=== PATIENT | male | born 1960 | race American Indian/Alaskan Native ===

== ENCOUNTER 2019-12-03 01:14 | Inpatient (IN) | payer MEDICARE, MEDICAID, OTHER ==
[2019-12-03] MEDS ORDERED: Albuterol/Ipratropium 3.0-0.5 MG/3 ML Neb Soln NEB ONE (01:46)
[2019-12-03] MEDS ORDERED: methylPREDNISolone Sodium Succinate 125 MG/2 ML SDV IVPUSH ONE (01:46)
[2019-12-03] MEDS: Sodium Chloride 0.9% 10 ML Syringe FLUSH PRN ×4 (01:57→17:36)
--- NOTE | 2019-12-03 02:04 | EDM.PDOC ---
ED HPI GENERAL MEDICAL PROBLEM - General Chief Complaint: Respiratory Problem Stated Complaint: HARD TIME BREATHING Time Seen by Provider: 12/03/19 01:45 Source of Information: Reports: Patient, Family, RN, RN Notes Reviewed History Limitations: Reports: No Limitations - History of Present Illness INITIAL COMMENTS - FREE TEXT/NARRATIVE: patient to ER with complaint of cough and shortness of breath. Patient states he was recently incarcerated, released from [facility] and in a [facility] house. Patient states he was given antibiotics while in the [facility] house for pneumonia , about 3 weeks ago. Patient states he has had a productive cough since that time, with having increased shortness of breath today. Patient states cough production is thick and white. Patient denies smoking. Patient is lethargic but arousable, patient and son states he took amitriptyline for sleep. Patient denies oxygen use at home. Patient denies fever or chills, nausea, vomiting, diarrhea. Patient denies any pain. Onset: Gradual - Related Data Allergies Allergy/AdvReac Type Severity Reaction Status Date / Time erythromycin base Allergy Cannot Verified 12/03/19 01:21 Remember Past Medical History Gastrointestinal History: Reports: GERD Musculoskeletal History: Reports: Arthritis, Fibromyalgia Neurological History: Reports: Neuropathy, Peripheral Dermatologic History: Reports: Psoriasis - Past Surgical History GI Surgical History: Reports: Colonoscopy Social & Family History - Family History Family Medical History: Noncontributory - Tobacco Use Smoking Status *Q: Never Smoker Second Hand Smoke Exposure: No - Caffeine Use Caffeine Use: Reports: Coffee - Recreational Drug Use Recreational Drug Use: No ED ROS GENERAL - Review of Systems Review Of Systems: Comprehensive ROS is negative, except as noted in HPI. ED EXAM, GENERAL - Physical Exam Exam: See Below Exam Limited By: No Limitations General Appearance: Lethargic, Moderate Distress Eye Exam: Bilateral Eye: EOMI, Normal Inspection Ears: Normal External Exam, Hearing Grossly Normal Nose: Normal Inspection Throat/Mouth: Normal Inspection, Normal Voice, No Airway Compromise Head: Atraumatic, Normocephalic Neck: Normal Inspection, Supple, Non-Tender, Full Range of Motion Respiratory/Chest: Decreased Breath Sounds, Crackles (throughout) Cardiovascular: Normal Peripheral Pulses, Regular Rate, Rhythm, No Edema, No Gallop, No JVD, No Murmur, No Rub Peripheral Pulses: 2+: Radial (L), Radial (R) GI/Abdominal: Normal Bowel Sounds, Soft, Non-Tender, Distended (Male) Exam: Deferred Rectal (Males) Exam: Deferred Back Exam: Normal Inspection, Full Range of Motion, NT Extremities: Normal Inspection, Normal Range of Motion, Non-Tender, Normal Capillary Refill, No Pedal Edema Neurological: Alert, Oriented, CN II-XII Intact, Normal Cognition, Normal Gait, Normal Reflexes, No Motor/Sensory Deficits, Other (patient is very lethargic, states he took amitriptylinebefore bed for sleep) Psychiatric: Normal Affect, Normal Mood Skin Exam: Warm, Dry, Intact, Normal Color, No Rash Lymphatic: No Adenopathy Course - Vital Signs Last Recorded V/S: Last Vital Signs Temp 98.8 F 12/03/19 01:24 Pulse 106 H 12/03/19 01:24 Resp 24 H 12/03/19 01:24 BP 129/78 12/03/19 01:24 Pulse Ox 95 12/03/19 01:24 - Orders/Labs/Meds Orders: Active Orders 24 hr Category Date Time Status Admission Diagnosis [ADT] Stat ADT 12/03/19 03:42 Ordered Patient Status [ADT] Routine ADT 12/03/19 03:42 Active Peripheral IV Care [RC] . DIRECTED Care 12/03/19 01:34 Active RT Aerosol Therapy [RC] ASDIRECTED Care 12/03/19 01:48 Active Chest 1V Frontal [CR] Stat Exams 12/03/19 01:34 Taken CULTURE BLOOD [BC] Stat Lab 12/03/19 01:33 Results CULTURE BLOOD [BC] Stat Lab 12/03/19 01:37 Received CULTURE URINE [RM] Stat Lab 12/03/19 02:17 Received Sodium Chloride 0.9% [Saline Flush] Med 12/03/19 01:32 Active 10 ml FLUSH ASDIRECTED PRN Blood Culture x2 Reflex Set [OM.PC] Stat Oth 12/03/19 01:34 Ordered Peripheral IV Insertion Adult [OM.PC] Stat Oth 12/03/19 01:32 Ordered Medication Orders Sodium Chloride (Saline Flush) 10 ml FLUSH ASDIRECTED PRN PRN Reason: Keep Vein Open Last Admin: 12/03/19 01:57 Dose: 10 ml Labs: Laboratory Tests 12/03/19 12/03/19 12/03/19 Range/Units 01:37 01:37 01:37 WBC 10.0 (5.0-10.0) 10^3/uL RBC 4.76 (4.6-6.2) 10^6/uL Hgb 14.7 (14.0-18.0) g/dL Hct 42.7 (40.0-54.0) % MCV 89.7 (80-100) fL MCH 30.9 (27.0-34.0) pg MCHC 34.4 (33.0-35.0) g/dL Plt Count 233 (150-450) 10^3/uL Neut % (Auto) 68.8 (42.2-75.2) % Lymph % (Auto) 18.1 L (20.5-50.1) % Hamilton % (Auto) 9.2 H (2-8) % Eos % (Auto) 3.3 H (1.0-3.0) % Baso % (Auto) 0.6 (0.0-1.0) % ABG pH (7.35-7.45) ABG pCO2 (35-45) mmHg ABG pO2 (70-100) mmHg ABG HCO3 (22-26) mmol/L ABG O2 Saturation (95-100) % ABG Base Excess ((-2)-(+3)) mmol/L Joss Test O2 Delivery Device Oxygen Flow Rate Sodium 137 (135-145) mmol/L Potassium 3.5 L (3.6-5.0) mmol/L Chloride 102 (101-111) mmol/L Carbon Dioxide 26.0 (21.0-31.0) mmol/L Anion Gap 12.5 BUN 17 (7-18) mg/dL Creatinine 1.1 (0.6-1.3) mg/dL Est Cr Clr Drug Dosing 70.82 mL/min Estimated GFR (MDRD) > 60 BUN/Creatinine Ratio 15.45 Glucose 237 H (74-105) mg/dL Lactic Acid 2.4 H* (0.5-2.0) mmol/L Calcium 9.0 (8.4-10.2) mg/dl Total Bilirubin 0.6 (0.2-1.0) mg/dL AST 28 (10-42) IU/L ALT 28 (10-60) IU/L Alkaline Phosphatase 95 (42-121) IU/L B-Natriuretic Peptide < 5 (0-100) pg/ml Total Protein 7.1 (6.7-8.2) g/dl Albumin 3.8 (3.2-5.5) g/dl Globulin 3.3 Albumin/Globulin Ratio 1.15 Urine Color (YELLOW) Urine Appearance (CLEAR) Urine pH (5.0-9.0) Ur Specific [place] (1.005-1.030) Urine Protein (NEGATIVE) Urine Glucose (UA) (NEGATIVE) Urine Ketones (NEGATIVE) Urine Occult Blood (NEGATIVE) Urine Nitrite (NEGATIVE) Urine Bilirubin (NEGATIVE) Urine Urobilinogen (0.2-1.0) mg/dL Ur Leukocyte Esterase (NEGATIVE) Urine RBC /HPF Urine WBC (0-5/HPF) /HPF Ur Epithelial Cells (NOT SEEN) /HPF Amorphous Sediment (NOT SEEN) /HPF Urine Bacteria (0-FEW/HPF) /HPF Urine Mucus (NOT SEEN) /LPF Urine Opiates Screen (NEGATIVE) Ur Oxycodone Screen (NEGATIVE) Urine Methadone Screen (NEGATIVE) Ur Barbiturates Screen (NEGATIVE) U Tricyclic Antidepress (NEGATIVE) Ur Phencyclidine Scrn (NEGATIVE) Ur Amphetamine Screen (NEGATIVE) U Methamphetamines Scrn (NEGATIVE) Urine MDMA Screen (NEGATIVE) U Benzodiazepines Scrn (NEGATIVE) Urine Cocaine Screen (NEGATIVE) U Marijuana (THC) Screen (NEGATIVE) Ethyl Alcohol mg/dL 12/03/19 12/03/19 12/03/19 Range/Units 01:37 02:17 02:17 WBC (5.0-10.0) 10^3/uL RBC (4.6-6.2) 10^6/uL Hgb (14.0-18.0) g/dL Hct (40.0-54.0) % MCV (80-100) fL MCH (27.0-34.0) pg MCHC (33.0-35.0) g/dL Plt Count (150-450) 10^3/uL Neut % (Auto) (42.2-75.2) % Lymph % (Auto) (20.5-50.1) % Hamilton % (Auto) (2-8) % Eos % (Auto) (1.0-3.0) % Baso % (Auto) (0.0-1.0) % ABG pH (7.35-7.45) ABG pCO2 (35-45) mmHg ABG pO2 (70-100) mmHg ABG HCO3 (22-26) mmol/L ABG O2 Saturation (95-100) % ABG Base Excess ((-2)-(+3)) mmol/L Joss Test O2 Delivery Device Oxygen Flow Rate Sodium (135-145) mmol/L Potassium (3.6-5.0) mmol/L Chloride (101-111) mmol/L Carbon Dioxide (21.0-31.0) mmol/L Anion Gap BUN (7-18) mg/dL Creatinine (0.6-1.3) mg/dL Est Cr Clr Drug Dosing mL/min Estimated GFR (MDRD) BUN/Creatinine Ratio Glucose (74-105) mg/dL Lactic Acid (0.5-2.0) mmol/L Calcium (8.4-10.2) mg/dl Total Bilirubin (0.2-1.0) mg/dL AST (10-42) IU/L ALT (10-60) IU/L Alkaline Phosphatase (42-121) IU/L B-Natriuretic Peptide (0-100) pg/ml Total Protein (6.7-8.2) g/dl Albumin (3.2-5.5) g/dl Globulin Albumin/Globulin Ratio Urine Color Yellow (YELLOW) Urine Appearance Slightly cloudy (CLEAR) Urine pH 5.5 (5.0-9.0) Ur Specific [place] 1.025 (1.005-1.030) Urine Protein Trace H (NEGATIVE) Urine Glucose (UA) Negative (NEGATIVE) Urine Ketones Negative (NEGATIVE) Urine Occult Blood Negative (NEGATIVE) Urine Nitrite Negative (NEGATIVE) Urine Bilirubin Negative (NEGATIVE) Urine Urobilinogen 1.0 (0.2-1.0) mg/dL Ur Leukocyte Esterase Trace H (NEGATIVE) Urine RBC 0-5 /HPF Urine WBC 10-20 H (0-5/HPF) /HPF Ur Epithelial Cells Few (NOT SEEN) /HPF Amorphous Sediment Few (NOT SEEN) /HPF Urine Bacteria Rare (0-FEW/HPF) /HPF Urine Mucus Moderate H (NOT SEEN) /LPF Urine Opiates Screen Negative (NEGATIVE) Ur Oxycodone Screen Negative (NEGATIVE) Urine Methadone Screen Negative (NEGATIVE) Ur Barbiturates Screen Negative (NEGATIVE) U Tricyclic Antidepress Positive H (NEGATIVE) Ur Phencyclidine Scrn Negative (NEGATIVE) Ur Amphetamine Screen Negative (NEGATIVE) U Methamphetamines Scrn Negative (NEGATIVE) Urine MDMA Screen Negative (NEGATIVE) U Benzodiazepines Scrn Negative (NEGATIVE) Urine Cocaine Screen Negative (NEGATIVE) U Marijuana (THC) Screen Negative (NEGATIVE) Ethyl Alcohol < 5 mg/dL 12/03/19 Range/Units 03:30 WBC (5.0-10.0) 10^3/uL RBC (4.6-6.2) 10^6/uL Hgb (14.0-18.0) g/dL Hct (40.0-54.0) % MCV (80-100) fL MCH (27.0-34.0) pg MCHC (33.0-35.0) g/dL Plt Count (150-450) 10^3/uL Neut % (Auto) (42.2-75.2) % Lymph % (Auto) (20.5-50.1) % [place] % (Auto) (2-8) % Eos % (Auto) (1.0-3.0) % Baso % (Auto) (0.0-1.0) % ABG pH 7.34 L (7.35-7.45) ABG pCO2 50 H (35-45) mmHg ABG pO2 70 (70-100) mmHg ABG HCO3 26.2 H (22-26) mmol/L ABG O2 Saturation 89 L (95-100) % ABG Base Excess 0 ((-2)-(+3)) mmol/L Joss Test pos O2 Delivery Device Nasal cannula Oxygen Flow Rate 2 Sodium (135-145) mmol/L Potassium (3.6-5.0) mmol/L Chloride (101-111) mmol/L Carbon Dioxide (21.0-31.0) mmol/L Anion Gap BUN (7-18) mg/dL Creatinine (0.6-1.3) mg/dL Est Cr Clr Drug Dosing mL/min Estimated GFR (MDRD) BUN/Creatinine Ratio Glucose (74-105) mg/dL Lactic Acid (0.5-2.0) mmol/L Calcium (8.4-10.2) mg/dl Total Bilirubin (0.2-1.0) mg/dL AST (10-42) IU/L ALT (10-60) IU/L Alkaline Phosphatase (42-121) IU/L B-Natriuretic Peptide (0-100) pg/ml Total Protein (6.7-8.2) g/dl Albumin (3.2-5.5) g/dl Globulin Albumin/Globulin Ratio Urine Color (YELLOW) Urine Appearance (CLEAR) Urine pH (5.0-9.0) Ur Specific [place] (1.005-1.030) Urine Protein (NEGATIVE) Urine Glucose (UA) (NEGATIVE) Urine Ketones (NEGATIVE) Urine Occult Blood (NEGATIVE) Urine Nitrite (NEGATIVE) Urine Bilirubin (NEGATIVE) Urine Urobilinogen (0.2-1.0) mg/dL Ur Leukocyte Esterase (NEGATIVE) Urine RBC /HPF Urine WBC (0-5/HPF) /HPF Ur Epithelial Cells (NOT SEEN) /HPF Amorphous Sediment (NOT SEEN) /HPF Urine Bacteria (0-FEW/HPF) /HPF Urine Mucus (NOT SEEN) /LPF Urine Opiates Screen (NEGATIVE) Ur Oxycodone Screen (NEGATIVE) Urine Methadone Screen (NEGATIVE) Ur Barbiturates Screen (NEGATIVE) U Tricyclic Antidepress (NEGATIVE) Ur Phencyclidine Scrn (NEGATIVE) Ur Amphetamine Screen (NEGATIVE) U Methamphetamines Scrn (NEGATIVE) Urine MDMA Screen (NEGATIVE) U Benzodiazepines Scrn (NEGATIVE) Urine Cocaine Screen (NEGATIVE) U Marijuana (THC) Screen (NEGATIVE) Ethyl Alcohol mg/dL influenza A: Negative Influenza B: Negative Meds: Medications Generic Name Dose Route Start Last Admin Trade Name Freq PRN Reason Stop Dose Admin Sodium Chloride 10 ml 12/03/19 01:32 12/03/19 01:57 Saline Flush FLUSH 10 ml ASDIRECTED PRN Administration Keep Vein Open Discontinued Medications Generic Name Dose Route Start Last Admin Trade Name Freq PRN Reason Stop Dose Admin Albuterol/Ipratropium 3 ml 12/03/19 01:46 12/03/19 01:56 Duoneb 3.0-0.5 Mg/3 Ml NEB 12/03/19 01:47 3 ml ONETIME ONE Administration Ceftriaxone Sodium 1 gm/ 50 mls @ 50 mls/hr 12/03/19 02:34 Sodium Chloride IV 12/03/19 03:33 ONETIME ONE Methylprednisolone Sodium Succinate 125 mg 12/03/19 01:46 12/03/19 01:56 Solu-Medrol IVPUSH 02/06/20 01:47 125 mg ONETIME ONE Administration - Radiology Interpretation Free Text/Narrative:: chest x-ray: FINDINGS: Lungs: Subsegmental atelectasis in the left lung base new since the prior study. Pleural space: Unremarkable. No pleural effusion. No pneumothorax. Heart/Mediastinum: Unremarkable. No cardiomegaly. Bones/joints: Unremarkable. IMPRESSION: New area of subsegmental atelectasis in the left lung base Thank you for allowing us to participate in the care of your patient. Dictated and Authenticated by: Caop Holbrook MD 12/03/2019 2:30 AM Central Time ([place] & [place]) See radiologist's report - Re-Assessments/Exams Free Text/Narrative Re-Assessment/Exam: 12/03/19 03:47 Discussed patient case with Dr. Hamilton who agreed to accept the patient for observation. Departure - Departure Time of Disposition: 03:48 Disposition: Refer to Observation Condition: Fair Clinical Impression: Pneumonia Qualifiers: Pneumonia type: due to unspecified organism Laterality: left Lung location: lower lobe of lung Qualified Code(s): J18.9 - Pneumonia, unspecified organism - Discharge Information *PRESCRIPTION DRUG MONITORING PROGRAM REVIEWED*: No *COPY OF PRESCRIPTION DRUG MONITORING REPORT IN PATIENT JLUIS: No Forms: ED Department Discharge Sepsis Event Note - Evaluation Sepsis Screening Result: No Definite Risk - Focused Exam Vital Signs: Vital Signs Temp Pulse Resp BP Pulse Ox Pulse Ox 12/03/19 01:24 98.8 F 106 H 24 H 129/78 88 L 95 Date Exam was Performed: 12/03/19 Time Exam was Performed: 03:47 - My Orders Last 24 Hours: My Active Orders 12/03/19 01:32 Sodium Chloride 0.9% [Saline Flush] 10 ml FLUSH ASDIRECTED PRN Peripheral IV Insertion Adult [OM.PC] Stat 12/03/19 01:33 CULTURE BLOOD [BC] Stat 12/03/19 01:34 Peripheral IV Care [RC] . DIRECTED Chest 1V Frontal [CR] Stat Blood Culture x2 Reflex Set [OM.PC] Stat 12/03/19 01:37 CULTURE BLOOD [BC] Stat 12/03/19 01:48 RT Aerosol Therapy [RC] ASDIRECTED 12/03/19 02:17 CULTURE URINE [RM] Stat 12/03/19 03:42 Admission Diagnosis [ADT] Stat Patient Status [ADT] Routine - Assessment/Plan Last 24 Hours: My Active Orders 12/03/19 01:32 Sodium Chloride 0.9% [Saline Flush] 10 ml FLUSH ASDIRECTED PRN Peripheral IV Insertion Adult [OM.PC] Stat 12/03/19 01:33 CULTURE BLOOD [BC] Stat 12/03/19 01:34 Peripheral IV Care [RC] . DIRECTED Chest 1V Frontal [CR] Stat Blood Culture x2 Reflex Set [OM.PC] Stat 12/03/19 01:37 CULTURE BLOOD [BC] Stat 12/03/19 01:48 RT Aerosol Therapy [RC] ASDIRECTED 12/03/19 02:17 CULTURE URINE [RM] Stat 12/03/19 03:42 Admission Diagnosis [ADT] Stat Patient Status [ADT] Routine
[2019-12-03 02:06] LABS: ANION GAP 12.5; CHLORIDE,CL 102 mmol/L (101-111); SODIUM,NA 137 mmol/L (135-145)
[2019-12-03] MEDS ORDERED: cefTRIAXone 1 GM in Sodium Chloride 0.9% 50 ML IV ONE (02:34)
[2019-12-03 03:37] LABS: BASE EXCESS ARTERIAL 0 mmol/L ((-2)-(+3)); BICARBONATE,ARTERIAL 26.2 mmol/L (22-26); O2 DELIVERY DEVICE NASAL CANNULA; O2 SATURATION ARTERIAL 89 % (95-100); PCO2 ARTERIAL 50 mmHg (35-45); PO2 ARTERIAL 70 mmHg (70-100)
[2019-12-03 03:40] LABS: ALLEN TEST pos; O2 FLOW RATE 2
--- NOTE | 2019-12-03 04:11 | PCM.HP ---
H&P History of Present Illness - General Date of Service: 12/03/19 Admit Problem/Dx: Admission Diagnosis/Problem Admission Diagnosis/Problem Pneumonia Source of Information: Patient, Family History Limitations: Reports: No Limitations - History of Present Illness Initial Comments - Free Text/Narative: Mr. Young is a 59-year-old male with past medical history significant for remote alcohol abuse who presented to the hospital for shortness of breath. Patient was recently diagnosed with pneumonia approximately 3 weeks ago. Patient left residential recently, and is in a assisted house. He was brought to the emergency room for further care. Patient and son provided history. Apparently patient did well after the initial treatment course, and was doing developed until 2 to 3 days ago when he started feeling not well again. Patient spent all day yesterday in bed sleeping. He also reported chills and night sweats, but he said that he never takes his temperature. He was brought into the emergency room for further care. In the ED, his white count was normal. Lactate was elevated at 2.4. Chest x-ray showed possible left lower lobe infiltrate, no evidence of pleural effusion. ABG showed pH of 7.34, PCO2 50, PO2 89 on 2 L nasal cannula. He was given breathing treatments, Solu-Medrol, ceftriaxone was brought in for further care. Patient was sleepy because he took amitriptyline last night. - Related Data Allergies/Adverse Reactions: Allergies Allergy/AdvReac Type Severity Reaction Status Date / Time erythromycin base Allergy Cannot Verified 12/03/19 03:59 Remember Past Medical History Gastrointestinal History: Reports: GERD Musculoskeletal History: Reports: Arthritis, Fibromyalgia Neurological History: Reports: Neuropathy, Peripheral Dermatologic History: Reports: Psoriasis - Past Surgical History GI Surgical History: Reports: Colonoscopy Social & Family History - Family History Family Medical History: Noncontributory - Tobacco Use Smoking Status *Q: Never Smoker Second Hand Smoke Exposure: No - Caffeine Use Caffeine Use: Reports: Coffee - Recreational Drug Use Recreational Drug Use: No H&P Review of Systems - Review of Systems: Review Of Systems: See Below General: Reports: Chills, Weakness Pulmonary: Reports: Wheezing, Cough Cardiovascular: Reports: No Symptoms Gastrointestinal: Reports: No Symptoms Genitourinary: Reports: No Symptoms Musculoskeletal: Reports: No Symptoms Exam - Exam Exam: See Below - Vital Signs Vital Signs: Last Vital Signs Temp 37.1 C 12/03/19 01:24 Pulse 106 H 12/03/19 01:24 Resp 24 H 12/03/19 01:24 BP 129/78 12/03/19 01:24 Pulse Ox 95 12/03/19 01:24 Weight: 131.542 kg - Exam General: Alert, Oriented, Cooperative HEENT: Conjunctiva Clear Lungs: Decreased Breath Sounds, Wheezing Cardiovascular: Regular Rate, Regular Rhythm GI/Abdominal Exam: Normal Bowel Sounds, Soft, Non-Tender Extremities: Normal Inspection, No Pedal Edema Skin: Warm, Dry, Intact Neuro Extensive - Mental Status: Alert, Oriented x3 Psychiatric: Alert, Normal Affect, Normal Mood - Patient Data Lab Results Last 24 hrs: Laboratory Results - last 24 hr 12/03/19 12/03/19 12/03/19 Range/Units 01:37 01:37 01:37 WBC 10.0 (5.0-10.0) 10^3/uL RBC 4.76 (4.6-6.2) 10^6/uL Hgb 14.7 (14.0-18.0) g/dL Hct 42.7 (40.0-54.0) % MCV 89.7 (80-100) fL MCH 30.9 (27.0-34.0) pg MCHC 34.4 (33.0-35.0) g/dL Plt Count 233 (150-450) 10^3/uL Neut % (Auto) 68.8 (42.2-75.2) % Lymph % (Auto) 18.1 L (20.5-50.1) % [place] % (Auto) 9.2 H (2-8) % Eos % (Auto) 3.3 H (1.0-3.0) % Baso % (Auto) 0.6 (0.0-1.0) % ABG pH (7.35-7.45) ABG pCO2 (35-45) mmHg ABG pO2 (70-100) mmHg ABG HCO3 (22-26) mmol/L ABG O2 Saturation (95-100) % ABG Base Excess ((-2)-(+3)) mmol/L Joss Test O2 Delivery Device Oxygen Flow Rate Sodium 137 (135-145) mmol/L Potassium 3.5 L (3.6-5.0) mmol/L Chloride 102 (101-111) mmol/L Carbon Dioxide 26.0 (21.0-31.0) mmol/L Anion Gap 12.5 BUN 17 (7-18) mg/dL Creatinine 1.1 (0.6-1.3) mg/dL Est Cr Clr Drug Dosing 70.82 mL/min Estimated GFR (MDRD) > 60 BUN/Creatinine Ratio 15.45 Glucose 237 H (74-105) mg/dL Lactic Acid 2.4 H* (0.5-2.0) mmol/L Calcium 9.0 (8.4-10.2) mg/dl Total Bilirubin 0.6 (0.2-1.0) mg/dL AST 28 (10-42) IU/L ALT 28 (10-60) IU/L Alkaline Phosphatase 95 (42-121) IU/L B-Natriuretic Peptide < 5 (0-100) pg/ml Total Protein 7.1 (6.7-8.2) g/dl Albumin 3.8 (3.2-5.5) g/dl Globulin 3.3 Albumin/Globulin Ratio 1.15 Urine Color (YELLOW) Urine Appearance (CLEAR) Urine pH (5.0-9.0) Ur Specific [place] (1.005-1.030) Urine Protein (NEGATIVE) Urine Glucose (UA) (NEGATIVE) Urine Ketones (NEGATIVE) Urine Occult Blood (NEGATIVE) Urine Nitrite (NEGATIVE) Urine Bilirubin (NEGATIVE) Urine Urobilinogen (0.2-1.0) mg/dL Ur Leukocyte Esterase (NEGATIVE) Urine RBC /HPF Urine WBC (0-5/HPF) /HPF Ur Epithelial Cells (NOT SEEN) /HPF Amorphous Sediment (NOT SEEN) /HPF Urine Bacteria (0-FEW/HPF) /HPF Urine Mucus (NOT SEEN) /LPF Urine Opiates Screen (NEGATIVE) Ur Oxycodone Screen (NEGATIVE) Urine Methadone Screen (NEGATIVE) Ur Barbiturates Screen (NEGATIVE) U Tricyclic Antidepress (NEGATIVE) Ur Phencyclidine Scrn (NEGATIVE) Ur Amphetamine Screen (NEGATIVE) U Methamphetamines Scrn (NEGATIVE) Urine MDMA Screen (NEGATIVE) U Benzodiazepines Scrn (NEGATIVE) Urine Cocaine Screen (NEGATIVE) U Marijuana (THC) Screen (NEGATIVE) Ethyl Alcohol mg/dL 12/03/19 12/03/19 12/03/19 Range/Units 01:37 02:17 02:17 WBC (5.0-10.0) 10^3/uL RBC (4.6-6.2) 10^6/uL Hgb (14.0-18.0) g/dL Hct (40.0-54.0) % MCV (80-100) fL MCH (27.0-34.0) pg MCHC (33.0-35.0) g/dL Plt Count (150-450) 10^3/uL Neut % (Auto) (42.2-75.2) % Lymph % (Auto) (20.5-50.1) % [place] % (Auto) (2-8) % Eos % (Auto) (1.0-3.0) % Baso % (Auto) (0.0-1.0) % ABG pH (7.35-7.45) ABG pCO2 (35-45) mmHg ABG pO2 (70-100) mmHg ABG HCO3 (22-26) mmol/L ABG O2 Saturation (95-100) % ABG Base Excess ((-2)-(+3)) mmol/L Joss Test O2 Delivery Device Oxygen Flow Rate Sodium (135-145) mmol/L Potassium (3.6-5.0) mmol/L Chloride (101-111) mmol/L Carbon Dioxide (21.0-31.0) mmol/L Anion Gap BUN (7-18) mg/dL Creatinine (0.6-1.3) mg/dL Est Cr Clr Drug Dosing mL/min Estimated GFR (MDRD) BUN/Creatinine Ratio Glucose (74-105) mg/dL Lactic Acid (0.5-2.0) mmol/L Calcium (8.4-10.2) mg/dl Total Bilirubin (0.2-1.0) mg/dL AST (10-42) IU/L ALT (10-60) IU/L Alkaline Phosphatase (42-121) IU/L B-Natriuretic Peptide (0-100) pg/ml Total Protein (6.7-8.2) g/dl Albumin (3.2-5.5) g/dl Globulin Albumin/Globulin Ratio Urine Color Yellow (YELLOW) Urine Appearance Slightly cloudy (CLEAR) Urine pH 5.5 (5.0-9.0) Ur Specific [place] 1.025 (1.005-1.030) Urine Protein Trace H (NEGATIVE) Urine Glucose (UA) Negative (NEGATIVE) Urine Ketones Negative (NEGATIVE) Urine Occult Blood Negative (NEGATIVE) Urine Nitrite Negative (NEGATIVE) Urine Bilirubin Negative (NEGATIVE) Urine Urobilinogen 1.0 (0.2-1.0) mg/dL Ur Leukocyte Esterase Trace H (NEGATIVE) Urine RBC 0-5 /HPF Urine WBC 10-20 H (0-5/HPF) /HPF Ur Epithelial Cells Few (NOT SEEN) /HPF Amorphous Sediment Few (NOT SEEN) /HPF Urine Bacteria Rare (0-FEW/HPF) /HPF Urine Mucus Moderate H (NOT SEEN) /LPF Urine Opiates Screen Negative (NEGATIVE) Ur Oxycodone Screen Negative (NEGATIVE) Urine Methadone Screen Negative (NEGATIVE) Ur Barbiturates Screen Negative (NEGATIVE) U Tricyclic Antidepress Positive H (NEGATIVE) Ur Phencyclidine Scrn Negative (NEGATIVE) Ur Amphetamine Screen Negative (NEGATIVE) U Methamphetamines Scrn Negative (NEGATIVE) Urine MDMA Screen Negative (NEGATIVE) U Benzodiazepines Scrn Negative (NEGATIVE) Urine Cocaine Screen Negative (NEGATIVE) U Marijuana (THC) Screen Negative (NEGATIVE) Ethyl Alcohol < 5 mg/dL 12/03/19 Range/Units 03:30 WBC (5.0-10.0) 10^3/uL RBC (4.6-6.2) 10^6/uL Hgb (14.0-18.0) g/dL Hct (40.0-54.0) % MCV (80-100) fL MCH (27.0-34.0) pg MCHC (33.0-35.0) g/dL Plt Count (150-450) 10^3/uL Neut % (Auto) (42.2-75.2) % Lymph % (Auto) (20.5-50.1) % [place] % (Auto) (2-8) % Eos % (Auto) (1.0-3.0) % Baso % (Auto) (0.0-1.0) % ABG pH 7.34 L (7.35-7.45) ABG pCO2 50 H (35-45) mmHg ABG pO2 70 (70-100) mmHg ABG HCO3 26.2 H (22-26) mmol/L ABG O2 Saturation 89 L (95-100) % ABG Base Excess 0 ((-2)-(+3)) mmol/L Joss Test pos O2 Delivery Device Nasal cannula Oxygen Flow Rate 2 Sodium (135-145) mmol/L Potassium (3.6-5.0) mmol/L Chloride (101-111) mmol/L Carbon Dioxide (21.0-31.0) mmol/L Anion Gap BUN (7-18) mg/dL Creatinine (0.6-1.3) mg/dL Est Cr Clr Drug Dosing mL/min Estimated GFR (MDRD) BUN/Creatinine Ratio Glucose (74-105) mg/dL Lactic Acid (0.5-2.0) mmol/L Calcium (8.4-10.2) mg/dl Total Bilirubin (0.2-1.0) mg/dL AST (10-42) IU/L ALT (10-60) IU/L Alkaline Phosphatase (42-121) IU/L B-Natriuretic Peptide (0-100) pg/ml Total Protein (6.7-8.2) g/dl Albumin (3.2-5.5) g/dl Globulin Albumin/Globulin Ratio Urine Color (YELLOW) Urine Appearance (CLEAR) Urine pH (5.0-9.0) Ur Specific [place] (1.005-1.030) Urine Protein (NEGATIVE) Urine Glucose (UA) (NEGATIVE) Urine Ketones (NEGATIVE) Urine Occult Blood (NEGATIVE) Urine Nitrite (NEGATIVE) Urine Bilirubin (NEGATIVE) Urine Urobilinogen (0.2-1.0) mg/dL Ur Leukocyte Esterase (NEGATIVE) Urine RBC /HPF Urine WBC (0-5/HPF) /HPF Ur Epithelial Cells (NOT SEEN) /HPF Amorphous Sediment (NOT SEEN) /HPF Urine Bacteria (0-FEW/HPF) /HPF Urine Mucus (NOT SEEN) /LPF Urine Opiates Screen (NEGATIVE) Ur Oxycodone Screen (NEGATIVE) Urine Methadone Screen (NEGATIVE) Ur Barbiturates Screen (NEGATIVE) U Tricyclic Antidepress (NEGATIVE) Ur Phencyclidine Scrn (NEGATIVE) Ur Amphetamine Screen (NEGATIVE) U Methamphetamines Scrn (NEGATIVE) Urine MDMA Screen (NEGATIVE) U Benzodiazepines Scrn (NEGATIVE) Urine Cocaine Screen (NEGATIVE) U Marijuana (THC) Screen (NEGATIVE) Ethyl Alcohol mg/dL Result Diagrams: 12/03/19 01:37 12/03/19 01:37 [place] Results Last 24 hrs: Microbiology 12/03/19 02:35 Influenza Type A Antigen Screen - Final Nasal, Unspecified NEGATIVE INFLUENZA A VIRUS AG REFERENCE RANGE: NEGATIVE Influenza Type B Antigen Screen - Final NEGATIVE INFLUENZA B VIRUS AG REFERENCE RANGE: NEGATIVE 12/03/19 01:33 Anaerobic Blood Culture - Final Blood - Venous Problem List Initiated/Reviewed/Updated: Yes Orders Last 24hrs: Active Orders 24 hr Category Date Time Status Admission Diagnosis [ADT] Stat ADT 12/03/19 03:42 Ordered Patient Status [ADT] Routine ADT 12/03/19 03:42 Active Patient Status [ADT] Routine ADT 12/03/19 03:56 Ordered Intake and Output [RC] QSHIFT Care 12/03/19 03:57 Ordered Oxygen Therapy [RC] PRN Care 12/03/19 03:56 Ordered Oxygen Therapy [RC] PRN Care 12/03/19 03:59 Ordered Peripheral IV Care [RC] . DIRECTED Care 12/03/19 01:34 Active RT Aerosol Therapy [RC] ASDIRECTED Care 12/03/19 01:48 Active RT Aerosol Therapy [RC] ASDIRECTED Care 12/03/19 03:58 Ordered Up With Assistance [RC] ASDIRECTED Care 12/03/19 03:56 Ordered VTE/DVT Education [RC] PER UNIT ROUTINE Care 12/03/19 03:56 Ordered VTE/DVT Education [RC] PER UNIT ROUTINE Care 12/03/19 03:59 Ordered Vital Signs [RC] Q4H Care 12/03/19 03:56 Ordered Vital Signs [RC] Q4H Care 12/03/19 03:59 Ordered Consistent Carbohydrate Diet [DIET] Diet 12/03/19 Breakfast Ordered Chest 1V Frontal [CR] Stat Exams 12/03/19 01:34 Taken BASIC METABOLIC PANEL,BMP [CHEM] AM Lab 12/03/19 05:11 Ordered BASIC METABOLIC PANEL,BMP [CHEM] AM Lab 12/04/19 05:11 Ordered BASIC METABOLIC PANEL,BMP [CHEM] AM Lab 12/05/19 05:11 Ordered CBC WITH AUTO DIFF [HEME] AM Lab 12/03/19 05:11 Ordered CBC WITH AUTO DIFF [HEME] AM Lab 12/04/19 05:11 Ordered CBC WITH AUTO DIFF [HEME] AM Lab 12/05/19 05:11 Ordered CULTURE BLOOD [BC] Stat Lab 12/03/19 01:33 Results CULTURE BLOOD [BC] Stat Lab 12/03/19 01:37 Received CULTURE URINE [RM] Stat Lab 12/03/19 02:17 Received MAGNESIUM [CHEM] AM Lab 12/03/19 05:11 Ordered MAGNESIUM [CHEM] AM Lab 12/04/19 05:11 Ordered MAGNESIUM [CHEM] AM Lab 12/05/19 05:11 Ordered MRSA BY PCR [RM] Routine Lab 12/03/19 04:06 Ordered STREP PNEUMONIAE ANTIGEN [MREF] Routine Lab 12/03/19 04:05 Ordered Acetaminophen [Tylenol] Med 12/03/19 03:56 Ordered 650 mg PO Q4H PRN Albuterol/Ipratropium [DuoNeb 3.0-0.5 MG/3 ML] Med 12/03/19 04:00 Ordered 3 ml NEB Q4H Heparin Sodium Med 12/03/19 06:00 Ordered 5,000 units SUBCUT Q8HR Piperacillin/Tazobactam [Zosyn] 3.375 gm Med 12/03/19 04:00 Ordered Sodium Chloride 0.9% [Normal Saline] 100 ml IV Q6H Sodium Chloride 0.9% [Saline Flush] Med 12/03/19 01:32 Active 10 ml FLUSH ASDIRECTED PRN methylPREDNISolone Sod Succ [Solu-MEDROL] Med 12/03/19 04:15 Ordered 40 mg IVPUSH Q8H Blood Culture x2 Reflex Set [OM.PC] Stat Oth 12/03/19 01:34 Ordered Peripheral IV Insertion Adult [OM.PC] Stat Oth 12/03/19 01:32 Ordered Resuscitation Status Routine Resus Stat 12/03/19 03:56 Ordered Medication Orders Acetaminophen (Tylenol) 650 mg PO Q4H PRN PRN Reason: Pain (Mild 1-3)/fever Albuterol/Ipratropium (Duoneb 3.0-0.5 Mg/3 Ml) 3 ml NEB Q4H [place] Heparin Sodium (Porcine) (Heparin Sodium) 5,000 units SUBCUT Q8HR [place] Piperacillin Sod/Tazobactam (Sod 3.375 gm/ Sodium Chloride) 100 mls @ 200 mls/ hr IV Q6H [place] Methylprednisolone Sodium Succinate (Solu-Medrol) 40 mg IVPUSH Q8H [place] Sodium Chloride (Saline Flush) 10 ml FLUSH ASDIRECTED PRN PRN Reason: Keep Vein Open Last Admin: 12/03/19 01:57 Dose: 10 ml Assessment/Plan Comment:: Acute hypoxic respiratory failure due to community-acquired pneumonia Patient failed outpatient therapy Please call to oxygen Start patient on IV Solu-Medrol, check strep pneumo antigen, MRSA swab Start patient on Zosyn Start patient on nebulizers Elevated glucose Patient likely has undiagnosed type 2 diabetes We will check hemoglobin A1c Depression Amitriptyline DVT prophylaxis Heparin
[2019-12-03] MEDS: Albuterol/Ipratropium 3.0-0.5 MG/3 ML Neb Soln NEB SCH ×5 (04:26→19:32)
[2019-12-03] MEDS: Piperacillin/Tazobactam 3.375 GM in Sodium Chloride 0.9% 100 ML IV SCH ×3 (04:52→17:36)
[2019-12-03] MEDS: Heparin Sodium 5,000 Units/ML Vial SUBCUT SCH ×4 (06:20→21:42)
[2019-12-03 06:55] LABS: ANION GAP 14.1; CHLORIDE,CL 101 mmol/L (101-111); SODIUM,NA 137 mmol/L (135-145)
[2019-12-03] MEDS ORDERED: Magnesium Sulfate/Water 2 GM in Premix Bag 1 BAG IV ONE ×2 (10:00→12:00)
[2019-12-03] MEDS: Gabapentin 300 MG Cap PO SCH ×3 (11:41→21:39)
[2019-12-03] MEDS: Aspirin 81 MG Tab.Chew PO SCH (11:42)
[2019-12-03] MEDS: Benzonatate 100 MG Cap PO PRN ×2 (11:42→21:40)
[2019-12-03] MEDS: methylPREDNISolone Sodium Succinate 40 MG/1 ML SDV IVPUSH SCH ×2 (11:42→17:32)
[2019-12-03] MEDS: Allopurinol 100 MG Tab PO SCH ×2 (11:42→21:38)
[2019-12-03] MEDS: Insulin Lispro 100 Units/ML 3 ML Vial SUBCUT SCH ×3 (12:09→21:41)
[2019-12-03] MEDS: Acetaminophen 325 MG Tab PO PRN ×2 (17:36→21:40)
[2019-12-03] MEDS: busPIRone 5 MG Tab PO SCH (21:38)
[2019-12-03] MEDS: Amitriptyline 25 MG Tab PO SCH (21:39)
[2019-12-03] MEDS: atorvaSTATin 20 MG Tab PO SCH (21:40)
[2019-12-04] MEDS: Piperacillin/Tazobactam 3.375 GM in Sodium Chloride 0.9% 100 ML IV SCH ×4 (00:08→17:51)
[2019-12-04] MEDS: Albuterol/Ipratropium 3.0-0.5 MG/3 ML Neb Soln NEB SCH ×6 (00:09→20:46)
[2019-12-04] MEDS: methylPREDNISolone Sodium Succinate 40 MG/1 ML SDV IVPUSH SCH ×3 (03:17→17:51)
[2019-12-04] MEDS: Heparin Sodium 5,000 Units/ML Vial SUBCUT SCH ×4 (06:10→22:06)
[2019-12-04] MEDS: Omeprazole 20 MG Cap.CR PO SCH (06:10)
[2019-12-04 06:52] LABS: ANION GAP 13.3; CHLORIDE,CL 102 mmol/L (101-111); SODIUM,NA 135 mmol/L (135-145)
[2019-12-04] MEDS: Insulin Lispro 100 Units/ML 3 ML Vial SUBCUT SCH ×4 (08:49→20:43)
[2019-12-04] MEDS: Allopurinol 100 MG Tab PO SCH ×2 (08:51→20:48)
[2019-12-04] MEDS: Aspirin 81 MG Tab.Chew PO SCH (08:51)
[2019-12-04] MEDS: busPIRone 5 MG Tab PO SCH ×2 (08:51→20:47)
[2019-12-04] MEDS: Gabapentin 300 MG Cap PO SCH ×3 (08:52→20:48)
[2019-12-04] MEDS: Sodium Chloride 0.9% 10 ML Syringe FLUSH PRN ×6 (08:52→18:45)
[2019-12-04] MEDS: Carboxymethylcellulose Sodium 1% Ophth Gel 0.4 ML UD EYEBOTH PRN (13:24)
--- NOTE | 2019-12-04 15:16 | PCM.PN ---
- General Info Date of Service: 12/04/19 Admission Dx/Problem (Free Text): Admission Diagnosis/Problem Admission Diagnosis/Problem Pneumonia Subjective Update: Patient is feeling better. He continues to require supplemental oxygen. He denies any nausea, vomiting, chest pain, change in bowel habits or urinary habits. Discussed with patient the need for outpatient sleep study given reported history of apneic episodes during the night, and patient body habitus. - Review of Systems General: Reports: No Symptoms Pulmonary: Reports: No Symptoms Cardiovascular: Reports: No Symptoms Gastrointestinal: Reports: No Symptoms Genitourinary: Reports: No Symptoms Musculoskeletal: Reports: Back Pain Neurological: Reports: No Symptoms Psychiatric: Reports: No Symptoms - Patient Data Vitals - Most Recent: Last Vital Signs Temp 36.6 C 12/04/19 12:00 Pulse 84 12/04/19 12:01 Resp 20 12/04/19 12:00 BP 118/70 12/04/19 12:00 Pulse Ox 92 L 12/04/19 12:00 Weight - Most Recent: 131.542 kg I&O - Last 24 Hours: Intake & Output 12/04/19 12/04/19 12/04/19 06:59 14:59 22:59 Intake Total 790 572 Output Total 1300 Balance -510 572 Lab Results Last 24 Hours: Laboratory Results - last 24 hr 12/03/19 12/03/19 12/03/19 Range/Units 01:37 16:56 20:59 WBC (5.0-10.0) 10^3/uL RBC (4.6-6.2) 10^6/uL Hgb (14.0-18.0) g/dL Hct (40.0-54.0) % MCV (80-100) fL MCH (27.0-34.0) pg MCHC (33.0-35.0) g/dL Plt Count (150-450) 10^3/uL Neut % (Auto) (42.2-75.2) % Lymph % (Auto) (20.5-50.1) % [place] % (Auto) (2-8) % Eos % (Auto) (1.0-3.0) % Baso % (Auto) (0.0-1.0) % Sodium (135-145) mmol/L Potassium (3.6-5.0) mmol/L Chloride (101-111) mmol/L Carbon Dioxide (21.0-31.0) mmol/L Anion Gap BUN (7-18) mg/dL Creatinine (0.6-1.3) mg/dL Est Cr Clr Drug Dosing mL/min Estimated GFR (MDRD) Glucose (74-105) mg/dL POC Glucose 286 H 289 H (70-105) mg/dl Estimat Average Glucose 180 mg/dl Hemoglobin A1c 7.9 H (4.4-6.3) % Calcium (8.4-10.2) mg/dl Magnesium (1.8-2.5) mg/dL 12/04/19 12/04/19 12/04/19 Range/Units 05:55 05:55 07:06 WBC 19.1 H (5.0-10.0) 10^3/uL RBC 4.42 L (4.6-6.2) 10^6/uL Hgb 13.6 L (14.0-18.0) g/dL Hct 40.3 (40.0-54.0) % MCV 91.2 (80-100) fL MCH 30.8 (27.0-34.0) pg MCHC 33.7 (33.0-35.0) g/dL Plt Count 205 (150-450) 10^3/uL Neut % (Auto) 90.8 H (42.2-75.2) % Lymph % (Auto) 4.6 L (20.5-50.1) % [place] % (Auto) 4.1 (2-8) % Eos % (Auto) 0.2 L (1.0-3.0) % Baso % (Auto) 0.3 (0.0-1.0) % Sodium 135 (135-145) mmol/L Potassium 4.3 (3.6-5.0) mmol/L Chloride 102 (101-111) mmol/L Carbon Dioxide 24.0 (21.0-31.0) mmol/L Anion Gap 13.3 BUN 22 H (7-18) mg/dL Creatinine 1.1 (0.6-1.3) mg/dL Est Cr Clr Drug Dosing 75.58 mL/min Estimated GFR (MDRD) > 60 Glucose 286 H (74-105) mg/dL POC Glucose 248 H (70-105) mg/dl Estimat Average Glucose mg/dl Hemoglobin A1c (4.4-6.3) % Calcium 8.4 (8.4-10.2) mg/dl Magnesium 2.2 (1.8-2.5) mg/dL 12/04/19 Range/Units 12:02 WBC (5.0-10.0) 10^3/uL RBC (4.6-6.2) 10^6/uL Hgb (14.0-18.0) g/dL Hct (40.0-54.0) % MCV (80-100) fL MCH (27.0-34.0) pg MCHC (33.0-35.0) g/dL Plt Count (150-450) 10^3/uL Neut % (Auto) (42.2-75.2) % Lymph % (Auto) (20.5-50.1) % [place] % (Auto) (2-8) % Eos % (Auto) (1.0-3.0) % Baso % (Auto) (0.0-1.0) % Sodium (135-145) mmol/L Potassium (3.6-5.0) mmol/L Chloride (101-111) mmol/L Carbon Dioxide (21.0-31.0) mmol/L Anion Gap BUN (7-18) mg/dL Creatinine (0.6-1.3) mg/dL Est Cr Clr Drug Dosing mL/min Estimated GFR (MDRD) Glucose (74-105) mg/dL POC Glucose 231 H (70-105) mg/dl Estimat Average Glucose mg/dl Hemoglobin A1c (4.4-6.3) % Calcium (8.4-10.2) mg/dl Magnesium (1.8-2.5) mg/dL [place] Results Last 24 Hours: Microbiology 12/03/19 02:17 Urine Culture - Preliminary Urine, Voided 12/03/19 02:17 Streptococcus pneumoniae Antigen (M - Final Urine 12/03/19 01:33 Aerobic Blood Culture - Preliminary Blood - Venous NO GROWTH AFTER 1 DAY Anaerobic Blood Culture - Final 12/03/19 01:37 Aerobic Blood Culture - Preliminary Blood - Venous - Lab Draw NO GROWTH AFTER 1 DAY Anaerobic Blood Culture - Preliminary NO GROWTH AFTER 1 DAY Med Orders - Current: Current Medications Acetaminophen (Tylenol) 650 mg PO Q4H PRN PRN Reason: Pain (Mild 1-3)/fever Last Admin: 12/03/19 21:40 Dose: 650 mg Albuterol/Ipratropium (Duoneb 3.0-0.5 Mg/3 Ml) 3 ml NEB Q4H [facility] Last Admin: 12/04/19 12:01 Dose: 3 ml Allopurinol (Zyloprim) 100 mg PO BID [facility] Last Admin: 12/04/19 08:51 Dose: 100 mg Amitriptyline HCl (Elavil) 200 mg PO BEDTIME [facility] Last Admin: 12/03/19 21:39 Dose: 200 mg Artificial Tears (Refresh Celluvisc) 1 each EYEBOTH ASDIRECTED PRN PRN Reason: Dry Eyes Last Admin: 12/04/19 13:24 Dose: 1 each Aspirin (Aspirin) 81 mg PO DAILY [facility] Last Admin: 12/04/19 08:51 Dose: 81 mg Atorvastatin Calcium (Lipitor) 20 mg PO BEDTIME [facility] Last Admin: 12/03/19 21:40 Dose: 20 mg Benzonatate (Tessalon Perles) 100 mg PO QID PRN PRN Reason: Cough Last Admin: 12/03/19 21:40 Dose: 100 mg Buspirone HCl (Buspar) 15 mg PO BID [facility] Last Admin: 12/04/19 08:51 Dose: 15 mg Gabapentin (Neurontin) 600 mg PO TID [facility] Last Admin: 12/04/19 15:11 Dose: 600 mg Heparin Sodium (Porcine) (Heparin Sodium) 5,000 units SUBCUT Q8HR [facility] Last Admin: 12/04/19 15:12 Dose: 5,000 units Piperacillin Sod/Tazobactam (Sod 3.375 gm/ Sodium Chloride) 100 mls @ 200 mls/ hr IV Q6H [facility] Last Infusion: 12/04/19 13:18 Dose: Infused Insulin Human Lispro (Humalog) 0 unit SUBCUT WITHMEALSANDBED [facility]; Protocol Last Admin: 12/04/19 12:42 Dose: 6 units Methylprednisolone Sodium Succinate (Solu-Medrol) 40 mg IVPUSH Q8H [facility] Last Admin: 12/04/19 10:02 Dose: 40 mg Omeprazole (Omeprazole) 40 mg PO ACBRK [facility] Last Admin: 12/04/19 06:10 Dose: 40 mg Pneumococcal Polyvalent Vaccine (Pneumovax 23) 0.5 ml SUBCUT .ONCE ONE Stop: 12/05/19 21:01 Sodium Chloride (Saline Flush) 10 ml FLUSH ASDIRECTED PRN PRN Reason: Keep Vein Open Last Admin: 12/04/19 13:19 Dose: 10 ml Discontinued Medications Albuterol/Ipratropium (Duoneb 3.0-0.5 Mg/3 Ml) 3 ml NEB ONETIME ONE Stop: 12/03/19 01:47 Last Admin: 12/03/19 01:56 Dose: 3 ml Ceftriaxone Sodium 1 gm/ (Sodium Chloride) 50 mls @ 50 mls/hr IV ONETIME ONE Stop: 12/03/19 03:33 Last Admin: 12/03/19 04:28 Dose: 50 mls/hr Piperacillin Sod/Tazobactam (Sod 3.375 gm/ Sodium Chloride) 100 mls @ 200 mls/ hr IV Q6H [place] Last Admin: 12/03/19 11:02 Dose: 200 mls/hr Magnesium Sulfate 2 gm/ Premix 50 mls @ 25 mls/hr IV ONETIME ONE Stop: 12/03/19 13:59 Last Infusion: 12/03/19 16:38 Dose: Infused Methylprednisolone Sodium Succinate (Solu-Medrol) 125 mg IVPUSH ONETIME ONE Stop: 12/03/19 01:47 Last Admin: 12/03/19 01:56 Dose: 125 mg - Exam General: Alert, Oriented Lungs: Clear to Auscultation, Normal Respiratory Effort Cardiovascular: Regular Rate, Regular Rhythm GI/Abdominal Exam: Normal Bowel Sounds, Soft, Non-Tender Extremities: No Pedal Edema, Other (Venous stasis changes of bilateral lower extremity) Skin: Warm, Dry, Intact Neurological: No New Focal Deficit Psy/Mental Status: Alert, Normal Affect, Normal Mood Sepsis Event Note - Evaluation Sepsis Screening Result: Sepsis Risk - Focused Exam Vital Signs: Vital Signs Temp Pulse Resp BP BP Pulse Ox Pulse Ox 12/04/19 12:01 84 12/04/19 12:00 36.6 C 114 H 20 118/70 92 L 12/04/19 08:00 100 17 129/78 93 L 12/04/19 07:26 102 H 12/04/19 04:00 36.9 C 99 18 133/85 96 12/04/19 03:56 96 Date Exam was Performed: 12/04/19 Time Exam was Performed: 15:16 - Problem List Review Problem List Initiated/Reviewed/Updated: Yes - My Orders Last 24 Hours: My Active Orders 12/03/19 18:00 Piperacillin/Tazobactam [Zosyn] 3.375 gm Sodium Chloride 0.9% [Normal Saline] 100 ml IV Q6H 12/03/19 21:00 Amitriptyline [Elavil] 200 mg PO BEDTIME atorvaSTATin [Lipitor] 20 mg PO BEDTIME busPIRone [Buspar] 15 mg PO BID 12/04/19 06:00 Omeprazole 40 mg PO ACBRK 12/04/19 07:11 Blood Glucose Check, Bedside [RC] QIDACANDBED 12/04/19 11:08 Carboxymethylcellulose Sodium [Refresh Celluvisc] 1 each EYEBOTH ASDIRECTED PRN 12/04/19 11:11 IS (RT) [RT Incentive Spirometry] [RC] ASDIRECTED 12/05/19 05:11 BASIC METABOLIC PANEL,BMP [CHEM] AM CBC WITH AUTO DIFF [HEME] AM MAGNESIUM [CHEM] AM 12/05/19 21:00 Pneumococcal Polyvalent-23 Vac [Pneumovax 23] 0.5 ml SUBCUT .ONCE ONE - Plan Plan:: Acute hypoxic respiratory failure due to community-acquired pneumonia Patient failed outpatient therapy Please call to oxygen Continue current management Awaiting final infectious work-up Elevated glucose Patient likely has undiagnosed type 2 diabetes Hemoglobin A1c was 7.9 will start patient on oral hypoglycemics on discharge continue SSI Depression Amitriptyline DVT prophylaxis Heparin
[2019-12-04] MEDS: Amitriptyline 25 MG Tab PO SCH (20:46)
[2019-12-04] MEDS: atorvaSTATin 20 MG Tab PO SCH (20:48)
[2019-12-05] MEDS: Piperacillin/Tazobactam 3.375 GM in Sodium Chloride 0.9% 100 ML IV SCH ×3 (00:10→12:15)
[2019-12-05] MEDS: Albuterol/Ipratropium 3.0-0.5 MG/3 ML Neb Soln NEB SCH ×4 (00:11→11:34)
[2019-12-05] MEDS: methylPREDNISolone Sodium Succinate 40 MG/1 ML SDV IVPUSH SCH (02:38)
[2019-12-05] MEDS: Omeprazole 20 MG Cap.CR PO SCH (06:14)
[2019-12-05] MEDS: Heparin Sodium 5,000 Units/ML Vial SUBCUT SCH ×2 (06:15→14:35)
[2019-12-05 06:43] LABS: ANION GAP 14.3; CHLORIDE,CL 103 mmol/L (101-111); SODIUM,NA 136 mmol/L (135-145)
[2019-12-05] MEDS: Sodium Chloride 0.9% 10 ML Syringe FLUSH PRN (06:59)
[2019-12-05] MEDS: Insulin Lispro 100 Units/ML 3 ML Vial SUBCUT SCH ×2 (08:44→12:24)
[2019-12-05] MEDS: Aspirin 81 MG Tab.Chew PO SCH (08:47)
[2019-12-05] MEDS: busPIRone 5 MG Tab PO SCH (08:48)
[2019-12-05] MEDS: Gabapentin 300 MG Cap PO SCH ×2 (08:48→14:35)
[2019-12-05] MEDS: Acetaminophen 325 MG Tab PO PRN (08:49)
[2019-12-05] MEDS: Allopurinol 100 MG Tab PO SCH (08:49)
[2019-12-05] MEDS: Carboxymethylcellulose Sodium 1% Ophth Gel 0.4 ML UD EYEBOTH PRN (08:50)
--- NOTE | 2019-12-05 10:26 | PCM.DCSUM1 ---
Discharge Summary - Hospital Course Free Text/Narrative:: Mr. Young is a 59-year-old male with past medical history significant for remote alcohol abuse who presented to the hospital for shortness of breath. Patient was recently diagnosed with pneumonia approximately 3 weeks ago. Patient left residential recently, and is in a [facility]. He was brought to the emergency room for further care. CXR showed left lower lobe pneumonia. He also had acute hypoxic respiratory failure on admission that later resolved. Patient improved, and was later discharged in stable condition. Outpatient sleep study was recommended as patient has witnessed apneic episodes by son, and also has body habitus concerning for underlying sleep apnea. - Discharge Data Discharge Date: 12/05/19 Discharge Disposition: Home, Self-Care 01 Condition: Stable - Referral to Home Health Primary Care Physician: PCP None - Discharge Plan *PRESCRIPTION DRUG MONITORING PROGRAM REVIEWED*: No *COPY OF PRESCRIPTION DRUG MONITORING REPORT IN PATIENT JLUIS: No Prescriptions/Med Rec: Amoxicillin/Clavulanate K [Augmentin 875-125 MG] 1 tab PO BID #10 tablet Benzonatate [Tessalon Perle] 100 mg PO TID PRN #30 capsule PRN Reason: Cough Home Medications: Home Meds Amitriptyline HCl 200 mg PO BEDTIME 12/03/19 [History] Aspirin 81 mg PO DAILY 12/03/19 [History] Cyclobenzaprine [Flexeril] 10 mg PO TID PRN 12/03/19 [History] Gabapentin [Neurontin] 600 mg PO TID 12/03/19 [History] Omeprazole 40 mg PO DAILY 12/03/19 [History] allopurinoL [Zyloprim] 100 mg PO BID 12/03/19 [History] atorvaSTATin [Lipitor] 20 mg PO BEDTIME 12/03/19 [History] busPIRone [Buspar] 15 mg PO BID 12/03/19 [History] Amoxicillin/Clavulanate K [Augmentin 875-125 MG] 1 tab PO BID #10 tablet [Rx] Benzonatate [Tessalon Perle] 100 mg PO TID PRN #30 capsule 12/05/19 [Rx] Patient Handouts: Amoxicillin; Clavulanic Acid tablets, Community-Acquired Pneumonia, Adult, Benzonatate capsules Referrals: PCP,Unobtain [Ordering Only Provider] - - Discharge Summary/Plan Comment DC Time >30 min.: Yes - General Info Date of Service: 12/05/19 Admission Dx/Problem (Free Text: Admission Diagnosis/Problem Admission Diagnosis/Problem Pneumonia Subjective Update: Patient feels well. He denies any complaints. - Review of Systems General: Reports: No Symptoms Pulmonary: Reports: No Symptoms Cardiovascular: Reports: No Symptoms Gastrointestinal: Reports: No Symptoms Genitourinary: Reports: No Symptoms - Patient Data Vitals - Most Recent: Last Vital Signs Temp 36.4 C 12/05/19 08:31 Pulse 93 12/05/19 08:00 Resp 27 H 12/05/19 08:00 BP 144/87 H 12/05/19 08:00 Pulse Ox 94 L 12/05/19 08:00 Weight - Most Recent: 131.542 kg I&O - Last 24 hours: Intake & Output 12/04/19 12/05/19 12/05/19 22:59 06:59 14:59 Intake Total 1755 645 Output Total 750 1000 Balance 1005 -355 Lab Results - Last 24 hrs: Laboratory Results - last 24 hr 12/04/19 12/04/19 12/04/19 Range/Units 12:02 16:49 20:36 WBC (5.0-10.0) 10^3/uL RBC (4.6-6.2) 10^6/uL Hgb (14.0-18.0) g/dL Hct (40.0-54.0) % MCV (80-100) fL MCH (27.0-34.0) pg MCHC (33.0-35.0) g/dL Plt Count (150-450) 10^3/uL Neut % (Auto) (42.2-75.2) % Lymph % (Auto) (20.5-50.1) % [place] % (Auto) (2-8) % Eos % (Auto) (1.0-3.0) % Baso % (Auto) (0.0-1.0) % Add Manual Diff Neutrophils % (Manual) (42-75) % Band Neutrophils % % Lymphocytes % (Manual) (20-50) % Monocytes % (Manual) (2-8) % Sodium (135-145) mmol/L Potassium (3.6-5.0) mmol/L Chloride (101-111) mmol/L Carbon Dioxide (21.0-31.0) mmol/L Anion Gap BUN (7-18) mg/dL Creatinine (0.6-1.3) mg/dL Est Cr Clr Drug Dosing mL/min Estimated GFR (MDRD) Glucose (74-105) mg/dL POC Glucose 231 H 234 H 232 H (70-105) mg/dl Calcium (8.4-10.2) mg/dl Magnesium (1.8-2.5) mg/dL 12/05/19 12/05/19 12/05/19 Range/Units 05:25 05:25 07:39 WBC 16.8 H (5.0-10.0) 10^3/uL RBC 4.56 L (4.6-6.2) 10^6/uL Hgb 14.0 (14.0-18.0) g/dL Hct 42.0 (40.0-54.0) % MCV 92.1 (80-100) fL MCH 30.7 (27.0-34.0) pg MCHC 33.3 (33.0-35.0) g/dL Plt Count 237 (150-450) 10^3/uL Neut % (Auto) 89.6 H (42.2-75.2) % Lymph % (Auto) 5.6 L (20.5-50.1) % [place] % (Auto) 4.6 (2-8) % Eos % (Auto) 0.0 L (1.0-3.0) % Baso % (Auto) 0.2 (0.0-1.0) % Add Manual Diff Yes Neutrophils % (Manual) 89 H (42-75) % Band Neutrophils % 4 % Lymphocytes % (Manual) 4 L (20-50) % Monocytes % (Manual) 3 (2-8) % Sodium 136 (135-145) mmol/L Potassium 4.3 (3.6-5.0) mmol/L Chloride 103 (101-111) mmol/L Carbon Dioxide 23.0 (21.0-31.0) mmol/L Anion Gap 14.3 BUN 25 H (7-18) mg/dL Creatinine 1.1 (0.6-1.3) mg/dL Est Cr Clr Drug Dosing 75.58 mL/min Estimated GFR (MDRD) > 60 Glucose 282 H (74-105) mg/dL POC Glucose 233 H (70-105) mg/dl Calcium 8.4 (8.4-10.2) mg/dl Magnesium 2.2 (1.8-2.5) mg/dL AYANA Results - Last 24 hrs: Microbiology 12/03/19 02:17 Urine Culture - Final Urine, Voided Serratia Marcescens Streptococcus Agalactiae Grp B 12/03/19 01:33 Aerobic Blood Culture - Preliminary Blood - Venous NO GROWTH AFTER 2 DAYS Anaerobic Blood Culture - Final 12/03/19 01:37 Aerobic Blood Culture - Preliminary Blood - Venous - Lab Draw NO GROWTH AFTER 2 DAYS Anaerobic Blood Culture - Preliminary NO GROWTH AFTER 2 DAYS 12/03/19 02:17 Streptococcus pneumoniae Antigen (M - Final Urine Med Orders - Current: Current Medications Acetaminophen (Tylenol) 650 mg PO Q4H PRN PRN Reason: Pain (Mild 1-3)/fever Last Admin: 12/05/19 08:49 Dose: 650 mg Albuterol/Ipratropium (Duoneb 3.0-0.5 Mg/3 Ml) 3 ml NEB Q4H [facility] Last Admin: 12/05/19 07:33 Dose: 3 ml Allopurinol (Zyloprim) 100 mg PO BID [facility] Last Admin: 12/05/19 08:49 Dose: 100 mg Amitriptyline HCl (Elavil) 200 mg PO BEDTIME [facility] Last Admin: 12/04/19 20:46 Dose: 200 mg Artificial Tears (Refresh Celluvisc) 1 each EYEBOTH ASDIRECTED PRN PRN Reason: Dry Eyes Last Admin: 12/05/19 08:50 Dose: 1 each Aspirin (Aspirin) 81 mg PO DAILY [facility] Last Admin: 12/05/19 08:47 Dose: 81 mg Atorvastatin Calcium (Lipitor) 20 mg PO BEDTIME [facility] Last Admin: 12/04/19 20:48 Dose: 20 mg Benzonatate (Tessalon Perles) 100 mg PO QID PRN PRN Reason: Cough Last Admin: 12/03/19 21:40 Dose: 100 mg Buspirone HCl (Buspar) 15 mg PO BID [facility] Last Admin: 12/05/19 08:48 Dose: 15 mg Gabapentin (Neurontin) 600 mg PO TID [facility] Last Admin: 12/05/19 08:48 Dose: 600 mg Heparin Sodium (Porcine) (Heparin Sodium) 5,000 units SUBCUT Q8HR [facility] Last Admin: 12/05/19 06:15 Dose: 5,000 units Piperacillin Sod/Tazobactam (Sod 3.375 gm/ Sodium Chloride) 100 mls @ 200 mls/ hr IV Q6H [facility] Last Infusion: 12/05/19 06:58 Dose: Infused Insulin Human Lispro (Humalog) 0 unit SUBCUT WITHMEALSANDBED [facility]; Protocol Last Admin: 12/05/19 08:44 Dose: 6 units Omeprazole (Omeprazole) 40 mg PO ACBRK [facility] Last Admin: 12/05/19 06:14 Dose: 40 mg Pneumococcal Polyvalent Vaccine (Pneumovax 23) 0.5 ml SUBCUT .ONCE ONE Stop: 12/05/19 21:01 Sodium Chloride (Saline Flush) 10 ml FLUSH ASDIRECTED PRN PRN Reason: Keep Vein Open Last Admin: 12/05/19 06:59 Dose: 10 ml Discontinued Medications Albuterol/Ipratropium (Duoneb 3.0-0.5 Mg/3 Ml) 3 ml NEB ONETIME ONE Stop: 12/03/19 01:47 Last Admin: 12/03/19 01:56 Dose: 3 ml Ceftriaxone Sodium 1 gm/ (Sodium Chloride) 50 mls @ 50 mls/hr IV ONETIME ONE Stop: 12/03/19 03:33 Last Admin: 12/03/19 04:28 Dose: 50 mls/hr Piperacillin Sod/Tazobactam (Sod 3.375 gm/ Sodium Chloride) 100 mls @ 200 mls/ hr IV Q6H [facility] Last Admin: 12/03/19 11:02 Dose: 200 mls/hr Magnesium Sulfate 2 gm/ Premix 50 mls @ 25 mls/hr IV ONETIME ONE Stop: 12/03/19 13:59 Last Infusion: 12/03/19 16:38 Dose: Infused Methylprednisolone Sodium Succinate (Solu-Medrol) 125 mg IVPUSH ONETIME ONE Stop: 12/03/19 01:47 Last Admin: 12/03/19 01:56 Dose: 125 mg Methylprednisolone Sodium Succinate (Solu-Medrol) 40 mg IVPUSH Q8H [facility] Last Admin: 12/05/19 02:38 Dose: 40 mg - Exam General: Reports: Alert, Oriented Lungs: Reports: Clear to Auscultation, Normal Respiratory Effort Cardiovascular: Reports: Regular Rate, Regular Rhythm GI/Abdominal Exam: Normal Bowel Sounds, Soft, Non-Tender, No Organomegaly Skin: Reports: Warm, Dry, Intact Neurological: Reports: No New Focal Deficit Psy/Mental Status: Reports: Alert, Normal Affect, Normal Mood
[2019-12-05] MEDS ORDERED: Amoxicillin/Clavulanate K 875-125 MG Tab ONE (12:09)
[2019-12-05] MEDS ORDERED: Amoxicillin/Clavulanate K 875-125 MG Tab PO ONE (13:04)
[2019-12-05] MEDS ORDERED: Pneumococcal Polyvalent-23 Vaccine 0.5 ML SDV SUBCUT ONE (21:00)
== END 2019-12-05 13:05 | disposition home or self-care (01) | DRG 193 ==
LOC: DL.ED 01:14 → DL.MS 03:42 → OBSVTOIN 03:56
PROVIDERS: ADMIT Internal Medicine; ATTEND Internal Medicine
DX: J18.9 Pneumonia, unspecified organism (principal); J96.01 Acute respiratory failure with hypoxia; F32.9 Major depressive disorder, single episode, unspecified; G47.30 Sleep apnea, unspecified; K21.9 Gastro-esophageal reflux disease without esophagitis; M79.7 Fibromyalgia; G62.9 Polyneuropathy, unspecified; L40.9 Psoriasis, unspecified; M19.90 Unspecified osteoarthritis, unspecified site; Z79.82 Long term (current) use of aspirin; Z79.899 Other long term (current) drug therapy; Z88.1 Allergy status to other antibiotic agents
CPT/HCPCS: 36415; 36600; 71045; 80053; 80305; 81001; 82803; 83036; 83605; 83880; 85025; 87040 ×2; 87086; 87088 ×2; 87186 ×2; 87804 ×2; 87899; 94640; G0480; J2930; 80048; 82962; 83735; 96374; 96375; 99284; 99285-25; A9270-GY; J0696; J1644; J1815; J2543; J2920; J3475; J7050; J7620-GY

== ENCOUNTER 2020-01-01 15:28 | Inpatient (IN) | payer MEDICARE, MEDICAID ==
[2020-01-01] MEDS ORDERED: Sodium Chloride 0.9% 10 ML Syringe FLUSH PRN ×3 (15:43→17:48)
[2020-01-01] MEDS ORDERED: methylPREDNISolone Sodium Succinate 125 MG/2 ML SDV IVPUSH ONE (15:44)
[2020-01-01] MEDS ORDERED: Albuterol/Ipratropium 3.0-0.5 MG/3 ML Neb Soln NEB ONE (15:44)
[2020-01-01 16:28] LABS: ANION GAP 13.8; CHLORIDE,CL 101 mmol/L (101-111); SODIUM,NA 137 mmol/L (135-145)
[2020-01-01] MEDS ORDERED: Sodium Chloride 0.9% 1,000 ML IV ONE (16:29)
--- NOTE | 2020-01-01 16:41 | EDM.PDOC ---
ED HPI GENERAL MEDICAL PROBLEM - General Chief Complaint: Respiratory Problem Stated Complaint: AMBULANCE Time Seen by Provider: 01/01/20 16:00 Source of Information: Reports: Patient, Old Records, RN, RN Notes Reviewed History Limitations: Reports: No Limitations - History of Present Illness INITIAL COMMENTS - FREE TEXT/NARRATIVE: Pt sent from [facility] via [facility] by Sonia Ch NP with report that pt presented to clinic with c/o fever, chills, cough, shortness of breath, and was found to have a LLL infiltrate on chest x-ray, and WBC 24,400 with oxygen saturations in the 80s. Pt states he was never sick [facility] in [facility] the [facility] 13 years, but he got out this year and has been diagnosed with pneumonia in 2019, 2019, and today. Pt denies history of smoking, asthma, TB, CHF, or cardiac disease. Onset: Unknown/Unsure Duration: Recurring Location: Reports: Chest Severity: Moderate Improves with: Reports: None Worsens with: Reports: None Associated Symptoms: Reports: No Other Symptoms Treatments PLACEMENT COORDINATOR: Reports: Other Medication(s) - Related Data Allergies Allergy/AdvReac Type Severity Reaction Status Date / Time erythromycin base Allergy Cannot Verified 12/03/19 03:59 Remember Home Meds: Home Meds Amitriptyline HCl 200 mg PO BEDTIME 12/03/19 [History] Aspirin 81 mg PO DAILY 12/03/19 [History] Cyclobenzaprine [Flexeril] 10 mg PO TID PRN 12/03/19 [History] Gabapentin [Neurontin] 600 mg PO TID 12/03/19 [History] Omeprazole 40 mg PO DAILY 12/03/19 [History] allopurinoL [Zyloprim] 100 mg PO BID 12/03/19 [History] atorvaSTATin [Lipitor] 20 mg PO BEDTIME 12/03/19 [History] busPIRone [Buspar] 15 mg PO BID 12/03/19 [History] Amoxicillin/Clavulanate K [Augmentin 875-125 MG] 1 tab PO BID #10 tablet [Rx] Benzonatate [Tessalon Perle] 100 mg PO TID PRN #30 capsule 12/05/19 [Rx] Past Medical History Respiratory History: Reports: Pneumonia, Recurrent Gastrointestinal History: Reports: GERD Musculoskeletal History: Reports: Arthritis, Fibromyalgia Neurological History: Reports: Neuropathy, Peripheral Endocrine/Metabolic History: Reports: Diabetes, Type II (Borderline), Obesity/ BMI 30+ Dermatologic History: Reports: Psoriasis - Past Surgical History GI Surgical History: Reports: Colonoscopy Social & Family History - Family History Family Medical History: Noncontributory - Tobacco Use Smoking Status *Q: Never Smoker - Caffeine Use Caffeine Use: Reports: Coffee - Alcohol Use Alcohol Use History: No - Living Situation & Occupation Living situation: Reports: Single ED ROS GENERAL - Review of Systems Review Of Systems: Comprehensive ROS is negative, except as noted in HPI. ED EXAM, GENERAL - Physical Exam Exam: See Below Exam Limited By: No Limitations General Appearance: Alert, No Apparent Distress, Obese, Other (Appears ill but non-toxic.) Eye Exam: Bilateral Eye: Normal Inspection Nose: Normal Inspection, Normal Mucosa, No Blood Throat/Mouth: Normal Inspection, Normal Lips, Normal Oropharynx, Normal Voice, No Airway Compromise Head: Atraumatic, Normocephalic Neck: Normal Inspection, Supple, Non-Tender, Full Range of Motion Respiratory/Chest: No Respiratory Distress, No Accessory Muscle Use, Decreased Breath Sounds, Rhonchi (Left base). No: Crackles, Rales, Wheezing, Stridor Cardiovascular: Regular Rate, Rhythm, No Edema, Tachycardia GI/Abdominal: Normal Bowel Sounds, Soft, Non-Tender, No Distention. No: Guarding, Rigid, Rebound Back Exam: Normal Inspection Extremities: Normal Range of Motion, Non-Tender, No Pedal Edema, Normal Capillary Refill, Other (Chronic appearing venous statis changes to B/L lower extremities.) Neurological: Alert, Oriented, CN II-XII Intact, Normal Cognition, Normal Gait, No Motor/Sensory Deficits Psychiatric: Normal Affect, Normal Mood Skin Exam: Warm, Dry, Intact, Normal Color, No Rash Course - Vital Signs Last Recorded V/S: Last Vital Signs Temp Pulse 110 H 01/01/20 15:57 Resp BP Pulse Ox - Orders/Labs/Meds Orders: Active Orders 24 hr Category Date Time Status Peripheral IV Care [RC] . DIRECTED Care 01/01/20 15:44 Active RT Aerosol Therapy [RC] ASDIRECTED Care 01/01/20 15:44 Active CULTURE BLOOD [BC] Stat Lab 01/01/20 15:56 Received CULTURE BLOOD [BC] Stat Lab 01/01/20 15:56 Results Levofloxacin/Dextrose 5%-Water [Levaquin in D5W 750 MG/ Med 01/01/20 16:59 Active 150 ML] 750 mg Premix Bag 1 bag IV ONETIME Sodium Chloride 0.9% [Normal Saline] 1,000 ml Med 01/01/20 16:29 Active IV .BOLUS Sodium Chloride 0.9% [Saline Flush] Med 01/01/20 15:43 Active 10 ml FLUSH ASDIRECTED PRN Blood Culture x2 Reflex Set [OM.PC] Stat Oth 01/01/20 15:43 Ordered Peripheral IV Insertion Adult [OM.PC] Stat Oth 01/01/20 15:43 Ordered Medication Orders Sodium Chloride (Normal Saline) 1,000 mls @ 999 mls/hr IV .BOLUS ONE Stop: 01/01/20 17:29 Last Admin: 01/01/20 16:43 Dose: 999 mls/hr Levofloxacin/Dextrose 750 mg/ (Premix) 150 mls @ 100 mls/hr IV ONETIME ONE Stop: 01/01/20 18:28 Sodium Chloride (Saline Flush) 10 ml FLUSH ASDIRECTED PRN PRN Reason: Keep Vein Open Last Admin: 01/01/20 16:43 Dose: 10 ml Labs: Laboratory Tests 01/01/20 01/01/20 01/01/20 Range/Units 15:56 15:56 15:56 WBC 24.2 H (5.0-10.0) 10^3/uL RBC 4.71 (4.6-6.2) 10^6/uL Hgb 14.5 (14.0-18.0) g/dL Hct 42.0 (40.0-54.0) % MCV 89.2 (80-100) fL MCH 30.8 (27.0-34.0) pg MCHC 34.5 (33.0-35.0) g/dL Plt Count 282 (150-450) 10^3/uL Neut % (Auto) 89.8 H (42.2-75.2) % Lymph % (Auto) 4.7 L (20.5-50.1) % [place] % (Auto) 5.1 (2-8) % Eos % (Auto) 0.2 L (1.0-3.0) % Baso % (Auto) 0.2 (0.0-1.0) % D-Dimer, Quantitative 809 H (0-400) ng/mL Sodium 137 (135-145) mmol/L Potassium 3.8 (3.6-5.0) mmol/L Chloride 101 (101-111) mmol/L Carbon Dioxide 26.0 (21.0-31.0) mmol/L Anion Gap 13.8 BUN 20 H (7-18) mg/dL Creatinine 0.9 (0.6-1.3) mg/dL Est Cr Clr Drug Dosing TNP Estimated GFR (MDRD) > 60 BUN/Creatinine Ratio 22.22 Glucose 152 H (74-105) mg/dL Lactic Acid (0.5-2.0) mmol/L Calcium 8.8 (8.4-10.2) mg/dl Total Bilirubin 0.9 (0.2-1.0) mg/dL AST 20 (10-42) IU/L ALT 25 (10-60) IU/L Alkaline Phosphatase 64 (42-121) IU/L B-Natriuretic Peptide 10 (0-100) pg/ml Total Protein 7.7 (6.7-8.2) g/dl Albumin 3.7 (3.2-5.5) g/dl Globulin 4.0 Albumin/Globulin Ratio 0.93 Urine Color (YELLOW) Urine Appearance (CLEAR) Urine pH (5.0-9.0) Ur Specific [place] (1.005-1.030) Urine Protein (NEGATIVE) Urine Glucose (UA) (NEGATIVE) Urine Ketones (NEGATIVE) Urine Occult Blood (NEGATIVE) Urine Nitrite (NEGATIVE) Urine Bilirubin (NEGATIVE) Urine Urobilinogen (0.2-1.0) mg/dL Ur Leukocyte Esterase (NEGATIVE) Urine RBC /HPF Urine WBC (0-5/HPF) /HPF Ur Epithelial Cells (NOT SEEN) /HPF Amorphous Sediment (NOT SEEN) /HPF Urine Bacteria (0-FEW/HPF) /HPF Urine Mucus (NOT SEEN) /LPF 01/01/20 01/01/20 Range/Units 15:56 16:30 WBC (5.0-10.0) 10^3/uL RBC (4.6-6.2) 10^6/uL Hgb (14.0-18.0) g/dL Hct (40.0-54.0) % MCV (80-100) fL MCH (27.0-34.0) pg MCHC (33.0-35.0) g/dL Plt Count (150-450) 10^3/uL Neut % (Auto) (42.2-75.2) % Lymph % (Auto) (20.5-50.1) % [place] % (Auto) (2-8) % Eos % (Auto) (1.0-3.0) % Baso % (Auto) (0.0-1.0) % D-Dimer, Quantitative (0-400) ng/mL Sodium (135-145) mmol/L Potassium (3.6-5.0) mmol/L Chloride (101-111) mmol/L Carbon Dioxide (21.0-31.0) mmol/L Anion Gap BUN (7-18) mg/dL Creatinine (0.6-1.3) mg/dL Est Cr Clr Drug Dosing Estimated GFR (MDRD) BUN/Creatinine Ratio Glucose (74-105) mg/dL Lactic Acid 1.9 (0.5-2.0) mmol/L Calcium (8.4-10.2) mg/dl Total Bilirubin (0.2-1.0) mg/dL AST (10-42) IU/L ALT (10-60) IU/L Alkaline Phosphatase (42-121) IU/L B-Natriuretic Peptide (0-100) pg/ml Total Protein (6.7-8.2) g/dl Albumin (3.2-5.5) g/dl Globulin Albumin/Globulin Ratio Urine Color Dark yellow (YELLOW) Urine Appearance Slightly cloudy (CLEAR) Urine pH 7.0 (5.0-9.0) Ur Specific [place] 1.020 (1.005-1.030) Urine Protein Trace H (NEGATIVE) Urine Glucose (UA) Negative (NEGATIVE) Urine Ketones Trace H (NEGATIVE) Urine Occult Blood Negative (NEGATIVE) Urine Nitrite Negative (NEGATIVE) Urine Bilirubin Negative (NEGATIVE) Urine Urobilinogen 1.0 (0.2-1.0) mg/dL Ur Leukocyte Esterase Negative (NEGATIVE) Urine RBC 0-5 /HPF Urine WBC 0-5 (0-5/HPF) /HPF Ur Epithelial Cells Few (NOT SEEN) /HPF Amorphous Sediment Rare (NOT SEEN) /HPF Urine Bacteria Rare (0-FEW/HPF) /HPF Urine Mucus Moderate H (NOT SEEN) /LPF Influenza A/B: negative Meds: Medications Generic Name Dose Route Start Last Admin Trade Name Freq PRN Reason Stop Dose Admin Sodium Chloride 1,000 mls @ 999 mls/hr 01/01/20 16:29 01/01/20 16:43 Normal Saline IV 01/01/20 17:29 999 mls/hr .BOLUS ONE Administration Levofloxacin/Dextrose 750 mg/ 150 mls @ 100 mls/hr 01/01/20 16:59 Premix IV 01/01/20 18:28 ONETIME ONE Sodium Chloride 10 ml 01/01/20 15:43 01/01/20 16:43 Saline Flush FLUSH 10 ml ASDIRECTED PRN Administration Keep Vein Open Discontinued Medications Generic Name Dose Route Start Last Admin Trade Name Freq PRN Reason Stop Dose Admin Albuterol/Ipratropium 3 ml 01/01/20 15:44 01/01/20 15:57 Duoneb 3.0-0.5 Mg/3 Ml NEB 01/01/20 15:45 3 ml ONETIME ONE Administration Methylprednisolone Sodium Succinate 125 mg 01/01/20 15:44 01/01/20 16:43 Solu-Medrol IVPUSH 01/01/20 15:45 125 mg ONETIME ONE Administration - Radiology Interpretation Free Text/Narrative:: CT Chest: LLL infiltrate per Rad. report. Departure - Departure Time of Disposition: 17:08 (Admitted to Dr. Pate) Disposition: Admitted As Inpatient 67 Condition: Fair, Serious Clinical Impression: Pneumonia Qualifiers: Pneumonia type: due to unspecified organism Laterality: left Lung location: lower lobe of lung Qualified Code(s): J18.9 - Pneumonia, unspecified organism - Discharge Information *PRESCRIPTION DRUG MONITORING PROGRAM REVIEWED*: Not Applicable *COPY OF PRESCRIPTION DRUG MONITORING REPORT IN PATIENT JLUIS: Not Applicable Forms: ED Department Discharge Sepsis Event Note - Focused Exam Vital Signs: Vital Signs Pulse 01/01/20 15:57 110 H Date Exam was Performed: 01/01/20 Time Exam was Performed: 17:07 - My Orders Last 24 Hours: My Active Orders 01/01/20 15:43 Sodium Chloride 0.9% [Saline Flush] 10 ml FLUSH ASDIRECTED PRN Blood Culture x2 Reflex Set [OM.PC] Stat Peripheral IV Insertion Adult [OM.PC] Stat 01/01/20 15:44 Peripheral IV Care [RC] . DIRECTED RT Aerosol Therapy [RC] ASDIRECTED 01/01/20 15:56 CULTURE BLOOD [BC] Stat CULTURE BLOOD [BC] Stat 01/01/20 16:29 Sodium Chloride 0.9% [Normal Saline] 1,000 ml IV .BOLUS 01/01/20 16:59 Levofloxacin/Dextrose 5%-Water [Levaquin in D5W 750 MG/150 ML] 750 mg Premix Bag 1 bag IV ONETIME - Assessment/Plan Last 24 Hours: My Active Orders 01/01/20 15:43 Sodium Chloride 0.9% [Saline Flush] 10 ml FLUSH ASDIRECTED PRN Blood Culture x2 Reflex Set [OM.PC] Stat Peripheral IV Insertion Adult [OM.PC] Stat 01/01/20 15:44 Peripheral IV Care [RC] . DIRECTED RT Aerosol Therapy [RC] ASDIRECTED 01/01/20 15:56 CULTURE BLOOD [BC] Stat CULTURE BLOOD [BC] Stat 01/01/20 16:29 Sodium Chloride 0.9% [Normal Saline] 1,000 ml IV .BOLUS 01/01/20 16:59 Levofloxacin/Dextrose 5%-Water [Levaquin in D5W 750 MG/150 ML] 750 mg Premix Bag 1 bag IV ONETIME
[2020-01-01] MEDS ORDERED: Levofloxacin/Dextrose 5%-Water 750 MG in Premix Bag 1 BAG IV ONE (16:59)
--- NOTE | 2020-01-01 17:05 | CT ---
EXAMINATION: Chest wo Cont SEX: Male AGE: 59 years CLINICAL HISTORY: 59-year-old incarcerated male with hypoxia and fever (WBC 24,200). "Subsegmental atelectasis left lung base" reported on chest radiograph 03 December 2019. Scan technique: Volume acquisition of data semiemergent unenhanced CT scan of the chest (bony thorax, lungs and mediastinum) obtained with patient lying supine on the Siemens multislice scanner [place], [place]. All data archived in the PACS system for storage, reformatting axial/sagittal/coronal planes and study. Interpretation: Abnormal. 1. *Asymmetric dense pneumonic like consolidation (infiltrate/atelectasis) left lower lobe. Clinical aspiration? Elevation of the ipsilateral hemidiaphragm. Underlying air bronchograms and small ipsilateral lymphadenopathy suggest bacterial pneumonitis. 2. No other focal lobar consolidation. No peripheral pleural-based wedge shaped infarcts or abnormal oligemia. No effusions. 3. Normal cardiac silhouette. No pericardial effusion. Normal caliber thoracic aorta. No aneurysm or dissection (unenhanced). 4. No lung mass or significant mediastinal lymphadenopathy. 5. Multilevel disc disease and chronic hypertrophic arthritic changes of the thoracic spine. 6. Unenhanced gallbladder, liver, stomach, spleen and pancreas unremarkable. CONCLUSION: Left lower lobe (LLL) pneumonia. No sign of heart failure, lung mass or other infiltrate/atelectasis.
[2020-01-01] MEDS ORDERED: Acetaminophen 325 MG Tab PO PRN (17:48)
[2020-01-01] MEDS ORDERED: Ondansetron 4 MG/2 ML SDV IV PRN (17:48)
[2020-01-01] MEDS ORDERED: Cyclobenzaprine 10 MG Tab PO PRN (17:51)
--- NOTE | 2020-01-01 18:16 | PCM.HP ---
H&P History of Present Illness - General Date of Service: 01/01/20 Admit Problem/Dx: Admission Diagnosis/Problem Admission Diagnosis/Problem Pneumonia Source of Information: Patient History Limitations: Reports: No Limitations - History of Present Illness Initial Comments - Free Text/Narative: 59 yo M with PMH of diabetes mellitus type 2, obesity, depression, who presents with cough, nausea, vomiting, fever of one day duration. Patient is a poor historian and is unable to clearly describe his symptoms and outline the chronology of symptoms. He presents to the ER unwell with one day history of fever, chills, cough productive of yellowish sputum, nausea and vomiting and pleuritic chest pain under the ribcage. He is a non smoker Has a history of incarceration Third episode of pneumonia this year HIV test in Jun 2019 was negative according to the patient In the ED, was tachycardic. Lab work showed leucocytosis. CT chest showed left lower lobe pneumonia. Associated Symptoms: Reports: Chest Pain, Cough, cough w sputum, Malaise, Nausea /Vomiting - Related Data Allergies/Adverse Reactions: Allergies Allergy/AdvReac Type Severity Reaction Status Date / Time erythromycin base Allergy Cannot Verified 01/01/20 17:28 Remember Home Medications: Home Meds Amitriptyline HCl 200 mg PO BEDTIME 12/03/19 [History] Aspirin 81 mg PO DAILY 12/03/19 [History] Cyclobenzaprine [Flexeril] 10 mg PO TID PRN 12/03/19 [History] Gabapentin [Neurontin] 600 mg PO TID 12/03/19 [History] Omeprazole 40 mg PO DAILY 12/03/19 [History] allopurinoL [Zyloprim] 100 mg PO BID 12/03/19 [History] atorvaSTATin [Lipitor] 20 mg PO BEDTIME 12/03/19 [History] busPIRone [Buspar] 15 mg PO BID 12/03/19 [History] Amoxicillin/Clavulanate K [Augmentin 875-125 MG] 1 tab PO BID #10 tablet [Rx] Benzonatate [Tessalon Perle] 100 mg PO TID PRN #30 capsule 12/05/19 [Rx] Past Medical History Respiratory History: Reports: Pneumonia, Recurrent Gastrointestinal History: Reports: GERD Musculoskeletal History: Reports: Arthritis, Fibromyalgia, Gout Neurological History: Reports: Neuropathy, Peripheral Endocrine/Metabolic History: Reports: Diabetes, Type II, Obesity/BMI 30+ Dermatologic History: Reports: Psoriasis - Past Surgical History GI Surgical History: Reports: Colonoscopy Social & Family History - Family History Family Medical History: Noncontributory - Tobacco Use Smoking Status *Q: Never Smoker - Caffeine Use Caffeine Use: Reports: Coffee - Recreational Drug Use Recreational Drug Use: No - Living Situation & Occupation Living situation: Reports: Single H&P Review of Systems - Review of Systems: Review Of Systems: See Below General: Reports: Fever, Chills HEENT: Reports: No Symptoms Pulmonary: Reports: Shortness of Breath, Pleuritic Chest Pain, Cough Cardiovascular: Reports: No Symptoms Gastrointestinal: Reports: Constipation Genitourinary: Reports: No Symptoms Musculoskeletal: Reports: No Symptoms Skin: Reports: No Symptoms Psychiatric: Reports: No Symptoms Neurological: Reports: No Symptoms Exam - Exam Exam: See Below - Vital Signs Vital Signs: Last Vital Signs Temp 37.4 C 01/01/20 17:27 Pulse 117 H 01/01/20 17:27 Resp 16 01/01/20 17:27 BP 114/72 01/01/20 17:27 Pulse Ox 88 L 01/01/20 17:27 Weight: 126.824 kg - Exam General: Alert, Oriented HEENT: Conjunctiva Clear, EACs Clear Neck: Supple, Trachea Midline Lungs: Crackles (left lower lobe crackles) Cardiovascular: Regular Rate, Regular Rhythm GI/Abdominal Exam: Normal Bowel Sounds, Soft, Non-Tender Extremities: Non-Tender, No Pedal Edema - Patient Data Lab Results Last 24 hrs: Laboratory Results - last 24 hr 01/01/20 01/01/20 01/01/20 Range/Units 15:56 15:56 15:56 WBC 24.2 H (5.0-10.0) 10^3/uL RBC 4.71 (4.6-6.2) 10^6/uL Hgb 14.5 (14.0-18.0) g/dL Hct 42.0 (40.0-54.0) % MCV 89.2 (80-100) fL MCH 30.8 (27.0-34.0) pg MCHC 34.5 (33.0-35.0) g/dL Plt Count 282 (150-450) 10^3/uL Neut % (Auto) 89.8 H (42.2-75.2) % Lymph % (Auto) 4.7 L (20.5-50.1) % [place] % (Auto) 5.1 (2-8) % Eos % (Auto) 0.2 L (1.0-3.0) % Baso % (Auto) 0.2 (0.0-1.0) % D-Dimer, Quantitative 809 H (0-400) ng/mL Sodium 137 (135-145) mmol/L Potassium 3.8 (3.6-5.0) mmol/L Chloride 101 (101-111) mmol/L Carbon Dioxide 26.0 (21.0-31.0) mmol/L Anion Gap 13.8 BUN 20 H (7-18) mg/dL Creatinine 0.9 (0.6-1.3) mg/dL Est Cr Clr Drug Dosing TNP Estimated GFR (MDRD) > 60 BUN/Creatinine Ratio 22.22 Glucose 152 H (74-105) mg/dL Lactic Acid (0.5-2.0) mmol/L Calcium 8.8 (8.4-10.2) mg/dl Total Bilirubin 0.9 (0.2-1.0) mg/dL AST 20 (10-42) IU/L ALT 25 (10-60) IU/L Alkaline Phosphatase 64 (42-121) IU/L B-Natriuretic Peptide 10 (0-100) pg/ml Total Protein 7.7 (6.7-8.2) g/dl Albumin 3.7 (3.2-5.5) g/dl Globulin 4.0 Albumin/Globulin Ratio 0.93 Urine Color (YELLOW) Urine Appearance (CLEAR) Urine pH (5.0-9.0) Ur Specific [employer] (1.005-1.030) Urine Protein (NEGATIVE) Urine Glucose (UA) (NEGATIVE) Urine Ketones (NEGATIVE) Urine Occult Blood (NEGATIVE) Urine Nitrite (NEGATIVE) Urine Bilirubin (NEGATIVE) Urine Urobilinogen (0.2-1.0) mg/dL Ur Leukocyte Esterase (NEGATIVE) Urine RBC /HPF Urine WBC (0-5/HPF) /HPF Ur Epithelial Cells (NOT SEEN) /HPF Amorphous Sediment (NOT SEEN) /HPF Urine Bacteria (0-FEW/HPF) /HPF Urine Mucus (NOT SEEN) /LPF 01/01/20 01/01/20 Range/Units 15:56 16:30 WBC (5.0-10.0) 10^3/uL RBC (4.6-6.2) 10^6/uL Hgb (14.0-18.0) g/dL Hct (40.0-54.0) % MCV (80-100) fL MCH (27.0-34.0) pg MCHC (33.0-35.0) g/dL Plt Count (150-450) 10^3/uL Neut % (Auto) (42.2-75.2) % Lymph % (Auto) (20.5-50.1) % [place] % (Auto) (2-8) % Eos % (Auto) (1.0-3.0) % Baso % (Auto) (0.0-1.0) % D-Dimer, Quantitative (0-400) ng/mL Sodium (135-145) mmol/L Potassium (3.6-5.0) mmol/L Chloride (101-111) mmol/L Carbon Dioxide (21.0-31.0) mmol/L Anion Gap BUN (7-18) mg/dL Creatinine (0.6-1.3) mg/dL Est Cr Clr Drug Dosing Estimated GFR (MDRD) BUN/Creatinine Ratio Glucose (74-105) mg/dL Lactic Acid 1.9 (0.5-2.0) mmol/L Calcium (8.4-10.2) mg/dl Total Bilirubin (0.2-1.0) mg/dL AST (10-42) IU/L ALT (10-60) IU/L Alkaline Phosphatase (42-121) IU/L B-Natriuretic Peptide (0-100) pg/ml Total Protein (6.7-8.2) g/dl Albumin (3.2-5.5) g/dl Globulin Albumin/Globulin Ratio Urine Color Dark yellow (YELLOW) Urine Appearance Slightly cloudy (CLEAR) Urine pH 7.0 (5.0-9.0) Ur Specific [employer] 1.020 (1.005-1.030) Urine Protein Trace H (NEGATIVE) Urine Glucose (UA) Negative (NEGATIVE) Urine Ketones Trace H (NEGATIVE) Urine Occult Blood Negative (NEGATIVE) Urine Nitrite Negative (NEGATIVE) Urine Bilirubin Negative (NEGATIVE) Urine Urobilinogen 1.0 (0.2-1.0) mg/dL Ur Leukocyte Esterase Negative (NEGATIVE) Urine RBC 0-5 /HPF Urine WBC 0-5 (0-5/HPF) /HPF Ur Epithelial Cells Few (NOT SEEN) /HPF Amorphous Sediment Rare (NOT SEEN) /HPF Urine Bacteria Rare (0-FEW/HPF) /HPF Urine Mucus Moderate H (NOT SEEN) /LPF Result Diagrams: 01/01/20 15:56 01/01/20 15:56 [place] Results Last 24 hrs: Microbiology 01/01/20 16:30 Influenza Type A Antigen Screen - Final Nasal, Unspecified NEGATIVE INFLUENZA A VIRUS AG REFERENCE RANGE: NEGATIVE Influenza Type B Antigen Screen - Final NEGATIVE INFLUENZA B VIRUS AG REFERENCE RANGE: NEGATIVE 01/01/20 15:56 Anaerobic Blood Culture - Final Blood - Venous - Lab Draw Problem List Initiated/Reviewed/Updated: Yes Orders Last 24hrs: Active Orders 24 hr Category Date Time Status Admission Diagnosis [ADT] Routine ADT 01/01/20 17:12 Ordered Patient Status [ADT] Routine ADT 01/01/20 17:49 Active Ambulate [RC] ASDIRECTED Care 01/01/20 17:49 Active Height and Weight [RC] DAILY Care 01/01/20 17:49 Active Oxygen Therapy [RC] PRN Care 01/01/20 17:49 Active Peripheral IV Care [RC] . DIRECTED Care 01/01/20 15:44 Active Peripheral IV Care [RC] . DIRECTED Care 01/01/20 17:49 Active RT Aerosol Therapy [RC] ASDIRECTED Care 01/01/20 15:44 Active Up With Assistance [RC] ASDIRECTED Care 01/01/20 17:49 Active VTE/DVT Education [RC] PER UNIT ROUTINE Care 01/01/20 17:49 Active Vital Signs [RC] Q4H Care 01/01/20 17:49 Active Regular Diet [DIET] Diet 01/01/20 Dinner Active BASIC METABOLIC PANEL,BMP [CHEM] AM Lab 01/02/20 05:11 Ordered BASIC METABOLIC PANEL,BMP [CHEM] AM Lab 01/03/20 05:11 Ordered BASIC METABOLIC PANEL,BMP [CHEM] AM Lab 01/04/20 05:11 Ordered CBC W/O DIFF,HEMOGRAM [HEME] AM Lab 01/02/20 05:11 Ordered CBC W/O DIFF,HEMOGRAM [HEME] AM Lab 01/03/20 05:11 Ordered CBC W/O DIFF,HEMOGRAM [HEME] AM Lab 01/04/20 05:11 Ordered CULTURE BLOOD [BC] Stat Lab 01/01/20 15:56 Received CULTURE BLOOD [BC] Stat Lab 01/01/20 15:56 Results MAGNESIUM [CHEM] AM Lab 01/02/20 05:11 Ordered MAGNESIUM [CHEM] AM Lab 01/03/20 05:11 Ordered MAGNESIUM [CHEM] AM Lab 01/04/20 05:11 Ordered PHOSPHORUS [CHEM] AM Lab 01/02/20 05:11 Ordered PHOSPHORUS [CHEM] AM Lab 01/03/20 05:11 Ordered PHOSPHORUS [CHEM] AM Lab 01/04/20 05:11 Ordered Acetaminophen [Tylenol] Med 01/01/20 17:48 Active 650 mg PO Q4H PRN Amitriptyline HCl [Amitriptyline HCl] Med 01/01/20 21:00 Ordered 200 mg PO BEDTIME Aspirin Med 01/02/20 09:00 Ordered 81 mg PO DAILY Cyclobenzaprine [Flexeril] Med 01/01/20 17:51 Ordered 10 mg PO TID PRN Enoxaparin [Lovenox] Med 01/01/20 18:00 Ordered 40 mg SUBCUT DAILY Gabapentin Med 01/01/20 21:00 Ordered 600 mg PO TID Levofloxacin/Dextrose 5%-Water [Levaquin in D5W 750 MG/ Med 01/01/20 16:59 Active 150 ML] 750 mg Premix Bag 1 bag IV ONETIME Levofloxacin/Dextrose 5%-Water [Levaquin in D5W 750 MG/ Med 01/02/20 06:00 Ordered 150 ML] 750 mg Premix Bag 1 bag IV Q24H Omeprazole [Omeprazole] Med 01/02/20 09:00 Ordered 40 mg PO DAILY Ondansetron [Zofran] Med 01/01/20 17:48 Active 4 mg IV Q4H PRN Sodium Chloride 0.9% [Normal Saline] 1,000 ml Med 01/01/20 18:00 Active IV ASDIRECTED Sodium Chloride 0.9% [Saline Flush] Med 01/01/20 15:43 Active 10 ml FLUSH ASDIRECTED PRN Sodium Chloride 0.9% [Saline Flush] Med 01/01/20 17:48 Active 10 ml FLUSH ASDIRECTED PRN Sodium Chloride 0.9% [Saline Flush] Med 01/01/20 17:48 Active 10 ml FLUSH ASDIRECTED PRN allopurinoL [Zyloprim] Med 01/01/20 21:00 Ordered 100 mg PO BID atorvaSTATin [Lipitor] Med 01/01/20 21:00 Ordered 20 mg PO BEDTIME busPIRone [Buspar] Med 01/01/20 21:00 Ordered 15 mg PO BID Blood Culture x2 Reflex Set [OM.PC] Stat Oth 01/01/20 15:43 Ordered Peripheral IV Insertion Adult [OM.PC] Routine Oth 01/01/20 17:49 Ordered Peripheral IV Insertion Adult [OM.PC] Stat Oth 01/01/20 15:43 Ordered Saline Lock Insert [OM.PC] Routine Oth 01/01/20 17:49 Ordered Resuscitation Status Routine Resus Stat 01/01/20 17:48 Ordered Medication Orders Acetaminophen (Tylenol) 650 mg PO Q4H PRN PRN Reason: Pain/Fever Allopurinol (Zyloprim) 100 mg PO BID [facility] Aspirin (Aspirin) 81 mg PO DAILY [facility] Atorvastatin Calcium (Lipitor) 20 mg PO BEDTIME [place] Cyclobenzaprine HCl (Flexeril) 10 mg PO TID PRN PRN Reason: Pain Enoxaparin Sodium (Lovenox) 40 mg SUBCUT DAILY [facility] Levofloxacin/Dextrose 750 mg/ (Premix) 150 mls @ 100 mls/hr IV ONETIME ONE Stop: 01/01/20 18:28 Last Admin: 01/01/20 17:45 Dose: 100 mls/hr Sodium Chloride (Normal Saline) 1,000 mls @ 100 mls/hr IV ASDIRECTED [place] Levofloxacin/Dextrose 750 mg/ (Premix) 150 mls @ 100 mls/hr IV Q24H [place] Non-Formulary Medication (Amitriptyline Hcl [Amitriptyline Hcl]) 200 mg PO BEDTIME [place] Non-Formulary Medication (Buspirone [Buspar]) 15 mg PO BID [place] Non-Formulary Medication (Gabapentin) 600 mg PO TID [place] Non-Formulary Medication (Omeprazole [Omeprazole]) 40 mg PO DAILY [facility] Ondansetron HCl (Zofran) 4 mg IV Q4H PRN PRN Reason: Nausea/Vomiting Sodium Chloride (Saline Flush) 10 ml FLUSH ASDIRECTED PRN PRN Reason: Keep Vein Open Last Admin: 01/01/20 16:43 Dose: 10 ml Sodium Chloride (Saline Flush) 10 ml FLUSH ASDIRECTED PRN PRN Reason: Keep Vein Open Sodium Chloride (Saline Flush) 10 ml FLUSH ASDIRECTED PRN PRN Reason: Keep Vein Open Assessment/Plan Comment:: Sepsis: leucocytosis, tachycardia Left lower lobe pneumonia Recurrent pneumonia -CT chest showed left lower lobe pneumonia -HIV test in Jun 2019 was negative per patient -IVF hydration -IV levofloxacin -monitor vital signs -will recommend o/p follow up with ID on discharge for further work up on immunosuppression/recurrent pneumonia Type 2 DM -HbA1c during last admission was 7.9% -DM counseling -ISS, accu checks TID ac and hs -carb controlled diet -will plan to discharge on metformin Hx of depression continue home meds. DVT ppx SC lovenox Code status FC
[2020-01-01] MEDS: Sodium Chloride 0.9% 1,000 ML IV SCH (19:34)
[2020-01-01] MEDS: Enoxaparin 40 MG/0.4 ML Syringe SUBCUT SCH (20:59)
[2020-01-01] MEDS: Polyethylene Glycol 3350 Powder 17 GM Packet PO SCH (21:00)
[2020-01-01] MEDS: Amitriptyline 25 MG Tab PO SCH (21:01)
[2020-01-01] MEDS: busPIRone 5 MG Tab PO SCH (21:01)
[2020-01-01] MEDS: Gabapentin 300 MG Cap PO SCH ×2 (21:02→21:04)
[2020-01-01] MEDS: Psyllium 0.52 GM Cap PO SCH (21:02)
[2020-01-01] MEDS: Allopurinol 100 MG Tab PO SCH (21:02)
[2020-01-01] MEDS: atorvaSTATin 20 MG Tab PO SCH (21:02)
[2020-01-01] MEDS: Insulin Lispro 100 Units/ML 3 ML Vial SUBCUT SCH (21:11)
[2020-01-02] MEDS: Omeprazole 20 MG Cap.CR PO SCH (05:46)
[2020-01-02] MEDS: Sodium Chloride 0.9% 1,000 ML IV SCH ×2 (05:48→16:52)
[2020-01-02 06:53] LABS: CHLORIDE,CL 105 mmol/L (101-111); SODIUM,NA 136 mmol/L (135-145)
[2020-01-02] MEDS: Insulin Lispro 100 Units/ML 3 ML Vial SUBCUT SCH ×4 (09:13→21:00)
[2020-01-02] MEDS: Enoxaparin 40 MG/0.4 ML Syringe SUBCUT SCH (09:16)
[2020-01-02] MEDS: Gabapentin 300 MG Cap PO SCH ×3 (09:17→20:59)
[2020-01-02] MEDS: busPIRone 5 MG Tab PO SCH ×2 (09:18→21:00)
[2020-01-02] MEDS: Aspirin 81 MG Tab.Chew PO SCH (09:18)
[2020-01-02] MEDS: Polyethylene Glycol 3350 Powder 17 GM Packet PO SCH (09:19)
[2020-01-02] MEDS: Allopurinol 100 MG Tab PO SCH ×2 (09:19→21:00)
[2020-01-02] MEDS ORDERED: Pneumococcal Polyvalent-23 Vaccine 0.5 ML SDV IM ONE (10:00)
--- NOTE | 2020-01-02 10:21 | PCM.PN ---
- General Info Date of Service: 01/02/20 Admission Dx/Problem (Free Text): Admission Diagnosis/Problem Admission Diagnosis/Problem Pneumonia Subjective Update: I saw and examined the patient at the bedside. He feels better today Still coughing with phlegm production No fever, no nausea or vomiting Oxygen req are reduced, down to 1L NC - Review of Systems General: Denies: Fever HEENT: Reports: No Symptoms Pulmonary: Reports: Cough, Sputum Cardiovascular: Reports: No Symptoms Gastrointestinal: Reports: No Symptoms Genitourinary: Reports: No Symptoms Musculoskeletal: Reports: No Symptoms Skin: Reports: No Symptoms Neurological: Reports: No Symptoms - Patient Data Vitals - Most Recent: Last Vital Signs Temp 36.6 C 01/02/20 07:20 Pulse 96 01/02/20 07:20 Resp 22 H 01/02/20 07:20 BP 122/72 01/02/20 07:20 Pulse Ox 90 L 01/02/20 07:20 Weight - Most Recent: 128.276 kg I&O - Last 24 Hours: Intake & Output 01/01/20 01/02/20 01/02/20 22:59 06:59 14:59 Intake Total 2108 Balance 2108 Lab Results Last 24 Hours: Laboratory Results - last 24 hr 01/01/20 01/01/20 01/01/20 Range/Units 15:56 15:56 15:56 WBC 24.2 H (5.0-10.0) 10^3/uL RBC 4.71 (4.6-6.2) 10^6/uL Hgb 14.5 (14.0-18.0) g/dL Hct 42.0 (40.0-54.0) % MCV 89.2 (80-100) fL MCH 30.8 (27.0-34.0) pg MCHC 34.5 (33.0-35.0) g/dL Plt Count 282 (150-450) 10^3/uL Neut % (Auto) 89.8 H (42.2-75.2) % Lymph % (Auto) 4.7 L (20.5-50.1) % [place] % (Auto) 5.1 (2-8) % Eos % (Auto) 0.2 L (1.0-3.0) % Baso % (Auto) 0.2 (0.0-1.0) % D-Dimer, Quantitative 809 H (0-400) ng/mL Sodium 137 (135-145) mmol/L Potassium 3.8 (3.6-5.0) mmol/L Chloride 101 (101-111) mmol/L Carbon Dioxide 26.0 (21.0-31.0) mmol/L Anion Gap 13.8 BUN 20 H (7-18) mg/dL Creatinine 0.9 (0.6-1.3) mg/dL Est Cr Clr Drug Dosing TNP Estimated GFR (MDRD) > 60 BUN/Creatinine Ratio 22.22 Glucose 152 H (74-105) mg/dL POC Glucose (70-105) mg/dl Lactic Acid (0.5-2.0) mmol/L Calcium 8.8 (8.4-10.2) mg/dl Phosphorus (2.5-4.6) mg/dL Magnesium (1.8-2.5) mg/dL Total Bilirubin 0.9 (0.2-1.0) mg/dL AST 20 (10-42) IU/L ALT 25 (10-60) IU/L Alkaline Phosphatase 64 (42-121) IU/L B-Natriuretic Peptide 10 (0-100) pg/ml Total Protein 7.7 (6.7-8.2) g/dl Albumin 3.7 (3.2-5.5) g/dl Globulin 4.0 Albumin/Globulin Ratio 0.93 Urine Color (YELLOW) Urine Appearance (CLEAR) Urine pH (5.0-9.0) Ur Specific [place] (1.005-1.030) Urine Protein (NEGATIVE) Urine Glucose (UA) (NEGATIVE) Urine Ketones (NEGATIVE) Urine Occult Blood (NEGATIVE) Urine Nitrite (NEGATIVE) Urine Bilirubin (NEGATIVE) Urine Urobilinogen (0.2-1.0) mg/dL Ur Leukocyte Esterase (NEGATIVE) Urine RBC /HPF Urine WBC (0-5/HPF) /HPF Ur Epithelial Cells (NOT SEEN) /HPF Amorphous Sediment (NOT SEEN) /HPF Urine Bacteria (0-FEW/HPF) /HPF Urine Mucus (NOT SEEN) /LPF 01/01/20 01/01/20 01/01/20 Range/Units 15:56 16:30 21:10 WBC (5.0-10.0) 10^3/uL RBC (4.6-6.2) 10^6/uL Hgb (14.0-18.0) g/dL Hct (40.0-54.0) % MCV (80-100) fL MCH (27.0-34.0) pg MCHC (33.0-35.0) g/dL Plt Count (150-450) 10^3/uL Neut % (Auto) (42.2-75.2) % Lymph % (Auto) (20.5-50.1) % [place] % (Auto) (2-8) % Eos % (Auto) (1.0-3.0) % Baso % (Auto) (0.0-1.0) % D-Dimer, Quantitative (0-400) ng/mL Sodium (135-145) mmol/L Potassium (3.6-5.0) mmol/L Chloride (101-111) mmol/L Carbon Dioxide (21.0-31.0) mmol/L Anion Gap BUN (7-18) mg/dL Creatinine (0.6-1.3) mg/dL Est Cr Clr Drug Dosing Estimated GFR (MDRD) BUN/Creatinine Ratio Glucose (74-105) mg/dL POC Glucose 232 H (70-105) mg/dl Lactic Acid 1.9 (0.5-2.0) mmol/L Calcium (8.4-10.2) mg/dl Phosphorus (2.5-4.6) mg/dL Magnesium (1.8-2.5) mg/dL Total Bilirubin (0.2-1.0) mg/dL AST (10-42) IU/L ALT (10-60) IU/L Alkaline Phosphatase (42-121) IU/L B-Natriuretic Peptide (0-100) pg/ml Total Protein (6.7-8.2) g/dl Albumin (3.2-5.5) g/dl Globulin Albumin/Globulin Ratio Urine Color Dark yellow (YELLOW) Urine Appearance Slightly cloudy (CLEAR) Urine pH 7.0 (5.0-9.0) Ur Specific [place] 1.020 (1.005-1.030) Urine Protein Trace H (NEGATIVE) Urine Glucose (UA) Negative (NEGATIVE) Urine Ketones Trace H (NEGATIVE) Urine Occult Blood Negative (NEGATIVE) Urine Nitrite Negative (NEGATIVE) Urine Bilirubin Negative (NEGATIVE) Urine Urobilinogen 1.0 (0.2-1.0) mg/dL Ur Leukocyte Esterase Negative (NEGATIVE) Urine RBC 0-5 /HPF Urine WBC 0-5 (0-5/HPF) /HPF Ur Epithelial Cells Few (NOT SEEN) /HPF Amorphous Sediment Rare (NOT SEEN) /HPF Urine Bacteria Rare (0-FEW/HPF) /HPF Urine Mucus Moderate H (NOT SEEN) /LPF 01/02/20 01/02/20 01/02/20 Range/Units 06:00 06:00 07:51 WBC 21.9 H (5.0-10.0) 10^3/uL RBC 4.41 L (4.6-6.2) 10^6/uL Hgb 13.5 L (14.0-18.0) g/dL Hct 39.7 L (40.0-54.0) % MCV 90.0 (80-100) fL MCH 30.6 (27.0-34.0) pg MCHC 34.0 (33.0-35.0) g/dL Plt Count 269 (150-450) 10^3/uL Neut % (Auto) (42.2-75.2) % Lymph % (Auto) (20.5-50.1) % [place] % (Auto) (2-8) % Eos % (Auto) (1.0-3.0) % Baso % (Auto) (0.0-1.0) % D-Dimer, Quantitative (0-400) ng/mL Sodium 136 (135-145) mmol/L Potassium 4.0 (3.6-5.0) mmol/L Chloride 105 (101-111) mmol/L Carbon Dioxide 23.0 (21.0-31.0) mmol/L Anion Gap 12.0 BUN 19 H (7-18) mg/dL Creatinine 0.9 (0.6-1.3) mg/dL Est Cr Clr Drug Dosing 92.38 Estimated GFR (MDRD) > 60 BUN/Creatinine Ratio Glucose 234 H (74-105) mg/dL POC Glucose 194 H (70-105) mg/dl Lactic Acid (0.5-2.0) mmol/L Calcium 8.6 (8.4-10.2) mg/dl Phosphorus 1.8 L (2.5-4.6) mg/dL Magnesium 1.9 (1.8-2.5) mg/dL Total Bilirubin (0.2-1.0) mg/dL AST (10-42) IU/L ALT (10-60) IU/L Alkaline Phosphatase (42-121) IU/L B-Natriuretic Peptide (0-100) pg/ml Total Protein (6.7-8.2) g/dl Albumin (3.2-5.5) g/dl Globulin Albumin/Globulin Ratio Urine Color (YELLOW) Urine Appearance (CLEAR) Urine pH (5.0-9.0) Ur Specific [place] (1.005-1.030) Urine Protein (NEGATIVE) Urine Glucose (UA) (NEGATIVE) Urine Ketones (NEGATIVE) Urine Occult Blood (NEGATIVE) Urine Nitrite (NEGATIVE) Urine Bilirubin (NEGATIVE) Urine Urobilinogen (0.2-1.0) mg/dL Ur Leukocyte Esterase (NEGATIVE) Urine RBC /HPF Urine WBC (0-5/HPF) /HPF Ur Epithelial Cells (NOT SEEN) /HPF Amorphous Sediment (NOT SEEN) /HPF Urine Bacteria (0-FEW/HPF) /HPF Urine Mucus (NOT SEEN) /LPF [place] Results Last 24 Hours: Microbiology 01/01/20 16:30 Influenza Type A Antigen Screen - Final Nasal, Unspecified NEGATIVE INFLUENZA A VIRUS AG REFERENCE RANGE: NEGATIVE Influenza Type B Antigen Screen - Final NEGATIVE INFLUENZA B VIRUS AG REFERENCE RANGE: NEGATIVE 01/01/20 15:56 Anaerobic Blood Culture - Final Blood - Venous - Lab Draw Med Orders - Current: Current Medications Acetaminophen (Tylenol) 650 mg PO Q4H PRN PRN Reason: Pain/Fever Allopurinol (Zyloprim) 100 mg PO BID [facility] Last Admin: 01/02/20 09:19 Dose: 100 mg Amitriptyline HCl (Elavil) 200 mg PO BEDTIME [facility] Last Admin: 01/01/20 21:01 Dose: 200 mg Aspirin (Aspirin) 81 mg PO DAILY [facility] Last Admin: 01/02/20 09:18 Dose: 81 mg Atorvastatin Calcium (Lipitor) 20 mg PO BEDTIME [facility] Last Admin: 01/01/20 21:02 Dose: 20 mg Buspirone HCl (Buspar) 15 mg PO BID [facility] Last Admin: 01/02/20 09:18 Dose: 15 mg Cyclobenzaprine HCl (Flexeril) 10 mg PO TID PRN PRN Reason: Pain Enoxaparin Sodium (Lovenox) 40 mg SUBCUT DAILY [facility] Last Admin: 01/02/20 09:16 Dose: 40 mg Gabapentin (Neurontin) 600 mg PO TID [facility] Last Admin: 01/02/20 09:17 Dose: 600 mg Sodium Chloride (Normal Saline) 1,000 mls @ 100 mls/hr IV ASDIRECTED [facility] Last Admin: 01/02/20 05:48 Dose: 100 mls/hr Levofloxacin/Dextrose 750 mg/ (Premix) 150 mls @ 100 mls/hr IV Q24H [facility] Influenza Virus Vaccine (Pharmacy To Dose - Influenza Vaccine) 1 each IM ONETIME PRN PRN Reason: discharge Insulin Human Lispro (Humalog) 0 unit SUBCUT QIDACANDBED [facility]; Protocol Last Admin: 01/02/20 09:13 Dose: 2 units Omeprazole (Omeprazole) 40 mg PO ACBREAKFAST [facility] Last Admin: 01/02/20 05:46 Dose: 40 mg Ondansetron HCl (Zofran) 4 mg IV Q4H PRN PRN Reason: Nausea/Vomiting Polyethylene Glycol (Miralax) 17 gm PO DAILY [facility] Last Admin: 01/02/20 09:19 Dose: 17 gm Psyllium Hydrophilic Mucilloid (Metamucil) 1.04 gm PO BEDTIME [facility] Last Admin: 01/01/20 21:02 Dose: 1.04 gm Sodium Chloride (Saline Flush) 10 ml FLUSH ASDIRECTED PRN PRN Reason: Keep Vein Open Last Admin: 01/01/20 16:43 Dose: 10 ml Sodium Chloride (Saline Flush) 10 ml FLUSH ASDIRECTED PRN PRN Reason: Keep Vein Open Discontinued Medications Albuterol/Ipratropium (Duoneb 3.0-0.5 Mg/3 Ml) 3 ml NEB ONETIME ONE Stop: 01/01/20 15:45 Last Admin: 01/01/20 15:57 Dose: 3 ml Sodium Chloride (Normal Saline) 1,000 mls @ 999 mls/hr IV .BOLUS ONE Stop: 01/01/20 17:29 Last Admin: 01/01/20 16:43 Dose: 999 mls/hr Levofloxacin/Dextrose 750 mg/ (Premix) 150 mls @ 100 mls/hr IV ONETIME ONE Stop: 01/01/20 18:28 Last Admin: 01/01/20 17:45 Dose: 100 mls/hr Methylprednisolone Sodium Succinate (Solu-Medrol) 125 mg IVPUSH ONETIME ONE Stop: 01/01/20 15:45 Last Admin: 01/01/20 16:43 Dose: 125 mg Pneumococcal Polyvalent Vaccine (Pneumovax 23) 0.5 ml IM .ONCE ONE Stop: 01/02/20 10:01 - Exam General: Alert, Oriented HEENT: Pupils Equal, Pupils Reactive Neck: Supple Lungs: Clear to Auscultation, Normal Respiratory Effort Cardiovascular: Regular Rate, Regular Rhythm GI/Abdominal Exam: Normal Bowel Sounds, Soft, Non-Tender Extremities: No Pedal Edema Sepsis Event Note - Evaluation Sepsis Screening Result: No Definite Risk Current Stage of Sepsis: Sepsis Possible Source of Sepsis: Pulmonary - Focused Exam Sepsis Event Note Statement: Focused Sepsis Exam Completed Vital Signs: Vital Signs Temp Pulse Resp BP Pulse Ox 01/02/20 07:20 36.6 C 96 22 H 122/72 90 L 01/02/20 04:00 37.1 C 94 20 144/66 H 94 L Pulse Description: 2+ Normal Peripheral Pulse Location: Radial Date Exam was Performed: 01/02/20 Time Exam was Performed: 10:21 - Problem List Review Problem List Initiated/Reviewed/Updated: Yes - My Orders Last 24 Hours: My Active Orders 01/01/20 17:48 Acetaminophen [Tylenol] 650 mg PO Q4H PRN Ondansetron [Zofran] 4 mg IV Q4H PRN Sodium Chloride 0.9% [Saline Flush] 10 ml FLUSH ASDIRECTED PRN Resuscitation Status Routine 01/01/20 17:49 Patient Status [ADT] Routine Ambulate [RC] ASDIRECTED Height and Weight [RC] .0600 Up With Assistance [RC] ASDIRECTED VTE/DVT Education [RC] PER UNIT ROUTINE Vital Signs [RC] 04,08,12,16,20,00 Peripheral IV Insertion Adult [OM.PC] Routine Saline Lock Insert [OM.PC] Routine 01/01/20 17:51 Cyclobenzaprine [Flexeril] 10 mg PO TID PRN 01/01/20 18:00 Sodium Chloride 0.9% [Normal Saline] 1,000 ml IV ASDIRECTED 01/01/20 18:20 Accu Check [Blood Glucose Check, Bedside] [RC] QIDACANDBED 01/01/20 18:30 polyethylene glycoL 3350 [MiraLAX] 17 gm PO DAILY 01/01/20 19:00 Enoxaparin [Lovenox] 40 mg SUBCUT DAILY 01/01/20 19:44 Pharmacy to Dose - InFluenza V [Pharmacy to Dose - InFluenza Vaccine] 1 each IM ONETIME PRN 01/01/20 19:45 Influenza Vaccine Charge [RC] .DISCHARGE 01/01/20 21:00 Amitriptyline [Elavil] 200 mg PO BEDTIME Gabapentin [Neurontin] 600 mg PO TID Insulin Lispro [HumaLOG] See Protocol SUBCUT QIDACANDB Psyllium [Metamucil] 1.04 gm PO BEDTIME allopurinoL [Zyloprim] 100 mg PO BID atorvaSTATin [Lipitor] 20 mg PO BEDTIME busPIRone [Buspar] 15 mg PO BID 01/02/20 06:00 Omeprazole 40 mg PO ACBREAKFAST 01/02/20 09:00 Aspirin 81 mg PO DAILY 01/02/20 18:00 Levofloxacin/Dextrose 5%-Water [Levaquin in D5W 750 MG/150 ML] 750 mg Premix Bag 1 bag IV Q24H 01/02/20 Breakfast Consistent Carbohydrate Diet [DIET] 01/03/20 05:11 BASIC METABOLIC PANEL,BMP [CHEM] AM CBC W/O DIFF,HEMOGRAM [HEME] AM MAGNESIUM [CHEM] AM PHOSPHORUS [CHEM] AM 01/04/20 05:11 BASIC METABOLIC PANEL,BMP [CHEM] AM CBC W/O DIFF,HEMOGRAM [HEME] AM MAGNESIUM [CHEM] AM PHOSPHORUS [CHEM] AM - Plan Plan:: Sepsis: leucocytosis, tachycardia Left lower lobe pneumonia Recurrent pneumonia -CT chest showed left lower lobe pneumonia -wean off oxygen as tolerated -IVF hydration -IV levofloxacin -monitor vital signs -will recommend o/p follow up with ID on discharge for further work up on immunosuppression/recurrent pneumonia Type 2 DM -HbA1c during last admission was 7.9% -DM counseling -ISS, accu checks TID ac and hs -carb controlled diet -will plan to discharge on metformin Hx of depression continue home meds. DVT ppx SC lovenox Code status FC
[2020-01-02] MEDS: Levofloxacin/Dextrose 5%-Water 750 MG in Premix Bag 1 BAG IV SCH (17:41)
[2020-01-02] MEDS: Amitriptyline 25 MG Tab PO SCH (20:59)
[2020-01-02] MEDS: Psyllium 0.52 GM Cap PO SCH (20:59)
[2020-01-02] MEDS: atorvaSTATin 20 MG Tab PO SCH (21:00)
[2020-01-03] MEDS: Sodium Chloride 0.9% 1,000 ML IV SCH ×2 (05:28→14:52)
[2020-01-03] MEDS: Omeprazole 20 MG Cap.CR PO SCH (05:29)
[2020-01-03 06:57] LABS: ANION GAP 9.9; CHLORIDE,CL 107 mmol/L (101-111); SODIUM,NA 137 mmol/L (135-145)
[2020-01-03] MEDS: Insulin Lispro 100 Units/ML 3 ML Vial SUBCUT SCH ×4 (08:20→21:17)
[2020-01-03] MEDS: busPIRone 5 MG Tab PO SCH ×2 (09:32→21:16)
[2020-01-03] MEDS: Allopurinol 100 MG Tab PO SCH ×2 (09:32→21:18)
[2020-01-03] MEDS: Gabapentin 300 MG Cap PO SCH ×3 (09:32→21:16)
[2020-01-03] MEDS: Aspirin 81 MG Tab.Chew PO SCH (09:32)
[2020-01-03] MEDS: Polyethylene Glycol 3350 Powder 17 GM Packet PO SCH (09:33)
[2020-01-03] MEDS: Enoxaparin 40 MG/0.4 ML Syringe SUBCUT SCH (09:34)
--- NOTE | 2020-01-03 10:55 | PCM.PN ---
- General Info Date of Service: 01/03/20 Admission Dx/Problem (Free Text): Admission Diagnosis/Problem Admission Diagnosis/Problem Pneumonia Subjective Update: I saw and examined the patient at the bedside. He feels better today Cough is improved No fever, no nausea or vomiting Oxygen req are reduced, down to room air - Review of Systems General: Reports: No Symptoms HEENT: Reports: No Symptoms Pulmonary: Reports: No Symptoms Cardiovascular: Reports: No Symptoms Gastrointestinal: Reports: No Symptoms Genitourinary: Reports: No Symptoms Musculoskeletal: Reports: No Symptoms Skin: Reports: No Symptoms Neurological: Reports: No Symptoms - Patient Data Vitals - Most Recent: Last Vital Signs Temp 36.7 C 01/03/20 07:47 Pulse 90 01/03/20 07:47 Resp 20 01/03/20 07:47 BP 145/84 H 01/03/20 07:47 Pulse Ox 91 L 01/03/20 07:47 Weight - Most Recent: 128.367 kg I&O - Last 24 Hours: Intake & Output 01/02/20 01/03/20 01/03/20 21:59 06:59 14:59 Intake Total Balance Lab Results Last 24 Hours: Laboratory Results - last 24 hr 01/02/20 01/02/20 01/02/20 Range/Units 11:58 16:55 20:54 WBC (5.0-10.0) 10^3/uL RBC (4.6-6.2) 10^6/uL Hgb (14.0-18.0) g/dL Hct (40.0-54.0) % MCV (80-100) fL MCH (27.0-34.0) pg MCHC (33.0-35.0) g/dL Plt Count (150-450) 10^3/uL Sodium (135-145) mmol/L Potassium (3.6-5.0) mmol/L Chloride (101-111) mmol/L Carbon Dioxide (21.0-31.0) mmol/L Anion Gap BUN (7-18) mg/dL Creatinine (0.6-1.3) mg/dL Est Cr Clr Drug Dosing mL/min Estimated GFR (MDRD) Glucose (74-105) mg/dL POC Glucose 171 H 118 H 150 H (70-105) mg/dl Calcium (8.4-10.2) mg/dl Phosphorus (2.5-4.6) mg/dL Magnesium (1.8-2.5) mg/dL 01/03/20 01/03/20 01/03/20 Range/Units 06: 06:20 06:57 WBC 15.0 H (5.0-10.0) 10^3/uL RBC 4.02 L (4.6-6.2) 10^6/uL Hgb 12.2 L (14.0-18.0) g/dL Hct 36.9 L (40.0-54.0) % MCV 91.8 (80-100) fL MCH 30.3 (27.0-34.0) pg MCHC 33.1 (33.0-35.0) g/dL Plt Count 239 (150-450) 10^3/uL Sodium 137 (135-145) mmol/L Potassium 3.9 (3.6-5.0) mmol/L Chloride 107 (101-111) mmol/L Carbon Dioxide 24.0 (21.0-31.0) mmol/L Anion Gap 9.9 BUN 19 H (7-18) mg/dL Creatinine 1.0 (0.6-1.3) mg/dL Est Cr Clr Drug Dosing 83.14 mL/min Estimated GFR (MDRD) > 60 Glucose 157 H (74-105) mg/dL POC Glucose 142 H (70-105) mg/dl Calcium 8.0 L (8.4-10.2) mg/dl Phosphorus 2.2 L (2.5-4.6) mg/dL Magnesium 2.0 (1.8-2.5) mg/dL [place] Results Last 24 Hours: Microbiology 01/01/20 15:56 Aerobic Blood Culture - Preliminary Blood - Venous - Lab Draw NO GROWTH AFTER 1 DAY Anaerobic Blood Culture - Final 01/01/20 15:56 Aerobic Blood Culture - Preliminary Blood - Venous NO GROWTH AFTER 1 DAY Anaerobic Blood Culture - Preliminary NO GROWTH AFTER 1 DAY Med Orders - Current: Current Medications Acetaminophen (Tylenol) 650 mg PO Q4H PRN PRN Reason: Pain/Fever Last Admin: 01/02/20 20:57 Dose: 650 mg Allopurinol (Zyloprim) 100 mg PO BID [facility] Last Admin: 01/03/20 09:32 Dose: 100 mg Amitriptyline HCl (Elavil) 200 mg PO BEDTIME [facility] Last Admin: 01/02/20 20:59 Dose: 200 mg Aspirin (Aspirin) 81 mg PO DAILY [facility] Last Admin: 01/03/20 09:32 Dose: 81 mg Atorvastatin Calcium (Lipitor) 20 mg PO BEDTIME [facility] Last Admin: 01/02/20 21:00 Dose: 20 mg Buspirone HCl (Buspar) 15 mg PO BID [facility] Last Admin: 01/03/20 09:32 Dose: 15 mg Cyclobenzaprine HCl (Flexeril) 10 mg PO TID PRN PRN Reason: Pain Enoxaparin Sodium (Lovenox) 40 mg SUBCUT DAILY [facility] Last Admin: 01/03/20 09:34 Dose: 40 mg Gabapentin (Neurontin) 600 mg PO TID [facility] Last Admin: 01/03/20 09:32 Dose: 600 mg Sodium Chloride (Normal Saline) 1,000 mls @ 100 mls/hr IV ASDIRECTED [facility] Last Admin: 01/03/20 05:28 Dose: 100 mls/hr Levofloxacin/Dextrose 750 mg/ (Premix) 150 mls @ 100 mls/hr IV Q24H [facility] Last Admin: 01/02/20 17:41 Dose: 100 mls/hr Influenza Virus Vaccine (Pharmacy To Dose - Influenza Vaccine) 1 each IM ONETIME PRN PRN Reason: discharge Insulin Human Lispro (Humalog) 0 unit SUBCUT QIDACANDBED [facility]; Protocol Last Admin: 01/03/20 08:20 Dose: Not Given Omeprazole (Omeprazole) 40 mg PO ACBREAKFAST [facility] Last Admin: 01/03/20 05:29 Dose: 40 mg Ondansetron HCl (Zofran) 4 mg IV Q4H PRN PRN Reason: Nausea/Vomiting Polyethylene Glycol (Miralax) 17 gm PO DAILY [facility] Last Admin: 01/03/20 09:33 Dose: 17 gm Psyllium Hydrophilic Mucilloid (Metamucil) 1.04 gm PO BEDTIME [facility] Last Admin: 01/02/20 20:59 Dose: 1.04 gm Sodium Chloride (Saline Flush) 10 ml FLUSH ASDIRECTED PRN PRN Reason: Keep Vein Open Last Admin: 01/01/20 16:43 Dose: 10 ml Sodium Chloride (Saline Flush) 10 ml FLUSH ASDIRECTED PRN PRN Reason: Keep Vein Open Discontinued Medications Albuterol/Ipratropium (Duoneb 3.0-0.5 Mg/3 Ml) 3 ml NEB ONETIME ONE Stop: 01/01/20 15:45 Last Admin: 01/01/20 15:57 Dose: 3 ml Sodium Chloride (Normal Saline) 1,000 mls @ 999 mls/hr IV .BOLUS ONE Stop: 01/01/20 17:29 Last Admin: 01/01/20 16:43 Dose: 999 mls/hr Levofloxacin/Dextrose 750 mg/ (Premix) 150 mls @ 100 mls/hr IV ONETIME ONE Stop: 01/01/20 18:28 Last Admin: 01/01/20 17:45 Dose: 100 mls/hr Methylprednisolone Sodium Succinate (Solu-Medrol) 125 mg IVPUSH ONETIME ONE Stop: 01/01/20 15:45 Last Admin: 01/01/20 16:43 Dose: 125 mg Pneumococcal Polyvalent Vaccine (Pneumovax 23) 0.5 ml IM .ONCE ONE Stop: 01/02/20 10:01 Sepsis Event Note - Evaluation Sepsis Screening Result: No Definite Risk - Focused Exam Vital Signs: Vital Signs Temp Pulse Resp BP Pulse Ox 01/03/20 07:47 36.7 C 90 20 145/84 H 91 L 01/03/20 04:00 37.1 C 98 20 146/88 H 94 L Date Exam was Performed: 01/03/20 Time Exam was Performed: 10:54 - Problem List Review Problem List Initiated/Reviewed/Updated: Yes - My Orders Last 24 Hours: My Active Orders 01/02/20 09:00 Aspirin 81 mg PO DAILY 01/02/20 18:00 Levofloxacin/Dextrose 5%-Water [Levaquin in D5W 750 MG/150 ML] 750 mg Premix Bag 1 bag IV Q24H 01/03/20 10:29 Diabetes Education [RC] DAILY Consult to Diabetic Nurse Specialist [CONS] Routine 01/04/20 05:11 BASIC METABOLIC PANEL,BMP [CHEM] AM CBC W/O DIFF,HEMOGRAM [HEME] AM MAGNESIUM [CHEM] AM PHOSPHORUS [CHEM] AM - Plan Plan:: Sepsis: leucocytosis, tachycardia Left lower lobe pneumonia Recurrent pneumonia -CT chest showed left lower lobe pneumonia -wean off oxygen as tolerated -IVF hydration -IV levofloxacin -monitor vital signs -will recommend o/p follow up with ID on discharge for further work up on immunosuppression/recurrent pneumonia -Plan for discharge home tomorrow on oral abx Type 2 DM -HbA1c during last admission was 7.9% -DM counseling -ISS, accu checks TID ac and hs -carb controlled diet -will plan to discharge on metformin Hx of depression continue home meds. DVT ppx SC lovenox Code status FC
[2020-01-03] MEDS: Levofloxacin/Dextrose 5%-Water 750 MG in Premix Bag 1 BAG IV SCH (17:24)
[2020-01-03] MEDS: atorvaSTATin 20 MG Tab PO SCH (21:18)
[2020-01-03] MEDS: Psyllium 0.52 GM Cap PO SCH (21:18)
[2020-01-03] MEDS ORDERED: Amitriptyline 25 MG Tab ONE (21:26)
[2020-01-03] MEDS ORDERED: Amitriptyline 10 MG Tab ONE (21:26)
[2020-01-03] MEDS: Amitriptyline 25 MG Tab PO SCH (23:14)
[2020-01-04] MEDS: Sodium Chloride 0.9% 1,000 ML IV SCH (02:25)
[2020-01-04] MEDS: Omeprazole 20 MG Cap.CR PO SCH (06:13)
[2020-01-04 06:39] LABS: ANION GAP 12.9; CHLORIDE,CL 103 mmol/L (101-111); SODIUM,NA 137 mmol/L (135-145)
[2020-01-04] MEDS: Insulin Lispro 100 Units/ML 3 ML Vial SUBCUT SCH ×2 (08:18→11:00)
--- NOTE | 2020-01-04 09:21 | PCM.DCSUM1 ---
Discharge Summary - Hospital Course Free Text/Narrative:: 59 yo M with PMH of newly diagnosed diabetes mellitus type 2, obesity, depression, who presents with cough, nausea, vomiting, fever of one day duration. He presents to the ER unwell with one day history of fever, chills, cough productive of yellowish sputum, nausea and vomiting and pleuritic chest pain under the ribcage. He is a non smoker, Has a history of incarceration, Third episode of pneumonia this year, HIV test in Jun 2019 was negative according to the patient In the ED, was tachycardic. Lab work showed leucocytosis. CT chest showed left lower lobe pneumonia. He was managed for sepsis 2/2 Left lower lobe pneumonia with IV abx, IV fluids. Symptoms improved during admission. Will complete one more week of oral levofloxacin at home During his last admission, HbA1c was checked and was 7.9%. Patient is a newly diagnosed DM2 patient. We discussed extensively with the patient regarding DM2 including lifestyle measures, weight loss, diet, and compliance to meds and clinic visits to PCP, podiatry and ophth. He was discharged on metformin 500 mg bid. Follow up was scheduled with PCP for January 07 2020. Diagnosis: Stroke: No - Discharge Data Discharge Date: 01/04/20 Discharge Disposition: Home, Self-Care 01 Condition: Good - Referral to Home Health Primary Care Physician: PCP None - Patient Summary/Data Consults: Consultations 01/03/20 10:29 Consult to Diabetic Nurse Specialist [CONS] Routine - Discharge Plan *PRESCRIPTION DRUG MONITORING PROGRAM REVIEWED*: Not Applicable *COPY OF PRESCRIPTION DRUG MONITORING REPORT IN PATIENT JLUIS: Not Applicable Prescriptions/Med Rec: levoFLOXacin [Levaquin] 750 mg PO DAILY 7 Days #7 tab metFORMIN [Glucophage XR] 500 mg PO BIDMEALS 30 Days tab.er Home Medications: Home Meds Aspirin 81 mg PO DAILY 12/03/19 [History] Cyclobenzaprine [Flexeril] 10 mg PO BID PRN 12/03/19 [History] Gabapentin [Neurontin] 600 mg PO TID 12/03/19 [History] allopurinoL [Zyloprim] 100 mg PO BID 12/03/19 [History] atorvaSTATin [Lipitor] 20 mg PO BEDTIME 12/03/19 [History] busPIRone [Buspar] 15 mg PO BID 12/03/19 [History] Amitriptyline HCl 200 mg PO DAILY 01/01/20 [History] Ciprofloxacin [Ciprofloxacin 0.3% Ophth Soln] 0 ml OP Q2H 01/01/20 [History] Omeprazole 40 mg PO DAILY 01/01/20 [History] levoFLOXacin [Levaquin] 750 mg PO DAILY 7 Days #7 tab 01/04/20 [Rx] metFORMIN [Glucophage XR] 500 mg PO BIDMEALS 30 Days tab.er 01/04/20 [Rx] Patient Handouts: Type 2 Diabetes Mellitus, Diagnosis, Adult, Diabetes Mellitus and Standards of Medical Care, Hyperglycemia, [id number], Insulin Injection Instructions, Using Insulin Pens, Adult, Blood Glucose Monitoring, Adult, Community-Acquired Pneumonia, Adult, [id number], Hypoglycemia, Easy-to- Read Referrals: Essie Pelayo MD [Physician] - PCP,Unobtain [Ordering Only Provider] - - Discharge Summary/Plan Comment DC Time >30 min.: Yes - General Info Date of Service: 01/04/20 Admission Dx/Problem (Free Text: Admission Diagnosis/Problem Admission Diagnosis/Problem Pneumonia Subjective Update: I saw and examined the patient at the bedside. He feels better today Cough is improved No fever, no nausea or vomiting Oxygen req are reduced, down to room air - Review of Systems General: Reports: No Symptoms HEENT: Reports: No Symptoms Pulmonary: Reports: No Symptoms Cardiovascular: Reports: No Symptoms Gastrointestinal: Reports: No Symptoms Genitourinary: Reports: No Symptoms Musculoskeletal: Reports: No Symptoms Skin: Reports: No Symptoms Neurological: Reports: No Symptoms Psychiatric: Reports: No Symptoms - Patient Data Vitals - Most Recent: Last Vital Signs Temp 36.5 C 01/04/20 07:26 Pulse 92 01/04/20 07:26 Resp 20 01/04/20 07:26 BP 146/84 H 01/04/20 07:26 Pulse Ox 90 L 01/04/20 07:26 Weight - Most Recent: 129.047 kg I&O - Last 24 hours: Intake & Output 01/03/20 01/04/20 01/04/20 22:59 06:59 14:59 Intake Total 520 1100 Balance 520 1100 Lab Results - Last 24 hrs: Laboratory Results - last 24 hr 01/03/20 01/03/20 01/03/20 Range/Units 11:47 16:44 20:42 WBC (5.0-10.0) 10^3/uL RBC (4.6-6.2) 10^6/uL Hgb (14.0-18.0) g/dL Hct (40.0-54.0) % MCV (80-100) fL MCH (27.0-34.0) pg MCHC (33.0-35.0) g/dL Plt Count (150-450) 10^3/uL Sodium (135-145) mmol/L Potassium (3.6-5.0) mmol/L Chloride (101-111) mmol/L Carbon Dioxide (21.0-31.0) mmol/L Anion Gap BUN (7-18) mg/dL Creatinine (0.6-1.3) mg/dL Est Cr Clr Drug Dosing mL/min Estimated GFR (MDRD) Glucose (74-105) mg/dL POC Glucose 148 H 103 109 H (70-105) mg/dl Calcium (8.4-10.2) mg/dl Phosphorus (2.5-4.6) mg/dL Magnesium (1.8-2.5) mg/dL 01/04/20 01/04/20 01/04/20 Range/Units 06:00 06:00 07:53 WBC 9.4 (5.0-10.0) 10^3/uL RBC 4.38 L (4.6-6.2) 10^6/uL Hgb 13.4 L (14.0-18.0) g/dL Hct 39.9 L (40.0-54.0) % MCV 91.1 (80-100) fL MCH 30.6 (27.0-34.0) pg MCHC 33.6 (33.0-35.0) g/dL Plt Count 214 (150-450) 10^3/uL Sodium 137 (135-145) mmol/L Potassium 3.9 (3.6-5.0) mmol/L Chloride 103 (101-111) mmol/L Carbon Dioxide 25.0 (21.0-31.0) mmol/L Anion Gap 12.9 BUN 14 (7-18) mg/dL Creatinine 1.1 (0.6-1.3) mg/dL Est Cr Clr Drug Dosing 75.58 mL/min Estimated GFR (MDRD) > 60 Glucose 142 H (74-105) mg/dL POC Glucose 134 H (70-105) mg/dl Calcium 8.5 (8.4-10.2) mg/dl Phosphorus 3.2 (2.5-4.6) mg/dL Magnesium 1.9 (1.8-2.5) mg/dL AYANA Results - Last 24 hrs: Microbiology 01/01/20 15:56 Aerobic Blood Culture - Preliminary Blood - Venous - Lab Draw NO GROWTH AFTER 2 DAYS Anaerobic Blood Culture - Final 01/01/20 15:56 Aerobic Blood Culture - Preliminary Blood - Venous NO GROWTH AFTER 2 DAYS Anaerobic Blood Culture - Preliminary NO GROWTH AFTER 2 DAYS Med Orders - Current: Current Medications Acetaminophen (Tylenol) 650 mg PO Q4H PRN PRN Reason: Pain/Fever Last Admin: 01/02/20 20:57 Dose: 650 mg Allopurinol (Zyloprim) 100 mg PO BID [facility] Last Admin: 01/03/20 21:18 Dose: 100 mg Amitriptyline HCl (Elavil) 200 mg PO BEDTIME [facility] Last Admin: 01/03/20 23:14 Dose: 200 mg Aspirin (Aspirin) 81 mg PO DAILY [facility] Last Admin: 01/03/20 09:32 Dose: 81 mg Atorvastatin Calcium (Lipitor) 20 mg PO BEDTIME [facility] Last Admin: 01/03/20 21:18 Dose: 20 mg Buspirone HCl (Buspar) 15 mg PO BID [facility] Last Admin: 01/03/20 21:16 Dose: 15 mg Cyclobenzaprine HCl (Flexeril) 10 mg PO TID PRN PRN Reason: Pain Enoxaparin Sodium (Lovenox) 40 mg SUBCUT DAILY [facility] Last Admin: 01/03/20 09:34 Dose: 40 mg Gabapentin (Neurontin) 600 mg PO TID [facility] Last Admin: 01/03/20 21:16 Dose: 600 mg Sodium Chloride (Normal Saline) 1,000 mls @ 100 mls/hr IV ASDIRECTED [facility] Last Admin: 01/04/20 02:25 Dose: 100 mls/hr Levofloxacin/Dextrose 750 mg/ (Premix) 150 mls @ 100 mls/hr IV Q24H [facility] Last Admin: 01/03/20 17:24 Dose: 100 mls/hr Influenza Virus Vaccine (Pharmacy To Dose - Influenza Vaccine) 1 each IM ONETIME PRN PRN Reason: discharge Insulin Human Lispro (Humalog) 0 unit SUBCUT QIDACANDBED [facility]; Protocol Last Admin: 01/04/20 08:18 Dose: Not Given Omeprazole (Omeprazole) 40 mg PO ACBREAKFAST [facility] Last Admin: 01/04/20 06:13 Dose: 40 mg Ondansetron HCl (Zofran) 4 mg IV Q4H PRN PRN Reason: Nausea/Vomiting Polyethylene Glycol (Miralax) 17 gm PO DAILY [facility] Last Admin: 01/03/20 09:33 Dose: 17 gm Psyllium Hydrophilic Mucilloid (Metamucil) 1.04 gm PO BEDTIME [facility] Last Admin: 01/03/20 21:18 Dose: Not Given Sodium Chloride (Saline Flush) 10 ml FLUSH ASDIRECTED PRN PRN Reason: Keep Vein Open Discontinued Medications Albuterol/Ipratropium (Duoneb 3.0-0.5 Mg/3 Ml) 3 ml NEB ONETIME ONE Stop: 01/01/20 15:45 Last Admin: 01/01/20 15:57 Dose: 3 ml Amitriptyline HCl (Elavil) Confirm Administered Dose 100 mg .ROUTE .STK-MED ONE Stop: 01/03/20 21:27 Last Admin: 01/03/20 23:14 Dose: Not Given Amitriptyline HCl (Elavil) Confirm Administered Dose 100 mg .ROUTE .STK-MED ONE Stop: 01/03/20 21:27 Last Admin: 01/03/20 23:14 Dose: Not Given Sodium Chloride (Normal Saline) 1,000 mls @ 999 mls/hr IV .BOLUS ONE Stop: 01/01/20 17:29 Last Admin: 01/01/20 16:43 Dose: 999 mls/hr Levofloxacin/Dextrose 750 mg/ (Premix) 150 mls @ 100 mls/hr IV ONETIME ONE Stop: 01/01/20 18:28 Last Admin: 01/01/20 17:45 Dose: 100 mls/hr Methylprednisolone Sodium Succinate (Solu-Medrol) 125 mg IVPUSH ONETIME ONE Stop: 01/01/20 15:45 Last Admin: 01/01/20 16:43 Dose: 125 mg Pneumococcal Polyvalent Vaccine (Pneumovax 23) 0.5 ml IM .ONCE ONE Stop: 01/02/20 10:01 Sodium Chloride (Saline Flush) 10 ml FLUSH ASDIRECTED PRN PRN Reason: Keep Vein Open Last Admin: 01/01/20 16:43 Dose: 10 ml - Exam General: Reports: Alert, Oriented HEENT: Reports: Pupils Equal, Pupils Reactive Neck: Reports: Supple Lungs: Reports: Clear to Auscultation, Normal Respiratory Effort Cardiovascular: Reports: Regular Rate, Regular Rhythm GI/Abdominal Exam: Normal Bowel Sounds, Soft, Non-Tender Extremities: Non-Tender, No Pedal Edema
[2020-01-04] MEDS: Allopurinol 100 MG Tab PO SCH (09:37)
[2020-01-04] MEDS: busPIRone 5 MG Tab PO SCH (09:37)
[2020-01-04] MEDS: Gabapentin 300 MG Cap PO SCH (09:38)
[2020-01-04] MEDS: Polyethylene Glycol 3350 Powder 17 GM Packet PO SCH (09:39)
[2020-01-04] MEDS: Aspirin 81 MG Tab.Chew PO SCH (09:39)
[2020-01-04] MEDS: Enoxaparin 40 MG/0.4 ML Syringe SUBCUT SCH (09:39)
[2020-01-04] MEDS ORDERED: Pneumococcal Polyvalent-23 Vaccine 0.5 ML SDV IM ONE (11:00)
== END 2020-01-04 10:50 | disposition home or self-care (01) | DRG 871 ==
LOC: DL.ED 15:28 → DL.MS 17:12
PROVIDERS: ADMIT Hospitalist; ATTEND Hospitalist
DX: A41.9 Sepsis, unspecified organism (principal); J18.9 Pneumonia, unspecified organism; Z68.41 Body mass index [BMI] 40.0-44.9, adult; E66.9 Obesity, unspecified; E11.42 Type 2 diabetes mellitus with diabetic polyneuropathy; F32.9 Major depressive disorder, single episode, unspecified; K21.9 Gastro-esophageal reflux disease without esophagitis; M19.90 Unspecified osteoarthritis, unspecified site; M10.9 Gout, unspecified; M79.7 Fibromyalgia; E11.40 Type 2 diabetes mellitus with diabetic neuropathy, unspecified; Z88.1 Allergy status to other antibiotic agents; Z79.82 Long term (current) use of aspirin; Z79.2 Long term (current) use of antibiotics; Z79.899 Other long term (current) drug therapy
CPT/HCPCS: 36415; 71250; 80053; 81001; 83605; 83880; 85025; 85379; 87040 ×2; 87804 ×2; 94640; 96374; 99285; J2930; J7030; 80048; 82962; 83735; 84100; 85027; 90686; 90732; 99284; A9270-GY; G0008; G0009; J1650; J1815-GY; J1956; J7620-GY

== ENCOUNTER 2020-01-24 19:22 | Emergency (ER) | payer MEDICAID, MEDICARE, OTHER ==
[2020-01-24] MEDS ORDERED: Albuterol/Ipratropium 3.0-0.5 MG/3 ML Neb Soln NEB ONE (21:43)
--- NOTE | 2020-01-24 21:45 | EDM.PDOC ---
ED HPI GENERAL MEDICAL PROBLEM - General Chief Complaint: Respiratory Problem Stated Complaint: COUGH,SOB-PNEUMONIA? Time Seen by Provider: 01/24/20 21:44 Source of Information: Reports: Patient History Limitations: Reports: No Limitations - History of Present Illness INITIAL COMMENTS - FREE TEXT/NARRATIVE: recent pneumonia, 2 days h/o cough fever worried it's coming back. did take his ABX. - Related Data Allergies Allergy/AdvReac Type Severity Reaction Status Date / Time erythromycin base Allergy Cannot Verified 01/01/20 17:28 Remember Home Meds: Home Meds Aspirin 81 mg PO DAILY 12/03/19 [History] Cyclobenzaprine [Flexeril] 10 mg PO BID PRN 12/03/19 [History] Gabapentin [Neurontin] 600 mg PO TID 12/03/19 [History] allopurinoL [Zyloprim] 100 mg PO BID 12/03/19 [History] atorvaSTATin [Lipitor] 20 mg PO BEDTIME 12/03/19 [History] busPIRone [Buspar] 15 mg PO BID 12/03/19 [History] Amitriptyline HCl 200 mg PO DAILY 01/01/20 [History] Ciprofloxacin [Ciprofloxacin 0.3% Ophth Soln] 0 ml OP Q2H 01/01/20 [History] Omeprazole 40 mg PO DAILY 01/01/20 [History] levoFLOXacin [Levaquin] 750 mg PO DAILY 7 Days #7 tab 01/04/20 [Rx] metFORMIN [Glucophage XR] 500 mg PO BIDMEALS 30 Days tab.er 01/04/20 [Rx] Past Medical History HEENT History: Reports: Cataract, Hard of Hearing Cardiovascular History: Reports: High Cholesterol, Hypertension Respiratory History: Reports: Pneumonia, Recurrent Gastrointestinal History: Reports: GERD Musculoskeletal History: Reports: Arthritis, Fibromyalgia, Gout Neurological History: Reports: Neuropathy, Peripheral Psychiatric History: Reports: Depression Endocrine/Metabolic History: Reports: Diabetes, Type II, Obesity/BMI 30+ Hematologic History: Reports: None Immunologic History: Reports: None Oncologic (Cancer) History: Reports: None Dermatologic History: Reports: Psoriasis - Past Surgical History Head Surgeries/Procedures: Reports: None HEENT Surgical History: Reports: Cataract Surgery GI Surgical History: Reports: Colonoscopy Social & Family History - Family History Family Medical History: Noncontributory - Tobacco Use Smoking Status *Q: Never Smoker - Caffeine Use Caffeine Use: Reports: Soda - Recreational Drug Use Recreational Drug Use: No - Living Situation & Occupation Living situation: Reports: Single ED ROS GENERAL - Review of Systems Review Of Systems: Comprehensive ROS is negative, except as noted in HPI. ED EXAM, GENERAL - Physical Exam Exam: See Below Exam Limited By: No Limitations General Appearance: Alert, WD/WN, Mild Distress, Other (upset) Ears: Hearing Grossly Normal Throat/Mouth: Normal Voice, No Airway Compromise Head: Atraumatic Neck: Non-Tender, Full Range of Motion Respiratory/Chest: No Accessory Muscle Use, Rhonchi, Wheezing Cardiovascular: Regular Rate, Rhythm GI/Abdominal: Soft, Non-Tender Neurological: Alert, Oriented, Normal Cognition, Normal Gait, No Motor/Sensory Deficits Psychiatric: Anxious Skin Exam: Warm, Dry, Normal Color Lymphatic: No Adenopathy Course - Vital Signs Last Recorded V/S: Last Vital Signs Temp 36.5 C 01/24/20 20:57 Pulse 97 01/24/20 20:57 Resp 22 H 01/24/20 20:57 BP 137/90 01/24/20 20:57 Pulse Ox 95 01/24/20 20:57 - Orders/Labs/Meds Orders: Active Orders 24 hr Category Date Time Status RT Aerosol Therapy [RC] ASDIRECTED Care 01/24/20 21:43 Active CULTURE STREP A CONFIRMATION [] Stat Lab 01/24/20 21:06 Results STREP SCRN A RAPID W CULT CONF [RM] Stat Lab 01/24/20 21:06 Results Isolation [COMM] Routine Oth 01/24/20 21:41 Active Meds: Medications Discontinued Medications Generic Name Dose Route Start Last Admin Trade Name Chandler PRN Reason Stop Dose Admin Albuterol/Ipratropium 3 ml 01/24/20 21:43 01/24/20 21:52 Duoneb 3.0-0.5 Mg/3 Ml NEB 01/24/20 21:44 3 ml ONETIME ONE Administration - Re-Assessments/Exams Free Text/Narrative Re-Assessment/Exam: 01/24/20 22:19 results discussed with pt who is feeling much better s/p duoneb. Departure - Departure Time of Disposition: 22:20 Disposition: Home, Self-Care 01 Condition: Good Clinical Impression: Bronchospasm with bronchitis, acute - Discharge Information Instructions: Upper Respiratory Infection, Adult, [id number] Forms: ED Department Discharge Additional Instructions: 1) take neb treatment 3 to 4 times daily as needed 2) drink lots of liquids 3) follow up at clinic rx given; albuterol 2.5mg solution tid prn Sepsis Event Note - Evaluation Sepsis Screening Result: No Definite Risk - Focused Exam Vital Signs: Vital Signs Temp Pulse Resp BP Pulse Ox 01/24/20 20:57 36.5 C 97 22 H 137/90 95 Date Exam was Performed: 01/24/20 Time Exam was Performed: 22:18 - My Orders Last 24 Hours: My Active Orders 01/24/20 21:06 CULTURE STREP A CONFIRMATION [RM] Stat STREP SCRN A RAPID W CULT CONF [RM] Stat 01/24/20 21:41 Isolation [COMM] Routine 01/24/20 21:43 RT Aerosol Therapy [RC] ASDIRECTED - Assessment/Plan Last 24 Hours: My Active Orders 01/24/20 21:06 CULTURE STREP A CONFIRMATION [RM] Stat STREP SCRN A RAPID W CULT CONF [RM] Stat 01/24/20 21:41 Isolation [COMM] Routine 01/24/20 21:43 RT Aerosol Therapy [RC] ASDIRECTED
== END 2020-01-24 22:25 | disposition home or self-care (01) ==
LOC: DL.ED 19:22
DX: J20.9 Acute bronchitis, unspecified (principal); I10 Essential (primary) hypertension; E78.00 Pure hypercholesterolemia, unspecified; E11.9 Type 2 diabetes mellitus without complications; E66.9 Obesity, unspecified; Z68.41 Body mass index [BMI] 40.0-44.9, adult; Z79.4 Long term (current) use of insulin; Z79.899 Other long term (current) drug therapy; Z79.82 Long term (current) use of aspirin; Z88.1 Allergy status to other antibiotic agents
CPT/HCPCS: 71046; 87081; 87430; 87804; 94640; 99284-25; J7620-GY

== ENCOUNTER 2020-02-18 11:12 | Inpatient (IN) | payer MEDICARE, MEDICAID, OTHER ==
[2020-02-18] MEDS ORDERED: Sodium Chloride 0.9% 10 ML Syringe FLUSH PRN ×2 (11:28→17:48)
[2020-02-18] MEDS ORDERED: Albuterol/Ipratropium 3.0-0.5 MG/3 ML Neb Soln NEB ONE (11:28)
--- NOTE | 2020-02-18 12:06 | CR ---
EXAMINATION: Chest 1V Frontal SEX: Male AGE: 60 years CLINICAL HISTORY: 60-year-old male with CHEST PAIN. INTERPRETATION: 1. Generally poor inspiratory effort morbidly obese male with chronic asymmetric elevation left hemidiaphragm and underlying left lower lobe atelectasis appears unchanged except for technique since 23 January and earlier 01 January 2020 films. 2. Prominent cardiac silhouette without pulmonary vascular congestion new cephalization of flow alveolar edema or dependent pleural fluid accumulation i.e. no effusions. 3. No new lung mass or hilar lymphadenopathy. 4. No new focal lobar infiltrate or atelectasis. 5. No pneumothorax or pneumomediastinum. Midline trachea and proximal bronchi unremarkable. 6. Orthopedic shoulder prosthesis on the right. CONCLUSION: No acute new cardiopulmonary abnormality.
[2020-02-18 12:35] LABS: ANION GAP 14.2 mEq/L (7-13); CHLORIDE,CL 101 mmol/L (98-107); SODIUM,NA 139 mmol/L (136-145)
[2020-02-18] MEDS ORDERED: Iopamidol 755 Mg/ML 100 ML Bottle IVPUSH ONE ×4 (12:47→15:01)
--- NOTE | 2020-02-18 12:54 | EDM.PDOC ---
ED HPI GENERAL MEDICAL PROBLEM - General Chief Complaint: Respiratory Problem Stated Complaint: SOB/SORE THROAT Time Seen by Provider: 02/18/20 11:15 Source of Information: Reports: Patient, RN, RN Notes Reviewed History Limitations: Reports: Respiratory Distress - History of Present Illness INITIAL COMMENTS - FREE TEXT/NARRATIVE: Patient presents to ER with complaint of increased shortness of breath and sore throat. Patient states he has had a sore throat for a couple of days this morning the shortness of breath was much worse. States he has had pneumonia a couple times in the past few months and has been admitted to the hospital. Patient states he has not traveled anywhere in the last 14 days and has not been exposed or had close contact with any confirmed COVID-19 patients. Patient admits to having fever and chills at home, myalgia, sore throat, cough, brown production with cough, shortness of breath, nausea without vomiting, abdominal pain. Patient did not denies diarrhea. Onset: Gradual Location: Reports: Chest, Abdomen Severity: Moderate Associated Symptoms: Reports: Chest Pain, cough w sputum, Fever/Chills, Loss of Appetite, Malaise, Nausea/Vomiting, Shortness of Breath, Weakness Middle Chest Pain Score (Numeric/FACES): 5 - Related Data Allergies Allergy/AdvReac Type Severity Reaction Status Date / Time erythromycin base Allergy Cannot Verified 01/01/20 17:28 Remember Home Meds: Home Meds Aspirin 81 mg PO DAILY 12/03/19 [History] Cyclobenzaprine [Flexeril] 10 mg PO BID PRN 12/03/19 [History] Gabapentin [Neurontin] 600 mg PO TID 12/03/19 [History] allopurinoL [Zyloprim] 100 mg PO BID 12/03/19 [History] atorvaSTATin [Lipitor] 20 mg PO BEDTIME 12/03/19 [History] busPIRone [Buspar] 15 mg PO BID 12/03/19 [History] Amitriptyline HCl 200 mg PO DAILY 01/01/20 [History] Ciprofloxacin [Ciprofloxacin 0.3% Ophth Soln] 0 ml OP Q2H 01/01/20 [History] Omeprazole 40 mg PO DAILY 01/01/20 [History] levoFLOXacin [Levaquin] 750 mg PO DAILY 7 Days #7 tab 01/04/20 [Rx] metFORMIN [Glucophage XR] 500 mg PO BIDMEALS 30 Days tab.er 01/04/20 [Rx] Past Medical History HEENT History: Reports: Cataract, Hard of Hearing Cardiovascular History: Reports: High Cholesterol, Hypertension Respiratory History: Reports: Pneumonia, Recurrent Gastrointestinal History: Reports: GERD Musculoskeletal History: Reports: Arthritis, Fibromyalgia, Gout Neurological History: Reports: Neuropathy, Peripheral Psychiatric History: Reports: Depression Endocrine/Metabolic History: Reports: Diabetes, Type II, Obesity/BMI 30+ Hematologic History: Reports: None Immunologic History: Reports: None Oncologic (Cancer) History: Reports: None Dermatologic History: Reports: Psoriasis - Past Surgical History Head Surgeries/Procedures: Reports: None HEENT Surgical History: Reports: Cataract Surgery GI Surgical History: Reports: Colonoscopy Social & Family History - Family History Family Medical History: Noncontributory - Tobacco Use Smoking Status *Q: Never Smoker - Caffeine Use Caffeine Use: Reports: Soda - Recreational Drug Use Recreational Drug Use: No - Living Situation & Occupation Living situation: Reports: Single ED ROS GENERAL - Review of Systems Review Of Systems: Comprehensive ROS is negative, except as noted in HPI. ED EXAM, GENERAL - Physical Exam Exam: See Below Exam Limited By: Respiratory Distress General Appearance: Alert, WD/WN, Moderate Distress Eye Exam: Bilateral Eye: EOMI, Normal Inspection Ears: Normal External Exam, Hearing Grossly Normal Nose: Normal Inspection Throat/Mouth: Normal Inspection, Normal Voice, No Airway Compromise, Inflammation (Uvula) Head: Atraumatic, Normocephalic Neck: Normal Inspection, Supple, Non-Tender, Full Range of Motion Respiratory/Chest: Respiratory Distress, Decreased Breath Sounds, Crackles (left ), Rhonchi (left) Cardiovascular: Normal Peripheral Pulses, Regular Rate, Rhythm, No Edema, No Gallop, No JVD, No Murmur, No Rub, Tachycardia Peripheral Pulses: 2+: Radial (L), Radial (R) GI/Abdominal: Normal Bowel Sounds, Soft, Non-Tender (Male) Exam: Deferred Rectal (Males) Exam: Deferred Back Exam: Normal Inspection, Full Range of Motion, NT Extremities: Normal Inspection, Normal Range of Motion, Non-Tender, Normal Capillary Refill, No Pedal Edema Neurological: Alert, Oriented, CN II-XII Intact, Normal Cognition, Normal Gait, Normal Reflexes, No Motor/Sensory Deficits Psychiatric: Normal Affect, Normal Mood Skin Exam: Warm, Dry, Intact, Normal Color, No Rash Lymphatic: No Adenopathy Course - Vital Signs Last Recorded V/S: Last Vital Signs Temp 98.8 F 02/18/20 11:15 Pulse 113 H 02/18/20 12:37 Resp 24 H 02/18/20 12:37 BP 114/93 H 02/18/20 12:37 Pulse Ox 93 L 02/18/20 12:37 - Orders/Labs/Meds Orders: Active Orders 24 hr Category Date Time Status Admission Diagnosis [ADT] Stat ADT 02/18/20 14:46 Ordered Admission Status [Patient Status] [ADT] Routine ADT 02/18/20 14:46 Active EKG Documentation Completion [RC] STAT Care 02/18/20 11:26 Active Peripheral IV Care [RC] . DIRECTED Care 02/18/20 11:29 Active RT Aerosol Therapy [RC] ASDIRECTED Care 02/18/20 11:29 Active Chest w Cont [CT] Urgent Exams 02/18/20 12:47 Taken CORONAVIRUS COVID-19 PCR PHL Stat Lab 02/18/20 11:50 Received CULTURE BLOOD [BC] Stat Lab 02/18/20 11:45 Received CULTURE BLOOD [BC] Stat Lab 02/18/20 13:34 Received CULTURE STREP A CONFIRMATION [] Stat Lab 02/18/20 11:24 Results STREP SCRN A RAPID W CULT CONF [] Stat Lab 02/18/20 11:24 Results Blood Culture x2 Reflex Set [OM.PC] Stat Oth 02/18/20 11:27 Ordered Isolation [COMM] Routine Oth 02/18/20 11:26 Active Peripheral IV Insertion Adult [OM.PC] Stat Oth 02/18/20 11:26 Ordered Labs: Laboratory Tests 02/18/20 02/18/20 02/18/20 Range/Units 11:58 11:58 11:58 WBC 18.1 H (5.0-10.0) 10^3/uL RBC 4.44 L (4.6-6.2) 10^6/uL Hgb 13.8 L (14.0-18.0) g/dL Hct 41.2 (40.0-54.0) % MCV 92.8 (80-100) fL MCH 31.1 (27.0-34.0) pg MCHC 33.5 (33.0-35.0) g/dL Plt Count 249 (150-450) 10^3/uL Neut % (Auto) 89.1 H (42.2-75.2) % Lymph % (Auto) 4.1 L (20.5-50.1) % Webb % (Auto) 6.0 (2-8) % Eos % (Auto) 0.6 L (1.0-3.0) % Baso % (Auto) 0.2 (0.0-1.0) % Add Manual Diff Yes Neutrophils % (Manual) 88 H (42-75) % Band Neutrophils % 2 % Lymphocytes % (Manual) 5 L (20-50) % Monocytes % (Manual) 5 (2-8) % D-Dimer, Quantitative (0-400) ng/mL Sodium 139 (136-145) mmol/L Potassium 4.2 (3.5-5.1) mmol/L Chloride 101 (98-107) mmol/L Carbon Dioxide 28 (21-32) mmol/L Anion Gap 14.2 H (7-13) mEq/L BUN 17 (7-18) mg/dL Creatinine 1.12 (0.70-1.30) mg/dL Est Cr Clr Drug Dosing 73.33 mL/min Estimated GFR (MDRD) > 60 BUN/Creatinine Ratio 15.2 (No establ ref range) Glucose 199 H (74-99) mg/dL Lactic Acid 1.8 (0.4-2.0) mmol/L Calcium 7.7 L (8.5-10.1) mg/dL Total Bilirubin 0.5 (0.2-1.0) mg/dL AST 21 (15-37) U/L ALT 31 (16-63) U/L Alkaline Phosphatase 97 (46-116) U/L Lactate Dehydrogenase 209 (85-227) U/L Creatine Kinase 402 H (39-308) U/L Troponin I 0.036 (0.000-0.056) ng/mL C-Reactive Protein 5.5 H (0.0-0.9) mg/dL B-Natriuretic Peptide 18 (0-100) pg/ml Total Protein 6.9 (6.4-8.2) g/dL Albumin 3.4 (3.4-5.0) g/dL Globulin 3.5 Albumin/Globulin Ratio 1.0 02/18/20 Range/Units 11:58 WBC (5.0-10.0) 10^3/uL RBC (4.6-6.2) 10^6/uL Hgb (14.0-18.0) g/dL Hct (40.0-54.0) % MCV (80-100) fL MCH (27.0-34.0) pg MCHC (33.0-35.0) g/dL Plt Count (150-450) 10^3/uL Neut % (Auto) (42.2-75.2) % Lymph % (Auto) (20.5-50.1) % Webb % (Auto) (2-8) % Eos % (Auto) (1.0-3.0) % Baso % (Auto) (0.0-1.0) % Add Manual Diff Neutrophils % (Manual) (42-75) % Band Neutrophils % % Lymphocytes % (Manual) (20-50) % Monocytes % (Manual) (2-8) % D-Dimer, Quantitative 546 H (0-400) ng/mL Sodium (136-145) mmol/L Potassium (3.5-5.1) mmol/L Chloride (98-107) mmol/L Carbon Dioxide (21-32) mmol/L Anion Gap (7-13) mEq/L BUN (7-18) mg/dL Creatinine (0.70-1.30) mg/dL Est Cr Clr Drug Dosing mL/min Estimated GFR (MDRD) BUN/Creatinine Ratio (No establ ref range) Glucose (74-99) mg/dL Lactic Acid (0.4-2.0) mmol/L Calcium (8.5-10.1) mg/dL Total Bilirubin (0.2-1.0) mg/dL AST (15-37) U/L ALT (16-63) U/L Alkaline Phosphatase (46-116) U/L Lactate Dehydrogenase (85-227) U/L Creatine Kinase (39-308) U/L Troponin I (0.000-0.056) ng/mL C-Reactive Protein (0.0-0.9) mg/dL B-Natriuretic Peptide (0-100) pg/ml Total Protein (6.4-8.2) g/dL Albumin (3.4-5.0) g/dL Globulin Albumin/Globulin Ratio Meds: Medications Discontinued Medications Generic Name Dose Route Start Last Admin Trade Name Freq PRN Reason Stop Dose Admin Albuterol/Ipratropium 3 ml 02/18/20 11:28 02/18/20 11:44 Duoneb 3.0-0.5 Mg/3 Ml NEB 02/18/20 11:29 3 ml ONETIME ONE Administration Piperacillin Sod/Tazobactam 100 mls @ 200 mls/hr 02/18/20 14:15 02/18/20 15: 08 Sod 3.375 gm/ Sodium Chloride IV 02/18/20 14:44 200 mls/hr ONETIME ONE Administration Iopamidol 100 ml 02/18/20 15:01 02/18/20 15:06 Isovue-370 (76%) IVPUSH 02/18/20 15:02 100 ml ONETIME ONE Administration Iopamidol 100 ml 02/18/20 15:01 02/18/20 15:06 Isovue-370 (76%) IVPUSH 02/18/20 15:02 25 ml ONETIME ONE Administration Sodium Chloride 10 ml 02/18/20 11:28 02/18/20 11:44 Saline Flush FLUSH 10 ml ASDIRECTED PRN Administration Keep Vein Open - Radiology Interpretation Free Text/Narrative:: Chest xray: 1. Generally poor inspiratory effort morbidly obese male with chronic asymmetric elevation of the left hemidiaphragm and underlying left lower lobe atelectasis which appears unchanged except for technique since 23 January and earlier 01 January 2020 films. 2. Prominent cardiac silhouette without pulmonary vascular congestion, new cephalization of flow alveolar edema or dependent pleural fluid accumulation, i.e. no effusions 3. No no lung mass or hilar lymphadenopathy. 4. No new focal lobar infiltrate or atelectasis. 5. No pneumothorax or pneumomediastinum. Midline trachea and proximal bronchi unremarkable. 6. Orthopedic shoulder prosthesis on the right. Conclusion: No acute new cardiopulmonary abnormality. Chest CT with contrast/Rule out PE See rad report Departure - Departure Time of Disposition: 15:11 Disposition: Admitted As Inpatient 67 Condition: Fair Clinical Impression: Shortness of breath Pneumonia Qualifiers: Pneumonia type: due to unspecified organism Laterality: left Lung location: lower lobe of lung Qualified Code(s): J18.9 - Pneumonia, unspecified organism Leukocytosis Qualifiers: Leukocytosis type: unspecified Qualified Code(s): D72.829 - Elevated white blood cell count, unspecified - Discharge Information *PRESCRIPTION DRUG MONITORING PROGRAM REVIEWED*: No *COPY OF PRESCRIPTION DRUG MONITORING REPORT IN PATIENT JLUIS: No Forms: ED Department Discharge Sepsis Event Note - Evaluation Sepsis Screening Result: No Definite Risk - Focused Exam Vital Signs: Vital Signs Temp Pulse Resp BP Pulse Ox Pulse Ox 02/18/20 12:37 113 H 24 H 114/93 H 93 L 02/18/20 11:20 94 L 02/18/20 11:15 98.8 F 123 H 36 H 180/91 H 84 L Date Exam was Performed: 02/18/20 Time Exam was Performed: 15:29 - My Orders Last 24 Hours: My Active Orders 02/18/20 11:24 CULTURE STREP A CONFIRMATION [RM] Stat STREP SCRN A RAPID W CULT CONF [RM] Stat 02/18/20 11:26 EKG Documentation Completion [RC] STAT Isolation [COMM] Routine Peripheral IV Insertion Adult [OM.PC] Stat 02/18/20 11:27 Blood Culture x2 Reflex Set [OM.PC] Stat 02/18/20 11:29 Peripheral IV Care [RC] . DIRECTED RT Aerosol Therapy [RC] ASDIRECTED 02/18/20 11:45 CULTURE BLOOD [BC] Stat 02/18/20 11:50 CORONAVIRUS COVID-19 PCR PHL Stat 02/18/20 12:47 Chest w Cont [CT] Urgent 02/18/20 13:34 CULTURE BLOOD [BC] Stat 02/18/20 14:46 Admission Diagnosis [ADT] Stat Admission Status [Patient Status] [ADT] Routine - Assessment/Plan Last 24 Hours: My Active Orders 02/18/20 11:24 CULTURE STREP A CONFIRMATION [RM] Stat STREP SCRN A RAPID W CULT CONF [RM] Stat 02/18/20 11:26 EKG Documentation Completion [RC] STAT Isolation [COMM] Routine Peripheral IV Insertion Adult [OM.PC] Stat 02/18/20 11:27 Blood Culture x2 Reflex Set [OM.PC] Stat 02/18/20 11:29 Peripheral IV Care [RC] . DIRECTED RT Aerosol Therapy [RC] ASDIRECTED 02/18/20 11:45 CULTURE BLOOD [BC] Stat 02/18/20 11:50 CORONAVIRUS COVID-19 PCR PHL Stat 02/18/20 12:47 Chest w Cont [CT] Urgent 02/18/20 13:34 CULTURE BLOOD [BC] Stat 02/18/20 14:46 Admission Diagnosis [ADT] Stat Admission Status [Patient Status] [ADT] Routine
[2020-02-18] MEDS ORDERED: Piperacillin/Tazobactam 3.375 GM in Sodium Chloride 0.9% 100 ML IV ONE (14:15)
--- NOTE | 2020-02-18 15:30 | CT ---
EXAMINATION: Chest w Cont SEX: Male AGE: 60 years CLINICAL HISTORY: 60-year-old hypertensive 288 pound obese diabetic male with CHEST PAIN and respiratory distress. Scan technique: Volume acquisition of data from the chest (bony thorax, lungs and mediastinum) obtained during the intravenous administration 125 cc nonionic Isovue contrast at 2.5 cc/s via injector (20-gauge needle in the hand) patient was lying supine on the Siemens multi slice scanner [place], [place]. All data archived in the PACS system for storage, reformatting axial/sagittal/coronal planes and study. Interpretation: Abnormal. 1. *Extensive dense pneumonic like CONSOLIDATION with air bronchograms involving most of the left lower lobe. Elevation left hemidiaphragm and associated volume loss left lower lobe (atelectasis/collapse). No dependent pleural effusion. 2. Additional patchy, pleural-based, axillary segment left upper and apical segment (posteriorly) right upper lobe infiltrates. 3. Normal cardiac silhouette without pulmonary vascular congestion alveolar edema or effusion. No pericardial effusion. 4. Normal caliber thoracic aorta. No aneurysm or dissection. 5. No lung mass or significant hilar/mediastinal lymphadenopathy. No abnormal "groundglass" infiltrates. 6. Gallbladder, liver, stomach (small hiatus hernia), spleen, pancreas and adrenal glands and kidneys unremarkable. 7. Chronic multilevel disc degeneration, hypertrophic marginal spondylosis and mild kyphosis dorsal spine. Note: This exam is nondiagnostic with reference to possible pulmonary embolism or infarct (needle size, injection rate and lack of contrast pulmonary artery segments).
[2020-02-18] MEDS ORDERED: Ondansetron 4 MG/2 ML SDV IV PRN (17:47)
[2020-02-18] MEDS ORDERED: Cyclobenzaprine 10 MG Tab PO PRN (17:59)
[2020-02-18] MEDS ORDERED: Sodium Chloride 0.9% 1,000 ML IV SCH (18:00)
[2020-02-18] MEDS ORDERED: Piperacillin/Tazobactam 3.375 GM in Sodium Chloride 0.9% 100 ML IV SCH (18:00)
--- NOTE | 2020-02-18 18:23 | PCM.HP ---
H&P History of Present Illness - General Date of Service: 02/18/20 Admit Problem/Dx: Admission Diagnosis/Problem Admission Diagnosis/Problem Pneumonia Source of Information: Patient History Limitations: Reports: No Limitations - History of Present Illness Initial Comments - Free Text/Narative: 59 yo M with PMH of diabetes mellitus type 2, obesity, depression, who presents with cough, shortness of breath, fever of one day duration. He presents to the ER unwell with one day history of fever, chills, cough productive of yellowish sputum, nausea and vomiting and pleuritic chest pain under the left ribcage. He is a non smoker Has a history of incarceration Has had recurrent episodes of pneumonia this year HIV test in Jun 2019 was negative according to the patient In the ED, was tachycardic. Lab work showed leucocytosis. CT chest showed left lower lobe pneumonia, no other lung mass. Middle Chest Pain Score (Numeric/FACES): 3 - Related Data Allergies/Adverse Reactions: Allergies Allergy/AdvReac Type Severity Reaction Status Date / Time erythromycin base Allergy Cannot Verified 01/01/20 17:28 Remember Home Medications: Home Meds Aspirin 81 mg PO DAILY 12/03/19 [History] Cyclobenzaprine [Flexeril] 10 mg PO BID PRN 12/03/19 [History] Gabapentin [Neurontin] 600 mg PO TID 12/03/19 [History] allopurinoL [Zyloprim] 100 mg PO BID 12/03/19 [History] atorvaSTATin [Lipitor] 20 mg PO BEDTIME 12/03/19 [History] busPIRone [Buspar] 15 mg PO BID 12/03/19 [History] Amitriptyline HCl 200 mg PO DAILY 01/01/20 [History] Ciprofloxacin [Ciprofloxacin 0.3% Oph Soln] 0 ml OP Q2H 01/01/20 [History] Omeprazole 40 mg PO DAILY 01/01/20 [History] metFORMIN [Glucophage XR] 500 mg PO BIDMEALS 30 Days tab.er 01/04/20 [Rx] Past Medical History HEENT History: Reports: Cataract, Hard of Hearing Other HEENT History: bifolcles not here Cardiovascular History: Reports: High Cholesterol, Hypertension Respiratory History: Reports: Pneumonia, Recurrent Gastrointestinal History: Reports: GERD Genitourinary History: Reports: None Musculoskeletal History: Reports: Arthritis, Fibromyalgia, Gout Neurological History: Reports: Neuropathy, Peripheral Psychiatric History: Reports: Addiction, Anxiety, Depression Endocrine/Metabolic History: Reports: Diabetes, Type II, Obesity/BMI 30+ Hematologic History: Reports: None Immunologic History: Reports: None Oncologic (Cancer) History: Reports: None Dermatologic History: Reports: Psoriasis - Infectious Disease History Infectious Disease History: Reports: Chicken Pox - Past Surgical History Head Surgeries/Procedures: Reports: None HEENT Surgical History: Reports: Cataract Surgery GI Surgical History: Reports: Colonoscopy Social & Family History - Family History Family Medical History: Noncontributory - Tobacco Use Smoking Status *Q: Former Smoker Used Tobacco, but Quit: Yes Month/Year Tobacco Last Used: ukn Second Hand Smoke Exposure: No - Caffeine Use Caffeine Use: Reports: Coffee, Soda - Recreational Drug Use Recreational Drug Use: No - Living Situation & Occupation Living situation: Reports: Single H&P Review of Systems - Review of Systems: Review Of Systems: See Below General: Reports: Fever HEENT: Reports: No Symptoms Pulmonary: Reports: Shortness of Breath, Pleuritic Chest Pain, Cough Cardiovascular: Reports: No Symptoms Gastrointestinal: Reports: No Symptoms Genitourinary: Reports: No Symptoms Musculoskeletal: Reports: No Symptoms Skin: Reports: No Symptoms Psychiatric: Reports: No Symptoms Neurological: Reports: No Symptoms Exam - Exam Exam: See Below - Vital Signs Vital Signs: Last Vital Signs Temp 37.1 C 02/18/20 11:15 Pulse 102 H 02/18/20 15:33 Resp 22 H 02/18/20 15:33 BP 142/80 H 02/18/20 15:33 Pulse Ox 96 02/18/20 15:33 Weight: 131.995 kg - Exam General: Alert, Oriented HEENT: Conjunctiva Clear, Hearing Intact Neck: Supple, Trachea Midline Lungs: Clear to Auscultation, Normal Respiratory Effort, Crackles (left mid/ lower lobes) Cardiovascular: Regular Rate, Regular Rhythm GI/Abdominal Exam: Normal Bowel Sounds, Soft, Non-Tender Extremities: Normal Inspection, Normal Range of Motion, Non-Tender, No Pedal Edema Skin: Warm, Dry Neurological: Cranial Nerves Intact Neuro Extensive - Mental Status: Alert, Oriented x3, Normal Mood/Affect Psychiatric: Alert, Normal Affect, Normal Mood - Patient Data Lab Results Last 24 hrs: Laboratory Results - last 24 hr 02/18/20 02/18/20 02/18/20 Range/Units 11:58 11:58 11:58 WBC 18.1 H (5.0-10.0) 10^3/uL RBC 4.44 L (4.6-6.2) 10^6/uL Hgb 13.8 L (14.0-18.0) g/dL Hct 41.2 (40.0-54.0) % MCV 92.8 (80-100) fL MCH 31.1 (27.0-34.0) pg MCHC 33.5 (33.0-35.0) g/dL Plt Count 249 (150-450) 10^3/uL Neut % (Auto) 89.1 H (42.2-75.2) % Lymph % (Auto) 4.1 L (20.5-50.1) % [place] % (Auto) 6.0 (2-8) % Eos % (Auto) 0.6 L (1.0-3.0) % Baso % (Auto) 0.2 (0.0-1.0) % Add Manual Diff Yes Neutrophils % (Manual) 88 H (42-75) % Band Neutrophils % 2 % Lymphocytes % (Manual) 5 L (20-50) % Monocytes % (Manual) 5 (2-8) % D-Dimer, Quantitative (0-400) ng/mL Sodium 139 (136-145) mmol/L Potassium 4.2 (3.5-5.1) mmol/L Chloride 101 (98-107) mmol/L Carbon Dioxide 28 (21-32) mmol/L Anion Gap 14.2 H (7-13) mEq/L BUN 17 (7-18) mg/dL Creatinine 1.12 (0.70-1.30) mg/dL Est Cr Clr Drug Dosing 73.33 mL/min Estimated GFR (MDRD) > 60 BUN/Creatinine Ratio 15.2 (No establ ref range) Glucose 199 H (74-99) mg/dL POC Glucose (70-105) mg/dl Lactic Acid 1.8 (0.4-2.0) mmol/L Calcium 7.7 L (8.5-10.1) mg/dL Total Bilirubin 0.5 (0.2-1.0) mg/dL AST 21 (15-37) U/L ALT 31 (16-63) U/L Alkaline Phosphatase 97 (46-116) U/L Lactate Dehydrogenase 209 (85-227) U/L Creatine Kinase 402 H (39-308) U/L Troponin I 0.036 (0.000-0.056) ng/mL C-Reactive Protein 5.5 H (0.0-0.9) mg/dL B-Natriuretic Peptide 18 (0-100) pg/ml Total Protein 6.9 (6.4-8.2) g/dL Albumin 3.4 (3.4-5.0) g/dL Globulin 3.5 Albumin/Globulin Ratio 1.0 02/18/20 02/18/20 Range/Units 11:58 17:11 WBC (5.0-10.0) 10^3/uL RBC (4.6-6.2) 10^6/uL Hgb (14.0-18.0) g/dL Hct (40.0-54.0) % MCV (80-100) fL MCH (27.0-34.0) pg MCHC (33.0-35.0) g/dL Plt Count (150-450) 10^3/uL Neut % (Auto) (42.2-75.2) % Lymph % (Auto) (20.5-50.1) % [place] % (Auto) (2-8) % Eos % (Auto) (1.0-3.0) % Baso % (Auto) (0.0-1.0) % Add Manual Diff Neutrophils % (Manual) (42-75) % Band Neutrophils % % Lymphocytes % (Manual) (20-50) % Monocytes % (Manual) (2-8) % D-Dimer, Quantitative 546 H (0-400) ng/mL Sodium (136-145) mmol/L Potassium (3.5-5.1) mmol/L Chloride (98-107) mmol/L Carbon Dioxide (21-32) mmol/L Anion Gap (7-13) mEq/L BUN (7-18) mg/dL Creatinine (0.70-1.30) mg/dL Est Cr Clr Drug Dosing mL/min Estimated GFR (MDRD) BUN/Creatinine Ratio (No establ ref range) Glucose (74-99) mg/dL POC Glucose 147 H (70-105) mg/dl Lactic Acid (0.4-2.0) mmol/L Calcium (8.5-10.1) mg/dL Total Bilirubin (0.2-1.0) mg/dL AST (15-37) U/L ALT (16-63) U/L Alkaline Phosphatase (46-116) U/L Lactate Dehydrogenase (85-227) U/L Creatine Kinase (39-308) U/L Troponin I (0.000-0.056) ng/mL C-Reactive Protein (0.0-0.9) mg/dL B-Natriuretic Peptide (0-100) pg/ml Total Protein (6.4-8.2) g/dL Albumin (3.4-5.0) g/dL Globulin Albumin/Globulin Ratio Result Diagrams: 02/18/20 11:58 02/18/20 11:58 [place] Results Last 24 hrs: Microbiology 02/18/20 11:24 Influenza Type A Antigen Screen - Final Nasal, Unspecified NEGATIVE INFLUENZA A VIRUS AG REFERENCE RANGE: NEGATIVE Influenza Type B Antigen Screen - Final NEGATIVE INFLUENZA B VIRUS AG REFERENCE RANGE: NEGATIVE 02/18/20 11:24 Group A Streptococcus Rapid Screen - Final Throat NEGATIVE STREP A SCREEN REFERENCE RANGE: NEGATIVE Problem List Initiated/Reviewed/Updated: Yes Orders Last 24hrs: Active Orders 24 hr Category Date Time Status Admission Diagnosis [ADT] Stat ADT 02/18/20 14:46 Ordered Patient Status [ADT] Routine ADT 02/18/20 17:48 Active Accu Check [Blood Glucose Check, Bedside] [RC] Care 02/18/20 18:00 Active QIDACANDBED Ambulate [RC] ASDIRECTED Care 02/18/20 17:48 Active Height and Weight [RC] DAILY Care 02/18/20 17:48 Active Oxygen Therapy [RC] PRN Care 02/18/20 17:48 Active Peripheral IV Care [RC] . DIRECTED Care 02/18/20 17:48 Active RT Aerosol Therapy [RC] ASDIRECTED Care 02/18/20 11:29 Active Up With Assistance [RC] ASDIRECTED Care 02/18/20 17:48 Active VTE/DVT Education [RC] PER UNIT ROUTINE Care 02/18/20 17:48 Active Vital Signs [RC] Q4H Care 02/18/20 17:48 Active Regular Diet [DIET] Diet 02/18/20 Dinner Active BASIC METABOLIC PANEL,BMP [CHEM] AM Lab 02/19/20 05:11 Ordered BASIC METABOLIC PANEL,BMP [CHEM] AM Lab 02/20/20 05:11 Ordered BASIC METABOLIC PANEL,BMP [CHEM] AM Lab 02/21/20 05:11 Ordered CBC W/O DIFF,HEMOGRAM [HEME] AM Lab 02/19/20 05:11 Ordered CBC W/O DIFF,HEMOGRAM [HEME] AM Lab 02/20/20 05:11 Ordered CBC W/O DIFF,HEMOGRAM [HEME] AM Lab 02/21/20 05:11 Ordered CORONAVIRUS COVID-19 PCR PHL Stat Lab 02/18/20 11:50 Received CULTURE BLOOD [BC] Stat Lab 02/18/20 11:45 Received CULTURE BLOOD [BC] Stat Lab 02/18/20 13:34 Received CULTURE SPUTUM + SMEAR [RM] Routine Lab 02/18/20 18:04 Ordered CULTURE STREP A CONFIRMATION [RM] Stat Lab 02/18/20 11:24 Results MAGNESIUM [CHEM] AM Lab 02/19/20 05:11 Ordered MAGNESIUM [CHEM] AM Lab 02/20/20 05:11 Ordered MAGNESIUM [CHEM] AM Lab 02/21/20 05:11 Ordered PHOSPHORUS [CHEM] AM Lab 02/19/20 05:11 Ordered PHOSPHORUS [CHEM] AM Lab 02/20/20 05:11 Ordered PHOSPHORUS [CHEM] AM Lab 02/21/20 05:11 Ordered STREP SCRN A RAPID W CULT CONF [RM] Stat Lab 02/18/20 11:24 Results Acetaminophen [Tylenol] Med 02/18/20 17:47 Ordered 650 mg PO Q4H PRN Amitriptyline HCl [Amitriptyline HCl] Med 02/19/20 09:00 Ordered 200 mg PO DAILY Aspirin Med 02/19/20 09:00 Ordered 81 mg PO DAILY Cyclobenzaprine [Flexeril] Med 02/18/20 17:59 Ordered 10 mg PO BID PRN Enoxaparin [Lovenox] Med 02/19/20 09:00 Ordered 40 mg SUBCUT DAILY Gabapentin Med 02/18/20 21:00 Ordered 600 mg PO TID Insulin Lispro [HumaLOG] Med 02/18/20 21:00 Ordered See Protocol SUBCUT QIDACANDBED Omeprazole [Omeprazole] Med 02/19/20 09:00 Ordered 40 mg PO DAILY Ondansetron [Zofran] Med 02/18/20 17:47 Ordered 4 mg IV Q4H PRN Pharmacy to Dose - Vancomycin Med 02/18/20 18:00 Ordered 1 dose .XX ASDIRECTED Piperacillin/Tazobactam [Zosyn] 3.375 gm Med 02/18/20 18:00 Ordered Sodium Chloride 0.9% [Normal Saline] 100 ml IV Q6H Sodium Chloride 0.9% [Normal Saline] 1,000 ml Med 02/18/20 18:00 Ordered IV ASDIRECTED Sodium Chloride 0.9% [Saline Flush] Med 02/18/20 11:28 Active 10 ml FLUSH ASDIRECTED PRN Sodium Chloride 0.9% [Saline Flush] Med 02/18/20 17:48 Ordered 10 ml FLUSH ASDIRECTED PRN Sodium Chloride 0.9% [Saline Flush] Med 02/18/20 17:48 Ordered 10 ml FLUSH ASDIRECTED PRN allopurinoL [Zyloprim] Med 02/18/20 21:00 Ordered 100 mg PO BID atorvaSTATin [Lipitor] Med 02/18/20 21:00 Ordered 20 mg PO BEDTIME busPIRone [Buspar] Med 02/18/20 21:00 Ordered 15 mg PO BID Blood Culture x2 Reflex Set [OM.PC] Stat Ot 02/18/20 11:27 Ordered Isolation [COMM] Routine Ot 02/18/20 11:26 Active Peripheral IV Insertion Adult [OM.PC] Routine Ot 02/18/20 17:48 Ordered Peripheral IV Insertion Adult [OM.PC] Stat Ot 02/18/20 11:26 Ordered Saline Lock Insert [OM.PC] Routine Ot 02/18/20 17:48 Ordered Resuscitation Status Routine Resus Stat 02/18/20 17:48 Ordered Medication Orders Acetaminophen (Tylenol) 650 mg PO Q4H PRN PRN Reason: Pain/Fever Allopurinol (Zyloprim) 100 mg PO BID [place] Aspirin (Aspirin) 81 mg PO DAILY [place] Atorvastatin Calcium (Lipitor) 20 mg PO BEDTIME [place] Cyclobenzaprine HCl (Flexeril) 10 mg PO BID PRN PRN Reason: Spasms Enoxaparin Sodium (Lovenox) 40 mg SUBCUT DAILY [place] Sodium Chloride (Normal Saline) 1,000 mls @ 100 mls/hr IV ASDIRECTED [place] Piperacillin Sod/Tazobactam (Sod 3.375 gm/ Sodium Chloride) 100 mls @ 200 mls/ hr IV Q6H [facility] Insulin Human Lispro (Humalog) 0 unit SUBCUT QIDACANDBED [facility]; Protocol Non-Formulary Medication (Amitriptyline Hcl [Amitriptyline Hcl]) 200 mg PO DAILY [facility] Non-Formulary Medication (Buspirone [Buspar]) 15 mg PO BID [facility] Non-Formulary Medication (Gabapentin) 600 mg PO TID [facility] Non-Formulary Medication (Omeprazole [Omeprazole]) 40 mg PO DAILY [facility] Ondansetron HCl (Zofran) 4 mg IV Q4H PRN PRN Reason: Nausea/Vomiting Sodium Chloride (Saline Flush) 10 ml FLUSH ASDIRECTED PRN PRN Reason: Keep Vein Open Last Admin: 02/18/20 11:44 Dose: 10 ml Sodium Chloride (Saline Flush) 10 ml FLUSH ASDIRECTED PRN PRN Reason: Keep Vein Open Sodium Chloride (Saline Flush) 10 ml FLUSH ASDIRECTED PRN PRN Reason: Keep Vein Open Vancomycin HCl (Pharmacy To Dose - Vancomycin) 1 dose .XX ASDIRECTED [facility] Assessment/Plan Comment:: #Sepsis: leucocytosis, tachycardia #Left lower lobe pneumonia #Recurrent pneumonia -CT chest showed left lower lobe pneumonia -HIV test in Jun 2019 was negative per patient; will consent patient for a repeat HIV test in this admission -check MRSA screen, covid19, sputum cx -IVF hydration -IV Vanc and IV Zosyn -monitor vital signs -will recommend o/p follow up with ID on discharge for further work up on immunosuppression/recurrent pneumonia Type 2 DM -on metformin in the OP setting -ISS, accu checks TID ac and hs -carb controlled diet -continue home metformin on discharge, but hold while in the hospital Hx of depression continue home meds. DVT ppx SC lovenox Code status FC
[2020-02-18] MEDS ORDERED: VANCOMYCIN IV ONE (19:00)
[2020-02-18] MEDS ORDERED: WATER FOR INJ IV ONE (19:00)
[2020-02-18] MEDS: Acetaminophen 325 MG Tab PO PRN (19:56)
[2020-02-18] MEDS: atorvaSTATin 20 MG Tab PO SCH (21:16)
[2020-02-18] MEDS: busPIRone 5 MG Tab PO SCH (21:17)
[2020-02-18] MEDS: Allopurinol 100 MG Tab PO SCH (21:17)
[2020-02-18] MEDS: Gabapentin 300 MG Cap PO SCH (21:17)
[2020-02-18] MEDS: Insulin Lispro 100 Units/ML 3 ML Vial SUBCUT SCH (21:25)
[2020-02-18] MEDS: Amitriptyline 25 MG Tab PO SCH (22:04)
[2020-02-18] MEDS: Piperacillin/Tazobactam 3.375 GM in Sodium Chloride 0.9% 100 ML IV SCH (22:04)
[2020-02-19] MEDS: Piperacillin/Tazobactam 3.375 GM in Sodium Chloride 0.9% 100 ML IV SCH ×5 (02:50→23:39)
[2020-02-19] MEDS: Omeprazole 20 MG Cap.CR PO SCH (06:38)
[2020-02-19 07:15] LABS: CHLORIDE,CL 105 mmol/L (98-107); SODIUM,NA 141 mmol/L (136-145)
[2020-02-19] MEDS ORDERED: Vancomycin 1.75 GM in Sodium Chloride 0.9% 500 ML IV SCH (08:00)
[2020-02-19] MEDS ORDERED: AMITRIPTYLINE HCL 200 MG PO SCH (09:00)
[2020-02-19] MEDS: Insulin Lispro 100 Units/ML 3 ML Vial SUBCUT SCH ×4 (09:32→21:15)
[2020-02-19] MEDS: Allopurinol 100 MG Tab PO SCH ×2 (09:34→20:38)
[2020-02-19] MEDS: Amitriptyline 25 MG Tab PO SCH ×2 (09:34→20:40)
[2020-02-19] MEDS: Aspirin 81 MG Tab.Chew PO SCH (09:35)
[2020-02-19] MEDS: Gabapentin 300 MG Cap PO SCH ×3 (09:35→20:38)
[2020-02-19] MEDS: busPIRone 5 MG Tab PO SCH ×2 (09:35→20:38)
[2020-02-19] MEDS: Enoxaparin 40 MG/0.4 ML Syringe SUBCUT SCH (09:36)
--- NOTE | 2020-02-19 10:59 | PCM.PN ---
- General Info Date of Service: 02/19/20 Admission Dx/Problem (Free Text): Admission Diagnosis/Problem Admission Diagnosis/Problem Pneumonia Subjective Update: I saw and examined the patient at the bedside Feels better this morning Not hypoxic No chest pain Still has cough, productive sputum Functional Status: Reports: Pain Controlled - Review of Systems General: Reports: No Symptoms HEENT: Reports: No Symptoms Pulmonary: Reports: Shortness of Breath, Cough Cardiovascular: Reports: No Symptoms Gastrointestinal: Reports: No Symptoms Genitourinary: Reports: No Symptoms Musculoskeletal: Reports: No Symptoms Skin: Reports: No Symptoms Neurological: Reports: No Symptoms Psychiatric: Reports: No Symptoms - Patient Data Vitals - Most Recent: Last Vital Signs Temp 36.7 C 02/19/20 08:00 Pulse 93 02/19/20 08:00 Resp 32 H 02/19/20 08:00 BP 146/93 H 02/19/20 08:00 Pulse Ox 92 L 02/19/20 08:00 Weight - Most Recent: 131.088 kg I&O - Last 24 Hours: Intake & Output 02/18/20 02/19/20 02/19/20 22:59 06:59 14:59 Intake Total 0027 810 1855 Balance 6973 703 1322 Lab Results Last 24 Hours: Laboratory Results - last 24 hr 02/18/20 02/18/20 02/18/20 Range/Units 11:58 11:58 11:58 WBC 18.1 H (5.0-10.0) 10^3/uL RBC 4.44 L (4.6-6.2) 10^6/uL Hgb 13.8 L (14.0-18.0) g/dL Hct 41.2 (40.0-54.0) % MCV 92.8 (80-100) fL MCH 31.1 (27.0-34.0) pg MCHC 33.5 (33.0-35.0) g/dL Plt Count 249 (150-450) 10^3/uL Neut % (Auto) 89.1 H (42.2-75.2) % Lymph % (Auto) 4.1 L (20.5-50.1) % [place] % (Auto) 6.0 (2-8) % Eos % (Auto) 0.6 L (1.0-3.0) % Baso % (Auto) 0.2 (0.0-1.0) % Add Manual Diff Yes Neutrophils % (Manual) 88 H (42-75) % Band Neutrophils % 2 % Lymphocytes % (Manual) 5 L (20-50) % Monocytes % (Manual) 5 (2-8) % D-Dimer, Quantitative (0-400) ng/mL Sodium 139 (136-145) mmol/L Potassium 4.2 (3.5-5.1) mmol/L Chloride 101 (98-107) mmol/L Carbon Dioxide 28 (21-32) mmol/L Anion Gap 14.2 H (7-13) mEq/L BUN 17 (7-18) mg/dL Creatinine 1.12 (0.70-1.30) mg/dL Est Cr Clr Drug Dosing 73.33 mL/min Estimated GFR (MDRD) > 60 BUN/Creatinine Ratio 15.2 (No establ ref range) Glucose 199 H (74-99) mg/dL POC Glucose (70-105) mg/dl Lactic Acid 1.8 (0.4-2.0) mmol/L Calcium 7.7 L (8.5-10.1) mg/dL Phosphorus (2.6-4.7) mg/dL Magnesium (1.8-2.4) mg/dL Total Bilirubin 0.5 (0.2-1.0) mg/dL AST 21 (15-37) U/L ALT 31 (16-63) U/L Alkaline Phosphatase 97 (46-116) U/L Lactate Dehydrogenase 209 (85-227) U/L Creatine Kinase 402 H (39-308) U/L Troponin I 0.036 (0.000-0.056) ng/mL C-Reactive Protein 5.5 H (0.0-0.9) mg/dL B-Natriuretic Peptide 18 (0-100) pg/ml Total Protein 6.9 (6.4-8.2) g/dL Albumin 3.4 (3.4-5.0) g/dL Globulin 3.5 Albumin/Globulin Ratio 1.0 SARS-CoV-2 RNA (RT-PCR) (NEGATIVE) 02/18/20 02/18/20 02/18/20 Range/Units 11:58 17:11 19:00 WBC (5.0-10.0) 10^3/uL RBC (4.6-6.2) 10^6/uL Hgb (14.0-18.0) g/dL Hct (40.0-54.0) % MCV (80-100) fL MCH (27.0-34.0) pg MCHC (33.0-35.0) g/dL Plt Count (150-450) 10^3/uL Neut % (Auto) (42.2-75.2) % Lymph % (Auto) (20.5-50.1) % [place] % (Auto) (2-8) % Eos % (Auto) (1.0-3.0) % Baso % (Auto) (0.0-1.0) % Add Manual Diff Neutrophils % (Manual) (42-75) % Band Neutrophils % % Lymphocytes % (Manual) (20-50) % Monocytes % (Manual) (2-8) % D-Dimer, Quantitative 546 H (0-400) ng/mL Sodium (136-145) mmol/L Potassium (3.5-5.1) mmol/L Chloride (98-107) mmol/L Carbon Dioxide (21-32) mmol/L Anion Gap (7-13) mEq/L BUN (7-18) mg/dL Creatinine (0.70-1.30) mg/dL Est Cr Clr Drug Dosing mL/min Estimated GFR (MDRD) BUN/Creatinine Ratio (No establ ref range) Glucose (74-99) mg/dL POC Glucose 147 H (70-105) mg/dl Lactic Acid (0.4-2.0) mmol/L Calcium (8.5-10.1) mg/dL Phosphorus (2.6-4.7) mg/dL Magnesium (1.8-2.4) mg/dL Total Bilirubin (0.2-1.0) mg/dL AST (15-37) U/L ALT (16-63) U/L Alkaline Phosphatase (46-116) U/L Lactate Dehydrogenase (85-227) U/L Creatine Kinase (39-308) U/L Troponin I (0.000-0.056) ng/mL C-Reactive Protein (0.0-0.9) mg/dL B-Natriuretic Peptide (0-100) pg/ml Total Protein (6.4-8.2) g/dL Albumin (3.4-5.0) g/dL Globulin Albumin/Globulin Ratio SARS-CoV-2 RNA (RT-PCR) Negative (NEGATIVE) 02/18/20 02/19/20 02/19/20 Range/Units 20:55 06:28 06:28 WBC 15.5 H (5.0-10.0) 10^3/uL RBC 3.92 L (4.6-6.2) 10^6/uL Hgb 12.0 L D (14.0-18.0) g/dL Hct 37.3 L (40.0-54.0) % MCV 95.2 (80-100) fL MCH 30.6 (27.0-34.0) pg MCHC 32.2 L (33.0-35.0) g/dL Plt Count 200 (150-450) 10^3/uL Neut % (Auto) (42.2-75.2) % Lymph % (Auto) (20.5-50.1) % [place] % (Auto) (2-8) % Eos % (Auto) (1.0-3.0) % Baso % (Auto) (0.0-1.0) % Add Manual Diff Neutrophils % (Manual) (42-75) % Band Neutrophils % % Lymphocytes % (Manual) (20-50) % Monocytes % (Manual) (2-8) % D-Dimer, Quantitative (0-400) ng/mL Sodium 141 (136-145) mmol/L Potassium 4.0 (3.5-5.1) mmol/L Chloride 105 (98-107) mmol/L Carbon Dioxide 29 (21-32) mmol/L Anion Gap 11.0 (7-13) mEq/L BUN 13 (7-18) mg/dL Creatinine 0.95 (0.70-1.30) mg/dL Est Cr Clr Drug Dosing 86.45 mL/min Estimated GFR (MDRD) > 60 BUN/Creatinine Ratio (No establ ref range) Glucose 127 H (74-99) mg/dL POC Glucose 135 H (70-105) mg/dl Lactic Acid (0.4-2.0) mmol/L Calcium 7.6 L (8.5-10.1) mg/dL Phosphorus 2.1 L (2.6-4.7) mg/dL Magnesium 2.0 (1.8-2.4) mg/dL Total Bilirubin (0.2-1.0) mg/dL AST (15-37) U/L ALT (16-63) U/L Alkaline Phosphatase (46-116) U/L Lactate Dehydrogenase (85-227) U/L Creatine Kinase (39-308) U/L Troponin I (0.000-0.056) ng/mL C-Reactive Protein (0.0-0.9) mg/dL B-Natriuretic Peptide (0-100) pg/ml Total Protein (6.4-8.2) g/dL Albumin (3.4-5.0) g/dL Globulin Albumin/Globulin Ratio SARS-CoV-2 RNA (RT-PCR) (NEGATIVE) 02/19/20 Range/Units 07:41 WBC (5.0-10.0) 10^3/uL RBC (4.6-6.2) 10^6/uL Hgb (14.0-18.0) g/dL Hct (40.0-54.0) % MCV (80-100) fL MCH (27.0-34.0) pg MCHC (33.0-35.0) g/dL Plt Count (150-450) 10^3/uL Neut % (Auto) (42.2-75.2) % Lymph % (Auto) (20.5-50.1) % [place] % (Auto) (2-8) % Eos % (Auto) (1.0-3.0) % Baso % (Auto) (0.0-1.0) % Add Manual Diff Neutrophils % (Manual) (42-75) % Band Neutrophils % % Lymphocytes % (Manual) (20-50) % Monocytes % (Manual) (2-8) % D-Dimer, Quantitative (0-400) ng/mL Sodium (136-145) mmol/L Potassium (3.5-5.1) mmol/L Chloride (98-107) mmol/L Carbon Dioxide (21-32) mmol/L Anion Gap (7-13) mEq/L BUN (7-18) mg/dL Creatinine (0.70-1.30) mg/dL Est Cr Clr Drug Dosing mL/min Estimated GFR (MDRD) BUN/Creatinine Ratio (No establ ref range) Glucose (74-99) mg/dL POC Glucose 153 H (70-105) mg/dl Lactic Acid (0.4-2.0) mmol/L Calcium (8.5-10.1) mg/dL Phosphorus (2.6-4.7) mg/dL Magnesium (1.8-2.4) mg/dL Total Bilirubin (0.2-1.0) mg/dL AST (15-37) U/L ALT (16-63) U/L Alkaline Phosphatase (46-116) U/L Lactate Dehydrogenase (85-227) U/L Creatine Kinase (39-308) U/L Troponin I (0.000-0.056) ng/mL C-Reactive Protein (0.0-0.9) mg/dL B-Natriuretic Peptide (0-100) pg/ml Total Protein (6.4-8.2) g/dL Albumin (3.4-5.0) g/dL Globulin Albumin/Globulin Ratio SARS-CoV-2 RNA (RT-PCR) (NEGATIVE) [place] Results Last 24 Hours: Microbiology 02/18/20 11:24 Quick Strep Confirmation Culture - Final Throat NO GROUP A STREP ISOLATED REFERENCE RANGE: NEGATIVE Group A Streptococcus Rapid Screen - Final NEGATIVE STREP A SCREEN REFERENCE RANGE: NEGATIVE 02/19/20 03:30 Gram Stain - Final Sputum - Expectorated 02/18/20 11:24 Influenza Type A Antigen Screen - Final Nasal, Unspecified NEGATIVE INFLUENZA A VIRUS AG REFERENCE RANGE: NEGATIVE Influenza Type B Antigen Screen - Final NEGATIVE INFLUENZA B VIRUS AG REFERENCE RANGE: NEGATIVE Med Orders - Current: Current Medications Acetaminophen (Tylenol) 650 mg PO Q4H PRN PRN Reason: Pain/Fever Last Admin: 02/18/20 19:56 Dose: 650 mg Allopurinol (Zyloprim) 100 mg PO BID [facility] Last Admin: 02/19/20 09:34 Dose: 100 mg Amitriptyline HCl (Elavil) 200 mg PO BEDTIME [facility] Aspirin (Aspirin) 81 mg PO DAILY [facility] Last Admin: 02/19/20 09:35 Dose: 81 mg Atorvastatin Calcium (Lipitor) 20 mg PO BEDTIME [facility] Last Admin: 02/18/20 21:16 Dose: 20 mg Buspirone HCl (Buspar) 15 mg PO BID [facility] Last Admin: 02/19/20 09:35 Dose: 15 mg Cyclobenzaprine HCl (Flexeril) 10 mg PO BID PRN PRN Reason: Spasms Enoxaparin Sodium (Lovenox) 40 mg SUBCUT DAILY [facility] Last Admin: 02/19/20 09:36 Dose: 40 mg Gabapentin (Neurontin) 600 mg PO TID [facility] Last Admin: 02/19/20 09:35 Dose: 600 mg Piperacillin Sod/Tazobactam (Sod 3.375 gm/ Sodium Chloride) 100 mls @ 200 mls/ hr IV Q6H [facility] Last Admin: 02/19/20 09:25 Dose: 200 mls/hr Vancomycin HCl 1.75 gm/ Sodium (Chloride) 500 mls @ 333.333 mls/hr IV Q12H [facility] Last Admin: 02/19/20 10:12 Dose: 333.333 mls/hr Magnesium Sulfate/Dextrose 1 (gm/ Premix) 100 mls @ 100 mls/hr IV ONETIME ONE Stop: 02/19/20 10:59 Insulin Human Lispro (Humalog) 0 unit SUBCUT QIDACANDBED [facility]; Protocol Last Admin: 02/19/20 09:32 Dose: 2 units Omeprazole (Omeprazole) 40 mg PO ACBREAKFAST [facility] Last Admin: 02/19/20 06:38 Dose: 40 mg Ondansetron HCl (Zofran) 4 mg IV Q4H PRN PRN Reason: Nausea/Vomiting Sodium Chloride (Saline Flush) 10 ml FLUSH ASDIRECTED PRN PRN Reason: Keep Vein Open Sodium Phosphate (Neutra-Phos) 250 mg PO BID [facility] Vancomycin HCl (Pharmacy To Dose - Vancomycin) 1 dose .XX ASDIRECTED [facility] Discontinued Medications Albuterol/Ipratropium (Duoneb 3.0-0.5 Mg/3 Ml) 3 ml NEB ONETIME ONE Stop: 02/18/20 11:29 Last Admin: 02/18/20 11:44 Dose: 3 ml Amitriptyline HCl (Elavil) 100 mg PO BID [facility] Last Admin: 02/19/20 09:34 Dose: 100 mg Piperacillin Sod/Tazobactam (Sod 3.375 gm/ Sodium Chloride) 100 mls @ 200 mls/ hr IV ONETIME ONE Stop: 02/18/20 14:44 Last Admin: 02/18/20 15:08 Dose: 200 mls/hr Sodium Chloride (Normal Saline) 1,000 mls @ 100 mls/hr IV ASDIRECTED [facility] Last Infusion: 02/19/20 09:24 Dose: Infused Piperacillin Sod/Tazobactam (Sod 3.375 gm/ Sodium Chloride) 100 mls @ 200 mls/ hr IV Q6H [facility] Last Admin: 02/18/20 19:06 Dose: Not Given Vancomycin HCl 2 gm/ Premix 400 mls @ 266.667 mls/hr IV ONETIME ONE Stop: 02/18/20 20:29 Last Admin: 02/18/20 19:42 Dose: 266.667 mls/hr Iopamidol (Isovue-370 (76%)) 100 ml IVPUSH ONETIME ONE Stop: 02/18/20 15:02 Last Admin: 02/18/20 15:06 Dose: 100 ml Iopamidol (Isovue-370 (76%)) 100 ml IVPUSH ONETIME ONE Stop: 02/18/20 15:02 Last Admin: 02/18/20 15:06 Dose: 25 ml Non-Formulary Medication (Amitriptyline Hcl [Amitriptyline Hcl]) 200 mg PO DAILY [facility] Sodium Chloride (Saline Flush) 10 ml FLUSH ASDIRECTED PRN PRN Reason: Keep Vein Open Last Admin: 02/18/20 11:44 Dose: 10 ml Sodium Chloride (Saline Flush) 10 ml FLUSH ASDIRECTED PRN PRN Reason: Keep Vein Open Last Admin: 02/19/20 09:27 Dose: 10 ml - Exam General: Alert, Oriented HEENT: Pupils Equal, Pupils Reactive Neck: Supple Lungs: Crackles (left lower lobe crackles) Cardiovascular: Regular Rate, Regular Rhythm GI/Abdominal Exam: Normal Bowel Sounds, Soft, Non-Tender Extremities: Normal Inspection, Normal Range of Motion, Non-Tender, No Pedal Edema Skin: Warm, Dry, Intact Neurological: No New Focal Deficit Psy/Mental Status: Alert, Normal Affect, Normal Mood Sepsis Event Note - Evaluation Sepsis Screening Result: Sepsis Risk - Focused Exam Vital Signs: Vital Signs Temp Pulse Resp BP Pulse Ox 02/19/20 08:00 36.7 C 93 32 H 146/93 H 92 L 02/19/20 03:00 36.8 C 88 24 H 157/87 H 93 L Date Exam was Performed: 02/19/20 Time Exam was Performed: 10:56 - Problem List Review Problem List Initiated/Reviewed/Updated: Yes - My Orders Last 24 Hours: My Active Orders 02/18/20 17:47 Acetaminophen [Tylenol] 650 mg PO Q4H PRN Ondansetron [Zofran] 4 mg IV Q4H PRN 02/18/20 17:48 Patient Status [ADT] Routine Ambulate [RC] ASDIRECTED Height and Weight [RC] 06 Oxygen Therapy [RC] PRN Peripheral IV Care [RC] 08,20 Up With Assistance [RC] ASDIRECTED VTE/DVT Education [RC] PER UNIT ROUTINE Vital Signs [RC] 00,04,08,12,16,20 Sodium Chloride 0.9% [Saline Flush] 10 ml FLUSH ASDIRECTED PRN Peripheral IV Insertion Adult [OM.PC] Routine Saline Lock Insert [OM.PC] Routine Resuscitation Status Routine 02/18/20 17:59 Cyclobenzaprine [Flexeril] 10 mg PO BID PRN 02/18/20 18:00 Accu Check [Blood Glucose Check, Bedside] [RC] QIDACANDBED Pharmacy to Dose - Vancomycin 1 dose .XX ASDIRECTED 02/18/20 20:00 Piperacillin/Tazobactam [Zosyn] 3.375 gm Sodium Chloride 0.9% [Normal Saline] 100 ml IV Q6H 02/18/20 21:00 Gabapentin [Neurontin] 600 mg PO TID Insulin Lispro [HumaLOG] See Protocol SUBCUT QIDACANDBED allopurinoL [Zyloprim] 100 mg PO BID atorvaSTATin [Lipitor] 20 mg PO BEDTIME busPIRone [Buspar] 15 mg PO BID 02/19/20 03:30 CULTURE SPUTUM + SMEAR [RM] Routine 02/19/20 06:00 Omeprazole 40 mg PO ACBREAKFAST 02/19/20 08:00 Vancomycin 1.75 gm Sodium Chloride 0.9% [Normal Saline] 500 ml IV Q12H 02/19/20 09:00 Aspirin 81 mg PO DAILY Enoxaparin [Lovenox] 40 mg SUBCUT DAILY 02/19/20 09:42 MRSA BY PCR [MREF] Stat 02/19/20 09:43 HIV-1/2 AG/AB COMBO 4TH GEN [CHEM] Routine 02/19/20 09:45 Phosphorus #1 [Neutra-Phos] 250 mg PO BID 02/19/20 10:00 Magnesium Sulfate/D5W [Magnesium Sulfate in D5W 100 Premix] 1 gm Premix Bag 1 bag IV ONETIME 02/19/20 21:00 Amitriptyline [Elavil] 200 mg PO BEDTIME 02/19/20 Breakfast Consistent Carbohydrate Diet [DIET] 02/20/20 05:11 BASIC METABOLIC PANEL,BMP [CHEM] AM CBC W/O DIFF,HEMOGRAM [HEME] AM MAGNESIUM [CHEM] AM PHOSPHORUS [CHEM] AM 02/20/20 07:30 VANCOMYCIN TROUGH [CHEM] Timed 02/21/20 05:11 BASIC METABOLIC PANEL,BMP [CHEM] AM CBC W/O DIFF,HEMOGRAM [HEME] AM MAGNESIUM [CHEM] AM PHOSPHORUS [CHEM] AM - Plan Plan:: #Sepsis: leucocytosis, tachycardia #Left lower lobe pneumonia #Recurrent pneumonia -CT chest showed left lower lobe pneumonia -I obtained consent for a repeat HIV test in this admission -check sputum AFB -check MRSA screen, covid19, sputum cx: GPC -IVF hydration -IV Vanc and IV Zosyn -monitor vital signs -will recommend o/p follow up with ID on discharge for further work up on immunosuppression/recurrent pneumonia Type 2 DM -on metformin in the OP setting -ISS, accu checks TID ac and hs -carb controlled diet -continue home metformin on discharge, but hold while in the hospital Hx of depression continue home meds. DVT ppx SC lovenox Code status FC
[2020-02-19] MEDS: Phosphorus #1 250 MG Tab PO SCH ×2 (11:14→20:38)
[2020-02-19] MEDS: Sodium Chloride 0.9% 10 ML Syringe FLUSH PRN ×6 (12:01→23:38)
[2020-02-19] MEDS: Vancomycin 1 GM, Vancomycin 750 MG in Sodium Chloride 0.9% 500 ML IV SCH (20:17)
[2020-02-19] MEDS: atorvaSTATin 20 MG Tab PO SCH (20:38)
[2020-02-19] MEDS: Acetaminophen 325 MG Tab PO PRN (20:39)
[2020-02-20] MEDS: Omeprazole 20 MG Cap.CR PO SCH (05:31)
[2020-02-20] MEDS: Sodium Chloride 0.9% 10 ML Syringe FLUSH PRN ×3 (05:32→18:06)
[2020-02-20] MEDS: Piperacillin/Tazobactam 3.375 GM in Sodium Chloride 0.9% 100 ML IV SCH ×4 (05:33→23:55)
[2020-02-20 07:58] LABS: ANION GAP 12.1 mEq/L (7-13); CHLORIDE,CL 106 mmol/L (98-107); SODIUM,NA 142 mmol/L (136-145)
[2020-02-20] MEDS ORDERED: VANCOMYCIN IV SCH ×2 (09:00→21:00)
[2020-02-20] MEDS ORDERED: WATER FOR INJ IV SCH ×2 (09:00→21:00)
[2020-02-20] MEDS: Vancomycin 1 GM, Vancomycin 750 MG in Sodium Chloride 0.9% 500 ML IV SCH (09:08)
[2020-02-20] MEDS: Insulin Lispro 100 Units/ML 3 ML Vial SUBCUT SCH ×4 (09:30→21:27)
[2020-02-20] MEDS: busPIRone 5 MG Tab PO SCH ×2 (09:49→21:24)
[2020-02-20] MEDS: Phosphorus #1 250 MG Tab PO SCH ×2 (09:49→21:26)
[2020-02-20] MEDS: Aspirin 81 MG Tab.Chew PO SCH (09:50)
[2020-02-20] MEDS: Gabapentin 300 MG Cap PO SCH ×3 (09:50→21:25)
[2020-02-20] MEDS: Enoxaparin 40 MG/0.4 ML Syringe SUBCUT SCH (09:50)
[2020-02-20] MEDS: Allopurinol 100 MG Tab PO SCH ×2 (09:50→21:25)
--- NOTE | 2020-02-20 12:13 | PCM.PN ---
- General Info Date of Service: 02/20/20 Admission Dx/Problem (Free Text): Admission Diagnosis/Problem Admission Diagnosis/Problem Pneumonia Subjective Update: I saw and examined the patient at the bedside Feels better this morning Not hypoxic No chest pain Still has cough, productive sputum - Review of Systems General: Denies: Fever HEENT: Reports: No Symptoms Pulmonary: Reports: Cough Cardiovascular: Reports: No Symptoms Gastrointestinal: Reports: No Symptoms Genitourinary: Reports: No Symptoms Musculoskeletal: Reports: No Symptoms Skin: Reports: No Symptoms Neurological: Reports: No Symptoms Psychiatric: Reports: No Symptoms - Patient Data Vitals - Most Recent: Last Vital Signs Temp 36.8 C 02/20/20 08:00 Pulse 80 02/20/20 08:00 Resp 20 02/20/20 08:00 BP 150/81 H 02/20/20 08:00 Pulse Ox 96 02/20/20 08:00 Weight - Most Recent: 130.453 kg I&O - Last 24 Hours: Intake & Output 02/19/20 02/20/20 02/20/20 22:59 06:59 14:59 Intake Total 1901 544 Balance 1901 544 Lab Results Last 24 Hours: Laboratory Results - last 24 hr 02/18/20 02/19/20 02/19/20 Range/Units 11:50 12:09 16:48 WBC (5.0-10.0) 10^3/uL RBC (4.6-6.2) 10^6/uL Hgb (14.0-18.0) g/dL Hct (40.0-54.0) % MCV (80-100) fL MCH (27.0-34.0) pg MCHC (33.0-35.0) g/dL Plt Count (150-450) 10^3/uL Sodium (136-145) mmol/L Potassium (3.5-5.1) mmol/L Chloride (98-107) mmol/L Carbon Dioxide (21-32) mmol/L Anion Gap (7-13) mEq/L BUN (7-18) mg/dL Creatinine (0.70-1.30) mg/dL Est Cr Clr Drug Dosing mL/min Estimated GFR (MDRD) Glucose (74-99) mg/dL POC Glucose 126 H 167 H (70-105) mg/dl Calcium (8.5-10.1) mg/dL Phosphorus (2.6-4.7) mg/dL Magnesium (1.8-2.4) mg/dL Vancomycin Trough (10.0-20.0) ug/mL COVID-19 PCR Not detected (NOT DETECT) 02/19/20 02/20/20 02/20/20 Range/Units 21:04 07:33 07:33 WBC 8.2 (5.0-10.0) 10^3/uL RBC 4.08 L (4.6-6.2) 10^6/uL Hgb 12.5 L (14.0-18.0) g/dL Hct 38.6 L (40.0-54.0) % MCV 94.6 (80-100) fL MCH 30.6 (27.0-34.0) pg MCHC 32.4 L (33.0-35.0) g/dL Plt Count 214 (150-450) 10^3/uL Sodium 142 (136-145) mmol/L Potassium 4.1 (3.5-5.1) mmol/L Chloride 106 (98-107) mmol/L Carbon Dioxide 28 (21-32) mmol/L Anion Gap 12.1 (7-13) mEq/L BUN 10 (7-18) mg/dL Creatinine 0.92 (0.70-1.30) mg/dL Est Cr Clr Drug Dosing 89.27 mL/min Estimated GFR (MDRD) > 60 Glucose 121 H (74-99) mg/dL POC Glucose 146 H (70-105) mg/dl Calcium 8.0 L (8.5-10.1) mg/dL Phosphorus 2.5 L (2.6-4.7) mg/dL Magnesium 2.0 (1.8-2.4) mg/dL Vancomycin Trough (10.0-20.0) ug/mL COVID-19 PCR (NOT DETECT) 02/20/20 02/20/20 02/20/20 Range/Units 07:33 08:00 11:28 WBC (5.0-10.0) 10^3/uL RBC (4.6-6.2) 10^6/uL Hgb (14.0-18.0) g/dL Hct (40.0-54.0) % MCV (80-100) fL MCH (27.0-34.0) pg MCHC (33.0-35.0) g/dL Plt Count (150-450) 10^3/uL Sodium (136-145) mmol/L Potassium (3.5-5.1) mmol/L Chloride (98-107) mmol/L Carbon Dioxide (21-32) mmol/L Anion Gap (7-13) mEq/L BUN (7-18) mg/dL Creatinine (0.70-1.30) mg/dL Est Cr Clr Drug Dosing mL/min Estimated GFR (MDRD) Glucose (74-99) mg/dL POC Glucose 115 H 142 H (70-105) mg/dl Calcium (8.5-10.1) mg/dL Phosphorus (2.6-4.7) mg/dL Magnesium (1.8-2.4) mg/dL Vancomycin Trough 12.4 (10.0-20.0) ug/mL COVID-19 PCR (NOT DETECT) [facility] Results Last 24 Hours: Microbiology 02/18/20 11:45 Aerobic Blood Culture - Preliminary Blood - Venous NO GROWTH AFTER 2 DAYS Anaerobic Blood Culture - Preliminary NO GROWTH AFTER 2 DAYS 02/19/20 10:35 MRSA (PCR) - Final Nasal, Left 02/19/20 03:30 Gram Stain - Final Sputum - Expectorated Sputum Culture - Preliminary 02/18/20 13:34 Aerobic Blood Culture - Preliminary Blood - Venous - Lab Draw NO GROWTH AFTER 1 DAY Anaerobic Blood Culture - Preliminary NO GROWTH AFTER 1 DAY 02/18/20 11:24 Quick Strep Confirmation Culture - Final Throat NO GROUP A STREP ISOLATED REFERENCE RANGE: NEGATIVE Group A Streptococcus Rapid Screen - Final NEGATIVE STREP A SCREEN REFERENCE RANGE: NEGATIVE Med Orders - Current: Current Medications Acetaminophen (Tylenol) 650 mg PO Q4H PRN PRN Reason: Pain/Fever Last Admin: 02/19/20 20:39 Dose: 650 mg Allopurinol (Zyloprim) 100 mg PO BID [facility] Last Admin: 02/20/20 09:50 Dose: 100 mg Amitriptyline HCl (Elavil) 200 mg PO BEDTIME [facility] Last Admin: 02/19/20 20:40 Dose: 200 mg Aspirin (Aspirin) 81 mg PO DAILY [facility] Last Admin: 02/20/20 09:50 Dose: 81 mg Atorvastatin Calcium (Lipitor) 20 mg PO BEDTIME [facility] Last Admin: 02/19/20 20:38 Dose: 20 mg Buspirone HCl (Buspar) 15 mg PO BID [facility] Last Admin: 02/20/20 09:49 Dose: 15 mg Cyclobenzaprine HCl (Flexeril) 10 mg PO BID PRN PRN Reason: Spasms Enoxaparin Sodium (Lovenox) 40 mg SUBCUT DAILY [facility] Last Admin: 02/20/20 09:50 Dose: 40 mg Gabapentin (Neurontin) 600 mg PO TID [facility] Last Admin: 02/20/20 09:50 Dose: 600 mg Piperacillin Sod/Tazobactam (Sod 3.375 gm/ Sodium Chloride) 100 mls @ 200 mls/ hr IV Q6HR [facility] Last Infusion: 02/20/20 06:10 Dose: Infused Vancomycin HCl 2 gm/ Premix 400 mls @ 266.667 mls/hr IV Q12H [facility] Stop: 02/20/20 14:00 Last Admin: 02/20/20 09:50 Dose: 266.667 mls/hr Vancomycin HCl 2 gm/ Premix 400 mls @ 266.667 mls/hr IV Q12H [facility] Insulin Human Lispro (Humalog) 0 unit SUBCUT QIDACANDBED [facility]; Protocol Last Admin: 02/20/20 12:00 Dose: Not Given Omeprazole (Omeprazole) 40 mg PO ACBREAKFAST [facility] Last Admin: 02/20/20 05:31 Dose: 40 mg Ondansetron HCl (Zofran) 4 mg IV Q4H PRN PRN Reason: Nausea/Vomiting Sodium Chloride (Saline Flush) 10 ml FLUSH ASDIRECTED PRN PRN Reason: Keep Vein Open Last Admin: 02/20/20 09:50 Dose: 10 ml Sodium Phosphate (Neutra-Phos) 250 mg PO BID [facility] Last Admin: 02/20/20 09:49 Dose: 250 mg Vancomycin HCl (Pharmacy To Dose - Vancomycin) 1 dose .XX ASDIRECTED [facility] Discontinued Medications Albuterol/Ipratropium (Duoneb 3.0-0.5 Mg/3 Ml) 3 ml NEB ONETIME ONE Stop: 02/18/20 11:29 Last Admin: 02/18/20 11:44 Dose: 3 ml Amitriptyline HCl (Elavil) 100 mg PO BID [facility] Last Admin: 02/19/20 09:34 Dose: 100 mg Piperacillin Sod/Tazobactam (Sod 3.375 gm/ Sodium Chloride) 100 mls @ 200 mls/ hr IV ONETIME ONE Stop: 02/18/20 14:44 Last Admin: 02/18/20 15:08 Dose: 200 mls/hr Sodium Chloride (Normal Saline) 1,000 mls @ 100 mls/hr IV ASDIRECTED [facility] Last Infusion: 02/19/20 09:24 Dose: Infused Piperacillin Sod/Tazobactam (Sod 3.375 gm/ Sodium Chloride) 100 mls @ 200 mls/ hr IV Q6H [facility] Last Admin: 02/18/20 19:06 Dose: Not Given Piperacillin Sod/Tazobactam (Sod 3.375 gm/ Sodium Chloride) 100 mls @ 200 mls/ hr IV Q6H [facility] Last Admin: 02/19/20 09:25 Dose: 200 mls/hr Vancomycin HCl 2 gm/ Premix 400 mls @ 266.667 mls/hr IV ONETIME ONE Stop: 02/18/20 20:29 Last Admin: 02/18/20 19:42 Dose: 266.667 mls/hr Vancomycin HCl 1.75 gm/ Sodium (Chloride) 500 mls @ 333.333 mls/hr IV Q12H [facility] Last Admin: 02/19/20 10:12 Dose: 333.333 mls/hr Magnesium Sulfate/Dextrose 1 (gm/ Premix) 100 mls @ 100 mls/hr IV ONETIME ONE Stop: 02/19/20 10:59 Last Infusion: 02/19/20 13:12 Dose: Infused Vancomycin HCl 1 gm/Vancomycin HCl 750 mg/ Sodium Chloride 500 mls @ 333.333 mls/hr IV Q12H [facility] Last Admin: 02/20/20 09:08 Dose: Not Given Iopamidol (Isovue-370 (76%)) 100 ml IVPUSH ONETIME ONE Stop: 02/18/20 15:02 Last Admin: 02/18/20 15:06 Dose: 100 ml Iopamidol (Isovue-370 (76%)) 100 ml IVPUSH ONETIME ONE Stop: 02/18/20 15:02 Last Admin: 02/18/20 15:06 Dose: 25 ml Non-Formulary Medication (Amitriptyline Hcl [Amitriptyline Hcl]) 200 mg PO DAILY [facility] Sodium Chloride (Saline Flush) 10 ml FLUSH ASDIRECTED PRN PRN Reason: Keep Vein Open Last Admin: 02/18/20 11:44 Dose: 10 ml Sodium Chloride (Saline Flush) 10 ml FLUSH ASDIRECTED PRN PRN Reason: Keep Vein Open Last Admin: 02/19/20 09:27 Dose: 10 ml - Exam General: Alert, Oriented HEENT: Pupils Equal, Pupils Reactive Neck: Supple Lungs: Crackles Cardiovascular: Regular Rate, Regular Rhythm GI/Abdominal Exam: Normal Bowel Sounds, Soft, Non-Tender, No Organomegaly Extremities: Normal Inspection, Normal Range of Motion, Non-Tender Neurological: No New Focal Deficit Psy/Mental Status: Alert, Normal Affect, Normal Mood Sepsis Event Note - Evaluation Sepsis Screening Result: No Definite Risk - Focused Exam Vital Signs: Vital Signs Temp Pulse Resp BP Pulse Ox 02/20/20 08:00 36.8 C 80 20 150/81 H 96 02/20/20 05:34 157/90 H 02/20/20 04:50 37.1 C 88 24 H 167/101 H 94 L Date Exam was Performed: 02/20/20 Time Exam was Performed: 12:11 - Problem List Review Problem List Initiated/Reviewed/Updated: Yes - My Orders Last 24 Hours: My Active Orders 02/19/20 13:00 Piperacillin/Tazobactam [Zosyn] 3.375 gm Sodium Chloride 0.9% [Normal Saline] 100 ml IV Q6HR 02/19/20 21:00 Amitriptyline [Elavil] 200 mg PO BEDTIME 02/20/20 09:00 Vancomycin/Water for INJ (PEG) [Vancomycin 1 GM/200 ML Premix] 2 gm Premix Bag 2 bag IV Q12H 02/20/20 21:00 Vancomycin/Water for INJ (PEG) [Vancomycin 1 GM/200 ML Premix] 2 gm Premix Bag 2 bag IV Q12H 02/21/20 05:11 BASIC METABOLIC PANEL,BMP [CHEM] AM CBC W/O DIFF,HEMOGRAM [HEME] AM MAGNESIUM [CHEM] AM PHOSPHORUS [CHEM] AM - Plan Plan:: #Sepsis: leucocytosis, tachycardia #Left lower lobe pneumonia #Recurrent pneumonia -CT chest showed left lower lobe pneumonia -HIV negative -check sputum AFB -check MRSA screen +VE, covid19 -VE, sputum cx: GPC -Continue IV Vanc and IV Zosyn -monitor vital signs -will recommend o/p follow up with ID on discharge for further work up on immunosuppression/recurrent pneumonia -Possible CVID Type 2 DM -on metformin in the OP setting -ISS, accu checks TID ac and hs -carb controlled diet -continue home metformin on discharge, but hold while in the hospital Hx of depression continue home meds. DVT ppx SC lovenox Code status FC
[2020-02-20] MEDS: Amitriptyline 25 MG Tab PO SCH (21:25)
[2020-02-20] MEDS: atorvaSTATin 20 MG Tab PO SCH (21:26)
[2020-02-20] MEDS: Vancomycin 2 GM in Sodium Chloride 0.9% 500 ML IV SCH (21:47)
[2020-02-21] MEDS: Omeprazole 20 MG Cap.CR PO SCH (05:49)
[2020-02-21] MEDS: Piperacillin/Tazobactam 3.375 GM in Sodium Chloride 0.9% 100 ML IV SCH ×3 (05:52→18:34)
[2020-02-21 06:47] LABS: ANION GAP 9.8 mEq/L (7-13); CHLORIDE,CL 105 mmol/L (98-107); SODIUM,NA 141 mmol/L (136-145)
[2020-02-21] MEDS: Insulin Lispro 100 Units/ML 3 ML Vial SUBCUT SCH ×4 (09:13→22:49)
[2020-02-21] MEDS: Vancomycin 2 GM in Sodium Chloride 0.9% 500 ML IV SCH ×2 (10:13→22:36)
[2020-02-21] MEDS: busPIRone 5 MG Tab PO SCH ×2 (10:14→22:33)
[2020-02-21] MEDS: Gabapentin 300 MG Cap PO SCH ×3 (10:14→22:31)
[2020-02-21] MEDS: Sodium Chloride 0.9% 10 ML Syringe FLUSH PRN (10:14)
[2020-02-21] MEDS: Phosphorus #1 250 MG Tab PO SCH ×2 (10:14→22:30)
[2020-02-21] MEDS: Enoxaparin 40 MG/0.4 ML Syringe SUBCUT SCH (10:14)
[2020-02-21] MEDS: Allopurinol 100 MG Tab PO SCH ×2 (10:14→22:33)
[2020-02-21] MEDS: Aspirin 81 MG Tab.Chew PO SCH (10:14)
[2020-02-21] MEDS: Acetaminophen 325 MG Tab PO PRN (10:21)
--- NOTE | 2020-02-21 13:51 | PCM.PN ---
- General Info Date of Service: 02/21/20 Admission Dx/Problem (Free Text): Admission Diagnosis/Problem Admission Diagnosis/Problem Pneumonia Subjective Update: I saw and examined the patient at the bedside Feels better this morning Not hypoxic No chest pain Complains of dysphagia intermittently Also complains of reflux symptoms - Review of Systems General: Denies: Fever HEENT: Reports: No Symptoms Pulmonary: Reports: No Symptoms Cardiovascular: Reports: No Symptoms Gastrointestinal: Reports: Other (reflux, dysphagia) Genitourinary: Reports: No Symptoms Musculoskeletal: Reports: No Symptoms Skin: Reports: No Symptoms Neurological: Reports: No Symptoms Psychiatric: Reports: No Symptoms - Patient Data Vitals - Most Recent: Last Vital Signs Temp 36.8 C 02/21/20 12:00 Pulse 83 02/21/20 12:00 Resp 20 02/21/20 12:00 BP 164/79 H 02/21/20 12:00 Pulse Ox 94 L 02/21/20 12:00 Weight - Most Recent: 128.276 kg I&O - Last 24 Hours: Intake & Output 02/20/20 02/21/20 02/21/20 22:59 06:59 14:59 Intake Total 450 624 860 Balance 450 624 860 Lab Results Last 24 Hours: Laboratory Results - last 24 hr 02/20/20 02/20/20 02/21/20 Range/Units 16:25 21:24 06:20 WBC 7.2 (5.0-10.0) 10^3/uL RBC 4.15 L (4.6-6.2) 10^6/uL Hgb 12.8 L (14.0-18.0) g/dL Hct 38.9 L (40.0-54.0) % MCV 93.7 (80-100) fL MCH 30.8 (27.0-34.0) pg MCHC 32.9 L (33.0-35.0) g/dL Plt Count 242 (150-450) 10^3/uL Sodium (136-145) mmol/L Potassium (3.5-5.1) mmol/L Chloride (98-107) mmol/L Carbon Dioxide (21-32) mmol/L Anion Gap (7-13) mEq/L BUN (7-18) mg/dL Creatinine (0.70-1.30) mg/dL Est Cr Clr Drug Dosing mL/min Estimated GFR (MDRD) Glucose (74-99) mg/dL POC Glucose 149 H 135 H (70-105) mg/dl Calcium (8.5-10.1) mg/dL Phosphorus (2.6-4.7) mg/dL Magnesium (1.8-2.4) mg/dL 02/21/20 02/21/20 02/21/20 Range/Units 06:20 08:02 11:33 WBC (5.0-10.0) 10^3/uL RBC (4.6-6.2) 10^6/uL Hgb (14.0-18.0) g/dL Hct (40.0-54.0) % MCV (80-100) fL MCH (27.0-34.0) pg MCHC (33.0-35.0) g/dL Plt Count (150-450) 10^3/uL Sodium 141 (136-145) mmol/L Potassium 3.8 (3.5-5.1) mmol/L Chloride 105 (98-107) mmol/L Carbon Dioxide 30 (21-32) mmol/L Anion Gap 9.8 (7-13) mEq/L BUN 9 (7-18) mg/dL Creatinine 1.08 (0.70-1.30) mg/dL Est Cr Clr Drug Dosing 76.04 mL/min Estimated GFR (MDRD) > 60 Glucose 125 H (74-99) mg/dL POC Glucose 120 H 149 H (70-105) mg/dl Calcium 8.1 L (8.5-10.1) mg/dL Phosphorus 3.0 (2.6-4.7) mg/dL Magnesium 1.8 (1.8-2.4) mg/dL [facility] Results Last 24 Hours: Microbiology 02/18/20 13:34 Aerobic Blood Culture - Preliminary Blood - Venous - Lab Draw NO GROWTH AFTER 3 DAYS Anaerobic Blood Culture - Preliminary NO GROWTH AFTER 3 DAYS 02/18/20 11:45 Aerobic Blood Culture - Preliminary Blood - Venous NO GROWTH AFTER 3 DAYS Anaerobic Blood Culture - Preliminary NO GROWTH AFTER 3 DAYS 02/19/20 03:30 Gram Stain - Final Sputum - Expectorated Sputum Culture - Final Escherichia Coli (Mrsa) Staphylococcus Aureus Med Orders - Current: Current Medications Acetaminophen (Tylenol) 650 mg PO Q4H PRN PRN Reason: Pain/Fever Last Admin: 02/21/20 10:21 Dose: 650 mg Allopurinol (Zyloprim) 100 mg PO BID [facility] Last Admin: 02/21/20 10:14 Dose: 100 mg Amitriptyline HCl (Elavil) 200 mg PO BEDTIME [facility] Last Admin: 02/20/20 21:25 Dose: 200 mg Aspirin (Aspirin) 81 mg PO DAILY [facility] Last Admin: 02/21/20 10:14 Dose: 81 mg Atorvastatin Calcium (Lipitor) 20 mg PO BEDTIME [facility] Last Admin: 02/20/20 21:26 Dose: 20 mg Buspirone HCl (Buspar) 15 mg PO BID [facility] Last Admin: 02/21/20 10:14 Dose: 15 mg Cyclobenzaprine HCl (Flexeril) 10 mg PO BID PRN PRN Reason: Spasms Enoxaparin Sodium (Lovenox) 40 mg SUBCUT DAILY [facility] Last Admin: 02/21/20 10:14 Dose: 40 mg Gabapentin (Neurontin) 600 mg PO TID [facility] Last Admin: 02/21/20 13:13 Dose: 600 mg Piperacillin Sod/Tazobactam (Sod 3.375 gm/ Sodium Chloride) 100 mls @ 200 mls/ hr IV Q6HR [facility] Last Admin: 02/21/20 12:45 Dose: 200 mls/hr Vancomycin HCl 2 gm/ Sodium (Chloride) 500 mls @ 333.333 mls/hr IV Q12H [facility] Last Admin: 02/21/20 10:13 Dose: 250 mls/hr Insulin Human Lispro (Humalog) 0 unit SUBCUT QIDACANDBED [facility]; Protocol Last Admin: 02/21/20 11:51 Dose: Not Given Omeprazole (Omeprazole) 40 mg PO ACBREAKFAST [facility] Last Admin: 02/21/20 05:49 Dose: 40 mg Ondansetron HCl (Zofran) 4 mg IV Q4H PRN PRN Reason: Nausea/Vomiting Sodium Chloride (Saline Flush) 10 ml FLUSH ASDIRECTED PRN PRN Reason: Keep Vein Open Last Admin: 02/21/20 10:14 Dose: 10 ml Sodium Phosphate (Neutra-Phos) 250 mg PO BID [facility] Last Admin: 02/21/20 10:14 Dose: 250 mg Vancomycin HCl (Pharmacy To Dose - Vancomycin) 1 dose .XX ASDIRECTED [facility] Discontinued Medications Albuterol/Ipratropium (Duoneb 3.0-0.5 Mg/3 Ml) 3 ml NEB ONETIME ONE Stop: 02/18/20 11:29 Last Admin: 02/18/20 11:44 Dose: 3 ml Amitriptyline HCl (Elavil) 100 mg PO BID [facility] Last Admin: 02/19/20 09:34 Dose: 100 mg Piperacillin Sod/Tazobactam (Sod 3.375 gm/ Sodium Chloride) 100 mls @ 200 mls/ hr IV ONETIME ONE Stop: 02/18/20 14:44 Last Admin: 02/18/20 15:08 Dose: 200 mls/hr Sodium Chloride (Normal Saline) 1,000 mls @ 100 mls/hr IV ASDIRECTED [facility] Last Infusion: 02/19/20 09:24 Dose: Infused Piperacillin Sod/Tazobactam (Sod 3.375 gm/ Sodium Chloride) 100 mls @ 200 mls/ hr IV Q6H [facility] Last Admin: 02/18/20 19:06 Dose: Not Given Piperacillin Sod/Tazobactam (Sod 3.375 gm/ Sodium Chloride) 100 mls @ 200 mls/ hr IV Q6H [facility] Last Admin: 02/19/20 09:25 Dose: 200 mls/hr Vancomycin HCl 2 gm/ Premix 400 mls @ 266.667 mls/hr IV ONETIME ONE Stop: 02/18/20 20:29 Last Admin: 02/18/20 19:42 Dose: 266.667 mls/hr Vancomycin HCl 1.75 gm/ Sodium (Chloride) 500 mls @ 333.333 mls/hr IV Q12H [facility] Last Admin: 02/19/20 10:12 Dose: 333.333 mls/hr Magnesium Sulfate/Dextrose 1 (gm/ Premix) 100 mls @ 100 mls/hr IV ONETIME ONE Stop: 02/19/20 10:59 Last Infusion: 02/19/20 13:12 Dose: Infused Vancomycin HCl 1 gm/Vancomycin HCl 750 mg/ Sodium Chloride 500 mls @ 333.333 mls/hr IV Q12H [facility] Last Admin: 02/20/20 09:08 Dose: Not Given Vancomycin HCl 2 gm/ Premix 400 mls @ 266.667 mls/hr IV Q12H [facility] Stop: 02/20/20 14:00 Last Admin: 02/20/20 09:50 Dose: 266.667 mls/hr Vancomycin HCl 2 gm/ Premix 400 mls @ 266.667 mls/hr IV Q12H [facility] Last Admin: 02/20/20 23:02 Dose: Not Given Iopamidol (Isovue-370 (76%)) 100 ml IVPUSH ONETIME ONE Stop: 02/18/20 15:02 Last Admin: 02/18/20 15:06 Dose: 100 ml Iopamidol (Isovue-370 (76%)) 100 ml IVPUSH ONETIME ONE Stop: 02/18/20 15:02 Last Admin: 02/18/20 15:06 Dose: 25 ml Non-Formulary Medication (Amitriptyline Hcl [Amitriptyline Hcl]) 200 mg PO DAILY [facility] Sodium Chloride (Saline Flush) 10 ml FLUSH ASDIRECTED PRN PRN Reason: Keep Vein Open Last Admin: 02/18/20 11:44 Dose: 10 ml Sodium Chloride (Saline Flush) 10 ml FLUSH ASDIRECTED PRN PRN Reason: Keep Vein Open Last Admin: 02/19/20 09:27 Dose: 10 ml - Exam General: Alert, Oriented HEENT: Pupils Equal, Pupils Reactive Neck: Supple Lungs: Clear to Auscultation, Normal Respiratory Effort Cardiovascular: Regular Rate, Regular Rhythm GI/Abdominal Exam: Normal Bowel Sounds, Soft, Non-Tender Extremities: Normal Inspection, Normal Range of Motion, Non-Tender, No Pedal Edema Neurological: No New Focal Deficit Psy/Mental Status: Alert, Normal Affect, Normal Mood Sepsis Event Note - Evaluation Sepsis Screening Result: No Definite Risk - Focused Exam Vital Signs: Vital Signs Temp Pulse Resp BP Pulse Ox 02/21/20 12:00 36.8 C 83 20 164/79 H 94 L 02/21/20 08:15 36.7 C 81 20 168/78 H 93 L 02/21/20 06:12 94 L Date Exam was Performed: 02/21/20 Time Exam was Performed: 13:48 - Problem List Review Problem List Initiated/Reviewed/Updated: Yes - My Orders Last 24 Hours: My Active Orders 02/20/20 21:00 Vancomycin 2 gm Sodium Chloride 0.9% [Normal Saline] 500 ml IV Q12H - Plan Plan:: #Sepsis: leucocytosis, tachycardia #Left lower lobe pneumonia #Recurrent pneumonia -CT chest showed left lower lobe pneumonia -HIV negative -check sputum AFB -check MRSA screen +VE, covid19 -VE, sputum cx: GPC -Continue IV Vanc and IV Zosyn -monitor vital signs -will recommend o/p follow up with ID on discharge for further work up on immunosuppression/recurrent pneumonia -Possible CVID, will need o/p labs for Ig levels #Dysphagia, GERD symptoms -O/P follow up with GI #TANVI, suspected -O/P sleep study #Type 2 DM -on metformin in the OP setting -ISS, accu checks TID ac and hs -carb controlled diet -continue home metformin on discharge, but hold while in the hospital #Hx of depression continue home meds. #DVT ppx SC lovenox #Code status FC
[2020-02-21] MEDS: Amitriptyline 25 MG Tab PO SCH (22:28)
[2020-02-21] MEDS: atorvaSTATin 20 MG Tab PO SCH (22:30)
[2020-02-22] MEDS: Piperacillin/Tazobactam 3.375 GM in Sodium Chloride 0.9% 100 ML IV SCH ×3 (01:38→11:57)
[2020-02-22] MEDS: Omeprazole 20 MG Cap.CR PO SCH (06:13)
[2020-02-22] MEDS: Insulin Lispro 100 Units/ML 3 ML Vial SUBCUT SCH ×2 (09:28→13:39)
[2020-02-22] MEDS: Aspirin 81 MG Tab.Chew PO SCH (09:30)
[2020-02-22] MEDS: busPIRone 5 MG Tab PO SCH (09:30)
[2020-02-22] MEDS: Gabapentin 300 MG Cap PO SCH ×2 (09:31→16:16)
[2020-02-22] MEDS: Phosphorus #1 250 MG Tab PO SCH (09:32)
[2020-02-22] MEDS: Vancomycin 2 GM in Sodium Chloride 0.9% 500 ML IV SCH (09:33)
[2020-02-22] MEDS: Allopurinol 100 MG Tab PO SCH (09:33)
[2020-02-22] MEDS: Enoxaparin 40 MG/0.4 ML Syringe SUBCUT SCH (09:35)
--- NOTE | 2020-02-22 11:28 | PCM.DCSUM1 ---
Discharge Summary - Hospital Course Free Text/Narrative:: 59 yo M with PMH of diabetes mellitus type 2, obesity, depression, who presents with cough, shortness of breath, fever of one day duration. He presents to the ER unwell with one day history of fever, chills, cough productive of yellowish sputum, nausea and vomiting and pleuritic chest pain under the left ribcage. He is a non smoker, Has a history of incarceration Has had recurrent episodes of pneumonia this year HIV test in Jun 2019 was negative according to the patient In the ED, was tachycardic. Lab work showed leucocytosis. CT chest showed left lower lobe pneumonia, no other lung mass. Patient was started on IV abx:IV Vanc and IV Zosyn HIV was rechecked: negative check MRSA screen +VE, covid19 -VE, sputum cx: GPC MRSA and E coli, both sensitive to tetracylines Discharged on oral doxycyline and will treat for 7 more days Will recommend o/p follow up with ID on discharge for further work up on immunosuppression/recurrent pneumonia Possible CVID, will need o/p labs for Ig levels Dysphagia, GERD symptoms -O/P follow up with GI TANVI, suspected -O/P sleep study Type 2 DM -continue home metformin on discharge, but hold while in the hospital Diagnosis: Stroke: No - Discharge Data Discharge Date: 02/22/20 Discharge Disposition: Home, Self-Care 01 Condition: Good - Referral to Home Health Primary Care Physician: PCP None - Patient Instructions Diet: Heart Healthy Diet, Usual Diet as Tolerated, Diabetic Diet Activity: As Tolerated - Discharge Plan *PRESCRIPTION DRUG MONITORING PROGRAM REVIEWED*: No *COPY OF PRESCRIPTION DRUG MONITORING REPORT IN PATIENT JLUIS: No Prescriptions/Med Rec: Doxycycline Hyclate 100 mg PO BID 7 Days #7 tablet Home Medications: Home Meds Aspirin 81 mg PO DAILY 12/03/19 [History] Cyclobenzaprine [Flexeril] 10 mg PO BID PRN 12/03/19 [History] Gabapentin [Neurontin] 600 mg PO TID 12/03/19 [History] allopurinoL [Zyloprim] 100 mg PO BID 12/03/19 [History] atorvaSTATin [Lipitor] 20 mg PO BEDTIME 12/03/19 [History] busPIRone [Buspar] 15 mg PO BID 12/03/19 [History] Amitriptyline HCl 200 mg PO DAILY 01/01/20 [History] Ciprofloxacin [Ciprofloxacin 0.3% Ophth Soln] 0 ml OP Q2H 01/01/20 [History] Omeprazole 40 mg PO DAILY 01/01/20 [History] metFORMIN [Glucophage XR] 500 mg PO BIDMEALS 30 Days tab.er 01/04/20 [Rx] Doxycycline Hyclate 100 mg PO BID 7 Days #7 tablet 02/22/20 [Rx] Referrals: PCP,None [Primary Care Provider] - - Discharge Summary/Plan Comment DC Time >30 min.: Yes - General Info Date of Service: 02/22/20 Admission Dx/Problem (Free Text: Admission Diagnosis/Problem Admission Diagnosis/Problem Pneumonia Subjective Update: I saw and examined the patient at the bedside Feels better this morning Not hypoxic No chest pain Complains of dysphagia intermittently Also complains of reflux symptoms - Review of Systems General: Denies: Fever HEENT: Reports: No Symptoms Pulmonary: Reports: No Symptoms Cardiovascular: Reports: No Symptoms Gastrointestinal: Reports: Other (reflux) Genitourinary: Reports: No Symptoms Musculoskeletal: Reports: No Symptoms Skin: Reports: No Symptoms Neurological: Reports: No Symptoms Psychiatric: Reports: No Symptoms - Patient Data Vitals - Most Recent: Last Vital Signs Temp 36.5 C 02/22/20 08:24 Pulse 91 02/22/20 08:24 Resp 20 02/22/20 08:24 BP 162/88 H 02/22/20 08:24 Pulse Ox 93 L 02/22/20 08:24 Weight - Most Recent: 126.269 kg I&O - Last 24 hours: Intake & Output 02/21/20 02/22/20 02/22/20 22:59 06:59 14:59 Intake Total 475 460 Balance 475 460 Lab Results - Last 24 hrs: Laboratory Results - last 24 hr 02/21/20 02/22/20 Range/Units 11:33 08:22 POC Glucose 149 H (70-105) mg/dl Vancomycin Trough 18.7 (10.0-20.0) ug/mL AYANA Results - Last 24 hrs: Microbiology 02/18/20 13:34 Aerobic Blood Culture - Preliminary Blood - Venous - Lab Draw NO GROWTH AFTER 3 DAYS Anaerobic Blood Culture - Preliminary NO GROWTH AFTER 3 DAYS 02/18/20 11:45 Aerobic Blood Culture - Preliminary Blood - Venous NO GROWTH AFTER 3 DAYS Anaerobic Blood Culture - Preliminary NO GROWTH AFTER 3 DAYS 02/19/20 03:30 Gram Stain - Final Sputum - Expectorated Sputum Culture - Final Escherichia Coli (Mrsa) Staphylococcus Aureus Med Orders - Current: Current Medications Acetaminophen (Tylenol) 650 mg PO Q4H PRN PRN Reason: Pain/Fever Last Admin: 02/21/20 10:21 Dose: 650 mg Allopurinol (Zyloprim) 100 mg PO BID [facility] Last Admin: 02/22/20 09:33 Dose: 100 mg Amitriptyline HCl (Elavil) 200 mg PO BEDTIME [facility] Last Admin: 02/21/20 22:28 Dose: 200 mg Aspirin (Aspirin) 81 mg PO DAILY [facility] Last Admin: 02/22/20 09:30 Dose: 81 mg Atorvastatin Calcium (Lipitor) 20 mg PO BEDTIME [facility] Last Admin: 02/21/20 22:30 Dose: 20 mg Buspirone HCl (Buspar) 15 mg PO BID [facility] Last Admin: 02/22/20 09:30 Dose: 15 mg Cyclobenzaprine HCl (Flexeril) 10 mg PO BID PRN PRN Reason: Spasms Enoxaparin Sodium (Lovenox) 40 mg SUBCUT DAILY [facility] Last Admin: 02/22/20 09:35 Dose: Not Given Gabapentin (Neurontin) 600 mg PO TID [facility] Last Admin: 02/22/20 09:31 Dose: 600 mg Piperacillin Sod/Tazobactam (Sod 3.375 gm/ Sodium Chloride) 100 mls @ 200 mls/ hr IV Q6HR [facility] Last Admin: 02/22/20 06:14 Dose: 200 mls/hr Vancomycin HCl 2 gm/ Sodium (Chloride) 500 mls @ 333.333 mls/hr IV Q12H [facility] Last Admin: 02/22/20 09:33 Dose: 250 mls/hr Insulin Human Lispro (Humalog) 0 unit SUBCUT QIDACANDBED [facility]; Protocol Last Admin: 02/22/20 09:28 Dose: Not Given Omeprazole (Omeprazole) 40 mg PO ACBREAKFAST [facility] Last Admin: 02/22/20 06:13 Dose: 40 mg Ondansetron HCl (Zofran) 4 mg IV Q4H PRN PRN Reason: Nausea/Vomiting Sodium Chloride (Saline Flush) 10 ml FLUSH ASDIRECTED PRN PRN Reason: Keep Vein Open Last Admin: 02/21/20 10:14 Dose: 10 ml Sodium Phosphate (Neutra-Phos) 250 mg PO BID [facility] Last Admin: 02/22/20 09:32 Dose: 250 mg Vancomycin HCl (Pharmacy To Dose - Vancomycin) 1 dose .XX ASDIRECTED [facility] Discontinued Medications Albuterol/Ipratropium (Duoneb 3.0-0.5 Mg/3 Ml) 3 ml NEB ONETIME ONE Stop: 02/18/20 11:29 Last Admin: 02/18/20 11:44 Dose: 3 ml Amitriptyline HCl (Elavil) 100 mg PO BID [facility] Last Admin: 02/19/20 09:34 Dose: 100 mg Piperacillin Sod/Tazobactam (Sod 3.375 gm/ Sodium Chloride) 100 mls @ 200 mls/ hr IV ONETIME ONE Stop: 02/18/20 14:44 Last Admin: 02/18/20 15:08 Dose: 200 mls/hr Sodium Chloride (Normal Saline) 1,000 mls @ 100 mls/hr IV ASDIRECTED [facility] Last Infusion: 02/19/20 09:24 Dose: Infused Piperacillin Sod/Tazobactam (Sod 3.375 gm/ Sodium Chloride) 100 mls @ 200 mls/ hr IV Q6H [facility] Last Admin: 02/18/20 19:06 Dose: Not Given Piperacillin Sod/Tazobactam (Sod 3.375 gm/ Sodium Chloride) 100 mls @ 200 mls/ hr IV Q6H [facility] Last Admin: 02/19/20 09:25 Dose: 200 mls/hr Vancomycin HCl 2 gm/ Premix 400 mls @ 266.667 mls/hr IV ONETIME ONE Stop: 02/18/20 20:29 Last Admin: 02/18/20 19:42 Dose: 266.667 mls/hr Vancomycin HCl 1.75 gm/ Sodium (Chloride) 500 mls @ 333.333 mls/hr IV Q12H [facility] Last Admin: 02/19/20 10:12 Dose: 333.333 mls/hr Magnesium Sulfate/Dextrose 1 (gm/ Premix) 100 mls @ 100 mls/hr IV ONETIME ONE Stop: 02/19/20 10:59 Last Infusion: 02/19/20 13:12 Dose: Infused Vancomycin HCl 1 gm/Vancomycin HCl 750 mg/ Sodium Chloride 500 mls @ 333.333 mls/hr IV Q12H [facility] Last Admin: 02/20/20 09:08 Dose: Not Given Vancomycin HCl 2 gm/ Premix 400 mls @ 266.667 mls/hr IV Q12H [facility] Stop: 02/20/20 14:00 Last Admin: 02/20/20 09:50 Dose: 266.667 mls/hr Vancomycin HCl 2 gm/ Premix 400 mls @ 266.667 mls/hr IV Q12H [facility] Last Admin: 02/20/20 23:02 Dose: Not Given Iopamidol (Isovue-370 (76%)) 100 ml IVPUSH ONETIME ONE Stop: 02/18/20 15:02 Last Admin: 02/18/20 15:06 Dose: 100 ml Iopamidol (Isovue-370 (76%)) 100 ml IVPUSH ONETIME ONE Stop: 02/18/20 15:02 Last Admin: 02/18/20 15:06 Dose: 25 ml Non-Formulary Medication (Amitriptyline Hcl [Amitriptyline Hcl]) 200 mg PO DAILY [facility] Sodium Chloride (Saline Flush) 10 ml FLUSH ASDIRECTED PRN PRN Reason: Keep Vein Open Last Admin: 02/18/20 11:44 Dose: 10 ml Sodium Chloride (Saline Flush) 10 ml FLUSH ASDIRECTED PRN PRN Reason: Keep Vein Open Last Admin: 02/19/20 09:27 Dose: 10 ml - Exam General: Reports: Alert, Oriented HEENT: Reports: Pupils Equal, Pupils Reactive Neck: Reports: Supple Lungs: Reports: Clear to Auscultation, Normal Respiratory Effort Cardiovascular: Reports: Regular Rate, Regular Rhythm GI/Abdominal Exam: Normal Bowel Sounds, Soft, Non-Tender, No Organomegaly Extremities: Normal Inspection, Normal Range of Motion, Non-Tender, No Pedal Edema Skin: Reports: Warm, Dry, Intact Neurological: Reports: No New Focal Deficit Psy/Mental Status: Reports: Alert, Normal Affect, Normal Mood
== END 2020-02-22 13:45 | disposition home or self-care (01) | DRG 871 ==
LOC: DL.ED 11:12 → DL.MS 14:46 → DL.ED 15:12
PROVIDERS: ADMIT Hospitalist; ATTEND Hospitalist
PROC: 8E0ZXY6 Isolation (ICD-10-PCS; principal; 2020-02-18)
DX: A41.9 Sepsis, unspecified organism (principal); D72.829 Elevated white blood cell count, unspecified; J18.9 Pneumonia, unspecified organism; Z20.828 Contact with and (suspected) exposure to other viral communicable diseases; E66.01 Morbid (severe) obesity due to excess calories; M10.9 Gout, unspecified; E78.00 Pure hypercholesterolemia, unspecified; M79.7 Fibromyalgia; I10 Essential (primary) hypertension; K21.9 Gastro-esophageal reflux disease without esophagitis; Z11.59 Encounter for screening for other viral diseases; Z68.39 Body mass index [BMI] 39.0-39.9, adult; Z79.84 Long term (current) use of oral hypoglycemic drugs; F41.9 Anxiety disorder, unspecified; F32.9 Major depressive disorder, single episode, unspecified; E11.9 Type 2 diabetes mellitus without complications; E66.9 Obesity, unspecified; G47.33 Obstructive sleep apnea (adult) (pediatric); Z88.1 Allergy status to other antibiotic agents; Z79.82 Long term (current) use of aspirin; Z87.891 Personal history of nicotine dependence; Z88.8 Allergy status to other drugs, medicaments and biological substances; Z79.899 Other long term (current) drug therapy
CPT/HCPCS: 36415; 71045; 71260; 80053; 82550; 83605; 83615; 83880; 84484; 85025; 85379; 86140; 87040 ×2; 87081; 87389; 87430; 87804 ×2; 93005; 99285; U0002; 80048; 80202; 82962; 83735; 84100; 85027; 87015; 87070; 87077; 87116; 87186; 87205; 87206; 87641; 99284; A9270-GY; J1650; J1815-GY; J2543; J3370; J3475; J7030; J7040; J7050; J7620-GY; Q9967

== ENCOUNTER 2020-06-15 10:27 | Emergency (ER) | payer MEDICAID, MEDICARE ==
[2020-06-15] MEDS ORDERED: Propofol 200 MG/20 ML SDV IV ONE (10:28)
--- NOTE | 2020-06-15 10:49 | EDM.PDOC ---
ED HPI GENERAL MEDICAL PROBLEM - General Stated Complaint: Anterior shoulder dislocation Time Seen by Provider: 06/15/20 10:30 Source of Information: Reports: Patient, Provider History Limitations: Reports: No Limitations - History of Present Illness INITIAL COMMENTS - FREE TEXT/NARRATIVE: This 60 yo male patient was brought to the ED by [facility] from the [facility] due to a right shoulder dislocation. The patient was apparently changing a tire yesterday when his shoulder dislocated. The patient reports his shoulder has been hurting since time of dislocation. The patient was x-rayed in the [facility] and diagnosed with an anterior dislocation. The patient did bring the CD with him, but there was no Y view of the shoulder on the CD. 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 Onset Date: 06/14/20 Duration: Constant Location: Reports: Upper Extremity, Right Quality: Reports: Ache, Dull Severity: Moderate Improves with: Reports: None Worsens with: Reports: None Context: Reports: Other Associated Symptoms: Reports: No Other Symptoms - Related Data Allergies Allergy/AdvReac Type Severity Reaction Status Date / Time erythromycin base Allergy Cannot Verified 01/01/20 17:28 Remember Home Meds: Home Meds Aspirin 81 mg PO DAILY 12/03/19 [History] Cyclobenzaprine [Flexeril] 10 mg PO BID PRN 12/03/19 [History] Gabapentin [Neurontin] 600 mg PO TID 12/03/19 [History] allopurinoL [Zyloprim] 100 mg PO BID 12/03/19 [History] atorvaSTATin [Lipitor] 20 mg PO BEDTIME 12/03/19 [History] busPIRone [Buspar] 15 mg PO BID 12/03/19 [History] Amitriptyline HCl 200 mg PO DAILY 01/01/20 [History] Ciprofloxacin [Ciprofloxacin 0.3% Ophth Soln] 0 ml OP Q2H 01/01/20 [History] Omeprazole 40 mg PO DAILY 01/01/20 [History] metFORMIN [Glucophage XR] 500 mg PO BIDMEALS 30 Days tab.er 01/04/20 [Rx] Doxycycline Hyclate 100 mg PO BID 7 Days #7 tablet 02/22/20 [Rx] Past Medical History HEENT History: Reports: Cataract, Hard of Hearing Other HEENT History: bifolcles not here Cardiovascular History: Reports: High Cholesterol, Hypertension Respiratory History: Reports: Pneumonia, Recurrent Gastrointestinal History: Reports: GERD Genitourinary History: Reports: None Musculoskeletal History: Reports: Arthritis, Fibromyalgia, Gout Neurological History: Reports: Neuropathy, Peripheral Psychiatric History: Reports: Addiction, Anxiety, Depression Endocrine/Metabolic History: Reports: Diabetes, Type II, Obesity/BMI 30+ Hematologic History: Reports: None Immunologic History: Reports: None Oncologic (Cancer) History: Reports: None Dermatologic History: Reports: Psoriasis - Infectious Disease History Infectious Disease History: Reports: Chicken Pox - Past Surgical History Head Surgeries/Procedures: Reports: None HEENT Surgical History: Reports: Cataract Surgery GI Surgical History: Reports: Colonoscopy Social & Family History - Family History Family Medical History: Noncontributory - Caffeine Use Caffeine Use: Reports: Coffee, Soda - Living Situation & Occupation Living situation: Reports: Single Review of Systems - Review of Systems Review Of Systems: Comprehensive ROS is negative, except as noted in HPI. ED EXAM, GENERAL - Physical Exam Exam: See Below Exam Limited By: No Limitations General Appearance: Alert, WD/WN, Moderate Distress Eye Exam: Bilateral Eye: EOMI, Normal Inspection, PERRL Ears: Normal External Exam, Normal Canal, Hearing Grossly Normal, Normal TMs Nose: Normal Inspection, Normal Mucosa, No Blood Throat/Mouth: Normal Inspection, Normal Lips, Normal Teeth, Normal Gums, Normal Oropharynx, Normal Voice, No Airway Compromise Head: Atraumatic, Normocephalic Neck: Normal Inspection, Supple, Non-Tender, Full Range of Motion Respiratory/Chest: No Respiratory Distress, Lungs Clear, Normal Breath Sounds, No Accessory Muscle Use, Chest Non-Tender Cardiovascular: Normal Peripheral Pulses, Regular Rate, Rhythm, No Edema, No Gallop, No JVD, No Murmur, No Rub GI/Abdominal: Normal Bowel Sounds, Soft, Non-Tender, No Organomegaly, No Distention, No Abnormal Bruit, No Mass (Male) Exam: Deferred Rectal (Males) Exam: Deferred Back Exam: Normal Inspection, Full Range of Motion, NT Extremities: Arm Pain (Right shoulder dislocation) Neurological: Alert, Oriented, Normal Cognition, Normal Gait Psychiatric: Normal Affect, Normal Mood Skin Exam: Warm, Dry, Intact, Normal Color, No Rash Lymphatic: No Adenopathy ED TRAUMA EXTREMITY PROCEDURES - Joint Reduction Right Shoulder Sedation: Conscious Sedation Pre-Procedure NV Status: Normal Post-Procedure NV Status: Normal Technique: Traction/Counter Traction Number of Attempts: 2 Post-Reduction Imaging: Completely Reduced Joint Reduction Complications: Yes Joint Reduction Complication Description: Required significant force with traction/countertraction for reduction Course - Vital Signs Last Recorded V/S: Last Vital Signs Temp 36.9 C 06/15/20 10:57 Pulse 101 H 06/15/20 10:57 Resp 20 06/15/20 10:57 BP 164/104 H 06/15/20 10:57 Pulse Ox 99 06/15/20 10:57 Departure - Departure Time of Disposition: 11:43 Disposition: Home, Self-Care 01 Condition: Fair Clinical Impression: Recurrent dislocation, right shoulder - Discharge Information *PRESCRIPTION DRUG MONITORING PROGRAM REVIEWED*: Not Applicable *COPY OF PRESCRIPTION DRUG MONITORING REPORT IN PATIENT JLUIS: Not Applicable Instructions: Shoulder Dislocation Forms: ED Department Discharge Care Plan Goals: The patient was advised of the examination and x-ray results during the visit. The right shoulder was successfully reduced. The patient was placed in a shoulder immobilizer. The patient was encouraged to follow-up with an psychiatric specialist. If the patient has any additional symptoms or concerns, the patient should either return to the emergency department or visit his primary care facility. Sepsis Event Note (ED) - Focused Exam Vital Signs: Vital Signs Temp Pulse Resp BP Pulse Ox 06/15/20 10:57 36.9 C 101 H 20 164/104 H 99
--- NOTE | 2020-06-15 11:07 | CR ---
PROCEDURE INFORMATION: Exam: XR Right Shoulder Exam date and time: 06/15/2020 10:56 AM Age: 60 years old Clinical indication: Other: Right shoulder dislocation TECHNIQUE: Imaging protocol: XR Right shoulder. Views: 1 view. COMPARISON: CR Shoulder Comp Rt 06/15/2020 9:08 AM FINDINGS: Bones/joints: Again noted is the dislocated shoulder prosthesis. Change in alignment since the previous study. No fractures. Soft tissues: Normal. IMPRESSION: Dislocated shoulder prosthesis.
--- NOTE | 2020-06-15 11:31 | CR ---
PROCEDURE INFORMATION: Exam: XR Right Shoulder Exam date and time: 06/15/2020 11:21 AM Age: 60 years old Clinical indication: Other: Post reduction TECHNIQUE: Imaging protocol: XR Right shoulder. Views: 1 view. COMPARISON: CR Shoulder 1V Rt 06/15/2020 10:56 AM FINDINGS: Bones/joints: Since the prior exam, the prosthetic dislocation has been reduced. No fractures. Soft tissues: Normal. IMPRESSION: Reduction of dislocation.
== END 2020-06-15 12:20 | disposition home or self-care (01) ==
LOC: DL.ED 10:27
DX: M24.411 Recurrent dislocation, right shoulder (principal); M10.9 Gout, unspecified; F41.9 Anxiety disorder, unspecified; E78.00 Pure hypercholesterolemia, unspecified; I10 Essential (primary) hypertension; K21.9 Gastro-esophageal reflux disease without esophagitis; E11.42 Type 2 diabetes mellitus with diabetic polyneuropathy; Z88.1 Allergy status to other antibiotic agents; Z79.82 Long term (current) use of aspirin; Z79.84 Long term (current) use of oral hypoglycemic drugs
CPT/HCPCS: 01620; 23650; 73020; 99152; 99283; J2704

== ENCOUNTER 2020-06-30 08:45 | Emergency (ER) | payer MEDICAID, MEDICARE ==
--- NOTE | 2020-06-30 08:53 | EDM.PDOC ---
ED HPI GENERAL MEDICAL PROBLEM - General Chief Complaint: Upper Extremity Injury/Pain Stated Complaint: IN BY AMBULANCE Time Seen by Provider: 06/30/20 08:52 Source of Information: Reports: Patient, EMS, Old Records, RN, RN Notes Reviewed History Limitations: Reports: No Limitations - History of Present Illness INITIAL COMMENTS - FREE TEXT/NARRATIVE: Pt arrives to ER from home by ambulance with c/o right shoulder dislocation. Pt has Hx of right shoulder arthroplasty [facility] with [facility] dis[facility]. Pt states that today he rolled over and went to sit up in bed and the right shoulder popped out again. Pt last ate late last evening. Denies fall or injury. Onset: Today Onset Date: 06/30/20 Onset Time: 08:00 Duration: Constant Location: Reports: Upper Extremity, Right Quality: Reports: Ache Severity: Severe Improves with: Reports: None Worsens with: Reports: Movement Associated Symptoms: Reports: No Other Symptoms Right Shoulder Pain Score (Numeric/FACES): 10 - Related Data Allergies Allergy/AdvReac Type Severity Reaction Status Date / Time erythromycin base Allergy Cannot Verified 06/30/20 09:17 Remember Home Meds: Home Meds Aspirin 81 mg PO DAILY 12/03/19 [History] Cyclobenzaprine [Flexeril] 10 mg PO BID PRN 12/03/19 [History] Gabapentin [Neurontin] 600 mg PO TID 12/03/19 [History] allopurinoL [Zyloprim] 100 mg PO BID 12/03/19 [History] atorvaSTATin [Lipitor] 20 mg PO BEDTIME 12/03/19 [History] busPIRone [Buspar] 15 mg PO BID 12/03/19 [History] Amitriptyline HCl 200 mg PO DAILY 01/01/20 [History] Ciprofloxacin [Ciprofloxacin 0.3% Ophth Soln] 0 ml OP Q2H 01/01/20 [History] Omeprazole 40 mg PO DAILY 01/01/20 [History] metFORMIN [Glucophage XR] 500 mg PO BIDMEALS 30 Days tab.er 01/04/20 [Rx] Doxycycline Hyclate 100 mg PO BID 7 Days #7 tablet 02/22/20 [Rx] Past Medical History HEENT History: Reports: Cataract, Hard of Hearing Other HEENT History: bifolcles not here Cardiovascular History: Reports: High Cholesterol, Hypertension Respiratory History: Reports: Pneumonia, Recurrent Gastrointestinal History: Reports: GERD Genitourinary History: Reports: None Musculoskeletal History: Reports: Arthritis, Fibromyalgia, Gout, Other (See Below) (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.) Neurological History: Reports: Neuropathy, Peripheral Psychiatric History: Reports: Addiction, Anxiety, Depression Endocrine/Metabolic History: Reports: Diabetes, Type II, Obesity/BMI 30+ Hematologic History: Reports: None Immunologic History: Reports: None Oncologic (Cancer) History: Reports: None Dermatologic History: Reports: Psoriasis - Infectious Disease History Infectious Disease History: Reports: Chicken Pox - Past Surgical History Head Surgeries/Procedures: Reports: None HEENT Surgical History: Reports: Cataract Surgery GI Surgical History: Reports: Colonoscopy Social & Family History - Family History Family Medical History: Noncontributory - Tobacco Use Smoking Status *Q: Former Smoker - Caffeine Use Caffeine Use: Reports: Coffee, Soda - Alcohol Use Alcohol Use History: Yes Alcohol Use Frequency: Daily - Recreational Drug Use Recreational Drug Use: Yes Drug Use in Last 12 Months: No Recreational Drug Use Frequency: Not Used In Over 1 Year - Living Situation & Occupation Living situation: Reports: Single Review of Systems - Review of Systems Review Of Systems: Comprehensive ROS is negative, except as noted in HPI. ED EXAM, GENERAL - Physical Exam Exam: See Below Exam Limited By: No Limitations General Appearance: Alert, WD/WN, No Apparent Distress Nose: Normal Inspection, Normal Mucosa, No Blood Throat/Mouth: Normal Inspection, Normal Voice, No Airway Compromise Head: Atraumatic, Normocephalic Neck: Normal Inspection, Supple, Non-Tender, Full Range of Motion Respiratory/Chest: No Respiratory Distress, Lungs Clear, Normal Breath Sounds, No Accessory Muscle Use, Chest Non-Tender Cardiovascular: Normal Peripheral Pulses, Regular Rate, Rhythm, Tachycardia Back Exam: Normal Inspection Extremities: Arm Pain (Rt shoulder deformity consistent with a dislocation, generalized tenderness, skin intact, no bruising.) Neurological: Alert, Oriented, CN II-XII Intact, Normal Cognition, No Motor/Sensory Deficits Psychiatric: Normal Affect, Normal Mood Skin Exam: Warm, Dry, Intact, Normal Color ED TRAUMA EXTREMITY PROCEDURES - Joint Reduction Right Shoulder Sedation: Conscious Sedation Pre-Procedure NV Status: Normal Post-Procedure NV Status: Normal Technique: Traction/Counter Traction Number of Attempts: 2 Post-Reduction Imaging: Unacceptably Reduced, No Fracture Seen Joint Reduction Complications: No Progress/Comments: Due to high ER patient volume and acuity anesthesia was consulted for sedation & pain control. Despite Fentanyl 200mcg IVP, Versed 4mg IVP, Propofol 600mg IVP, Ketamine 500mg IVP, and Etomidate 40mg IVP the pt remained awake, alert, conversant and could not tolerate reduction of his right shoulder dislocation. The REGISTRATION REPRESENTATIVE did not feel comfortable adding additional medications unless we could move to the OR. Due to the other ER cases I am unable to leave the department and go to the OR. Plan to transfer pt to [facility] for reduction. Course - Vital Signs Last Recorded V/S: Last Vital Signs Temp 96.6 F L 06/30/20 09:18 Pulse 125 H 06/30/20 09:18 Resp 18 06/30/20 09:18 BP 142/96 H 06/30/20 09:18 Pulse Ox 96 06/30/20 09:18 - Orders/Labs/Meds Orders: Active Orders 24 hr Category Date Time Status Immobilizer [RC] ASDIRECTED Care 06/30/20 09:04 Active Peripheral IV Care [RC] . DIRECTED Care 06/30/20 09:04 Active Shoulder 1V Rt [CR] Routine Exams 06/30/20 10:52 Taken Sodium Chloride 0.9% [Saline Flush] Med 06/30/20 09:04 Active 10 ml FLUSH ASDIRECTED PRN Peripheral IV Insertion Adult [OM.PC] Stat Oth 06/30/20 09:04 Ordered Medication Orders Sodium Chloride (Saline Flush) 10 ml FLUSH ASDIRECTED PRN PRN Reason: Keep Vein Open Last Admin: 06/30/20 11:14 Dose: 10 ml Documented by: GIANNI Meds: Medications Generic Name Dose Route Start Last Admin Trade Name Freq PRN Reason Stop Dose Admin Sodium Chloride 10 ml 06/30/20 09:04 06/30/20 11:14 Saline Flush FLUSH 10 ml ASDIRECTED PRN Administration Keep Vein Open Discontinued Medications Generic Name Dose Route Start Last Admin Trade Name Freq PRN Reason Stop Dose Admin Fentanyl Confirm 06/30/20 09:38 Sublimaze Administered 06/30/20 09:39 Dose 100 mcg .ROUTE .STK-MED ONE Fentanyl 100 mcg 06/30/20 11:10 06/30/20 09:40 Sublimaze IVPUSH 06/30/20 11:11 100 mcg ONETIME ONE Administration Lidocaine HCl Confirm 06/30/20 10:06 Xylocaine-Mpf 1% Administered 06/30/20 10:07 Dose 30 ml .ROUTE .STK-MED ONE Lidocaine HCl 30 ml 06/30/20 11:10 06/30/20 10:06 Xylocaine-Mpf 1% INJECT 06/30/20 11:11 30 ml ONETIME ONE Administration Midazolam HCl Confirm 06/30/20 10:03 Versed 1 Mg/Ml Administered 06/30/20 10:04 Dose 4 mg .ROUTE .STK-MED ONE Midazolam HCl 4 mg 06/30/20 11:10 06/30/20 10:03 Versed 1 Mg/Ml IVPUSH 06/30/20 11:11 4 mg ONETIME ONE Administration - Radiology Interpretation Free Text/Narrative:: [facility] Final Radiology Report Call: [phone] assistance Online chat: [email or web address] Name: CHAD SILVA Age: 60Years M Date: 06/30/2020 SSN: -- : [id number] Study: CR SHOULDER COMP RT Requesting Physician: FAHAD MARCELINO Images: 2 Addl Studies: Provided Clinical History: Rt shoulder injury, Hx of recurrent dislocations. Contrast: Contrast Medium: Contrast Amount: Contrast Method: CONFIDENTIALITY STATEMENT This report is intended only for use by the referring physician, and only in accordance with law. If you received this in error, call [phone]. Page 1 of 1 PROCEDURE INFORMATION: Exam: XR Right Shoulder Exam date and time: 06/30/2020 9:17 AM Age: 60 years old Clinical indication: Pain; Right; Prior surgery; Surgery date: 6+ months; Surgery type: Shoulder replaced; Additional info: RT shoulder injury, HX of recurrent dislocations. TECHNIQUE: Imaging protocol: XR Right shoulder. Views: 2 or more views. COMPARISON: CR Shoulder 1V Rt 06/15/2020 11:21 AM FINDINGS: Bones/joints: Status post right total shoulder arthroplasty with inferior dislocation of the right humeral prosthesis from the right glenoid prosthesis. Mild degenerative changes at the acromioclavicular joint space. Soft tissues: 1.5 cm ossific density lateral to the right shoulder of uncertain age. IMPRESSION: 1. Status post right total shoulder arthroplasty with inferior dislocation of the right humeral prosthesis from the right glenoid prosthesis. 2. 1.5 cm ossific density lateral to the right shoulder of uncertain age. Thank you for allowing us to participate in the care of your patient. Dictated and Authenticated by: Neymar Lee MD 06/30/2020 9:36 AM Central Time ([place] & [place]) Departure - Departure Time of Disposition: 10:55 Disposition: DC/Tfer to Acute Hospital 02 Condition: Good Clinical Impression: Recurrent dislocation, right shoulder - Discharge Information *PRESCRIPTION DRUG MONITORING PROGRAM REVIEWED*: No *COPY OF PRESCRIPTION DRUG MONITORING REPORT IN PATIENT JLUIS: No Forms: ED Department Discharge, Interfacility Transfer EMTALA Sepsis Event Note (ED) - Focused Exam Vital Signs: Vital Signs Temp Pulse Resp BP Pulse Ox 06/30/20 09:18 96.6 F L 125 H 18 142/96 H 96 - My Orders Last 24 Hours: My Active Orders 06/30/20 09:04 Immobilizer [RC] ASDIRECTED Peripheral IV Care [RC] . DIRECTED Sodium Chloride 0.9% [Saline Flush] 10 ml FLUSH ASDIRECTED PRN Peripheral IV Insertion Adult [OM.PC] Stat 06/30/20 10:52 Shoulder 1V Rt [CR] Routine - Assessment/Plan Last 24 Hours: My Active Orders 06/30/20 09:04 Immobilizer [RC] ASDIRECTED Peripheral IV Care [RC] . DIRECTED Sodium Chloride 0.9% [Saline Flush] 10 ml FLUSH ASDIRECTED PRN Peripheral IV Insertion Adult [OM.PC] Stat 06/30/20 10:52 Shoulder 1V Rt [CR] Routine
[2020-06-30] MEDS ORDERED: Sodium Chloride 0.9% 10 ML Syringe FLUSH PRN (09:04)
--- NOTE | 2020-06-30 09:36 | CR ---
PROCEDURE INFORMATION: Exam: XR Right Shoulder Exam date and time: 06/30/2020 9:17 AM Age: 60 years old Clinical indication: Pain; Right; Prior surgery; Surgery date: 6+ months; Surgery type: Shoulder replaced; Additional info: RT shoulder injury, HX of recurrent dislocations. TECHNIQUE: Imaging protocol: XR Right shoulder. Views: 2 or more views. COMPARISON: CR Shoulder 1V Rt 06/15/2020 11:21 AM FINDINGS: Bones/joints: Status post right total shoulder arthroplasty with inferior dislocation of the right humeral prosthesis from the right glenoid prosthesis. Mild degenerative changes at the acromioclavicular joint space. Soft tissues: 1.5 cm ossific density lateral to the right shoulder of uncertain age. IMPRESSION: 1. Status post right total shoulder arthroplasty with inferior dislocation of the right humeral prosthesis from the right glenoid prosthesis. 2. 1.5 cm ossific density lateral to the right shoulder of uncertain age.
[2020-06-30] MEDS ORDERED: fentaNYL 100 MCG/2 ML SDV ONE (09:38)
[2020-06-30] MEDS ORDERED: Midazolam 1 MG/ML 2 ML SDV ONE (10:03)
[2020-06-30] MEDS ORDERED: Lidocaine 1% 30 ML SDV ONE (10:06)
[2020-06-30] MEDS ORDERED: Midazolam 1 MG/ML 2 ML SDV IVPUSH ONE (11:10)
[2020-06-30] MEDS ORDERED: fentaNYL 100 MCG/2 ML SDV IVPUSH ONE (11:10)
[2020-06-30] MEDS ORDERED: Lidocaine 1% 30 ML SDV INJECT ONE (11:10)
--- NOTE | 2020-06-30 12:41 | CR ---
PROCEDURE INFORMATION: Exam: XR Right Shoulder Exam date and time: 06/30/2020 10:28 AM Age: 60 years old Clinical indication: Pain; Prior surgery; Surgery date: 6+ months; Surgery type: Right shoulder replacement; Additional info: Post reduction TECHNIQUE: Imaging protocol: XR Right shoulder. Views: 1 view. COMPARISON: CR Shoulder Comp Rt 06/30/2020 9:17 AM FINDINGS: Bones/joints: Again noted is the dislocation of the shoulder prosthesis. No fractures. Soft tissues: Normal. IMPRESSION: Shoulder dislocation.
== END 2020-06-30 11:44 ==
LOC: DL.ED 08:45
DX: M24.411 Recurrent dislocation, right shoulder (principal); E78.00 Pure hypercholesterolemia, unspecified; I10 Essential (primary) hypertension; F32.9 Major depressive disorder, single episode, unspecified; K21.9 Gastro-esophageal reflux disease without esophagitis; E11.42 Type 2 diabetes mellitus with diabetic polyneuropathy; M10.9 Gout, unspecified; F41.9 Anxiety disorder, unspecified; E66.9 Obesity, unspecified; Z68.37 Body mass index [BMI] 37.0-37.9, adult; Z79.82 Long term (current) use of aspirin; Z79.899 Other long term (current) drug therapy; Z88.1 Allergy status to other antibiotic agents; Z87.891 Personal history of nicotine dependence
CPT/HCPCS: 23650; 73020; 73030; 99285; J2001; J2250; J3010; 01620

== ENCOUNTER 2020-07-06 11:17 | Emergency (ER) | payer MEDICARE, MEDICAID ==
--- NOTE | 2020-07-06 11:17 | EDM.PDOC ---
ED HPI GENERAL MEDICAL PROBLEM - General Chief Complaint: Upper Extremity Injury/Pain Stated Complaint: RIGHT SHOULDER Time Seen by Provider: 07/06/20 11:17 Source of Information: Reports: Patient, EMS, Old Records, Provider, RN, RN Notes Reviewed History Limitations: Reports: No Limitations - History of Present Illness INITIAL COMMENTS - FREE TEXT/NARRATIVE: Pt sent from [facility] by ambulance with c/o recurrent right shoulder dislocation. Pt has Hx of total shoulder reverse arthroplasty remotely while in jail several years ago. In the past year he has had 6 dislocations. Pt states the shoulder has been very difficult to reduce every time. He was supposed to have a consultation in orthopedic clinic but never received any notice about the referral. Pt was seen here on 06/30/20 with the right shoulder dislocated. At that time he had the OSTEOPATHIC RESIDENT give Fentanyl 200mcg, Propofol 600mg, Ketamine 500mg, Etomidate 40mg, and Versed 4mg and the pt remained alert and unable to tolerate reduction of the shoulder. He was transferred to [facility], but states he felt as if the shoulder had dislocated again before he even left the hospital at [facility]. He did fall on 07/03/20 but states the shoulder was already out of place at that point. Today he went to clinic because the pain increased and the shoulder had become very hot, red and swollen, and the redness has spread onto his chest and upper right arm. Denies fever or chills. Pt had a Rt shoulder x-ray in clinic this morning confirming dislocation with no fractures seen. Onset: Sudden Duration: Recurring Location: Reports: Upper Extremity, Right Quality: Reports: Ache, Same as Previous Episode Severity: Severe Improves with: Reports: Immobilization Worsens with: Reports: Movement Associated Symptoms: Reports: No Other Symptoms Right Hand Pain Score (Numeric/FACES): 10 - Related Data Allergies Allergy/AdvReac Type Severity Reaction Status Date / Time erythromycin base Allergy Cannot Verified 06/30/20 09:17 Remember Home Meds: Home Meds Aspirin 81 mg PO DAILY 12/03/19 [History] Cyclobenzaprine [Flexeril] 10 mg PO BID PRN 12/03/19 [History] Gabapentin [Neurontin] 600 mg PO TID 12/03/19 [History] allopurinoL [Zyloprim] 100 mg PO BID 12/03/19 [History] atorvaSTATin [Lipitor] 20 mg PO BEDTIME 12/03/19 [History] busPIRone [Buspar] 15 mg PO BID 12/03/19 [History] Amitriptyline HCl 200 mg PO DAILY 01/01/20 [History] Ciprofloxacin [Ciprofloxacin 0.3% Ophth Soln] 0 ml OP Q2H 01/01/20 [History] Omeprazole 40 mg PO DAILY 01/01/20 [History] metFORMIN [Glucophage XR] 500 mg PO BIDMEALS 30 Days tab.er 01/04/20 [Rx] Doxycycline Hyclate 100 mg PO BID 7 Days #7 tablet 02/22/20 [Rx] Past Medical History HEENT History: Reports: Cataract, Hard of Hearing Other HEENT History: bifolcles not here Cardiovascular History: Reports: High Cholesterol, Hypertension Respiratory History: Reports: Pneumonia, Recurrent Gastrointestinal History: Reports: GERD Genitourinary History: Reports: None Musculoskeletal History: Reports: Arthritis, Fibromyalgia, Gout, Other (See Below) (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.) Neurological History: Reports: Neuropathy, Peripheral Psychiatric History: Reports: Addiction, Anxiety, Depression Endocrine/Metabolic History: Reports: Diabetes, Type II, Obesity/BMI 30+ Hematologic History: Reports: None Immunologic History: Reports: None Oncologic (Cancer) History: Reports: None Dermatologic History: Reports: Psoriasis - Infectious Disease History Infectious Disease History: Reports: Chicken Pox - Past Surgical History Head Surgeries/Procedures: Reports: None HEENT Surgical History: Reports: Cataract Surgery GI Surgical History: Reports: Colonoscopy Social & Family History - Family History Family Medical History: Noncontributory - Caffeine Use Caffeine Use: Reports: Coffee, Soda - Living Situation & Occupation Living situation: Reports: Single Review of Systems - Review of Systems Review Of Systems: Comprehensive ROS is negative, except as noted in HPI. ED EXAM, GENERAL - Physical Exam Exam: See Below Exam Limited By: No Limitations General Appearance: Alert, WD/WN, No Apparent Distress Nose: Normal Inspection Throat/Mouth: Normal Voice, No Airway Compromise Head: Atraumatic, Normocephalic Neck: Normal Inspection, Supple, Non-Tender, Full Range of Motion Respiratory/Chest: No Respiratory Distress, Lungs Clear Cardiovascular: Normal Peripheral Pulses, Regular Rate, Rhythm Peripheral Pulses: 3+: Radial (L), Radial (R) GI/Abdominal: Normal Bowel Sounds, Soft, Non-Tender Back Exam: Normal Inspection Extremities: Normal Capillary Refill, Arm Pain (right shoulder with deformity consistent with shoulder dislocation), Limited Range of Motion (Rt shoulder), Redness (Right anterior & lateral shoulder with soft tissue swelling, acutely tender, with increased warmth, and erythema from the shouder down the upper arm 10cm x 36cm, and onto the chest with erythema 30cm x 34cm, no fluctuance or palpable abscess.) Neurological: Alert, Oriented, No Motor/Sensory Deficits Psychiatric: Normal Affect, Normal Mood Skin Exam: Warm, Dry Course - Vital Signs Last Recorded V/S: Last Vital Signs Temp 97.8 F 07/06/20 11:30 Pulse 95 07/06/20 11:30 Resp 16 07/06/20 11:30 BP 125/88 07/06/20 11:30 Pulse Ox 99 07/06/20 11:30 - Orders/Labs/Meds Orders: Active Orders 24 hr Category Date Time Status Peripheral IV Care [RC] . DIRECTED Care 07/06/20 11:33 Active CBC WITH AUTO DIFF [HEME] Stat Lab 07/06/20 11:57 Results COMPREHENSIVE METABOLIC PN,CMP [CHEM] Stat Lab 07/06/20 11:57 Results CRP [C-REACTIVE PROTEIN] [CHEM] Stat Lab 07/06/20 11:57 Results CULTURE BLOOD [BC] Stat Lab 07/06/20 11:57 Received CULTURE BLOOD [BC] Stat Lab 07/06/20 12:08 Results MANUAL DIFFERENTIAL QA/NC [HEME] Stat Lab 07/06/20 11:57 Results Pharmacy to Dose - Vancomycin Med 07/06/20 12:03 Once 1 dose .XX ONETIME ONE Sodium Chloride 0.9% [Saline Flush] Med 07/06/20 11:33 Active 10 ml FLUSH ASDIRECTED PRN Blood Culture x2 Reflex Set [OM.PC] Stat Oth 07/06/20 11:33 Ordered Peripheral IV Insertion Adult [OM.PC] Stat Oth 07/06/20 11:33 Ordered Medication Orders Sodium Chloride (Saline Flush) 10 ml FLUSH ASDIRECTED PRN PRN Reason: Keep Vein Open Last Admin: 07/06/20 12:22 Dose: 10 ml Documented by: BEA Vancomycin HCl (Pharmacy To Dose - Vancomycin) 1 dose .XX ONETIME ONE Stop: 07/06/20 12:04 Labs: Laboratory Tests 07/06/20 07/06/20 07/06/20 Range/Units 11:57 11:57 11:57 WBC 9.9 (5.0-10.0) 10^3/uL RBC 4.60 (4.6-6.2) 10^6/uL Hgb 12.9 L (14.0-18.0) g/dL Hct 38.2 L (40.0-54.0) % MCV 83.0 D (80-100) fL MCH 28.0 (27.0-34.0) pg MCHC 33.8 (33.0-35.0) g/dL Plt Count 389 D (150-450) 10^3/uL Neut % (Auto) 78.0 H (42.2-75.2) % Lymph % (Auto) 8.8 L (20.5-50.1) % [place] % (Auto) 12.2 H (2-8) % Eos % (Auto) 0.7 L (1.0-3.0) % Baso % (Auto) 0.3 (0.0-1.0) % Add Manual Diff Yes Sodium 133 L (136-145) mmol/L Potassium 3.3 L (3.5-5.1) mmol/L Chloride 95 L (98-107) mmol/L Carbon Dioxide 31 (21-32) mmol/L Anion Gap 10.3 (7-13) mEq/L BUN 8 (7-18) mg/dL Creatinine 1.04 (0.70-1.30) mg/dL Est Cr Clr Drug Dosing TNP Estimated GFR (MDRD) > 60 BUN/Creatinine Ratio 7.7 (No establ ref range) Glucose 110 H (74-99) mg/dL Lactic Acid 1.6 (0.4-2.0) mmol/L Calcium 8.6 (8.5-10.1) mg/dL Total Bilirubin 0.6 (0.2-1.0) mg/dL AST 31 (15-37) U/L ALT 45 (16-63) U/L Alkaline Phosphatase 167 H (46-116) U/L Total Protein 7.4 (6.4-8.2) g/dL Albumin 2.0 L (3.4-5.0) g/dL Globulin 5.4 Albumin/Globulin Ratio 0.37 Meds: Medications Generic Name Dose Route Start Last Admin Trade Name Freq PRN Reason Stop Dose Admin Sodium Chloride 10 ml 07/06/20 11:33 07/06/20 12:22 Saline Flush FLUSH 10 ml ASDIRECTED PRN Administration Keep Vein Open Vancomycin HCl 1 dose 07/06/20 12:03 Pharmacy To Dose - Vancomycin .XX 07/06/20 12:04 ONETIME ONE Discontinued Medications Generic Name Dose Route Start Last Admin Trade Name Freq PRN Reason Stop Dose Admin Diphenhydramine HCl 25 mg 07/06/20 12:03 07/06/20 12:21 Benadryl IVPUSH 07/06/20 12:04 25 mg ONETIME ONE Administration Hydromorphone HCl 1 mg 07/06/20 11:34 07/06/20 12:23 Dilaudid IVPUSH 07/06/20 11:35 1 mg ONETIME ONE Administration Ondansetron HCl 4 mg 07/06/20 11:33 07/06/20 12:22 Zofran IV 07/06/20 11:34 4 mg ONETIME ONE Administration - Radiology Interpretation Free Text/Narrative:: X-ray Rt shoulder from [facility]: hardware consistent with total reverse arthroplasty with dislocation, no fracture seen. - Re-Assessments/Exams Free Text/Narrative Re-Assessment/Exam: 07/06/20 12:20 No orthopedic service available in [place]. No beds available at [facility] or [facility]. Dr. Andrews kindly accepts the pt to [facility]. Departure - Departure Time of Disposition: 12:41 Disposition: DC/Tfer to Acute Hospital 02 Condition: Fair Clinical Impression: Recurrent dislocation of right shoulder, Status post reverse arthroplasty of right shoulder, Cellulitis of right upper arm Septic joint of right shoulder region Qualifiers: Septic arthritis organism: due to unspecified organism Qualified Code(s): M00.9 - Pyogenic arthritis, unspecified - Discharge Information *PRESCRIPTION DRUG MONITORING PROGRAM REVIEWED*: Not Applicable *COPY OF PRESCRIPTION DRUG MONITORING REPORT IN PATIENT JLUIS: Not Applicable Forms: ED Department Discharge, Interfacility Transfer EMTALA Sepsis Event Note (ED) - Focused Exam Vital Signs: Vital Signs Temp Pulse Resp BP Pulse Ox 07/06/20 11:30 97.8 F 95 16 125/88 99 - My Orders Last 24 Hours: My Active Orders 07/06/20 11:33 Peripheral IV Care [RC] . DIRECTED Sodium Chloride 0.9% [Saline Flush] 10 ml FLUSH ASDIRECTED PRN Blood Culture x2 Reflex Set [OM.PC] Stat Peripheral IV Insertion Adult [OM.PC] Stat 07/06/20 11:57 CBC WITH AUTO DIFF [HEME] Stat COMPREHENSIVE METABOLIC PN,CMP [CHEM] Stat CRP [C-REACTIVE PROTEIN] [CHEM] Stat CULTURE BLOOD [BC] Stat MANUAL DIFFERENTIAL QA/NC [HEME] Stat 07/06/20 12:03 Pharmacy to Dose - Vancomycin 1 dose .XX ONETIME ONE 07/06/20 12:08 CULTURE BLOOD [BC] Stat - Assessment/Plan Last 24 Hours: My Active Orders 07/06/20 11:33 Peripheral IV Care [RC] . DIRECTED Sodium Chloride 0.9% [Saline Flush] 10 ml FLUSH ASDIRECTED PRN Blood Culture x2 Reflex Set [OM.PC] Stat Peripheral IV Insertion Adult [OM.PC] Stat 07/06/20 11:57 CBC WITH AUTO DIFF [HEME] Stat COMPREHENSIVE METABOLIC PN,CMP [CHEM] Stat CRP [C-REACTIVE PROTEIN] [CHEM] Stat CULTURE BLOOD [BC] Stat MANUAL DIFFERENTIAL QA/NC [HEME] Stat 07/06/20 12:03 Pharmacy to Dose - Vancomycin 1 dose .XX ONETIME ONE 07/06/20 12:08 CULTURE BLOOD [BC] Stat
[2020-07-06] MEDS ORDERED: Sodium Chloride 0.9% 10 ML Syringe FLUSH PRN (11:33)
[2020-07-06] MEDS ORDERED: HYDROmorphone 1 MG/ML Syringe IVPUSH ONE (11:34)
[2020-07-06] MEDS ORDERED: diphenhydrAMINE 50 MG/ML SDV IVPUSH ONE (12:03)
[2020-07-06] MEDS: Ondansetron 4 MG/2 ML SDV IV ONE (12:22)
[2020-07-06 12:27] LABS: ANION GAP 10.3 mEq/L (7-13); CHLORIDE,CL 95 mmol/L (98-107); SODIUM,NA 133 mmol/L (136-145)
== END 2020-07-06 13:45 ==
LOC: DL.ED 11:17
DX: M24.411 Recurrent dislocation, right shoulder (principal); L03.113 Cellulitis of right upper limb; M10.9 Gout, unspecified; E78.00 Pure hypercholesterolemia, unspecified; I10 Essential (primary) hypertension; M00.9 Pyogenic arthritis, unspecified; K21.9 Gastro-esophageal reflux disease without esophagitis; E11.42 Type 2 diabetes mellitus with diabetic polyneuropathy; E66.9 Obesity, unspecified; Z68.33 Body mass index [BMI] 33.0-33.9, adult; Z96.611 Presence of right artificial shoulder joint; Z88.1 Allergy status to other antibiotic agents; Z79.899 Other long term (current) drug therapy
CPT/HCPCS: 36415; 80053; 83605; 85025; 86140; 87040; 96365; 96375; 99285-25; J1170; J1200; J2405; J3370; J7050

== ENCOUNTER 2020-08-08 10:05 | Emergency (ER) | payer MEDICAID ==
--- NOTE | 2020-08-08 10:55 | EDM.PDOC ---
ED HPI GENERAL MEDICAL PROBLEM - General Chief Complaint: Upper Extremity Injury/Pain Stated Complaint: aMBULANCE Time Seen by Provider: 08/08/20 10:50 Source of Information: Reports: Patient, RN, RN Notes Reviewed History Limitations: Reports: No Limitations - History of Present Illness INITIAL COMMENTS - FREE TEXT/NARRATIVE: Patient presents to the ED with complaints of right shoulder pain. He relates the pain began yesterday 08/07/20 while getting out of bed - he feels as if his shoulder slipped out of place. He denies any mechanism of injury, and attests to recent surgery on the affected limb. He states he had surgery at [facility] in [place] about five weeks ago which consisted of a surgical washout with joint realignment; his follow up appointment is scheduled for August 30. He has a brace for his shoulder, but he has not been wearing it. He states he was discharged from [facility] last 08/03/20, with antibiotics for surgical infection but he has not been taking them. - Related Data Allergies Allergy/AdvReac Type Severity Reaction Status Date / Time erythromycin base Allergy Cannot Verified 08/08/20 10:23 Remember Home Meds: Home Meds Aspirin 81 mg PO DAILY 12/03/19 [History] Cyclobenzaprine [Flexeril] 10 mg PO BID PRN 12/03/19 [History] Gabapentin [Neurontin] 600 mg PO TID 12/03/19 [History] allopurinoL [Zyloprim] 200 mg PO BID 12/03/19 [History] atorvaSTATin [Lipitor] 20 mg PO BEDTIME 12/03/19 [History] busPIRone [Buspar] 15 mg PO TID 12/03/19 [History] Amitriptyline HCl 200 mg PO DAILY 01/01/20 [History] Omeprazole 40 mg PO DAILY 01/01/20 [History] metFORMIN [Glucophage XR] 500 mg PO BIDMEALS 30 Days tab.er 01/04/20 [Rx] Doxycycline Monohydrate 100 mg PO BID 08/08/20 [History] Hydrocodone/Acetaminophen [Hydrocodone-Acetamin 5-325 mg] 1 each PO Q8H PRN 08/08/20 [History] Indomethacin 25 mg PO TID 08/08/20 [History] Loratadine 10 mg PO DAILY PRN 08/08/20 [History] Pioglitazone [Actos] 15 mg PO DAILY 08/08/20 [History] Rifampin [Rifadin] 300 mg PO BID 08/08/20 [History] Rosuvastatin Calcium 10 mg PO DAILY 08/08/20 [History] diphenhydrAMINE HCL [Banophen] 25 mg PO BEDTIME PRN 08/08/20 [History] lisinopriL [Prinivil] 20 mg PO DAILY 08/08/20 [History] Past Medical History HEENT History: Reports: Cataract, Hard of Hearing Other HEENT History: bifolcles not here Cardiovascular History: Reports: High Cholesterol, Hypertension Respiratory History: Reports: Pneumonia, Recurrent Gastrointestinal History: Reports: GERD Genitourinary History: Reports: None Musculoskeletal History: Reports: Arthritis, Fibromyalgia, Gout, Other (See Below) Other Musculoskeletal History: shoulder dislocation Neurological History: Reports: Neuropathy, Peripheral Psychiatric History: Reports: Addiction, Anxiety, Depression Endocrine/Metabolic History: Reports: Diabetes, Type II, Obesity/BMI 30+ Hematologic History: Reports: None Immunologic History: Reports: None Oncologic (Cancer) History: Reports: None Dermatologic History: Reports: Psoriasis - Infectious Disease History Infectious Disease History: Reports: None - Past Surgical History Head Surgeries/Procedures: Reports: None HEENT Surgical History: Reports: Cataract Surgery GI Surgical History: Reports: Colonoscopy Social & Family History - Family History Family Medical History: Noncontributory - Tobacco Use Smoking Status *Q: Current Some Day Smoker Years of Tobacco use: 1 Packs/Tins Daily: 0.1 - Caffeine Use Caffeine Use: Reports: None - Recreational Drug Use Recreational Drug Use: No - Living Situation & Occupation Living situation: Reports: Single Review of Systems - Review of Systems Review Of Systems: Comprehensive ROS is negative, except as noted in HPI. ED EXAM, GENERAL - Physical Exam Exam: See Below Exam Limited By: No Limitations General Appearance: Alert, WD/WN, No Apparent Distress Head: Atraumatic, Normocephalic Neck: Normal Inspection, Supple, Non-Tender Peripheral Pulses: 2+: Radial (L), Radial (R) Extremities: Joint Swelling (Right shoulder), Arm Pain (Right shoulder), Limited Range of Motion, Increased Warmth, Redness. No: Normal Range of Motion Neurological: Alert, Oriented Skin Exam: Erythema (To right shoulder), Increased Warmth, Wound/Incision (Old surgical incision to right shoulder with purulent drainage noted. ) Course - Vital Signs Last Recorded V/S: Last Vital Signs Temp 97.9 F 08/08/20 10:23 Pulse 100 08/08/20 10:23 Resp 18 08/08/20 10:23 BP 103/76 08/08/20 10:23 Pulse Ox 96 08/08/20 10:23 - Orders/Labs/Meds Orders: Active Orders 24 hr Category Date Time Status C-REACTIVE PROTEIN [REF] Stat Lab 08/08/20 11:55 Ordered CBC WITH AUTO DIFF [HEME] Stat Lab 08/08/20 11:55 Ordered CULTURE WOUND [RM] Stat Lab 08/08/20 12:00 Received - Radiology Interpretation Free Text/Narrative:: [facility] - [facility] Final Radiology Report with Addendum Call: [phone] assistance Online chat: [email or web address] Name: CHAD SILVA Age: 60Years M Date: 08/08/2020 SSN: -- : [id number] Study: CR SHOULDER COMP RT Requesting Physician: Prema Bajwa Images: 2 Addl Studies: Provided Clinical History: Shoulder out of place Contrast: Contrast Medium: Contrast Amount: Contrast Method: Page 1 of 2 Addendum created by Estela Johnson MD on 08/08/2020 12:02 PM Central Time ([place] & [place]): THIS REPORT CONTAINS FINDINGS THAT MAY BE CRITICAL TO PATIENT CARE. The findings were verbally communicated via telephone conference with Prema Bajwa APRN, at 11:48 AM CDT on 08/08/2020. The findings were acknowledged and understood. Initial Report created on 08/08/2020 12:00 PM Central Time ([place] & [place]): PROCEDURE INFORMATION: Exam: XR Right Shoulder Exam date and time: 08/08/2020 10:50 AM Age: 60 years old Clinical indication: Other: Shoulder out of place; Prior surgery; Surgery date: 6+ months; Surgery type: Shoulder replacement TECHNIQUE: Imaging protocol: XR Right shoulder. Views: 2 or more views. COMPARISON: CR Shoulder Comp Rt 07/06/2020 10:00 AM FINDINGS: Bones/joints: There is inferior anterior dislocation of the polyethylene cup from the glenospere. There is no acute osseous fracture. Glenosphere appears to be in neutral to slight inferior tilt which represents normal placement within the glenoid fossa. Shaft portion of the prosthesis is well seated and there is no abnormal greater lucency at the bone-component interface. Soft tissues: No heterotopic soft tissue ossification in the axilla. IMPRESSION: CHAD SILVA | Final Radiology Report CONFIDENTIALITY STATEMENT This report is intended only for use by the referring physician, and only in accordance with law. If you received this in error, call [phone]. 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 Thank you for allowing us to participate in the care of your patient. Dictated and Authenticated by: Estela Miller MD 08/08/2020 12:00 PM Central Time ([place] & [place]) - Re-Assessments/Exams Free Text/Narrative Re-Assessment/Exam: 08/08/20 11:47 Xray reveals dislocation. Will obtain labs and wound culture prior to calling Dr. Mccarty at [facility] (surgeon) for further recommendations regarding dislocation in the presence of infection. 08/08/20 12:16 Patient left facility AMA. Patient states he is upset regarding blood draw and "does not want to be poked 20 times." Nurse counseled patient on risks of leaving with infection in joint. 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 Dislocation of right shoulder joint Qualifiers: Encounter type: sequela Qualified Code(s): S43.004S - Unspecified dislocation of right shoulder joint, sequela - Discharge Information *PRESCRIPTION DRUG MONITORING PROGRAM REVIEWED*: Not Applicable *COPY OF PRESCRIPTION DRUG MONITORING REPORT IN PATIENT JLUIS: Not Applicable Forms: ED Department Discharge, Refusal of Care AMA, ED Return to Work/School Form Sepsis Event Note (ED) - Evaluation Sepsis Screening Result: No Definite Risk - Focused Exam Vital Signs: Vital Signs Temp Pulse Resp BP Pulse Ox 08/08/20 10:23 97.9 F 100 18 103/76 96 - My Orders Last 24 Hours: My Active Orders 08/08/20 11:55 C-REACTIVE PROTEIN [REF] Stat CBC WITH AUTO DIFF [HEME] Stat 08/08/20 12:00 CULTURE WOUND [RM] Stat - Assessment/Plan Last 24 Hours: My Active Orders 08/08/20 11:55 C-REACTIVE PROTEIN [REF] Stat CBC WITH AUTO DIFF [HEME] Stat 08/08/20 12:00 CULTURE WOUND [RM] Stat
--- NOTE | 2020-08-08 12:00 | CR ---
PROCEDURE INFORMATION: Exam: XR Right Shoulder Exam date and time: 08/08/2020 10:50 AM Age: 60 years old Clinical indication: Other: Shoulder out of place; Prior surgery; Surgery date: 6+ months; Surgery type: Shoulder replacement TECHNIQUE: Imaging protocol: XR Right shoulder. Views: 2 or more views. COMPARISON: CR Shoulder Comp Rt 07/06/2020 10:00 AM FINDINGS: Bones/joints: There is inferior anterior dislocation of the polyethylene cup from the glenospere. There is no acute osseous fracture. Glenosphere appears to be in neutral to slight inferior tilt which represents normal placement within the glenoid fossa. Shaft portion of the prosthesis is well seated and there is no abnormal greater lucency at the bone-component interface. Soft tissues: No heterotopic soft tissue ossification in the axilla. 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
== END 2020-08-08 12:12 | disposition left against medical advice (07) ==
LOC: DL.ED 10:05
DX: T84.59XA Infection and inflammatory reaction due to other internal joint prosthesis, initial encounter (principal); I10 Essential (primary) hypertension; E78.00 Pure hypercholesterolemia, unspecified; K21.9 Gastro-esophageal reflux disease without esophagitis; M10.9 Gout, unspecified; F41.9 Anxiety disorder, unspecified; F32.9 Major depressive disorder, single episode, unspecified; E11.42 Type 2 diabetes mellitus with diabetic polyneuropathy; E66.9 Obesity, unspecified; Z68.34 Body mass index [BMI] 34.0-34.9, adult; F17.210 Nicotine dependence, cigarettes, uncomplicated; Z88.1 Allergy status to other antibiotic agents; Z79.82 Long term (current) use of aspirin; Z79.899 Other long term (current) drug therapy
CPT/HCPCS: 73030-RT; 87070; 99284

== ENCOUNTER 2020-08-18 19:02 | Emergency (ER) | payer MEDICAID ==
--- NOTE | 2020-08-18 19:22 | EDM.PDOC ---
ED HPI GENERAL MEDICAL PROBLEM - General Chief Complaint: Upper Extremity Injury/Pain Stated Complaint: AMBULANCE Time Seen by Provider: 08/18/20 19:20 Source of Information: Reports: Patient History Limitations: Reports: No Limitations - History of Present Illness INITIAL COMMENTS - FREE TEXT/NARRATIVE: c/o right shoulder pain not sure how long he has the boil there. had surgery in [place] last month. was admitted but left AMA. admits to drinking. Right Shoulder Pain Score (Numeric/FACES): 7 - Related Data Allergies Allergy/AdvReac Type Severity Reaction Status Date / Time erythromycin base Allergy Cannot Verified 08/18/20 19:14 Remember Home Meds: Home Meds Aspirin 81 mg PO DAILY 12/03/19 [History] Cyclobenzaprine [Flexeril] 10 mg PO BID PRN 12/03/19 [History] Gabapentin [Neurontin] 600 mg PO TID 12/03/19 [History] allopurinoL [Zyloprim] 200 mg PO BID 12/03/19 [History] atorvaSTATin [Lipitor] 20 mg PO BEDTIME 12/03/19 [History] busPIRone [Buspar] 15 mg PO TID 12/03/19 [History] Amitriptyline HCl 200 mg PO DAILY 01/01/20 [History] Omeprazole 40 mg PO DAILY 01/01/20 [History] metFORMIN [Glucophage XR] 500 mg PO BIDMEALS 30 Days tab.er 01/04/20 [Rx] Doxycycline Monohydrate 100 mg PO BID 08/08/20 [History] Hydrocodone/Acetaminophen [Hydrocodone-Acetamin 5-325 mg] 1 each PO Q8H PRN 08/08/20 [History] Indomethacin 25 mg PO TID 08/08/20 [History] Loratadine 10 mg PO DAILY PRN 08/08/20 [History] Pioglitazone [Actos] 15 mg PO DAILY 08/08/20 [History] Rifampin [Rifadin] 300 mg PO BID 08/08/20 [History] Rosuvastatin Calcium 10 mg PO DAILY 08/08/20 [History] diphenhydrAMINE HCL [Banophen] 25 mg PO BEDTIME PRN 08/08/20 [History] lisinopriL [Prinivil] 20 mg PO DAILY 08/08/20 [History] Past Medical History HEENT History: Reports: Cataract, Hard of Hearing Other HEENT History: bifolcles not here Cardiovascular History: Reports: High Cholesterol, Hypertension Respiratory History: Reports: Pneumonia, Recurrent Gastrointestinal History: Reports: GERD Genitourinary History: Reports: None Musculoskeletal History: Reports: Arthritis, Fibromyalgia, Gout, Other (See Below) Other Musculoskeletal History: shoulder dislocation Neurological History: Reports: Neuropathy, Peripheral Psychiatric History: Reports: Addiction, Anxiety, Depression Endocrine/Metabolic History: Reports: Diabetes, Type II, Obesity/BMI 30+ Hematologic History: Reports: None Immunologic History: Reports: None Oncologic (Cancer) History: Reports: None Dermatologic History: Reports: Psoriasis - Infectious Disease History Infectious Disease History: Reports: None - Past Surgical History Head Surgeries/Procedures: Reports: None HEENT Surgical History: Reports: Cataract Surgery GI Surgical History: Reports: Colonoscopy Social & Family History - Family History Family Medical History: Noncontributory - Tobacco Use Tobacco Use Status *Q: Current Status Unknown Second Hand Smoke Exposure: No - Caffeine Use Caffeine Use: Reports: Soda - Alcohol Use Date of Last Drink: 08/17/20 - Recreational Drug Use Recreational Drug Use: No - Living Situation & Occupation Living situation: Reports: Single Review of Systems - Review of Systems Review Of Systems: Comprehensive ROS is negative, except as noted in HPI. ED EXAM, GENERAL - Physical Exam Exam: See Below ED TRAUMA EXTREMITY PROCEDURES - I&D Site: right shoulder Skin Prep: Providone-Iodine (Betadine) Area Incised With: Needle Drainage: Purulent, Bloody, Other (1ml purulosanguinous) Probed to Break Up Loculations: No Packed With: None Sterile Dressing: Adhesive Dressing Complications: No Course - Vital Signs Last Recorded V/S: Last Vital Signs Temp 36.9 C 08/18/20 19:02 Pulse 93 08/18/20 19:02 Resp 19 08/18/20 19:02 BP 101/67 08/18/20 19:02 Pulse Ox 97 08/18/20 19:02 - Orders/Labs/Meds Orders: Active Orders 24 hr Category Date Time Status CULTURE BLOOD [BC] Stat Lab 08/18/20 19:35 Results Labs: Laboratory Tests 08/18/20 08/18/20 08/18/20 Range/Units 19:35 19:35 19:35 WBC 8.4 (5.0-10.0) 10^3/uL RBC 5.25 (4.6-6.2) 10^6/uL Hgb 14.1 (14.0-18.0) g/dL Hct 44.4 (40.0-54.0) % MCV 84.6 (80-100) fL MCH 26.9 L (27.0-34.0) pg MCHC 31.8 L (33.0-35.0) g/dL Plt Count 235 D (150-450) 10^3/uL Neut % (Auto) 69.9 (42.2-75.2) % Lymph % (Auto) 18.1 L (20.5-50.1) % Ray % (Auto) 10.0 H (2-8) % Eos % (Auto) 1.5 (1.0-3.0) % Baso % (Auto) 0.5 (0.0-1.0) % Sodium 140 (136-145) mmol/L Potassium 3.7 (3.5-5.1) mmol/L Chloride 101 (98-107) mmol/L Carbon Dioxide 25 (21-32) mmol/L Anion Gap 17.7 H (7-13) mEq/L BUN 6 L (7-18) mg/dL Creatinine 0.69 L (0.70-1.30) mg/dL Est Cr Clr Drug Dosing 119.02 mL/min Estimated GFR (MDRD) > 60 BUN/Creatinine Ratio 8.7 (No establ ref range) Glucose 111 H (74-99) mg/dL Lactic Acid 4.9 H* (0.4-2.0) mmol/L Calcium 8.2 L (8.5-10.1) mg/dL Total Bilirubin 0.2 (0.2-1.0) mg/dL AST 18 (15-37) U/L ALT 16 (16-63) U/L Alkaline Phosphatase 99 (46-116) U/L Total Protein 7.3 (6.4-8.2) g/dL Albumin 3.0 L (3.4-5.0) g/dL Globulin 4.3 Albumin/Globulin Ratio 0.70 Urine Color (YELLOW) Urine Appearance (CLEAR) Urine pH (5.0-9.0) Ur Specific Gilbert (1.005-1.030) Urine Protein (NEGATIVE) Urine Glucose (UA) (NEGATIVE) Urine Ketones (NEGATIVE) Urine Occult Blood (NEGATIVE) Urine Nitrite (NEGATIVE) Urine Bilirubin (NEGATIVE) Urine Urobilinogen (0.2-1.0) mg/dL Ur Leukocyte Esterase (NEGATIVE) Urine RBC /HPF Urine WBC (0-5/HPF) /HPF Ur Epithelial Cells (NOT SEEN) /HPF Amorphous Sediment (NOT SEEN) /HPF Urine Bacteria (0-FEW/HPF) /HPF Urine Mucus (NOT SEEN) /LPF Urine Opiates Screen (NEGATIVE) Ur Oxycodone Screen (NEGATIVE) Urine Methadone Screen (NEGATIVE) Ur Barbiturates Screen (NEGATIVE) U Tricyclic Antidepress (NEGATIVE) Ur Phencyclidine Scrn (NEGATIVE) Ur Amphetamine Screen (NEGATIVE) U Methamphetamines Scrn (NEGATIVE) Urine MDMA Screen (NEGATIVE) U Benzodiazepines Scrn (NEGATIVE) Urine Cocaine Screen (NEGATIVE) U Marijuana (THC) Screen (NEGATIVE) Ethyl Alcohol 259 (0) mg/dL 08/18/20 08/18/20 Range/Units 20:16 20:16 WBC (5.0-10.0) 10^3/uL RBC (4.6-6.2) 10^6/uL Hgb (14.0-18.0) g/dL Hct (40.0-54.0) % MCV (80-100) fL MCH (27.0-34.0) pg MCHC (33.0-35.0) g/dL Plt Count (150-450) 10^3/uL Neut % (Auto) (42.2-75.2) % Lymph % (Auto) (20.5-50.1) % Ray % (Auto) (2-8) % Eos % (Auto) (1.0-3.0) % Baso % (Auto) (0.0-1.0) % Sodium (136-145) mmol/L Potassium (3.5-5.1) mmol/L Chloride (98-107) mmol/L Carbon Dioxide (21-32) mmol/L Anion Gap (7-13) mEq/L BUN (7-18) mg/dL Creatinine (0.70-1.30) mg/dL Est Cr Clr Drug Dosing mL/min Estimated GFR (MDRD) BUN/Creatinine Ratio (No establ ref range) Glucose (74-99) mg/dL Lactic Acid (0.4-2.0) mmol/L Calcium (8.5-10.1) mg/dL Total Bilirubin (0.2-1.0) mg/dL AST (15-37) U/L ALT (16-63) U/L Alkaline Phosphatase (46-116) U/L Total Protein (6.4-8.2) g/dL Albumin (3.4-5.0) g/dL Globulin Albumin/Globulin Ratio Urine Color Yellow (YELLOW) Urine Appearance Clear (CLEAR) Urine pH 6.5 (5.0-9.0) Ur Specific Gilbert 1.020 (1.005-1.030) Urine Protein Negative (NEGATIVE) Urine Glucose (UA) Negative (NEGATIVE) Urine Ketones Negative (NEGATIVE) Urine Occult Blood Trace-intact H (NEGATIVE) Urine Nitrite Negative (NEGATIVE) Urine Bilirubin Negative (NEGATIVE) Urine Urobilinogen 0.2 (0.2-1.0) mg/dL Ur Leukocyte Esterase Negative (NEGATIVE) Urine RBC 0-5 /HPF Urine WBC 0-5 (0-5/HPF) /HPF Ur Epithelial Cells Rare (NOT SEEN) /HPF Amorphous Sediment Occasional (NOT SEEN) /HPF Urine Bacteria Rare (0-FEW/HPF) /HPF Urine Mucus Rare (NOT SEEN) /LPF Urine Opiates Screen Negative (NEGATIVE) Ur Oxycodone Screen Negative (NEGATIVE) Urine Methadone Screen Negative (NEGATIVE) Ur Barbiturates Screen Negative (NEGATIVE) U Tricyclic Antidepress Positive H (NEGATIVE) Ur Phencyclidine Scrn Negative (NEGATIVE) Ur Amphetamine Screen Negative (NEGATIVE) U Methamphetamines Scrn Negative (NEGATIVE) Urine MDMA Screen Negative (NEGATIVE) U Benzodiazepines Scrn Negative (NEGATIVE) Urine Cocaine Screen Negative (NEGATIVE) U Marijuana (THC) Screen Negative (NEGATIVE) Ethyl Alcohol (0) mg/dL Meds: Medications Discontinued Medications Generic Name Dose Route Start Last Admin Trade Name Freq PRN Reason Stop Dose Admin Ceftriaxone Sodium 1 gm/ 0 gm 08/18/20 20:58 08/18/20 21:06 Lidocaine HCl 2.1 ml IM 08/18/20 20:59 2.1 inj ONETIME ONE Administration Ceftriaxone Sodium 1,000 mg/ 50 mls @ 100 mls/hr 08/18/20 20:32 08/18/20 21:05 Sodium Chloride IV 08/18/20 21:01 Not Given ONETIME ONE - Re-Assessments/Exams Free Text/Narrative Re-Assessment/Exam: 08/18/20 21:39 results discussed angelica pt. Departure - Departure Time of Disposition: 21:40 Disposition: Home, Self-Care 01 Condition: Fair Clinical Impression: Abscess of right shoulder Alcohol intoxication Qualifiers: Complication of substance-induced condition: uncomplicated Qualified Code(s): F10.920 - Alcohol use, unspecified with intoxication, uncomplicated - Discharge Information Forms: ED Department Discharge, ED Return to Work/School Form Additional Instructions: 1) keep wound clean dry covered 2) follow up at clinic rx given; keflex 500mg qid x 40 Sepsis Event Note (ED) - Evaluation Sepsis Screening Result: No Definite Risk - Focused Exam Vital Signs: Vital Signs Temp Pulse Resp BP Pulse Ox 08/18/20 19:02 36.9 C 93 19 101/67 97 - My Orders Last 24 Hours: My Active Orders 08/18/20 19:35 CULTURE BLOOD [BC] Stat - Assessment/Plan Last 24 Hours: My Active Orders 08/18/20 19:35 CULTURE BLOOD [BC] Stat
[2020-08-18 20:12] LABS: ANION GAP 17.7 mEq/L (7-13); CHLORIDE,CL 101 mmol/L (98-107); SODIUM,NA 140 mmol/L (136-145)
[2020-08-18] MEDS ORDERED: cefTRIAXone 1,000 MG in Sodium Chloride 0.9% 50 ML IV ONE (20:32)
[2020-08-18] MEDS ORDERED: cefTRIAXone 1 GM, Lidocaine 1% 2.1 ML IM ONE ×2 (20:58)
== END 2020-08-18 21:50 | disposition home or self-care (01) ==
LOC: DL.ED 19:02
DX: L02.413 Cutaneous abscess of right upper limb (principal); F10.120 Alcohol abuse with intoxication, uncomplicated; I10 Essential (primary) hypertension; E78.00 Pure hypercholesterolemia, unspecified; K21.9 Gastro-esophageal reflux disease without esophagitis; E11.42 Type 2 diabetes mellitus with diabetic polyneuropathy; E66.9 Obesity, unspecified; M10.9 Gout, unspecified; Y90.8 Blood alcohol level of 240 mg/100 ml or more; Z88.1 Allergy status to other antibiotic agents; Z79.82 Long term (current) use of aspirin; Z79.84 Long term (current) use of oral hypoglycemic drugs; Z79.899 Other long term (current) drug therapy
CPT/HCPCS: 10060; 36415; 80053; 80305; 80307; 81001; 83605; 85025; 87040; 87070; 96372; 99284; J0696; J2001; 99283

== ENCOUNTER 2020-09-08 13:01 | Emergency (ER) | payer MEDICAID ==
[2020-09-08] MEDS ORDERED: Acetaminophen/HYDROcodone 325-10 MG Tab PO ONE (17:51)
--- NOTE | 2020-09-08 17:55 | EDM.PDOC ---
ED HPI GENERAL MEDICAL PROBLEM - General Chief Complaint: Upper Extremity Injury/Pain Stated Complaint: ambulance Time Seen by Provider: 09/08/20 14:00 Source of Information: Reports: Patient, EMS, EMS Notes Reviewed, RN, RN Notes Reviewed History Limitations: Reports: No Limitations - History of Present Illness INITIAL COMMENTS - FREE TEXT/NARRATIVE: Pt is a 60 year old male who comes to the ER per [facility] from [facility]. Pt saw a CLINICAL RESEARCH MONITOR who states the patient has a chronically dislocated shoulder, had surgery in [place] in July. Patient seen for constant pain, redness progressing, and possibly septic arthritis. No elevated WBC at [facility], afebrile, VSS, and negative covid testing today. A CXR and shoulder XR completed at [facility]. Disk sent to the ER with these images. Onset: Gradual Right Shoulder Pain Score (Numeric/FACES): 5 - Related Data Allergies Allergy/AdvReac Type Severity Reaction Status Date / Time erythromycin base Allergy Cannot Verified 09/08/20 13:17 Remember Home Meds: Home Meds Aspirin 81 mg PO DAILY 12/03/19 [History] Cyclobenzaprine [Flexeril] 10 mg PO BID PRN 12/03/19 [History] Gabapentin [Neurontin] 600 mg PO TID 12/03/19 [History] allopurinoL [Zyloprim] 200 mg PO BID 12/03/19 [History] atorvaSTATin [Lipitor] 20 mg PO BEDTIME 12/03/19 [History] busPIRone [Buspar] 15 mg PO TID 12/03/19 [History] Amitriptyline HCl 200 mg PO DAILY 01/01/20 [History] Omeprazole 40 mg PO DAILY 01/01/20 [History] metFORMIN [Glucophage XR] 500 mg PO BIDMEALS 30 Days tab.er 01/04/20 [Rx] Doxycycline Monohydrate 100 mg PO BID 08/08/20 [History] Hydrocodone/Acetaminophen [Hydrocodone-Acetamin 5-325 mg] 1 each PO Q8H PRN 08/08/20 [History] Indomethacin 25 mg PO TID 08/08/20 [History] Loratadine 10 mg PO DAILY PRN 08/08/20 [History] Pioglitazone [Actos] 15 mg PO DAILY 08/08/20 [History] Rifampin [Rifadin] 300 mg PO BID 08/08/20 [History] Rosuvastatin Calcium 10 mg PO DAILY 08/08/20 [History] diphenhydrAMINE HCL [Banophen] 25 mg PO BEDTIME PRN 08/08/20 [History] lisinopriL [Prinivil] 20 mg PO DAILY 08/08/20 [History] Past Medical History HEENT History: Reports: Cataract, Hard of Hearing Other HEENT History: bifolcles not here Cardiovascular History: Reports: High Cholesterol, Hypertension Respiratory History: Reports: Pneumonia, Recurrent Gastrointestinal History: Reports: GERD Genitourinary History: Reports: None Musculoskeletal History: Reports: Arthritis, Fibromyalgia, Gout, Other (See Below) Other Musculoskeletal History: shoulder dislocation Neurological History: Reports: Neuropathy, Peripheral Psychiatric History: Reports: Addiction, Anxiety, Depression Endocrine/Metabolic History: Reports: Diabetes, Type II, Obesity/BMI 30+ Hematologic History: Reports: None Immunologic History: Reports: None Oncologic (Cancer) History: Reports: None Dermatologic History: Reports: Psoriasis - Infectious Disease History Infectious Disease History: Reports: None - Past Surgical History Head Surgeries/Procedures: Reports: None HEENT Surgical History: Reports: Cataract Surgery GI Surgical History: Reports: Colonoscopy Social & Family History - Family History Family Medical History: No Pertinent Family History - Tobacco Use Tobacco Use Status *Q: Never Tobacco User Second Hand Smoke Exposure: No - Caffeine Use Caffeine Use: Reports: Coffee - Recreational Drug Use Recreational Drug Use: No - Living Situation & Occupation Living situation: Reports: Single Review of Systems - Review of Systems Review Of Systems: Comprehensive ROS is negative, except as noted in HPI. ED EXAM, GENERAL - Physical Exam Exam: See Below Exam Limited By: No Limitations General Appearance: Alert, WD/WN, No Apparent Distress Eye Exam: Bilateral Eye: EOMI, Normal Inspection Ears: Normal External Exam, Hearing Grossly Normal Nose: Normal Inspection Throat/Mouth: Normal Inspection, Normal Voice, No Airway Compromise Head: Atraumatic, Normocephalic Neck: Normal Inspection, Supple, Non-Tender, Full Range of Motion Respiratory/Chest: No Respiratory Distress, No Accessory Muscle Use, Chest Non- Tender, Decreased Breath Sounds Cardiovascular: Normal Peripheral Pulses, Regular Rate, Rhythm, No Edema, No Gallop, No JVD, No Murmur, No Rub Peripheral Pulses: 2+: Radial (L), Radial (R) GI/Abdominal: Normal Bowel Sounds, Soft, Non-Tender (Male) Exam: Deferred Rectal (Males) Exam: Deferred Back Exam: Normal Inspection, Decreased Range of Motion Extremities: Arm Pain (right arm/shoulder), Limited Range of Motion (right shoulder), Redness (right shoulder at incision site) Neurological: Alert, Oriented, CN II-XII Intact, Normal Cognition, Normal Gait, Normal Reflexes, No Motor/Sensory Deficits Psychiatric: Normal Affect, Normal Mood Skin Exam: Warm, Dry, Intact, Erythema (at incision site to right shoulder. Incision site is healed and intact, no drainage, erythema surrounding the area, 10cm x 12cm) Lymphatic: No Adenopathy Course - Vital Signs Last Recorded V/S: Last Vital Signs Temp 98.1 F 09/08/20 13:09 Pulse 106 H 09/08/20 13:09 Resp 16 09/08/20 13:09 BP 111/70 09/08/20 13:09 Pulse Ox 97 09/08/20 13:09 - Orders/Labs/Meds Labs: Laboratory Tests 09/08/20 Range/Units 17:59 C-Reactive Protein 3.7 H (0.0-0.9) mg/dL Meds: Medications Discontinued Medications Generic Name Dose Route Start Last Admin Trade Name Freq PRN Reason Stop Dose Admin Hydrocodone Bitart/Acetaminophen 1 tab 09/08/20 17:51 09/08/20 18:04 [place] 325-10 Mg PO 09/08/20 17:52 1 tab ONETIME ONE Administration Rifampin 300 mg 09/09/20 17:48 Rifadin PO 09/09/20 17:49 ONETIME ONE Rifampin 150 mg 09/08/20 17:55 09/08/20 18:05 Rifadin PO 09/08/20 17:56 150 mg ONETIME ONE Administration Rifampin 150 mg 09/08/20 17:57 09/08/20 18:05 Rifadin PO 09/08/20 17:58 Not Given ONETIME ONE Rifampin Confirm 09/08/20 17:57 09/08/20 18:03 Rifadin Administered 09/08/20 17:58 Not Given Dose 300 mg .ROUTE .STK-MED ONE - Re-Assessments/Exams Free Text/Narrative Re-Assessment/Exam: Patient case discussed with Dr. Parish, orthopedic surgeon who performed the surgery on Mr. Young. He states the patient is to be seeing him soon, but that he should also see Infectious Disease. A phone number was recieved from the patient and given to the Doctor. He states his nurse will contact the patient about seeing infectious disease when he comes to see orthopedics. Dr Bagley also states the patient should be on halfway Rifampin. Patient was previously seen in the ER and started on Cephalexin. Patient states he has completed this. Rifampin ordered at [facility]. Patient given a dose in the ER and he states he will be staying with his son and will fish bait picker the prescription tomorrow. Patient states he has not had a steady place to live as there has been some turmoil while living with one of his sons who "drinks a lot". He states he has another son in town he can stay with. This is the phone number that was given to Calvin. Patient will be discharged home. 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, Chronic right shoulder pain, Chronic dislocation of right shoulder, Skin infection - Discharge Information *PRESCRIPTION DRUG MONITORING PROGRAM REVIEWED*: No *COPY OF PRESCRIPTION DRUG MONITORING REPORT IN PATIENT JLUIS: No Referrals: PCP,None [Primary Care Provider] - Forms: ED Department Discharge Additional Instructions: Rx: Rifampin 300 mg orally twice daily This medication needs to be taken every day until seen by infectious disease Calvin will call you to set up appointments regarding your shoulder and infectious disease May use Tylenol and/or ibuprofen as directed for pain Sepsis Event Note (ED) - Evaluation Sepsis Screening Result: No Definite Risk
[2020-09-08] MEDS ORDERED: Rifampin 150 MG Cap PO ONE (17:57)
[2020-09-08] MEDS ORDERED: Rifampin 150 MG Cap ONE (17:57)
[2020-09-08] MEDS: Rifampin 150 MG Cap PO ONE ×3 (18:04→18:05)
[2020-09-09] MEDS ORDERED: Rifampin 150 MG Cap PO ONE (17:48)
== END 2020-09-08 18:07 | disposition home or self-care (01) ==
LOC: DL.ED 13:01
DX: T84.59XA Infection and inflammatory reaction due to other internal joint prosthesis, initial encounter (principal); M24.411 Recurrent dislocation, right shoulder; I10 Essential (primary) hypertension; E78.00 Pure hypercholesterolemia, unspecified; K21.9 Gastro-esophageal reflux disease without esophagitis; M10.9 Gout, unspecified; F41.9 Anxiety disorder, unspecified; F32.9 Major depressive disorder, single episode, unspecified; E11.42 Type 2 diabetes mellitus with diabetic polyneuropathy; E66.9 Obesity, unspecified; Z68.34 Body mass index [BMI] 34.0-34.9, adult; Z88.1 Allergy status to other antibiotic agents; Z79.82 Long term (current) use of aspirin; Z79.899 Other long term (current) drug therapy
CPT/HCPCS: 36415; 86140; 99284; A9270-GY

== ENCOUNTER 2020-10-06 21:55 | Emergency (ER) | payer MEDICAID ==
--- NOTE | 2020-10-06 22:24 | EDM.PDOC ---
ED HPI GENERAL MEDICAL PROBLEM - General Chief Complaint: Chest Pain Stated Complaint: AMBULANCE Time Seen by Provider: 10/06/20 22:28 Source of Information: Reports: Patient History Limitations: Reports: No Limitations - History of Present Illness INITIAL COMMENTS - FREE TEXT/NARRATIVE: This 60 yo male patient reports to the ED due to left sided chest pain that started this evening. The patient reports his pain is still present, but it is currently rated at a 1-2/10. EMS gave the patient Aspirin (325) and 1 dose of Nitro. After the medications, the patient became diaphoretic. The patient reports he was released from [facility] in [place] yesterday, but does not recall what they had found during his visit. 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 WET: Reports: Aspirin, EKG, Nitroglycerin Bilateral Chest Pain Score (Numeric/FACES): 3 - Related Data Allergies Allergy/AdvReac Type Severity Reaction Status Date / Time erythromycin base Allergy Cannot Verified 10/06/20 22:17 Remember Home Meds: Home Meds Aspirin 81 mg PO DAILY 12/03/19 [History] Cyclobenzaprine [Flexeril] 10 mg PO BID PRN 12/03/19 [History] Gabapentin [Neurontin] 600 mg PO TID 12/03/19 [History] allopurinoL [Zyloprim] 200 mg PO BID 12/03/19 [History] busPIRone [Buspar] 15 mg PO TID 12/03/19 [History] Amitriptyline HCl 200 mg PO DAILY 01/01/20 [History] metFORMIN [Glucophage XR] 500 mg PO BIDMEALS 30 Days tab.er 01/04/20 [Rx] Indomethacin 25 mg PO TID 08/08/20 [History] Loratadine 10 mg PO DAILY PRN 08/08/20 [History] Pioglitazone [Actos] 15 mg PO DAILY 08/08/20 [History] Rifampin [Rifadin] 300 mg PO BID 08/08/20 [History] Past Medical History HEENT History: Reports: Cataract, Hard of Hearing Other HEENT History: bifolcles not here Cardiovascular History: Reports: High Cholesterol, Hypertension Respiratory History: Reports: Pneumonia, Recurrent Gastrointestinal History: Reports: GERD Genitourinary History: Reports: None Musculoskeletal History: Reports: Arthritis, Fibromyalgia, Gout, Other (See Below) Other Musculoskeletal History: shoulder dislocation Neurological History: Reports: Neuropathy, Peripheral Psychiatric History: Reports: Addiction, Anxiety, Depression Endocrine/Metabolic History: Reports: Diabetes, Type II, Obesity/BMI 30+ Hematologic History: Reports: None Immunologic History: Reports: None Oncologic (Cancer) History: Reports: None Dermatologic History: Reports: Psoriasis - Infectious Disease History Infectious Disease History: Reports: None - Past Surgical History Head Surgeries/Procedures: Reports: None HEENT Surgical History: Reports: Cataract Surgery GI Surgical History: Reports: Colonoscopy Musculoskeletal Surgical History: Reports: Other (See Below) Other Musculoskeletal Surgeries/Procedures:: dislocated right shoulder several times Social & Family History - Family History Family Medical History: No Pertinent Family History - Caffeine Use Caffeine Use: Reports: Coffee - Living Situation & Occupation Living situation: Reports: Single ED ROS GENERAL - Review of Systems Review Of Systems: Comprehensive ROS is negative, except as noted in HPI. ED EXAM, GENERAL - Physical Exam Exam: See Below Exam Limited By: No Limitations General Appearance: Alert, WD/WN, Moderate Distress Eye Exam: Bilateral Eye: EOMI, Normal Inspection, PERRL Ears: Normal External Exam, Normal Canal, Hearing Grossly Normal, Normal TMs Nose: Normal Inspection, Normal Mucosa, No Blood Throat/Mouth: Normal Inspection, Normal Lips, Normal Teeth, Normal Gums, Normal Oropharynx, Normal Voice, No Airway Compromise Head: Atraumatic, Normocephalic Neck: Normal Inspection, Supple, Non-Tender, Full Range of Motion Respiratory/Chest: No Respiratory Distress, Lungs Clear, Normal Breath Sounds, No Accessory Muscle Use, Chest Non-Tender Cardiovascular: Normal Peripheral Pulses, Regular Rate, Rhythm, No Edema, No Gallop, No JVD, No Murmur, No Rub GI/Abdominal: Normal Bowel Sounds, Soft, Non-Tender, No Organomegaly, No Distention, No Abnormal Bruit, No Mass (Male) Exam: Deferred Rectal (Males) Exam: Deferred Back Exam: Normal Inspection, Full Range of Motion, NT Extremities: Arm Pain (cellultis (chronic)) Neurological: Alert, Oriented, CN II-XII Intact, Normal Cognition, Normal Gait, Normal Reflexes, No Motor/Sensory Deficits Psychiatric: Normal Affect, Normal Mood Skin Exam: Diaphoretic Lymphatic: No Adenopathy Course - Vital Signs Last Recorded V/S: Last Vital Signs Temp 35.9 C L 10/06/20 22:11 Pulse 122 H 10/06/20 22:11 Resp 18 10/06/20 22:11 BP 106/78 10/06/20 22:11 Pulse Ox 95 10/06/20 22:11 - Orders/Labs/Meds Orders: Active Orders 24 hr Category Date Time Status EKG Documentation Completion [RC] STAT Care 10/06/20 22:31 Active CULTURE URINE [RM] Stat Lab 10/06/20 23:58 Received Labs: Laboratory Tests 10/06/20 10/06/20 10/06/20 Range/Units 22:40 22:40 22:40 WBC 5.7 (5.0-10.0) 10^3/uL RBC 4.70 (4.6-6.2) 10^6/uL Hgb 12.5 L (14.0-18.0) g/dL Hct 37.7 L (40.0-54.0) % MCV 80.2 (80-100) fL MCH 26.6 L (27.0-34.0) pg MCHC 33.2 (33.0-35.0) g/dL Plt Count 170 D (150-450) 10^3/uL Neut % (Auto) 73.0 (42.2-75.2) % Lymph % (Auto) 11.0 L (20.5-50.1) % [place] % (Auto) 14.7 H (2-8) % Eos % (Auto) 0.9 L (1.0-3.0) % Baso % (Auto) 0.4 (0.0-1.0) % D-Dimer, Quantitative 3450 H (0-400) ng/mL Sodium 128 L (136-145) mmol/L Potassium 3.3 L (3.5-5.1) mmol/L Chloride 95 L (98-107) mmol/L Carbon Dioxide 26 (21-32) mmol/L Anion Gap 10.3 (7-13) mEq/L BUN 7 (7-18) mg/dL Creatinine 0.86 (0.70-1.30) mg/dL Est Cr Clr Drug Dosing 95.49 mL/min Estimated GFR (MDRD) > 60 BUN/Creatinine Ratio 8.1 (No establ ref range) Glucose 132 H (74-99) mg/dL Calcium 8.8 (8.5-10.1) mg/dL Total Bilirubin 0.3 (0.2-1.0) mg/dL AST 61 H (15-37) U/L ALT 60 (16-63) U/L Alkaline Phosphatase 95 (46-116) U/L Troponin I 0.027 (0.000-0.056) ng/mL Total Protein 7.3 (6.4-8.2) g/dL Albumin 2.7 L (3.4-5.0) g/dL Globulin 4.6 Albumin/Globulin Ratio 0.59 Urine Color (YELLOW) Urine Appearance (CLEAR) Urine pH (5.0-9.0) Ur Specific [place] (1.005-1.030) Urine Protein (NEGATIVE) Urine Glucose (UA) (NEGATIVE) Urine Ketones (NEGATIVE) Urine Occult Blood (NEGATIVE) Urine Nitrite (NEGATIVE) Urine Bilirubin (NEGATIVE) Urine Urobilinogen (0.2-1.0) mg/dL Ur Leukocyte Esterase (NEGATIVE) Urine RBC /HPF Urine WBC (0-5/HPF) /HPF Ur Epithelial Cells (NOT SEEN) /HPF Urine Bacteria (0-FEW/HPF) /HPF Urine Opiates Screen (NEGATIVE) Ur Oxycodone Screen (NEGATIVE) Urine Methadone Screen (NEGATIVE) Ur Barbiturates Screen (NEGATIVE) U Tricyclic Antidepress (NEGATIVE) Ur Phencyclidine Scrn (NEGATIVE) Ur Amphetamine Screen (NEGATIVE) U Methamphetamines Scrn (NEGATIVE) Urine MDMA Screen (NEGATIVE) U Benzodiazepines Scrn (NEGATIVE) Urine Cocaine Screen (NEGATIVE) U Marijuana (THC) Screen (NEGATIVE) Ethyl Alcohol < 3 (0) mg/dL 10/06/20 10/06/20 Range/Units 23:58 23:58 WBC (5.0-10.0) 10^3/uL RBC (4.6-6.2) 10^6/uL Hgb (14.0-18.0) g/dL Hct (40.0-54.0) % MCV (80-100) fL MCH (27.0-34.0) pg MCHC (33.0-35.0) g/dL Plt Count (150-450) 10^3/uL Neut % (Auto) (42.2-75.2) % Lymph % (Auto) (20.5-50.1) % [place] % (Auto) (2-8) % Eos % (Auto) (1.0-3.0) % Baso % (Auto) (0.0-1.0) % D-Dimer, Quantitative (0-400) ng/mL Sodium (136-145) mmol/L Potassium (3.5-5.1) mmol/L Chloride (98-107) mmol/L Carbon Dioxide (21-32) mmol/L Anion Gap (7-13) mEq/L BUN (7-18) mg/dL Creatinine (0.70-1.30) mg/dL Est Cr Clr Drug Dosing mL/min Estimated GFR (MDRD) BUN/Creatinine Ratio (No establ ref range) Glucose (74-99) mg/dL Calcium (8.5-10.1) mg/dL Total Bilirubin (0.2-1.0) mg/dL AST (15-37) U/L ALT (16-63) U/L Alkaline Phosphatase (46-116) U/L Troponin I (0.000-0.056) ng/mL Total Protein (6.4-8.2) g/dL Albumin (3.4-5.0) g/dL Globulin Albumin/Globulin Ratio Urine Color Yellow (YELLOW) Urine Appearance Slightly cloudy (CLEAR) Urine pH 7.5 (5.0-9.0) Ur Specific [place] 1.015 (1.005-1.030) Urine Protein Negative (NEGATIVE) Urine Glucose (UA) Negative (NEGATIVE) Urine Ketones Negative (NEGATIVE) Urine Occult Blood Trace-lysed H (NEGATIVE) Urine Nitrite Negative (NEGATIVE) Urine Bilirubin Negative (NEGATIVE) Urine Urobilinogen 0.2 (0.2-1.0) mg/dL Ur Leukocyte Esterase Trace H (NEGATIVE) Urine RBC 0-5 /HPF Urine WBC 5-10 H (0-5/HPF) /HPF Ur Epithelial Cells Moderate H (NOT SEEN) /HPF Urine Bacteria Moderate H (0-FEW/HPF) /HPF Urine Opiates Screen Negative (NEGATIVE) Ur Oxycodone Screen Negative (NEGATIVE) Urine Methadone Screen Negative (NEGATIVE) Ur Barbiturates Screen Negative (NEGATIVE) U Tricyclic Antidepress Positive H (NEGATIVE) Ur Phencyclidine Scrn Negative (NEGATIVE) Ur Amphetamine Screen Negative (NEGATIVE) U Methamphetamines Scrn Negative (NEGATIVE) Urine MDMA Screen Negative (NEGATIVE) U Benzodiazepines Scrn Negative (NEGATIVE) Urine Cocaine Screen Negative (NEGATIVE) U Marijuana (THC) Screen Negative (NEGATIVE) Ethyl Alcohol (0) mg/dL Meds: Medications Discontinued Medications Generic Name Dose Route Start Last Admin Trade Name Freq PRN Reason Stop Dose Admin Iopamidol 100 ml 10/06/20 23:20 Isovue-370 (76%) IVPUSH 10/06/20 23:21 ONETIME ONE Departure - Departure Time of Disposition: 00:47 Disposition: Home, Self-Care 01 Condition: Fair Clinical Impression: Pleuritic chest pain, Anxiety Instructions: Nonspecific Chest Pain, Adult, Wegh-to-Xoza, Managing Anxiety, Adult Forms: ED Department Discharge Care Plan Goals: The patient was advised of the examination, lab, EKG, x-ray and CT results d uring the visit. The patient was given an oral dose of Ativan while in the ED for his anxiety. The patient was encouraged to follow-up with his primary care facility for continued evaluation and management. If the patient has any additional symptoms or concerns, the patient should either return to the emergency department or visit his primary care facility. Sepsis Event Note (ED) - Evaluation Sepsis Screening Result: No Definite Risk - Focused Exam Vital Signs: Vital Signs Temp Pulse Resp BP Pulse Ox 10/06/20 22:11 35.9 C L 122 H 18 106/78 95 - My Orders Last 24 Hours: My Active Orders 10/06/20 22:31 EKG Documentation Completion [RC] STAT 10/06/20 23:58 CULTURE URINE [RM] Stat - Assessment/Plan Last 24 Hours: My Active Orders 10/06/20 22:31 EKG Documentation Completion [RC] STAT 10/06/20 23:58 CULTURE URINE [RM] Stat
[2020-10-06 23:07] LABS: ANION GAP 10.3 mEq/L (7-13); CHLORIDE,CL 95 mmol/L (98-107); SODIUM,NA 128 mmol/L (136-145)
[2020-10-06] MEDS ORDERED: Iopamidol 755 Mg/ML 100 ML Bottle IVPUSH ONE (23:20)
--- NOTE | 2020-10-06 23:27 | CR ---
PROCEDURE INFORMATION: Exam: XR Chest, 1 View Exam date and time: 10/06/2020 11:16 PM Age: 60 years old Clinical indication: Other: Chest pain TECHNIQUE: Imaging protocol: XR of the chest Views: 1 view. COMPARISON: CR Chest 1V Frontal 10/03/2020 11:31 PM FINDINGS: Lungs: See "Diaphragm" finding. Pleural space: Unremarkable. No pleural effusion. No pneumothorax. Heart/Mediastinum: Unremarkable. No cardiomegaly. Diaphragm: There is some elevation of the left hemidiaphragm that appears stable compared with 10/03/2020. Strandy opacities superimposed over the elevated hemidiaphragm most probably representing atelectasis although left basilar pneumonia cannot be entirely excluded. Bones/joints: There is a persistent dislocation of the right shoulder prosthesis. IMPRESSION: Elevation left hemidiaphragm with superimposed left basilar strandy opacities likely represents atelectasis although superimposed left basilar pneumonia cannot be entirely excluded.
--- NOTE | 2020-10-07 00:31 | CT ---
PROCEDURE INFORMATION: Exam: CT Chest With Contrast; Diagnostic Exam date and time: 10/06/2020 11:31 PM Age: 60 years old Clinical indication: Other: Pe study--d-dimer 3000; Additional info: Left sided chest pain TECHNIQUE: Imaging protocol: Diagnostic computed tomography of the chest with intravenous contrast. Radiation optimization: All CT scans at this facility use at least one of these dose optimization techniques: automated exposure control; mA and/or kV adjustment per patient size (includes targeted exams where dose is matched to clinical indication); or iterative reconstruction. Contrast material: [id number]; Contrast volume: 85 ml; Contrast route: INTRAVENOUS (IV); COMPARISON: CT Chest w Cont 02/18/2020 2:00 PM FINDINGS: Lungs: There is mild bilateral basilar bronchiectasis. There are some strandy and patchy opacities present in the left lung base and lingula that likely represents atelectasis although a left basilar pneumonia cannot be excluded. Pleural space: Unremarkable. No pneumothorax. No pleural effusion. Heart: Unremarkable. No cardiomegaly. No pericardial effusion. Aorta: Unremarkable. No aortic aneurysm. Lymph nodes: Unremarkable. No enlarged lymph nodes. Bones/joints: There is stable dislocation of the right shoulder prosthesis. Soft tissues: Unremarkable. IMPRESSION: 1. There is no evidence for pulmonary emboli. 2. Mild basilar bronchiectasis 3. Strandy and patchy opacities in the left lung base and lingula may represent atelectasis although a left basilar pneumonia cannot be excluded.
[2020-10-07] MEDS ORDERED: LORazepam 0.5 MG Tab PO ONE (00:47)
== END 2020-10-07 04:48 | disposition home or self-care (01) ==
LOC: DL.ED 21:55
DX: R07.81 Pleurodynia (principal); F41.9 Anxiety disorder, unspecified; I10 Essential (primary) hypertension; E11.42 Type 2 diabetes mellitus with diabetic polyneuropathy; F32.9 Major depressive disorder, single episode, unspecified; M10.9 Gout, unspecified; E66.9 Obesity, unspecified; Z68.39 Body mass index [BMI] 39.0-39.9, adult; Z88.1 Allergy status to other antibiotic agents; Z79.82 Long term (current) use of aspirin; Z79.84 Long term (current) use of oral hypoglycemic drugs; Z79.899 Other long term (current) drug therapy
CPT/HCPCS: 36415; 71045; 71260; 80053; 80305-QW; 80307; 81001; 84484; 85025; 85379; 87086; 93005; 99283; 99285-25; Q9967

== ENCOUNTER 2020-11-01 20:24 | Emergency (ER) | payer MEDICAID, MEDICARE ==
[2020-11-01 21:39] LABS: ANION GAP 17.6 mEq/L (7-13); CHLORIDE,CL 99 mmol/L (98-107); SODIUM,NA 136 mmol/L (136-145)
--- NOTE | 2020-11-01 22:03 | CR ---
PROCEDURE INFORMATION: Exam: XR Ribs with PA Chest, 4 Views Exam date and time: 11/01/2020 9:12 PM Age: 60 years old Clinical indication: Other: Fall, cp, rib pain TECHNIQUE: Imaging protocol: XR bilateral ribs 4 views with PA chest. COMPARISON: CT Chest w Cont, Chest w Cont 10/06/2020 11:31 PM FINDINGS: Lungs: There are linear opacities in the left lower lung field which are unchanged compared with the prior study. The right lung is well expanded and clear. Pleural space: There are no pleural effusions. There is no pneumothorax. Heart/Mediastinum: The heart size is normal as are the mediastinal and hilar contours. The pulmonary vessels are normal. Bones/joints: No acute osseous pathology is identified. There is dislocation of the right shoulder arthroplasty, unchanged. No definite acute rib fracture is identified. IMPRESSION: No acute rib fracture is appreciated. The overall appearance of the chest is stable compared with the prior exam.
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
== END 2020-11-02 00:04 | disposition home or self-care (01) ==
LOC: DL.ED 20:24
DX: S20.212A Contusion of left front wall of thorax, initial encounter (principal); F15.10 Other stimulant abuse, uncomplicated; M19.90 Unspecified osteoarthritis, unspecified site; M10.9 Gout, unspecified; E11.42 Type 2 diabetes mellitus with diabetic polyneuropathy; E66.9 Obesity, unspecified; F41.9 Anxiety disorder, unspecified; F32.9 Major depressive disorder, single episode, unspecified; F17.200 Nicotine dependence, unspecified, uncomplicated; Z88.1 Allergy status to other antibiotic agents; Z79.82 Long term (current) use of aspirin; Z79.899 Other long term (current) drug therapy; Z79.84 Long term (current) use of oral hypoglycemic drugs; W19.XXXA Unspecified fall, initial encounter
CPT/HCPCS: 36415; 71111; 80053; 80305-QW; 80307; 81003; 82150; 83690; 84484; 85025; 93005; 99283; 99285-25; U0002

== ENCOUNTER 2021-04-23 20:22 | Emergency (ER) | payer MEDICAID, OTHER ==
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
== END 2021-04-23 21:35 | disposition home or self-care (01) ==
LOC: DL.ED 20:22
DX: T81.31XA Disruption of external operation (surgical) wound, not elsewhere classified, initial encounter (principal); I10 Essential (primary) hypertension; M10.9 Gout, unspecified; E11.42 Type 2 diabetes mellitus with diabetic polyneuropathy; E66.9 Obesity, unspecified; Z68.35 Body mass index [BMI] 35.0-35.9, adult; Z72.0 Tobacco use; Z88.1 Allergy status to other antibiotic agents; Z79.82 Long term (current) use of aspirin; Z79.84 Long term (current) use of oral hypoglycemic drugs; Z79.899 Other long term (current) drug therapy
CPT/HCPCS: 73030-RT; 80305-QW; 81001; 99282; 99284-25

== ENCOUNTER 2021-07-02 04:25 | Emergency (ER) | payer MEDICAID ==
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
[2021-07-02 04:50] LABS: ANION GAP 14.8 mEq/L (7-13); CHLORIDE,CL 106 mmol/L (98-107); SODIUM,NA 143 mmol/L (136-145)
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
[2021-07-02] MEDS ORDERED: MVI, Adult with Vitamin K 10 ML, Folic Acid 1 MG, Thiamine 100 MG in Lactated Ringers 1... IV ONE ×4 (05:47)
[2021-07-02] MEDS ORDERED: Ondansetron 4 MG/2 ML SDV IV ONE ×2 (07:17→08:10)
[2021-07-02] MEDS ORDERED: Famotidine 20 MG/2 ML SDV IVPUSH ONE (07:18)
[2021-07-02] MEDS ORDERED: Ondansetron 4 MG/2 ML SDV ONE (07:19)
[2021-07-02] MEDS ORDERED: Sodium Chloride 0.9% 1,000 ML IV SCH (07:30)
[2021-07-02] MEDS ORDERED: Pantoprazole 40 MG Vial IVPUSH ONE (08:09)
[2021-07-02] MEDS ORDERED: LORazepam 2 MG/ML SDV IVPUSH ONE ×2 (08:10→10:11)
[2021-07-02] MEDS ORDERED: fentaNYL 100 MCG/2 ML SDV ONE (08:32)
[2021-07-02] MEDS ORDERED: fentaNYL 100 MCG/2 ML SDV IVPUSH ONE ×2 (09:03→10:11)
--- NOTE | 2021-07-02 11:47 | CR ---
PROCEDURE INFORMATION: Exam: XR Right Shoulder Exam date and time: 07/02/2021 9:35 AM Age: 61 years old Clinical indication: Abnormal findings; Abnormal imaging study of the limbs; Dislocated right shoulder; Prior surgery; Surgery date: 1-6 months; Patient HX: History of multiple right shoulder dislocations; Additional info: Post-reduction TECHNIQUE: Imaging protocol: XR Right shoulder. Views: 2 or more views. COMPARISON: CR Shoulder 1V Rt 07/02/2021 4:48 AM FINDINGS: Bones/joints: A reverse shoulder prosthesis is again present. There is again dislocation with the humeral neck component lying anterior and inferior to the humeral head/glenoid component. No new fracture is identified. There is similar marked acromioclavicular arthrosis. Soft tissues: There are similar ossific densities in the soft tissues adjacent to the prosthesis. IMPRESSION: Persistent dislocation of a reverse shoulder arthroplasty, as on earlier the same day.
== END 2021-07-02 12:05 ==
LOC: DL.ED 04:25
DX: M24.411 Recurrent dislocation, right shoulder (principal); F10.229 Alcohol dependence with intoxication, unspecified; Z79.899 Other long term (current) drug therapy; Z79.82 Long term (current) use of aspirin; Z20.822 Contact with and (suspected) exposure to COVID-19; Z59.0 Homelessness; Y04.0XXA Assault by unarmed brawl or fight, initial encounter
CPT/HCPCS: 23650; 36415; 71045; 73020; 73030; 80053; 80307; 82947; 83880; 84484; 85025; 87635; 93005; 96365; 96367; 96375; 96376; 99285; C9113; J2060; J2405; J3010; J3411; J3490; J7030; J7120; U0002

== ENCOUNTER 2021-09-14 12:52 | Emergency (ER) | payer MEDICARE, MEDICAID ==
[2021-09-14] MEDS ORDERED: Propofol 200 MG/20 ML SDV IV ONE (12:53)
[2021-09-14] MEDS ORDERED: Sodium Chloride 0.9% 10 ML Syringe IV ONE (12:53)
--- NOTE | 2021-09-14 13:23 | CR ---
EXAMINATION: Shoulder 1V Lt SEX: Male AGE: 61 years CLINICAL HISTORY: 61-year-old male possible pedro luis shoulder dislocation. INTERPRETATION: Abnormal. 1. Acute anterior dislocation proximal left humeral head from the ipsilateral glenoid fossa. 2. Apparent (mildly impacted) left humeral neck fracture. 3. Tiny Fragment avulsed off the infraglenoid portion of the left scapula. 4. Underlying nondisplaced healed fracture of the posterolateral left eighth rib. No pneumothorax. 5. Old trauma and chronic heterotopic new bone formation around the left acromioclavicular joint.
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
--- NOTE | 2021-09-14 14:00 | CR ---
EXAMINATION: Shoulder 1V Lt SEX: Male AGE: 61 years CLINICAL HISTORY: 61-year-old male left shoulder dislocation. Post reduction film. INTERPRETATION: Satisfactory relocation humeral head relative to the glenoid of the left scapula. Note: Cortical step/transverse sclerotic line across the humeral neck suggests associated mild impaction fracture. Chronic severe arthritic changes glenohumeral joint. Heterotopic new bone forming around the ipsilateral A/C joint. Note: Asymmetric parenchymal densities left lung suggests possibility of viral pneumonitis. Covid?
== END 2021-09-14 15:50 | disposition home or self-care (01) ==
LOC: DL.ED 12:52
DX: S42.212A Unspecified displaced fracture of surgical neck of left humerus, initial encounter for closed fracture (principal); E78.00 Pure hypercholesterolemia, unspecified; I10 Essential (primary) hypertension; K21.9 Gastro-esophageal reflux disease without esophagitis; M10.9 Gout, unspecified; E11.42 Type 2 diabetes mellitus with diabetic polyneuropathy; E66.9 Obesity, unspecified; Z68.33 Body mass index [BMI] 33.0-33.9, adult; Z72.0 Tobacco use; Z88.1 Allergy status to other antibiotic agents; Z79.82 Long term (current) use of aspirin; Z79.84 Long term (current) use of oral hypoglycemic drugs; Z79.899 Other long term (current) drug therapy; Y04.0XXA Assault by unarmed brawl or fight, initial encounter
CPT/HCPCS: 01620; 23650; 73020; 99152; 99284; J2704

== ENCOUNTER 2021-10-01 16:01 | Emergency (ER) | payer MEDICARE, MEDICAID ==
[2021-10-01] MEDS ORDERED: Sodium Chloride 0.9% 10 ML Syringe FLUSH PRN (16:17)
[2021-10-01 17:15] LABS: ANION GAP 19.7 mEq/L (7-13); CHLORIDE,CL 103 mmol/L (98-107); SODIUM,NA 143 mmol/L (136-145)
--- NOTE | 2021-10-01 17:18 | CR ---
PROCEDURE INFORMATION: Exam: XR Chest Exam date and time: 10/01/2021 4:27 PM Age: 61 years old Clinical indication: Other: Chest pain; Additional info: Chest pain TECHNIQUE: Imaging protocol: XR of the chest. Views: 1 view. COMPARISON: 1. CR Chest 1V Frontal 07/02/2021 4:[address] Chest w Cont, Chest w Cont 10/06/2020 11:31:55 PM 3. CR Chest 1V Frontal 10/06/2020 11:16:22 PM FINDINGS: Limitations: Patient's chin obscures the lung apices, limiting evaluation. Patient is rotated. Nonstandard positioning limits evaluation. Lungs: Small lung volumes. Elevation of the left hemidiaphragm with new mildly increased left basilar linear opacities. Pleural spaces: No appreciable pneumothorax, within the limits of the study. Heart/Mediastinum: Heart size is normal. Vasculature: Moderately tortuous thoracic aorta. Bones/joints: Right shoulder arthroplasty. IMPRESSION: 1. Limited study. 2. Elevation of the left hemidiaphragm with new mildly increased left basilar linear opacities, possibly atelectasis but cannot exclude a left basilar pneumonia. The left lung base is not well evaluated and left basilar pneumonia cannot be entirely excluded. This area could be more definitively characterized with CT, if clinically indicated. If CT is not performed, suggest short-term follow-up chest two views or chest CT to document resolution of the left basilar consolidation seen on the prior chest CT.
--- NOTE | 2021-10-01 17:26 | CR ---
PROCEDURE INFORMATION: Exam: XR Left Shoulder Exam date and time: 10/01/2021 4:24 PM Age: 61 years old Clinical indication: Other: Left shoulder pain TECHNIQUE: Imaging protocol: XR Left shoulder. Views: 2 or more views. COMPARISON: CR Chest 1V Frontal 07/02/2021 4:48 AM FINDINGS: Bones/joints: Unchanged 9 mm widening of the left acromioclavicular joint, suggestive of an acromioclavicular joint dislocation. Increased ossification around the left acromioclavicular joint. Moderate superior subluxation of the left glenohumeral joint, which can be seen in the setting of a rotator cuff injury. The left humeral head projects anterior to the scapular Y on the transscapular view, raising the possibility of an anterior shoulder dislocation, although the appearance is atypical for an anterior shoulder dislocation as the left humeral head is not inferiorly or medially displaced on the frontal view. No acute fracture. Soft tissues: Unremarkable. IMPRESSION: As above.
--- NOTE | 2021-10-01 17:32 | EDM.PDOC ---
"<Fahad Frazier - Last Filed: 10/01/21 19:02> ED HPI GENERAL MEDICAL PROBLEM - General Chief Complaint: Upper Extremity Injury/Pain Stated Complaint: AMBULANCE Time Seen by Provider: 10/01/21 16:15 Source of Information: Reports: Patient, EMS, Old Records, RN, RN Notes Reviewed History Limitations: Reports: Intoxication - History of Present Illness Onset: Unknown/Unsure Duration: Constant Bilateral Shoulder Pain Score (Numeric/FACES): 7 - Related Data Allergies Allergy/AdvReac Type Severity Reaction Status Date / Time erythromycin base Allergy Cannot Verified 10/01/21 16:10 Remember Home Meds: Home Meds Aspirin 81 mg PO DAILY 12/03/19 [History] Cyclobenzaprine [Flexeril] 10 mg PO BID PRN 12/03/19 [History] Gabapentin [Neurontin] 600 mg PO TID 12/03/19 [History] allopurinoL [Zyloprim] 200 mg PO BID 12/03/19 [History] busPIRone [Buspar] 15 mg PO TID 12/03/19 [History] Loratadine 10 mg PO DAILY PRN 08/08/20 [History] FLUoxetine HCl [Fluoxetine HCl] 20 mg PO DAILY 04/28/21 [History] Fluticasone Propionate [Flovent Diskus] 1 spray NASBOTH BID 04/28/21 [History] Multivitamin with Minerals [Multivitamins with Minerals] 1 tab PO DAILY 04/28/21 [History] Omeprazole 40 mg PO DAILY 04/28/21 [History] Rosuvastatin [Crestor] 10 mg PO BEDTIME 04/28/21 [History] lisinopriL [Lisinopril] 20 mg PO DAILY 04/28/21 [History] metFORMIN HCl [Metformin HCl] 500 mg PO QAM 04/28/21 [History] Past Medical History HEENT History: Reports: Cataract, Hard of Hearing Other HEENT History: bifolcles not here Cardiovascular History: Reports: High Cholesterol, Hypertension Respiratory History: Reports: Pneumonia, Recurrent Gastrointestinal History: Reports: GERD Genitourinary History: Reports: None Musculoskeletal History: Reports: Arthritis, Fibromyalgia, Gout, Other (See Below) Other Musculoskeletal History: shoulder dislocation Neurological History: Reports: Neuropathy, Peripheral Psychiatric History: Reports: Addiction, Anxiety, Depression Endocrine/Metabolic History: Reports: Diabetes, Type II, Obesity/BMI 30+ Hematologic History: Reports: None Immunologic History: Reports: None Oncologic (Cancer) History: Reports: None Dermatologic History: Reports: Chronic Cellulitis, Psoriasis - Infectious Disease History Infectious Disease History: Reports: Novel Coronavirus - Past Surgical History Head Surgeries/Procedures: Reports: None HEENT Surgical History: Reports: Cataract Surgery GI Surgical History: Reports: Colonoscopy Musculoskeletal Surgical History: Reports: Other (See Below) Other Musculoskeletal Surgeries/Procedures:: dislocated right shoulder several times, has had 7 surgeries Social & Family History - Family History Family Medical History: Unobtainable - Tobacco Use Tobacco Use Status *Q: Current Every Day Tobacco User Years of Tobacco use: 1 Packs/Tins Daily: 0.5 - Caffeine Use Caffeine Use: Reports: None - Alcohol Use Days Per Week of Alcohol Use: 7 Number of Drinks Per Day: 8 Total Drinks Per Week: 56 - Recreational Drug Use Recreational Drug Use: No - Living Situation & Occupation Living situation: Reports: Single Occupation: Unemployed #1 Interpretation EKG Date: 10/01/21 Time: 17:22 Rhythm: Other (SR) Rate (Beats/Min): 87 [place]: LAD-Left [place] Deviation P-Wave: Present QRS: Other (Early transition) ST-T: Normal QT: Prolonged Comparison: NA - No Prior EKG Course - Radiology Interpretation Free Text/Narrative:: [facility] Final Radiology Report Call: [phone] assistance Online chat: [email or web address] Name: CHAD SILVA Age: 61Years M Date: 10/01/2021 SSN: -- : 1960 Study: CR CHEST 1V FRONTAL Requesting Physician: FAHAD FRAZIER Images: 1 Addl Studies: Provided Clinical History: chest pain Contrast: Contrast Medium: Contrast Amount: Contrast Method: Page 1 of 2 PROCEDURE INFORMATION: Exam: XR Chest Exam date and time: 10/01/2021 4:27 PM Age: 61 years old Clinical indication: Other: Chest pain; Additional info: Chest pain TECHNIQUE: Imaging protocol: XR of the chest. Views: 1 view. COMPARISON: 1. CR Chest 1V Frontal 07/02/2021 4:[address] Chest w Cont, Chest w Cont 10/06/2020 11:31:55 PM 3. CR Chest 1V Frontal 10/06/2020 11:16:22 PM FINDINGS: Limitations: Patient's chin obscures the lung apices, limiting evaluation. Patient is rotated. Nonstandard positioning limits evaluation. Lungs: Small lung volumes. Elevation of the left hemidiaphragm with new mildly increased left basilar linear opacities. Pleural spaces: No appreciable pneumothorax, within the limits of the study. Heart/Mediastinum: Heart size is normal. Vasculature: Moderately tortuous thoracic aorta. Bones/joints: Right shoulder arthroplasty. IMPRESSION: 1. Limited study. 2. Elevation of the left hemidiaphragm with new mildly increased left basilar linear opacities, possibly atelectasis but cannot exclude a left basilar pneumonia. The left lung base is not well evaluated and left basilar pneumonia cannot be entirely excluded. This area could be more definitively CHAD SILVA | Final Radiology Report CONFIDENTIALITY STATEMENT This report is intended only for use by the referring physician, and only in accordance with law. If you received this in error, call [phone]. Page [address], if clinically indicated. If CT is not performed, suggest short-term follow-up chest two views or chest CT to document resolution of the left basilar consolidation seen on the prior chest CT. Thank you for allowing us to participate in the care of your patient. Dictated and Authenticated by: Tavares De Anda MD 10/01/2021 5:17 PM Central Time ([place] & [place]) [facility] Final Radiology Report Call: [phone] assistance Online chat: [email or web address] Name: CHAD SILVA Age: 61Years M Date: 10/01/2021 SSN: -- : 1960 Study: CR SHOULDER COMP LT Requesting Physician: FAHAD FRAZIER Images: 3 Addl Studies: Provided Clinical History: Left shoulder pain Contrast: Contrast Medium: Contrast Amount: Contrast Method: CONFIDENTIALITY STATEMENT This report is intended only for use by the referring physician, and only in accordance with law. If you received this in error, call [phone]. Page 1 of 1 PROCEDURE INFORMATION: Exam: XR Left Shoulder Exam date and time: 10/01/2021 4:24 PM Age: 61 years old Clinical indication: Other: Left shoulder pain TECHNIQUE: Imaging protocol: XR Left shoulder. Views: 2 or more views. COMPARISON: CR Chest 1V Frontal 07/02/2021 4:48 AM FINDINGS: Bones/joints: Unchanged 9 mm widening of the left acromioclavicular joint, suggestive of an acromioclavicular joint dislocation. Increased ossification around the left acr omioclavicular joint. Moderate superior subluxation of the left glenohumeral joint, which can be seen in the setting of a rotator cuff injury. The left humeral head projects anterior to the scapular Y on the transscapular view, raising the possibility of an anterior shoulder dislocation, although the appearance is atypical for an anterior shoulder dislocation as the left humeral head is not inferiorly or medially displaced on the frontal view. No acute fracture. Soft tissues: Unremarkable. IMPRESSION: As above. Thank you for allowing us to participate in the care of your patient. Dictated and Authenticated by: Tavares De Anda MD 10/01/2021 5:25 PM Central Time ([place] & [place]) [facility] Final Radiology Report Call: [phone] assistance Online chat: [email or web address] Name: CHAD SILVA Age: 61Years M Date: 10/01/2021 SSN: -- : 1960 Study: CR SHOULDER COMP RT Requesting Physician: FAHAD FRAZIER Images: 2 Addl Studies: Provided Clinical History: Rt shoulder pain, Hx recurrent dislocations Contrast: Contrast Medium: Contrast Amount: Contrast Method: CONFIDENTIALITY STATEMENT This report is intended only for use by the referring physician, and only in accordance with law. If you received this in error, call [phone]. Page 1 of 1 PROCEDURE INFORMATION: Exam: XR Right Shoulder Exam date and time: 10/01/2021 4:21 PM Age: 61 years old Clinical indication: Other: RT shoulder pain, HX recurrent dislocations TECHNIQUE: Imaging protocol: XR Right shoulder. Views: 2 or more views. COMPARISON: 1. CR 2. CT Chest w Cont, Chest w Cont 10/06/2020 11:31:55 PM 3. Chest 1V Frontal 07/02/2021 4:48 AM FINDINGS: Bones/joints: Right shoulder arthroplasty which is no longer dislocated. Mildly displaced ageindeterminate fracture of the lateral aspect of the proximal metaphysis of the right humerus, with this area not well visualized on the 10/06/2020 chest one view or the prior chest CT, and therefore ageindeterminate. Severe right acromioclavicular osteoarthritis. Soft tissues: Unremarkable. IMPRESSION: As above. Thank you for allowing us to participate in the care of your patient. Dictated and Authenticated by: Tavares De Anda MD 10/01/2021 5:30 PM Central Time ([place] & [place]) - Re-Assessments/Exams Free Text/Narrative Re-Assessment/Exam: 10/01/21 19:01 Care of pt transferred to Sandy Bajwa [employer] at shift change. Departure - Departure Disposition: Home, Self-Care 01 Clinical Impression: CAP (community acquired pneumonia) Qualifiers: Laterality: left Lung location: lower lobe of lung Qualified Code(s): J18.9 - Pneumonia, unspecified organism - Discharge Information Instructions: Community-Acquired Pneumonia, Adult Referrals: PCP,None [Primary Care Provider] - Forms: ED Department Discharge Additional Instructions: Rx: doxycycline 100mg (#20) 1.) Start your antibiotics tomorrow and continue until gone, even as symptoms improve. 2.) You may take ibuprofen (Advil/Motrin) 400mg every six hours, as pain and fever persist. You may also take acetaminophen (Tylenol) 650-1000mg every six hours, as pain and fever persist. You may stagger these medications so you are taking a dose of either every three hours. 3.) Continue with your appointment with Infectious Disease at [place] on Saturday. 4.) Follow up with your primary care provider in 5-7 days regarding today's visit, sooner should symptoms persist. Sepsis Event Note (ED) - Evaluation Sepsis Screening Result: No Definite Risk <Prema Bajwa - Last Filed: 10/05/21 20:09> Review of Systems - Review of Systems Review Of Systems: Comprehensive ROS is negative, except as noted in HPI. ED EXAM, GENERAL - Physical Exam Exam: See Below Exam Limited By: No Limitations General Appearance: Alert, Mild Distress (Midsternal chest pain) Eye Exam: Bilateral Eye: EOMI, Normal Inspection, PERRL (3mm) Ears: Normal External Exam, Hearing Grossly Normal Nose: Normal Inspection Throat/Mouth: Normal Inspection, Normal Oropharynx, Normal Voice, No Airway Compromise Head: Atraumatic, Normocephalic Neck: Normal Inspection, Supple, Non-Tender, Full Range of Motion. No: Lymphadenopathy (L), Lymphadenopathy (R) Respiratory/Chest: Decreased Breath Sounds, Rales (To left), Accessory Muscle Use. No: Chest Non-Tender (To palpation and with deep inspiration) Cardiovascular: Normal Peripheral Pulses, Regular Rate, Rhythm, No Edema, No Gallop, No JVD, No Murmur, No Rub Peripheral Pulses: 2+: Radial (L), Radial (R) GI/Abdominal: Normal Bowel Sounds, Soft, Non-Tender, No Distention, No Abnormal Bruit, No Mass, Pelvis Stable (Male) Exam: Deferred Rectal (Males) Exam: Deferred Back Exam: Normal Inspection, Full Range of Motion Extremities: Normal Range of Motion, Normal Capillary Refill, Arm Pain (Chronic bilateral shoulder dislocations; Currently in place) Neurological: Alert, Oriented, CN II-XII Intact, Normal Cognition, Normal Gait, No Motor/Sensory Deficits Psychiatric: Normal Affect, Normal Mood Skin Exam: Warm, Dry, Intact, Normal Color, No Rash. No: Cyanosis, Jaundice, Mottled, Pallor #2 Interpretation EKG Date: 10/01/21 Time: 19:27 Rhythm: NSR Rate (Beats/Min): 86 [place]: LAD-Left [place] Deviation P-Wave: Present QRS: Other (Early transition) ST-T: Normal QT: Prolonged (0.492) VA/PQ Interval: 0.189 Comparison: No Change EKG Interpretation Comments: SR; LAD: No evidence of acute myocardial ischemia Course - Vital Signs Last Recorded V/S: Last Vital Signs Temp 99.4 F 10/01/21 20:19 Pulse 88 10/01/21 16:12 Resp 20 10/01/21 16:12 BP 144/86 H 10/01/21 19:54 Pulse Ox 97 10/01/21 16:12 - Orders/Labs/Meds Labs: Laboratory Tests 10/01/21 10/01/21 10/01/21 Range/Units 16:38 16:38 19:10 WBC 9.6 (5.0-10.0) 10^3/uL RBC 4.65 (4.6-6.2) 10^6/uL Hgb 11.1 L (14.0-18.0) g/dL Hct 35.1 L (40.0-54.0) % MCV 75.5 L (80-100) fL MCH 23.9 L (27.0-34.0) pg MCHC 31.6 L (33.0-35.0) g/dL Plt Count 311 (150-450) 10^3/uL Neut % (Auto) 68.4 (42.2-75.2) % Lymph % (Auto) 23.1 (20.5-50.1) % Forrest % (Auto) 6.4 (2-8) % Eos % (Auto) 1.2 (1.0-3.0) % Baso % (Auto) 0.9 (0.0-1.0) % Add Manual Diff Yes Neutrophils % (Manual) 76 H (42-75) % Band Neutrophils % 1 % Lymphocytes % (Manual) 17 L (20-50) % Monocytes % (Manual) 5 (2-8) % Basophils % (Manual) 1 Sodium 143 (136-145) mmol/L Potassium 3.7 (3.5-5.1) mmol/L Chloride 103 (98-107) mmol/L Carbon Dioxide 24 (21-32) mmol/L Anion Gap 19.7 H (7-13) mEq/L BUN 10 (7-18) mg/dL Creatinine 0.80 (0.70-1.30) mg/dL Est Cr Clr Drug Dosing 95.00 mL/min Estimated GFR (MDRD) > 60 BUN/Creatinine Ratio 12.5 (No establ ref range) Glucose 92 (70-99) mg/dL Calcium 8.3 L (8.5-10.1) mg/dL Total Bilirubin 0.3 (0.2-1.0) mg/dL AST 21 (15-37) U/L ALT 18 (16-63) U/L Alkaline Phosphatase 83 (46-116) U/L Troponin I High Sens 235 H* 227 H* (<=76) pg/mL Total Protein 6.8 (6.4-8.2) g/dL Albumin 3.2 L (3.4-5.0) g/dL Globulin 3.6 Albumin/Globulin Ratio 0.89 Ethyl Alcohol 181 (0) mg/dL Meds: Medications Discontinued Medications Generic Name Dose Route Start Last Admin Trade Name Freq PRN Reason Stop Dose Admin Doxycycline Monohydrate 100 mg 10/01/21 20:08 10/01/21 20:19 Doxycycline Monohydrate 100 Mg Cap PO 10/01/21 20:09 100 mg ONETIME ONE Administration Ibuprofen 400 mg 10/01/21 20:12 10/01/21 20:19 Ibuprofen 400 Mg Tab PO 10/01/21 20:13 400 mg ONETIME ONE Administration Nitroglycerin 0.4 mg 10/01/21 19:41 10/01/21 19:54 Nitroglycerin 0.4 Mg Tab.Sl SL 10/01/21 19:42 0.4 mg ONETIME ONE Administration Sodium Chloride 10 ml 10/01/21 16:17 10/01/21 16:23 Sodium Chloride 0.9% 10 Ml Syringe FLUSH 10 ml ASDIRECTED PRN Administration Keep Vein Open - Re-Assessments/Exams Free Text/Narrative Re-Assessment/Exam: 10/01/21 Troponin trend decreased, EKG remains unchanged. Will treat CAP with Doxycycline. Supportive cares reviewed. Red flag signs and symptoms which would warrant immediate reevaluation discussed. Patient verbalized understanding and agreement with the plan of care. Departure - Departure Time of Disposition: 20:06 Condition: Good - Discharge Information *PRESCRIPTION DRUG MONITORING PROGRAM REVIEWED*: Not Applicable *COPY OF PRESCRIPTION DRUG MONITORING REPORT IN PATIENT JLUIS: Not Applicable"
[2021-10-01] MEDS ORDERED: Nitroglycerin 0.4 MG Tab.SL SL ONE (19:41)
[2021-10-01] MEDS ORDERED: Doxycycline Monohydrate 100 MG Cap PO ONE (20:08)
[2021-10-01] MEDS ORDERED: Ibuprofen 400 MG Tab PO ONE (20:12)
== END 2021-10-01 20:47 | disposition home or self-care (01) ==
LOC: DL.ED 16:01
DX: J18.9 Pneumonia, unspecified organism (principal); E78.00 Pure hypercholesterolemia, unspecified; I10 Essential (primary) hypertension; K21.9 Gastro-esophageal reflux disease without esophagitis; M10.9 Gout, unspecified; E11.42 Type 2 diabetes mellitus with diabetic polyneuropathy; E66.9 Obesity, unspecified; Z68.34 Body mass index [BMI] 34.0-34.9, adult; Z86.16 Personal history of COVID-19; Z72.0 Tobacco use; Z88.1 Allergy status to other antibiotic agents; Z79.82 Long term (current) use of aspirin; Z79.899 Other long term (current) drug therapy
CPT/HCPCS: 36415; 71045; 73030; 80053; 80307; 84484; 85025; 93005; 99285; A9270

== ENCOUNTER 2021-11-05 17:14 | Emergency (ER) | payer MEDICARE, MEDICAID ==
[2021-11-05 18:05] LABS: AMPHETAMINES,URINE NEGATIVE (NEGATIVE); BARBITURATES,URINE NEGATIVE (NEGATIVE); BENZODIAZEPINE,URINE NEGATIVE (NEGATIVE); MDMA (ECSTASY), URINE NEGATIVE (NEGATIVE); METHADONE,URINE NEGATIVE (NEGATIVE); METHAMPHETAMINES,URINE NEGATIVE (NEGATIVE); OPIATES,URINE NEGATIVE (NEGATIVE); OXYCODONE,URINE NEGATIVE (NEGATIVE); PHENCYCLIDINE,URINE NEGATIVE (NEGATIVE); TCA,URINE POSITIVE (NEGATIVE)
[2021-11-05] MEDS: MVI, Adult with Vitamin K 10 ML, Thiamine 100 MG, Folic Acid 1 MG in Lactated Ringers 1... IV ONE ×4 (18:18)
[2021-11-05] MEDS: LORazepam 2 MG/ML SDV IVPUSH ONE (18:18)
[2021-11-05] MEDS: Sodium Chloride 0.9% 10 ML Syringe FLUSH PRN (18:19)
[2021-11-05 18:34] LABS: ANION GAP 12.1 mEq/L (7-13); CHLORIDE,CL 98 mmol/L (98-107); SODIUM,NA 137 mmol/L (136-145)
--- NOTE | 2021-11-05 19:04 | EDM.PDOC ---
Scribed by Summer Mirza 11/05/21 1904 for Amilcar Frazier MD <Amilcar Frazier - Last Filed: 11/05/21 19:04> ED HPI GENERAL MEDICAL PROBLEM - General Chief Complaint: General Stated Complaint: AMBULANCE Time Seen by Provider: 11/05/21 17:47 Source of Information: Reports: Patient, EMS, EMS Notes Reviewed, RN, RN Notes Reviewed History Limitations: Reports: No Limitations - History of Present Illness INITIAL COMMENTS - FREE TEXT/NARRATIVE: Patient arrives by [facility] with family reporting that he had a witnessed seizure that lasted about a minute consisting of generalized jerking movements and posturing. Patient does not recall the seizure. He states he quit drinking alcohol 3 days ago. He feels like he may be having alcohol withdrawal. Prior to 3 days ago he admits to heavy daily alcohol use of at least 6 months duration. Patient believes that he dislocated his right shoulder during the seizure. Denies any other injury. Denies any prior history of seizure withdrawal or otherwise. Onset: Today Duration: Resolved Prior to Arrival Location: Reports: Generalized Severity: Severe Improves with: Reports: None Worsens with: Reports: None Associated Symptoms: Reports: No Other Symptoms - Related Data Allergies Allergy/AdvReac Type Severity Reaction Status Date / Time erythromycin base Allergy Cannot Verified 11/05/21 17:55 Remember Home Meds: Home Meds Aspirin 81 mg PO DAILY 12/03/19 [History] Cyclobenzaprine [Flexeril] 10 mg PO BID PRN 12/03/19 [History] Gabapentin [Neurontin] 600 mg PO TID 12/03/19 [History] allopurinoL [Zyloprim] 200 mg PO BID 12/03/19 [History] busPIRone [Buspar] 15 mg PO TID 12/03/19 [History] Loratadine 10 mg PO DAILY PRN 08/08/20 [History] FLUoxetine HCl [Fluoxetine HCl] 20 mg PO DAILY 04/28/21 [History] Fluticasone Propionate [Flovent Diskus] 1 spray NASBOTH BID 04/28/21 [History] Multivitamin with Minerals [Multivitamins with Minerals] 1 tab PO DAILY 04/28/21 [History] Omeprazole 40 mg PO DAILY 04/28/21 [History] Rosuvastatin [Crestor] 10 mg PO BEDTIME 04/28/21 [History] lisinopriL [Lisinopril] 20 mg PO DAILY 04/28/21 [History] metFORMIN HCl [Metformin HCl] 500 mg PO QAM 04/28/21 [History] Past Medical History HEENT History: Reports: Cataract, Hard of Hearing Other HEENT History: bifolcles not here Cardiovascular History: Reports: High Cholesterol, Hypertension Respiratory History: Reports: Pneumonia, Recurrent Gastrointestinal History: Reports: GERD Genitourinary History: Reports: None Musculoskeletal History: Reports: Arthritis, Fibromyalgia, Gout, Other (See Below) Other Musculoskeletal History: shoulder dislocation Neurological History: Reports: Neuropathy, Peripheral Psychiatric History: Reports: Addiction, Anxiety, Depression Endocrine/Metabolic History: Reports: Diabetes, Type II, Obesity/BMI 30+ Hematologic History: Reports: None Immunologic History: Reports: None Oncologic (Cancer) History: Reports: None Dermatologic History: Reports: Chronic Cellulitis, Psoriasis - Infectious Disease History Infectious Disease History: Reports: None - Past Surgical History Head Surgeries/Procedures: Reports: None HEENT Surgical History: Reports: Cataract Surgery GI Surgical History: Reports: Colonoscopy Musculoskeletal Surgical History: Reports: Other (See Below) Other Musculoskeletal Surgeries/Procedures:: dislocated right shoulder several times, has had 7 surgeries Social & Family History - Family History Family Medical History: Unobtainable - Caffeine Use Caffeine Use: Reports: Coffee, Soda - Living Situation & Occupation Living situation: Reports: Single Occupation: Unemployed ED ROS GENERAL - Review of Systems Review Of Systems: Comprehensive ROS is negative, except as noted in HPI. Departure - Departure Disposition: Home, Self-Care 01 Clinical Impression: Closed right humeral fracture Qualifiers: Encounter type: initial encounter Humerus Location: proximal Fracture morphology: other fracture Fracture alignment: displaced Qualified Code(s): S42.291A - Other displaced fracture of upper end of right humerus, initial encounter for closed fracture - Discharge Information Instructions: Humerus Fracture Treated With Immobilization Forms: ED Department Discharge Care Plan Goals: The patient was advised of the examination, lab, x-ray and CT results during the visit. The patient was advised that his injury required a follow-up with Orthopedics. Dr. Alvarado (Orthopedic Surgeon through [facility] in [place]) would like the patient to follow-up in the clinic with him next week to discuss additional treatments. The patient was given an oral dose of Sterling for pain while in the ED. The patient was discharged with a script for Sterling () #8 to take 1 by mouth every 6 hours for pain. If the patient has any additional symptoms or concerns, the patient should visit his primary care facility, call orthopedics through [facility] in [place] or return to the emergency department. <Dilshad Ortiz M - Last Filed: 11/05/21 20:06> ED EXAM, GENERAL - Physical Exam Exam: See Below Exam Limited By: No Limitations General Appearance: Alert, WD/WN, Moderate Distress Eye Exam: Bilateral Eye: EOMI, Normal Inspection, PERRL Ears: Normal External Exam, Normal Canal, Hearing Grossly Normal, Normal TMs Nose: Normal Inspection, Normal Mucosa, No Blood Throat/Mouth: Normal Inspection, Normal Lips, Normal Teeth, Normal Gums, Normal Oropharynx, Normal Voice, No Airway Compromise Head: Atraumatic, Normocephalic Neck: Normal Inspection, Supple, Non-Tender, Full Range of Motion Respiratory/Chest: No Respiratory Distress, Lungs Clear, Normal Breath Sounds, No Accessory Muscle Use, Chest Non-Tender Cardiovascular: Normal Peripheral Pulses, Regular Rate, Rhythm, No Edema, No Gallop, No JVD, No Murmur, No Rub GI/Abdominal: Normal Bowel Sounds, Soft, Non-Tender, No Organomegaly, No Distention, No Abnormal Bruit, No Mass (Male) Exam: Deferred Rectal (Males) Exam: Deferred Back Exam: Normal Inspection, Full Range of Motion, NT Extremities: Arm Pain (Right shoulder pain) Neurological: Alert, Oriented, CN II-XII Intact, Normal Cognition Psychiatric: Normal Affect, Normal Mood Skin Exam: Warm, Dry, Intact, Normal Color, No Rash Lymphatic: No Adenopathy Course - Vital Signs Last Recorded V/S: Last Vital Signs Temp 97.1 F 11/05/21 17:55 Pulse 114 H 11/05/21 17:55 Resp 20 11/05/21 17:55 BP 140/88 11/05/21 17:55 Pulse Ox 95 11/05/21 17:55 - Orders/Labs/Meds Orders: Active Orders 24 hr Category Date Time Status Peripheral IV Care [RC] . DIRECTED Care 11/05/21 17:54 Active Shoulder wo Cont Rt [CT] Urgent Exams 11/05/21 19:31 Ordered CORONAVIRUS COVID-19 IZABELA [MOLEC] Urgent Lab 11/05/21 19:07 Ordered Acetaminophen/HYDROcodone [Sterling 325-5 MG] Med 11/05/21 19:59 Once 1 tab PO ONETIME ONE Sodium Chloride 0.9% [Saline Flush] Med 11/05/21 17:53 Active 10 ml FLUSH ASDIRECTED PRN DME for Discharge [COMM] Urgent Oth 11/05/21 19:40 Ordered Peripheral IV Insertion Adult [OM.PC] Stat Oth 11/05/21 17:53 Ordered Seizure Precautions [OM.PC] Routine Oth 11/05/21 17:51 Ordered Medication Orders Sodium Chloride (Sodium Chloride 0.9% 10 Ml Syringe) 10 ml FLUSH ASDIRECTED PRN PRN Reason: Keep Vein Open Last Admin: 11/05/21 18:19 Dose: 10 ml Documented by: [id number] Labs: Laboratory Tests 11/05/21 11/05/21 11/05/21 Range/Units 17:52 17:52 18:10 WBC 9.7 (5.0-10.0) 10^3/uL RBC 4.69 (4.6-6.2) 10^6/uL Hgb 11.1 L (14.0-18.0) g/dL Hct 34.8 L (40.0-54.0) % MCV 74.2 L (80-100) fL MCH 23.7 L (27.0-34.0) pg MCHC 31.9 L (33.0-35.0) g/dL Plt Count 246 (150-450) 10^3/uL Neut % (Auto) 86.1 H (42.2-75.2) % Lymph % (Auto) 7.6 L (20.5-50.1) % [place] % (Auto) 5.7 (2-8) % Eos % (Auto) 0.2 L (1.0-3.0) % Baso % (Auto) 0.4 (0.0-1.0) % Sodium (136-145) mmol/L Potassium (3.5-5.1) mmol/L Chloride (98-107) mmol/L Carbon Dioxide (21-32) mmol/L Anion Gap (7-13) mEq/L BUN (7-18) mg/dL Creatinine (0.70-1.30) mg/dL Est Cr Clr Drug Dosing Estimated GFR (MDRD) BUN/Creatinine Ratio (No establ ref range) Glucose (70-99) mg/dL Calcium (8.5-10.1) mg/dL Magnesium (1.8-2.4) mg/dL Total Bilirubin (0.2-1.0) mg/dL AST (15-37) U/L ALT (16-63) U/L Alkaline Phosphatase (46-116) U/L Creatine Kinase (39-308) U/L Total Protein (6.4-8.2) g/dL Albumin (3.4-5.0) g/dL Globulin Albumin/Globulin Ratio Urine Color Yellow (YELLOW) Urine Appearance Slightly cloudy (CLEAR) Urine pH 7.0 (5.0-9.0) Ur Specific [place] >= 1.030 (1.005-1.030) Urine Protein 100 H (NEGATIVE) Urine Glucose (UA) Negative (NEGATIVE) Urine Ketones 15 H (NEGATIVE) Urine Occult Blood Trace-intact H (NEGATIVE) Urine Nitrite Negative (NEGATIVE) Urine Bilirubin Negative (NEGATIVE) Urine Urobilinogen 1.0 (0.2-1.0) mg/dL Ur Leukocyte Esterase Negative (NEGATIVE) Urine RBC 0-5 (0-5) /HPF Urine WBC 0-5 (0-5/HPF) /HPF Ur Epithelial Cells Rare (NOT SEEN) /HPF Urine Bacteria Moderate H (0-FEW/HPF) /HPF Urine Mucus Moderate H (NOT SEEN) /LPF Urine Other See note Urine Opiates Screen Negative (NEGATIVE) Ur Oxycodone Screen Negative (NEGATIVE) Urine Methadone Screen Negative (NEGATIVE) Ur Barbiturates Screen Negative (NEGATIVE) U Tricyclic Antidepress Positive H (NEGATIVE) Ur Phencyclidine Scrn Negative (NEGATIVE) Ur Amphetamine Screen Negative (NEGATIVE) U Methamphetamines Scrn Negative (NEGATIVE) Urine MDMA Screen Negative (NEGATIVE) U Benzodiazepines Scrn Negative (NEGATIVE) Urine Cocaine Screen Negative (NEGATIVE) U Marijuana (THC) Screen Negative (NEGATIVE) Ethyl Alcohol (0) mg/dL 11/05/21 Range/Units 18:10 WBC (5.0-10.0) 10^3/uL RBC (4.6-6.2) 10^6/uL Hgb (14.0-18.0) g/dL Hct (40.0-54.0) % MCV (80-100) fL MCH (27.0-34.0) pg MCHC (33.0-35.0) g/dL Plt Count (150-450) 10^3/uL Neut % (Auto) (42.2-75.2) % Lymph % (Auto) (20.5-50.1) % [place] % (Auto) (2-8) % Eos % (Auto) (1.0-3.0) % Baso % (Auto) (0.0-1.0) % Sodium 137 (136-145) mmol/L Potassium 4.1 (3.5-5.1) mmol/L Chloride 98 (98-107) mmol/L Carbon Dioxide 31 (21-32) mmol/L Anion Gap 12.1 (7-13) mEq/L BUN 9 (7-18) mg/dL Creatinine 0.79 (0.70-1.30) mg/dL Est Cr Clr Drug Dosing TNP Estimated GFR (MDRD) > 60 BUN/Creatinine Ratio 11.4 (No establ ref range) Glucose 150 H (70-99) mg/dL Calcium 8.7 (8.5-10.1) mg/dL Magnesium 1.4 L (1.8-2.4) mg/dL Total Bilirubin 0.7 (0.2-1.0) mg/dL AST 40 H (15-37) U/L ALT 48 (16-63) U/L Alkaline Phosphatase 98 (46-116) U/L Creatine Kinase 420 H (39-308) U/L Total Protein 7.2 (6.4-8.2) g/dL Albumin 3.2 L (3.4-5.0) g/dL Globulin 4.0 Albumin/Globulin Ratio 0.80 Urine Color (YELLOW) Urine Appearance (CLEAR) Urine pH (5.0-9.0) Ur Specific [place] (1.005-1.030) Urine Protein (NEGATIVE) Urine Glucose (UA) (NEGATIVE) Urine Ketones (NEGATIVE) Urine Occult Blood (NEGATIVE) Urine Nitrite (NEGATIVE) Urine Bilirubin (NEGATIVE) Urine Urobilinogen (0.2-1.0) mg/dL Ur Leukocyte Esterase (NEGATIVE) Urine RBC (0-5) /HPF Urine WBC (0-5/HPF) /HPF Ur Epithelial Cells (NOT SEEN) /HPF Urine Bacteria (0-FEW/HPF) /HPF Urine Mucus (NOT SEEN) /LPF Urine Other Urine Opiates Screen (NEGATIVE) Ur Oxycodone Screen (NEGATIVE) Urine Methadone Screen (NEGATIVE) Ur Barbiturates Screen (NEGATIVE) U Tricyclic Antidepress (NEGATIVE) Ur Phencyclidine Scrn (NEGATIVE) Ur Amphetamine Screen (NEGATIVE) U Methamphetamines Scrn (NEGATIVE) Urine MDMA Screen (NEGATIVE) U Benzodiazepines Scrn (NEGATIVE) Urine Cocaine Screen (NEGATIVE) U Marijuana (THC) Screen (NEGATIVE) Ethyl Alcohol < 3 (0) mg/dL Meds: Medications Generic Name Dose Route Start Last Admin Trade Name Freq PRN Reason Stop Dose Admin Sodium Chloride 10 ml 11/05/21 17:53 11/05/21 18:19 Sodium Chloride 0.9% 10 Ml Syringe FLUSH 10 ml ASDIRECTED PRN Administration Keep Vein Open Discontinued Medications Generic Name Dose Route Start Last Admin Trade Name Freq PRN Reason Stop Dose Admin Multivitamins/Minerals 10 ml/ 1,011.2 mls @ 999 mls/hr 11/05/21 17:54 11/05/21 18:18 Thiamine HCl 100 mg/ Folic IV 11/05/21 18:54 999 mls/hr Acid 1 mg/ Lactated Ringer's .BOLUS ONE Administration Lorazepam 1 mg 11/05/21 17:55 11/05/21 18:18 Lorazepam 2 Mg/Ml Sdv IVPUSH 11/05/21 17:56 1 mg ONETIME ONE Administration - Re-Assessments/Exams Free Text/Narrative Re-Assessment/Exam: 11/05/21 19:[address] Arrieta (Ortho with [facility] in [place]). Dr. Arrieta has spoken with Dr. Alvarado (also Ortho with [facility] in [place]). Dr. Alvarado agreed that the patient should follow-up in clinic next week for continued evaluation and management. Dr. Alvarado requested a CT of the right shoulder to include the Humerus prior to the patient coming to visit him in the clinic. Departure - Departure Time of Disposition: 20:01 Condition: Fair - Discharge Information *PRESCRIPTION DRUG MONITORING PROGRAM REVIEWED*: Not Applicable *COPY OF PRESCRIPTION DRUG MONITORING REPORT IN PATIENT JLUIS: Not Applicable Sepsis Event Note (ED) - Focused Exam Vital Signs: Vital Signs Temp Pulse Resp BP Pulse Ox 11/05/21 17:55 97.1 F 114 H 20 140/88 95 - My Orders Last 24 Hours: My Active Orders 11/05/21 19:07 CORONAVIRUS COVID-19 IZABELA [MOLEC] Urgent 11/05/21 19:31 Shoulder wo Cont Rt [CT] Urgent 11/05/21 19:40 DME for Discharge [COMM] Urgent 11/05/21 19:59 Acetaminophen/HYDROcodone [Sterling 325-5 MG] 1 tab PO ONETIME ONE - Assessment/Plan Last 24 Hours: My Active Orders 11/05/21 19:07 CORONAVIRUS COVID-19 IZABELA [MOLEC] Urgent 11/05/21 19:31 Shoulder wo Cont Rt [CT] Urgent 11/05/21 19:40 DME for Discharge [COMM] Urgent 11/05/21 19:59 Acetaminophen/HYDROcodone [Sterling 325-5 MG] 1 tab PO ONETIME ONE I have read and agree with the documentation that has been completed regarding this visit. By signing this record, I attest that the documentation was c ompleted in my physical presence and is an accurate record of the encounter.
--- NOTE | 2021-11-05 19:32 | CR ---
PROCEDURE INFORMATION: Exam: XR Right Shoulder Exam date and time: 11/05/2021 7:05 PM Age: 61 years old Clinical indication: Other: Fall; Prior surgery; Additional info: Right shoulder pain TECHNIQUE: Imaging protocol: XR Right shoulder. Views: 2 or more views. COMPARISON: CR Shoulder Comp Rt 10/01/2021 4:21 PM FINDINGS: Bones/joints: There is an oblique fracture through the proximal humeral shaft at the level of the distal end of the humeral compliment of the reverse shoulder prosthesis. There is lateral displacement of the distal fragment by about 1-1/4 shaft diameters. The alignment of the shoulder prosthesis appears anatomic. Soft tissues: There is moderate soft tissue swelling . IMPRESSION: Fracture of the proximal humerus at the distal end of the humeral compliment of the right shoulder prosthesis.
--- NOTE | 2021-11-05 20:22 | CT ---
PROCEDURE INFORMATION: Exam: CT Right Upper Extremity Without Contrast, Upper Arm Exam date and time: 11/05/2021 7:38 PM Age: 61 years old Clinical indication: Other: Fall; Additional info: Right shoulder injury TECHNIQUE: Imaging protocol: CT of the Right upper extremity without contrast was performed. Exam focused on the upper arm. Radiation optimization: All CT scans at this facility use at least one of these dose optimization techniques: automated exposure control; mA and/or kV adjustment per patient size (includes targeted exams where dose is matched to clinical indication); or iterative reconstruction. COMPARISON: CR Shoulder Comp Rt 11/05/2021 7:05 PM FINDINGS: Bones/joints: Significantly displaced periprosthetic fracture involving the proximal humeral component of the reverse shoulder arthroplasty. There is 3.5 cm lateral displacement of the distal fracture fragments. There is also mild overriding of the fracture fragments as well. Multilevel old/healed right rib fractures. No other acutely displaced fractures are identified. There is no evidence of joint dislocation. No aggressive osseous lesions. Soft tissues: Swelling throughout the right arm and right shoulder. Visualized chest is unremarkable. IMPRESSION: Significantly displaced and overriding periprosthetic fracture involving the proximal humeral component of the reverse shoulder arthroplasty.
[2021-11-05] MEDS: Acetaminophen/HYDROcodone 325-5 MG Tab PO ONE (20:30)
== END 2021-11-05 20:36 | disposition home or self-care (01) ==
LOC: DL.ED 17:14
DX: S42.291A Other displaced fracture of upper end of right humerus, initial encounter for closed fracture (principal); M10.9 Gout, unspecified; E78.00 Pure hypercholesterolemia, unspecified; I10 Essential (primary) hypertension; E11.42 Type 2 diabetes mellitus with diabetic polyneuropathy; E66.9 Obesity, unspecified; Z68.30 Body mass index [BMI] 30.0-30.9, adult; Z88.1 Allergy status to other antibiotic agents; Z79.82 Long term (current) use of aspirin; Z79.899 Other long term (current) drug therapy; Z79.84 Long term (current) use of oral hypoglycemic drugs
CPT/HCPCS: 36415; 73030; 73200; 80053; 80305; 80307; 81001; 82550; 83735; 85025; 96365; 96366; 96375; 99284; A9270; J2060; J3411; J7120; J3490

== ENCOUNTER 2021-11-07 15:35 | Emergency (ER) | payer MEDICARE, MEDICAID ==
[2021-11-07 20:59] LABS: ANION GAP 15.2 mEq/L (7-13); CHLORIDE,CL 97 mmol/L (98-107); SODIUM,NA 136 mmol/L (136-145)
[2021-11-07 21:09] LABS: RESPIRATORY SYNCYTIAL VIR NAA NEGATIVE (NEGATIVE)
[2021-11-07 21:12] LABS: CORONAVIRUS COVID-19 NAA POSITIVE (NEGATIVE)
== END 2021-11-07 22:53 | disposition left against medical advice (07) ==
LOC: DL.ED 15:35
DX: U07.1 COVID-19 (principal); Z87.81 Personal history of (healed) traumatic fracture; I10 Essential (primary) hypertension; K21.9 Gastro-esophageal reflux disease without esophagitis; E11.42 Type 2 diabetes mellitus with diabetic polyneuropathy; Z88.8 Allergy status to other drugs, medicaments and biological substances; Z79.899 Other long term (current) drug therapy; E78.00 Pure hypercholesterolemia, unspecified
CPT/HCPCS: 0241U; 36415; 80053; 80307; 83605; 85025; 99283

== ENCOUNTER 2022-01-01 21:29 | Emergency (ER) | payer MEDICARE, MEDICAID ==
[2022-01-01 22:20] LABS: ANION GAP 15.6 mEq/L (7-13); CHLORIDE,CL 106 mmol/L (98-107); SODIUM,NA 144 mmol/L (136-145)
[2022-01-01 23:10] LABS: AMPHETAMINES,URINE NEGATIVE (NEGATIVE); BARBITURATES,URINE NEGATIVE (NEGATIVE); BENZODIAZEPINE,URINE NEGATIVE (NEGATIVE); MDMA (ECSTASY), URINE NEGATIVE (NEGATIVE); METHADONE,URINE NEGATIVE (NEGATIVE); METHAMPHETAMINES,URINE NEGATIVE (NEGATIVE); OPIATES,URINE NEGATIVE (NEGATIVE); OXYCODONE,URINE NEGATIVE (NEGATIVE); PHENCYCLIDINE,URINE NEGATIVE (NEGATIVE); TCA,URINE POSITIVE (NEGATIVE)
== END 2022-01-01 23:22 | disposition left against medical advice (07) ==
LOC: DL.ED 21:29
DX: R07.9 Chest pain, unspecified (principal); F10.129 Alcohol abuse with intoxication, unspecified; M10.9 Gout, unspecified; E78.00 Pure hypercholesterolemia, unspecified; I10 Essential (primary) hypertension; K21.9 Gastro-esophageal reflux disease without esophagitis; E11.9 Type 2 diabetes mellitus without complications; E66.9 Obesity, unspecified; Z68.30 Body mass index [BMI] 30.0-30.9, adult; Z88.1 Allergy status to other antibiotic agents; Z79.82 Long term (current) use of aspirin; Z79.899 Other long term (current) drug therapy
CPT/HCPCS: 36415; 71045; 80053; 80305-QW; 80307; 81003; 83880; 84484; 85025; 85610; 99285-25

== ENCOUNTER 2022-01-02 07:26 | Emergency (ER) | payer MEDICAID, MEDICARE ==
[2022-01-02] MEDS ORDERED: MVI, Adult with Vitamin K 10 ML, Thiamine 100 MG, Folic Acid 1 MG in Lactated Ringers 1... IV ONE ×4 (07:45)
[2022-01-02] MEDS ORDERED: Ondansetron 4 MG/2 ML SDV IV ONE ×2 (07:45→08:56)
[2022-01-02] MEDS ORDERED: Sodium Chloride 0.9% 10 ML Syringe FLUSH PRN (07:46)
[2022-01-02] MEDS ORDERED: Pantoprazole 40 MG Vial IVPUSH ONE (08:17)
[2022-01-02] MEDS ORDERED: LORazepam 2 MG/ML SDV IVPUSH ONE (09:48)
== END 2022-01-02 11:40 | disposition other institution (70) ==
LOC: DL.ED 07:26
DX: F10.230 Alcohol dependence with withdrawal, uncomplicated (principal); E78.00 Pure hypercholesterolemia, unspecified; I10 Essential (primary) hypertension; K21.9 Gastro-esophageal reflux disease without esophagitis; E11.9 Type 2 diabetes mellitus without complications; M10.9 Gout, unspecified; E66.9 Obesity, unspecified; Z68.33 Body mass index [BMI] 33.0-33.9, adult; Z88.1 Allergy status to other antibiotic agents; Z79.82 Long term (current) use of aspirin; Z79.899 Other long term (current) drug therapy; Z79.84 Long term (current) use of oral hypoglycemic drugs; Y90.6 Blood alcohol level of 120-199 mg/100 ml
CPT/HCPCS: 36415; 80307; 84484; 93005; 96365; 96375; 96376; 99285; C9113; J2060; J2405; J3411; J7120; J3490

== ENCOUNTER 2022-07-09 07:20 | Emergency (ER) | payer MEDICAID ==
[2022-07-09 08:04] LABS: CORONAVIRUS COVID-19 NAA NEGATIVE (NEGATIVE); RESPIRATORY SYNCYTIAL VIR NAA NEGATIVE (NEGATIVE)
[2022-07-09 08:05] LABS: ANION GAP 12.6 mEq/L (7-13)
[2022-07-09] MEDS ORDERED: LIDOCAINE 1% IM ONE ×2 (08:31)
[2022-07-09] MEDS ORDERED: CEFTRIAXONE 2000 MG IM ONE ×2 (08:31)
[2022-07-09] MEDS ORDERED: hydrOXYzine HCl 25 MG Tab PO ONE (08:34)
== END 2022-07-09 09:15 | disposition home or self-care (01) ==
LOC: DL.ED 07:20
DX: J18.9 Pneumonia, unspecified organism (principal); E78.00 Pure hypercholesterolemia, unspecified; I10 Essential (primary) hypertension; K21.9 Gastro-esophageal reflux disease without esophagitis; E11.9 Type 2 diabetes mellitus without complications; E66.9 Obesity, unspecified; Z68.32 Body mass index [BMI] 32.0-32.9, adult; Z20.822 Contact with and (suspected) exposure to COVID-19; Z86.16 Personal history of COVID-19; Z79.899 Other long term (current) drug therapy
CPT/HCPCS: 0241U; 36415; 71045; 80053; 83605; 83880; 84484; 85025; 93010; 96372; 99284; 99285; A9270-GY; J0696

== ENCOUNTER 2023-02-08 05:56 | Inpatient (IN) | payer MEDICARE, MEDICAID ==
[2023-02-08 06:49] LABS: ANION GAP 14.9 mEq/L (7-13)
[2023-02-08] MEDS ORDERED: cefTRIAXone 2 GM Vial IVPUSH ONE ×2 (06:57→07:12)
[2023-02-08] MEDS ORDERED: Piperacillin/Tazobactam 4.5 GM in Sodium Chloride 0.9% 100 ML IV ONE (07:06)
[2023-02-08] MEDS ORDERED: Sodium Chloride 0.9% 1,000 ML IV ONE ×3 (07:07→08:17)
[2023-02-08] MEDS ORDERED: Iopamidol 755 Mg/ML 100 ML Bottle IVPUSH ONE (07:11)
[2023-02-08 07:23] LABS: CORONAVIRUS COVID-19 NAA NEGATIVE (NEGATIVE); RESPIRATORY SYNCYTIAL VIR NAA NEGATIVE (NEGATIVE)
[2023-02-08] MEDS ORDERED: Ketorolac 30 MG/ML SDV IVPUSH ONE (08:42)
[2023-02-08] MEDS ORDERED: Acetaminophen 500 MG Tab PO ONE (08:43)
[2023-02-08] MEDS ORDERED: Ondansetron 4 MG/2 ML SDV IVPUSH PRN (10:48)
[2023-02-08] MEDS ORDERED: Acetaminophen 325 MG Tab PO PRN (10:48)
[2023-02-08] MEDS ORDERED: Polyethylene Glycol 3350 Powder 17 GM Packet PO PRN (10:48)
[2023-02-08] MEDS ORDERED: Ketorolac 30 MG/ML SDV IVPUSH PRN (10:48)
[2023-02-08] MEDS ORDERED: Magnesium Hydroxide 400 MG/5 ML Susp 30 ML Cup PO PRN (10:48)
[2023-02-08] MEDS ORDERED: HYDROmorphone 0.5 MG/0.5 ML Syringe IVPUSH PRN (10:48)
[2023-02-08] MEDS ORDERED: 50% Dextrose in Water 50 ML Syringe IVPUSH PRN (10:51)
[2023-02-08] MEDS ORDERED: Glucagon,Human Recombinant 1 MG Vial IM PRN (10:51)
[2023-02-08] MEDS ORDERED: guaiFENesin/Dextromethorphan 100-10 MG/5 ML Soln 5 ML Cup PO PRN (10:54)
[2023-02-08] MEDS: Insulin Lispro 100 Units/ML 3 ML Vial SUBCUT SCH ×2 (12:25→20:17)
[2023-02-08] MEDS: Piperacillin/Tazobactam 3.375 GM in Sodium Chloride 0.9% 100 ML IV SCH ×3 (14:32→23:48)
[2023-02-08] MEDS ORDERED: diphenhydrAMINE 25 MG Tab PO PRN (17:19)
[2023-02-08] MEDS: Albuterol/Ipratropium 3.0-0.5 MG/3 ML Neb Soln NEB PRN (18:03)
[2023-02-08] MEDS: Acetaminophen/HYDROcodone 325-10 MG Tab PO PRN (18:15)
[2023-02-08] MEDS: VANCOmycin 1.5 GM/300 ML 1.5 GM in Premix Bag 1 BAG IV SCH (20:14)
[2023-02-08] MEDS: Amitriptyline 25 MG Tab PO SCH (20:49)
[2023-02-08] MEDS: busPIRone 15 MG Tab PO SCH (20:49)
[2023-02-08] MEDS: Saccharomyces Boulardii (Probiotic) 250 MG Cap PO SCH (20:50)
[2023-02-08] MEDS: hydrOXYzine HCl 25 MG Tab PO SCH (20:50)
[2023-02-08] MEDS ORDERED: Nystatin Crm 15 GM Tube TOP SCH (21:00)
[2023-02-08] MEDS ORDERED: Famotidine 20 MG Tab PO SCH (21:00)
[2023-02-08] MEDS ORDERED: Fluticasone NASAL Spray 16 GM Bottle NAS SCH (21:00)
[2023-02-08] MEDS ORDERED: Mineral Oil/Petrolatum Oint 100 GM OINT TOP SCH (21:00)
[2023-02-08] MEDS ORDERED: Non-Formulary Medication 1 Each (Gabapentin 600 MG Tablet) PO SCH (21:00)
[2023-02-08] MEDS ORDERED: Bumetanide 1 MG Tab PO SCH (21:00)
[2023-02-08] MEDS ORDERED: Non-Formulary Medication 1 Each (Gabapentin 300 MG) PO SCH (21:00)
[2023-02-08] MEDS ORDERED: Metoprolol Tartrate 5 MG/5 ML SDV IVPUSH PRN (21:13)
[2023-02-08] MEDS ORDERED: hydrALAZINE 20 MG/ML SDV IVPUSH PRN (21:13)
[2023-02-08] MEDS: Acetaminophen 500 MG Tab PO SCH (22:14)
[2023-02-08] MEDS: Gabapentin 300 MG Cap PO SCH (22:17)
[2023-02-09 02:09] LABS: AMPHETAMINES,URINE NEGATIVE (NEGATIVE); BARBITURATES,URINE NEGATIVE (NEGATIVE); BENZODIAZEPINE,URINE NEGATIVE (NEGATIVE); MDMA (ECSTASY), URINE NEGATIVE (NEGATIVE); METHADONE,URINE NEGATIVE (NEGATIVE); METHAMPHETAMINES,URINE NEGATIVE (NEGATIVE); OPIATES,URINE POSITIVE (NEGATIVE); OXYCODONE,URINE NEGATIVE (NEGATIVE); PHENCYCLIDINE,URINE NEGATIVE (NEGATIVE); TCA,URINE POSITIVE (NEGATIVE)
[2023-02-09] MEDS: Acetaminophen/HYDROcodone 325-10 MG Tab PO PRN (02:09)
[2023-02-09] MEDS: Acetaminophen 500 MG Tab PO SCH ×3 (05:16→22:46)
[2023-02-09] MEDS: Cyclobenzaprine 10 MG Tab PO PRN (05:17)
[2023-02-09] MEDS: Sodium Chloride 0.9% 10 ML Syringe FLUSH PRN ×4 (05:26→23:38)
[2023-02-09] MEDS: Piperacillin/Tazobactam 3.375 GM in Sodium Chloride 0.9% 100 ML IV SCH ×4 (05:26→23:38)
[2023-02-09 06:01] LABS: ANION GAP 11.7 mEq/L (7-13)
[2023-02-09] MEDS: VANCOmycin 1.5 GM/300 ML 1.5 GM in Premix Bag 1 BAG IV SCH ×2 (08:03→20:29)
[2023-02-09] MEDS: Lisinopril 20 MG Tab PO SCH (08:30)
[2023-02-09] MEDS: Tamsulosin 0.4 MG Cap.ER PO SCH (08:30)
[2023-02-09] MEDS: Gabapentin 300 MG Cap PO SCH ×3 (08:30→20:47)
[2023-02-09] MEDS: Omeprazole 20 MG Cap.CR PO SCH (08:30)
[2023-02-09] MEDS: Enoxaparin 40 MG/0.4 ML Syringe SUBCUT SCH (08:30)
[2023-02-09] MEDS: FLUoxetine 10 MG Cap PO SCH (08:30)
[2023-02-09] MEDS: busPIRone 15 MG Tab PO SCH ×3 (08:30→20:47)
[2023-02-09] MEDS: Insulin Lispro 100 Units/ML 3 ML Vial SUBCUT SCH ×3 (08:31→16:45)
[2023-02-09] MEDS: Saccharomyces Boulardii (Probiotic) 250 MG Cap PO SCH ×2 (08:31→20:47)
[2023-02-09] MEDS: Allopurinol 100 MG Tab PO SCH (08:31)
[2023-02-09] MEDS: Bumetanide 1 MG Tab PO SCH ×2 (08:39→15:01)
[2023-02-09] MEDS ORDERED: hydrOXYzine HCl 25 MG Tab PO SCH (09:00)
[2023-02-09] MEDS ORDERED: Non-Formulary Medication 1 Each (Fluoxetine Hcl [Fluoxetine Hcl] 20 MG Capsule) PO SCH (09:00)
[2023-02-09] MEDS ORDERED: guaiFENesin 600 MG Tab.ER PO ONE (09:34)
[2023-02-09] MEDS: BUPRENORPHINE HCL SL SCH (12:12)
[2023-02-09] MEDS: NALOXONE HCL SL SCH (12:12)
[2023-02-09] MEDS ORDERED: NALOXONE HCL SL SCH (15:39)
[2023-02-09] MEDS ORDERED: BUPRENORPHINE HCL SL SCH (15:39)
[2023-02-09] MEDS ORDERED: Buprenorphine 8 MG Tab.SL SL ONE (17:30)
[2023-02-09] MEDS: Amitriptyline 25 MG Tab PO SCH (20:47)
[2023-02-09] MEDS: hydrOXYzine HCl 25 MG Tab PO SCH (20:47)
[2023-02-09] MEDS: Latanoprost 0.005% Ophth Soln 2.5 ML Bottle EYEBOTH SCH (20:48)
[2023-02-09] MEDS: guaiFENesin 600 MG Tab.ER PO SCH (20:48)
[2023-02-10] MEDS: Acetaminophen 500 MG Tab PO SCH ×3 (06:05→21:00)
[2023-02-10] MEDS: Sodium Chloride 0.9% 10 ML Syringe FLUSH PRN (06:07)
[2023-02-10] MEDS: Piperacillin/Tazobactam 3.375 GM in Sodium Chloride 0.9% 100 ML IV SCH ×3 (06:08→17:14)
[2023-02-10 06:50] LABS: ANION GAP 9.7 mEq/L (7-13)
[2023-02-10] MEDS: Enoxaparin 40 MG/0.4 ML Syringe SUBCUT SCH (08:19)
[2023-02-10] MEDS: FLUoxetine 10 MG Cap PO SCH (08:20)
[2023-02-10] MEDS: guaiFENesin 600 MG Tab.ER PO SCH ×2 (08:20→20:37)
[2023-02-10] MEDS: Allopurinol 100 MG Tab PO SCH (08:20)
[2023-02-10] MEDS: Omeprazole 20 MG Cap.CR PO SCH (08:21)
[2023-02-10] MEDS: Gabapentin 300 MG Cap PO SCH ×3 (08:21→20:34)
[2023-02-10] MEDS: Tamsulosin 0.4 MG Cap.ER PO SCH (08:21)
[2023-02-10] MEDS: Lisinopril 20 MG Tab PO SCH (08:21)
[2023-02-10] MEDS: VANCOmycin 1.5 GM/300 ML 1.5 GM in Premix Bag 1 BAG IV SCH ×2 (08:26→20:23)
[2023-02-10] MEDS ORDERED: Fluticasone NASAL Spray 16 GM Bottle NASBOTH PRN (09:00)
[2023-02-10] MEDS: Insulin Lispro 100 Units/ML 3 ML Vial SUBCUT SCH ×3 (09:11→17:15)
[2023-02-10] MEDS: Bumetanide 1 MG Tab PO SCH ×2 (09:46→14:17)
[2023-02-10] MEDS: Saccharomyces Boulardii (Probiotic) 250 MG Cap PO SCH ×2 (09:46→20:34)
[2023-02-10] MEDS: busPIRone 15 MG Tab PO SCH ×3 (09:46→20:33)
[2023-02-10] MEDS: NALOXONE HCL SL SCH ×2 (09:51→14:24)
[2023-02-10] MEDS: BUPRENORPHINE HCL SL SCH ×2 (09:51→14:24)
[2023-02-10] MEDS ORDERED: hydrOXYzine HCl 25 MG Tab PO PRN (12:20)
[2023-02-10] MEDS: Amitriptyline 25 MG Tab PO SCH (20:35)
[2023-02-10] MEDS: Latanoprost 0.005% Ophth Soln 2.5 ML Bottle EYEBOTH SCH (20:39)
[2023-02-11] MEDS: Piperacillin/Tazobactam 3.375 GM in Sodium Chloride 0.9% 100 ML IV SCH ×5 (00:10→23:36)
[2023-02-11] MEDS: Acetaminophen 500 MG Tab PO SCH ×3 (05:02→21:36)
[2023-02-11] MEDS: Cyclobenzaprine 10 MG Tab PO PRN ×2 (05:15→21:33)
[2023-02-11 07:18] LABS: ANION GAP 11.3 mEq/L (7-13)
[2023-02-11] MEDS: VANCOmycin 1.5 GM/300 ML 1.5 GM in Premix Bag 1 BAG IV SCH ×2 (08:02→20:23)
[2023-02-11] MEDS: Enoxaparin 40 MG/0.4 ML Syringe SUBCUT SCH (08:07)
[2023-02-11] MEDS: Aspirin 81 MG Tab.Chew PO SCH (08:07)
[2023-02-11] MEDS: Tamsulosin 0.4 MG Cap.ER PO SCH (08:07)
[2023-02-11] MEDS: Allopurinol 100 MG Tab PO SCH (08:07)
[2023-02-11] MEDS: busPIRone 15 MG Tab PO SCH ×3 (08:08→20:15)
[2023-02-11] MEDS: FLUoxetine 10 MG Cap PO SCH (08:08)
[2023-02-11] MEDS: guaiFENesin 600 MG Tab.ER PO SCH ×2 (08:08→20:16)
[2023-02-11] MEDS: Famotidine 20 MG Tab PO SCH (08:08)
[2023-02-11] MEDS: Saccharomyces Boulardii (Probiotic) 250 MG Cap PO SCH ×2 (08:08→20:16)
[2023-02-11] MEDS: Omeprazole 20 MG Cap.CR PO SCH (08:08)
[2023-02-11] MEDS: Gabapentin 300 MG Cap PO SCH ×3 (08:08→20:16)
[2023-02-11] MEDS: Lisinopril 20 MG Tab PO SCH (08:12)
[2023-02-11] MEDS: Insulin Lispro 100 Units/ML 3 ML Vial SUBCUT SCH ×3 (08:17→16:51)
[2023-02-11] MEDS: BUPRENORPHINE HCL SL SCH ×3 (08:18→15:56)
[2023-02-11] MEDS: NALOXONE HCL SL SCH ×3 (08:18→15:56)
[2023-02-11] MEDS: Bumetanide 1 MG Tab PO SCH ×2 (08:28→15:10)
[2023-02-11] MEDS: Ibuprofen 800 MG Tab PO PRN ×2 (10:56→20:14)
[2023-02-11] MEDS: Non-Formulary Medication 1 Each (Cetirizine [Zyrtec] 10 MG Tablet) PO SCH ×3 (15:51→15:55)
[2023-02-11] MEDS ORDERED: Melatonin 3 MG Tab PO PRN (20:13)
[2023-02-11] MEDS: Amitriptyline 25 MG Tab PO SCH (20:16)
[2023-02-11] MEDS: Latanoprost 0.005% Ophth Soln 2.5 ML Bottle EYEBOTH SCH (21:35)
[2023-02-11] MEDS: Albuterol/Ipratropium 3.0-0.5 MG/3 ML Neb Soln NEB PRN (22:34)
[2023-02-12] MEDS: Piperacillin/Tazobactam 3.375 GM in Sodium Chloride 0.9% 100 ML IV SCH ×2 (05:14→12:03)
[2023-02-12] MEDS: Acetaminophen 500 MG Tab PO SCH (05:14)
[2023-02-12 07:27] LABS: ANION GAP 13.9 mEq/L (7-13)
[2023-02-12] MEDS: busPIRone 15 MG Tab PO SCH (08:35)
[2023-02-12] MEDS: Bumetanide 1 MG Tab PO SCH (08:35)
[2023-02-12] MEDS: guaiFENesin 600 MG Tab.ER PO SCH (08:36)
[2023-02-12] MEDS: FLUoxetine 10 MG Cap PO SCH (08:36)
[2023-02-12] MEDS: Gabapentin 300 MG Cap PO SCH (08:36)
[2023-02-12] MEDS: Omeprazole 20 MG Cap.CR PO SCH (08:36)
[2023-02-12] MEDS: Aspirin 81 MG Tab.Chew PO SCH (08:36)
[2023-02-12] MEDS: Allopurinol 100 MG Tab PO SCH (08:36)
[2023-02-12] MEDS: Saccharomyces Boulardii (Probiotic) 250 MG Cap PO SCH (08:36)
[2023-02-12] MEDS: Tamsulosin 0.4 MG Cap.ER PO SCH (08:36)
[2023-02-12] MEDS: Famotidine 20 MG Tab PO SCH (08:37)
[2023-02-12] MEDS: Enoxaparin 40 MG/0.4 ML Syringe SUBCUT SCH (08:38)
[2023-02-12] MEDS: VANCOmycin 1.5 GM/300 ML 1.5 GM in Premix Bag 1 BAG IV SCH (08:39)
[2023-02-12] MEDS: Insulin Lispro 100 Units/ML 3 ML Vial SUBCUT SCH ×2 (08:40→11:57)
[2023-02-12] MEDS: Lisinopril 20 MG Tab PO SCH (08:41)
[2023-02-12] MEDS: BUPRENORPHINE HCL SL SCH (08:52)
[2023-02-12] MEDS: NALOXONE HCL SL SCH (08:52)
== END 2023-02-12 13:30 | disposition home or self-care (01) | DRG 871 ==
LOC: DL.ED 05:56 → DL.MS 08:53 → DL.ED 09:53
PROVIDERS: ADMIT Internal Medicine; ATTEND Internal Medicine
DX: A41.9 Sepsis, unspecified organism (principal); J18.9 Pneumonia, unspecified organism; J96.01 Acute respiratory failure with hypoxia; L97.929 Non-pressure chronic ulcer of unspecified part of left lower leg with unspecified severity; L97.919 Non-pressure chronic ulcer of unspecified part of right lower leg with unspecified severity; K55.9 Vascular disorder of intestine, unspecified; E87.20 Acidosis, unspecified; H54.7 Unspecified visual loss; H91.90 Unspecified hearing loss, unspecified ear; Z20.822 Contact with and (suspected) exposure to COVID-19; K21.9 Gastro-esophageal reflux disease without esophagitis; K59.09 Other constipation; E11.21 Type 2 diabetes mellitus with diabetic nephropathy; E11.40 Type 2 diabetes mellitus with diabetic neuropathy, unspecified; M19.90 Unspecified osteoarthritis, unspecified site; M10.9 Gout, unspecified; F41.0 Panic disorder [episodic paroxysmal anxiety]; M79.7 Fibromyalgia; F32.A Depression, unspecified; E11.622 Type 2 diabetes mellitus with other skin ulcer; E66.9 Obesity, unspecified; E11.65 Type 2 diabetes mellitus with hyperglycemia; R79.1 Abnormal coagulation profile; F41.1 Generalized anxiety disorder; I10 Essential (primary) hypertension; E78.00 Pure hypercholesterolemia, unspecified; F11.90 Opioid use, unspecified, uncomplicated; Z79.82 Long term (current) use of aspirin; Z68.36 Body mass index [BMI] 36.0-36.9, adult; Z79.899 Other long term (current) drug therapy; Z98.49 Cataract extraction status, unspecified eye; Z88.1 Allergy status to other antibiotic agents; Z86.14 Personal history of Methicillin resistant Staphylococcus aureus infection; Z28.9 Immunization not carried out for unspecified reason; Z86.16 Personal history of COVID-19; Z87.01 Personal history of pneumonia (recurrent)
CPT/HCPCS: 0241U; 36415; 71045; 71046; 71275; 80053; 80202; 80305-QW; 80307; 82947; 83605; 83735; 83880; 84145; 84484; 85025; 85379; 86140; 87040; 93005; 93010; 94010; 94640; 96361; 96365; 96367; 96372; 96375; 99232; 99233; 99238; 99285; 99285-25; A9270-GY; J0696; J1650; J1885; J2543; J3370; J3490; J7030; J7040; J7620-GY; Q9967

== ENCOUNTER 2023-02-23 07:05 | Emergency (ER) | payer MEDICARE, MEDICAID ==
[2023-02-23 07:40] LABS: BASOPHILS PERCENT AUTO 0.5 % (0.0-1.0); EOSINOPHILS PERCENT AUTO 0.6 % (1.0-3.0); HEMATOCRIT 36.7 % (40.0-54.0); LYMPHOCYTES PERCENT AUTO 11.4 % (20.5-50.1); MEAN CORPUSCULAR HEMOGLOBIN 28.2 pg (27.0-34.0); MEAN CORPUSCULAR HGB CONC 32.7 g/dL (33.0-35.0); MEAN CORPUSCULAR VOLUME 86.2 fL (80-100); MONOCYTES PERCENT AUTO 5.8 % (2-8); NEUTROPHILS PERCENT AUTO 81.7 % (42.2-75.2); PLATELET COUNT,PLT 305 10^3/uL (150-450); RED BLOOD CELL COUNT 4.26 10^6/uL (4.6-6.2); WHITE BLOOD CELL COUNT,WBC 8.3 10^3/uL (5.0-10.0)
[2023-02-23 07:57] LABS: APPEARANCE,URINE CLEAR (CLEAR); BILIRUBIN,URINE NEGATIVE (NEGATIVE); COLOR,URINE YELLOW (YELLOW); GLUCOSE,URINE NEGATIVE (NEGATIVE); KETONES,URINE TRACE (NEGATIVE); LEUKOCYTE ESTERASE,URINE NEGATIVE (NEGATIVE); NITRITE,URINE NEGATIVE (NEGATIVE); OCCULT BLOOD,URINE NEGATIVE (NEGATIVE); PROTEIN,URINE 100 (NEGATIVE); UROBILINOGEN,URINE 0.2 mg/dL (0.2-1.0)
[2023-02-23 07:59] LABS: PROTHROMBIN TIME 9.9 SEC (9.0-12.0); PTT,PARTIAL THROMBOPLSTIN TIME 25.9 SEC (22.0-34.0)
[2023-02-23 08:02] LABS: AMPHETAMINES,URINE NEGATIVE (NEGATIVE); BARBITURATES,URINE NEGATIVE (NEGATIVE); BENZODIAZEPINE,URINE NEGATIVE (NEGATIVE); MDMA (ECSTASY), URINE NEGATIVE (NEGATIVE); METHADONE,URINE NEGATIVE (NEGATIVE); METHAMPHETAMINES,URINE NEGATIVE (NEGATIVE); OPIATES,URINE NEGATIVE (NEGATIVE); OXYCODONE,URINE NEGATIVE (NEGATIVE); PHENCYCLIDINE,URINE NEGATIVE (NEGATIVE); TCA,URINE POSITIVE (NEGATIVE)
[2023-02-23 08:05] LABS: RBC,URINE NOT SEEN /HPF (0-5); WBC,URINE 0-5 /HPF (0-5/HPF)
[2023-02-23 08:06] LABS: BACTERIA,URINE FEW /HPF (0-FEW/HPF); EPITHELIAL CELLS,URINE FEW /HPF (NOT SEEN)
[2023-02-23 08:07] LABS: HYALINE CASTS,URINE FEW; MUCUS,URINE MANY /LPF (NOT SEEN)
[2023-02-23 08:08] LABS: GRANULAR CASTS,URINE RARE
[2023-02-23 08:09] LABS: A/G RATIO 0.9; ALANINE AMINOTRANSFERASE,ALT 22 U/L (16-63); ALBUMIN 3.6 g/dL (3.4-5.0); ALKALINE PHOSPHATASE 84 U/L (46-116); AMYLASE 43 U/L (25-115); ANION GAP 16.8 mEq/L (7-13); ASPARTATE AMNIOTRANSFERASE,AST 26 U/L (15-37); BILIRUBIN TOTAL 0.3 mg/dL (0.2-1.0); BLOOD UREA NITROGEN,BUN 13 mg/dL (7-18); BUN/CREATININE RATIO 16.9 (No establ ref range); CALCIUM 8.5 mg/dL (8.5-10.1); CARBON DIOXIDE,CO2 26 mmol/L (21-32); CHLORIDE,CL 100 mmol/L (98-107); CREATININE 0.77 mg/dL (0.70-1.30); EST CRCL DRUG DOSING (CG) 102.71 mL/min; ETHANOL BLOOD MEDICAL 166 mg/dL (0); GLUCOSE RANDOM 116 mg/dL (70-99); LIPASE 53 U/L (73-393); MAGNESIUM 1.9 mg/dL (1.8-2.4); POTASSIUM,K 3.8 mmol/L (3.5-5.1); PROTEIN TOTAL,TP 7.8 g/dL (6.4-8.2); SODIUM,NA 139 mmol/L (136-145); TSH ULTRASENSITIVE 1.04 uIU/mL (0.36-3.74)
[2023-02-23 08:12] LABS: B-TYPE NATRIURETIC PEPTIDE,BNP 6 pg/ml (0-100)
[2023-02-23] MEDS ORDERED: Ondansetron 4 MG/2 ML SDV IVPUSH ONE (08:14)
[2023-02-23] MEDS ORDERED: Iopamidol 755 Mg/ML 100 ML Bottle IVPUSH ONE ×3 (08:15→08:17)
[2023-02-23 08:21] LABS: C-REACTIVE PROTEIN < 0.2 mg/dL (0.0-0.9); ESTIMATED GFR 101 mL/min (>=60)
[2023-02-23 08:22] LABS: LACTIC ACID 3.7 mmol/L (0.4-2.0)
[2023-02-23] MEDS ORDERED: Sodium Chloride 0.9% 1,000 ML IV ONE (08:27)
[2023-02-23] MEDS: Sodium Chloride 0.9% 10 ML Syringe FLUSH PRN ×2 (08:27→09:06)
[2023-02-23 08:30] LABS: CORONAVIRUS COVID-19 NAA NEGATIVE (NEGATIVE); INFLUENZA A NAA NEGATIVE (NEGATIVE); INFLUENZA B NAA NEGATIVE (NEGATIVE); RESPIRATORY SYNCYTIAL VIR NAA NEGATIVE (NEGATIVE)
[2023-02-23] MEDS ORDERED: GI Cocktail Oral Solution 30 ML PO ONE (08:50)
[2023-02-23] MEDS ORDERED: Acetaminophen 500 MG Tab PO ONE (10:43)
[2023-02-23] MEDS ORDERED: hydrOXYzine HCl 25 MG Tab PO ONE (11:47)
== END 2023-02-23 12:01 | disposition home or self-care (01) ==
LOC: DL.ED 07:05
DX: K21.9 Gastro-esophageal reflux disease without esophagitis (principal); I87.2 Venous insufficiency (chronic) (peripheral); F41.9 Anxiety disorder, unspecified; F10.920 Alcohol use, unspecified with intoxication, uncomplicated; Y90.6 Blood alcohol level of 120-199 mg/100 ml; E78.00 Pure hypercholesterolemia, unspecified; I10 Essential (primary) hypertension; E11.21 Type 2 diabetes mellitus with diabetic nephropathy; E11.42 Type 2 diabetes mellitus with diabetic polyneuropathy; M10.9 Gout, unspecified; E66.9 Obesity, unspecified; Z68.37 Body mass index [BMI] 37.0-37.9, adult; Z86.16 Personal history of COVID-19; Z88.1 Allergy status to other antibiotic agents; Z79.82 Long term (current) use of aspirin; Z20.822 Contact with and (suspected) exposure to COVID-19
CPT/HCPCS: 0241U; 36415; 71275; 80053; 80305; 80307; 81001; 82150; 83605; 83690; 83735; 83880; 84443; 84484; 85025; 85379; 85610; 85730; 86140; 93005; 93010; 96361; 96374; 99284; 99285; A9270; J2405; J7030; Q9967; J3490

== ENCOUNTER 2023-03-03 07:16 | Emergency (ER) | payer MEDICARE, MEDICAID ==
[2023-03-03] MEDS ORDERED: Sodium Chloride 0.9% 10 ML Syringe FLUSH PRN (07:25)
[2023-03-03] MEDS ORDERED: Acetaminophen 500 MG Tab PO ONE (07:27)
[2023-03-03] MEDS ORDERED: Ondansetron 4 MG/2 ML SDV IV ONE (07:37)
[2023-03-03] MEDS ORDERED: fentaNYL 100 MCG/2 ML SDV IVPUSH ONE (07:37)
[2023-03-03] MEDS ORDERED: Sodium Chloride 0.9% 1,000 ML IV ONE ×3 (07:37→08:27)
[2023-03-03] MEDS ORDERED: Gentamicin 0.3% Ophth Soln 5 ML Bottle EYEBOTH ONE (07:39)
[2023-03-03 07:41] LABS: APPEARANCE,URINE CLEAR (CLEAR); BILIRUBIN,URINE NEGATIVE (NEGATIVE); COLOR,URINE YELLOW (YELLOW); GLUCOSE,URINE NEGATIVE (NEGATIVE); KETONES,URINE TRACE (NEGATIVE); LEUKOCYTE ESTERASE,URINE NEGATIVE (NEGATIVE); NITRITE,URINE NEGATIVE (NEGATIVE); OCCULT BLOOD,URINE SMALL (NEGATIVE); PH,URINE 5.5 (5.0-9.0); PROTEIN,URINE 30 (NEGATIVE); UROBILINOGEN,URINE 0.2 mg/dL (0.2-1.0)
[2023-03-03 07:42] LABS: METHAMPHETAMINES,URINE NEGATIVE (NEGATIVE)
[2023-03-03 07:43] LABS: AMPHETAMINES,URINE NEGATIVE (NEGATIVE); BARBITURATES,URINE NEGATIVE (NEGATIVE); BENZODIAZEPINE,URINE NEGATIVE (NEGATIVE); MDMA (ECSTASY), URINE NEGATIVE (NEGATIVE); METHADONE,URINE NEGATIVE (NEGATIVE); OPIATES,URINE NEGATIVE (NEGATIVE); OXYCODONE,URINE NEGATIVE (NEGATIVE); PHENCYCLIDINE,URINE NEGATIVE (NEGATIVE); TCA,URINE POSITIVE (NEGATIVE)
[2023-03-03 07:56] LABS: AMORPHOUS SEDIMENT,URINE FEW /HPF (NOT SEEN); BACTERIA,URINE RARE /HPF (0-FEW/HPF); EPITHELIAL CELLS,URINE FEW /HPF (NOT SEEN); MUCUS,URINE MODERATE /LPF (NOT SEEN); RBC,URINE 0-5 /HPF (0-5); WBC,URINE 0-5 /HPF (0-5/HPF)
[2023-03-03] MEDS ORDERED: Cefepime 2 GM Vial IVPUSH ONE (08:25)
[2023-03-03] MEDS ORDERED: diphenhydrAMINE 50 MG/ML SDV IVPUSH ONE (08:26)
[2023-03-03 08:33] LABS: BASOPHILS PERCENT AUTO 0.4 % (0.0-1.0); EOSINOPHILS PERCENT AUTO 1.1 % (1.0-3.0); HEMATOCRIT 35.5 % (40.0-54.0); HEMOGLOBIN 11.7 g/dL (14.0-18.0); LYMPHOCYTES PERCENT AUTO 10.8 % (20.5-50.1); MEAN CORPUSCULAR HEMOGLOBIN 28.6 pg (27.0-34.0); MEAN CORPUSCULAR VOLUME 86.8 fL (80-100); MONOCYTES PERCENT AUTO 12.1 % (2-8); NEUTROPHILS PERCENT AUTO 75.6 % (42.2-75.2); PLATELET COUNT,PLT 134 10^3/uL (150-450); RED BLOOD CELL COUNT 4.09 10^6/uL (4.6-6.2); WHITE BLOOD CELL COUNT,WBC 8.5 10^3/uL (5.0-10.0)
[2023-03-03] MEDS ORDERED: Tobramycin 0.3% Ophth Drops 5 ML Bottle EYEBOTH ONE (08:43)
[2023-03-03] MEDS ORDERED: LORazepam 1 MG Tab PO ONE (08:44)
[2023-03-03 08:53] LABS: CORONAVIRUS COVID-19 NAA NEGATIVE (NEGATIVE); INFLUENZA A NAA NEGATIVE (NEGATIVE); INFLUENZA B NAA NEGATIVE (NEGATIVE); RESPIRATORY SYNCYTIAL VIR NAA NEGATIVE (NEGATIVE)
[2023-03-03 08:57] LABS: ALBUMIN 3.3 g/dL (3.4-5.0); BILIRUBIN TOTAL 0.5 mg/dL (0.2-1.0); BUN/CREATININE RATIO 19.5 (No establ ref range); C-REACTIVE PROTEIN 3.8 mg/dL (0.0-0.9); CALCIUM 8.4 mg/dL (8.5-10.1); CREATININE 0.77 mg/dL (0.70-1.30); EST CRCL DRUG DOSING (CG) 102.71 mL/min; PROTEIN TOTAL,TP 7.5 g/dL (6.4-8.2)
[2023-03-03 09:01] LABS: LACTIC ACID 3.8 mmol/L (0.4-2.0)
[2023-03-03 09:02] LABS: INR 0.9 (0.9-1.2); PROTHROMBIN TIME 9.5 SEC (9.0-12.0); PTT,PARTIAL THROMBOPLSTIN TIME 29.4 SEC (22.0-34.0)
[2023-03-03 09:03] LABS: A/G RATIO 0.79
[2023-03-03] MEDS ORDERED: Mupirocin Oint 22 GM Tube TOP ONE (12:41)
[2023-03-03] MEDS ORDERED: Take Home: Doxycycline 100 MG Cap, 4 Cap Pack PO ONE (12:41)
[2023-03-03] MEDS ORDERED: Take Home: Clindamycin HCl 150 MG, 12 Cap Pack PO ONE (12:41)
== END 2023-03-03 14:51 | disposition home or self-care (01) ==
LOC: DL.ED 07:16
DX: R07.89 Other chest pain (principal); E78.00 Pure hypercholesterolemia, unspecified; I10 Essential (primary) hypertension; K21.9 Gastro-esophageal reflux disease without esophagitis; E11.21 Type 2 diabetes mellitus with diabetic nephropathy; E11.42 Type 2 diabetes mellitus with diabetic polyneuropathy; M10.9 Gout, unspecified; E66.9 Obesity, unspecified; Z68.34 Body mass index [BMI] 34.0-34.9, adult; Z88.1 Allergy status to other antibiotic agents; Z79.82 Long term (current) use of aspirin; Z79.899 Other long term (current) drug therapy; Z20.822 Contact with and (suspected) exposure to COVID-19
CPT/HCPCS: 0241U; 36415; 71045; 71250; 80053; 80305-QW; 80307; 81001; 83605; 84484; 85025; 85610; 85730; 86140; 87040; 87070; 87077; 87186; 93005; 93010; 96365; 96366; 96375; 99284; 99285-25; A9270-GY; J0692; J1200; J2405; J3010; J3370; J3490; J7030; J7040

== ENCOUNTER 2023-03-31 00:20 | Emergency (ER) | payer MEDICARE, MEDICAID ==
[2023-03-31 01:06] LABS: HEMATOCRIT 35.9 % (40.0-54.0); HEMOGLOBIN 11.8 g/dL (14.0-18.0); MEAN CORPUSCULAR HEMOGLOBIN 28.6 pg (27.0-34.0); MEAN CORPUSCULAR HGB CONC 32.9 g/dL (33.0-35.0); MEAN CORPUSCULAR VOLUME 86.9 fL (80-100); PLATELET COUNT,PLT 308 10^3/uL (150-450); RED BLOOD CELL COUNT 4.13 10^6/uL (4.6-6.2); WHITE BLOOD CELL COUNT,WBC 6.6 10^3/uL (5.0-10.0)
[2023-03-31] MEDS ORDERED: Ondansetron 4 MG/2 ML SDV IVPUSH ONE (01:09)
[2023-03-31 01:10] LABS: BASOPHILS PERCENT AUTO 0.6 % (0.0-1.0); EOSINOPHILS PERCENT AUTO 7.9 % (1.0-3.0); LYMPHOCYTES PERCENT AUTO 31.7 % (20.5-50.1); MONOCYTES PERCENT AUTO 10.7 % (2-8); NEUTROPHILS PERCENT AUTO 49.1 % (42.2-75.2)
[2023-03-31] MEDS ORDERED: Naloxone 2 MG/2 ML Syringe IVPUSH ONE (01:25)
[2023-03-31 01:28] LABS: A/G RATIO 0.8; ALBUMIN 3.5 g/dL (3.4-5.0); ANION GAP 12.9 mEq/L (7-13); BILIRUBIN TOTAL 0.2 mg/dL (0.2-1.0); BUN/CREATININE RATIO 12.6 (No establ ref range); CALCIUM 8.7 mg/dL (8.5-10.1); CREATININE 0.95 mg/dL (0.70-1.30); EST CRCL DRUG DOSING (CG) 83.25 mL/min; MAGNESIUM 2.2 mg/dL (1.8-2.4); POTASSIUM,K 3.9 mmol/L (3.5-5.1); PROTEIN TOTAL,TP 7.7 g/dL (6.4-8.2)
[2023-03-31 01:31] LABS: EOSINOPHILS PERCENT MAN 9 % (1-3); LYMPHOCYTES PERCENT MAN 30 % (20-50); MONOCYTES PERCENT MAN 12 % (2-8); SEG NEUTROPHILS PERCENT MAN 49 % (42-75)
[2023-03-31 01:36] LABS: APPEARANCE,URINE CLEAR (CLEAR); BILIRUBIN,URINE NEGATIVE (NEGATIVE); COLOR,URINE YELLOW (YELLOW); GLUCOSE,URINE NEGATIVE (NEGATIVE); KETONES,URINE NEGATIVE (NEGATIVE); LEUKOCYTE ESTERASE,URINE NEGATIVE (NEGATIVE); NITRITE,URINE NEGATIVE (NEGATIVE); OCCULT BLOOD,URINE NEGATIVE (NEGATIVE); PH,URINE 6.5 (5.0-9.0); PROTEIN,URINE NEGATIVE (NEGATIVE); UROBILINOGEN,URINE 0.2 mg/dL (0.2-1.0)
[2023-03-31 01:41] LABS: AMPHETAMINES,URINE NEGATIVE (NEGATIVE); BARBITURATES,URINE NEGATIVE (NEGATIVE); BENZODIAZEPINE,URINE NEGATIVE (NEGATIVE); MDMA (ECSTASY), URINE NEGATIVE (NEGATIVE); METHADONE,URINE NEGATIVE (NEGATIVE); METHAMPHETAMINES,URINE NEGATIVE (NEGATIVE); OPIATES,URINE NEGATIVE (NEGATIVE); OXYCODONE,URINE NEGATIVE (NEGATIVE); PHENCYCLIDINE,URINE NEGATIVE (NEGATIVE); TCA,URINE POSITIVE (NEGATIVE)
[2023-03-31 01:43] LABS: AMORPHOUS SEDIMENT,URINE RARE /HPF (NOT SEEN); BACTERIA,URINE RARE /HPF (0-FEW/HPF); EPITHELIAL CELLS,URINE FEW /HPF (NOT SEEN); MUCUS,URINE RARE /LPF (NOT SEEN); RBC,URINE 0-5 /HPF (0-5); WBC,URINE 0-5 /HPF (0-5/HPF)
== END 2023-03-31 06:23 | disposition home or self-care (01) ==
LOC: DL.ED 00:20
DX: J98.11 Atelectasis (principal); R09.02 Hypoxemia; F10.920 Alcohol use, unspecified with intoxication, uncomplicated; F19.929 Other psychoactive substance use, unspecified with intoxication, unspecified; I10 Essential (primary) hypertension; K21.9 Gastro-esophageal reflux disease without esophagitis; E11.21 Type 2 diabetes mellitus with diabetic nephropathy; M10.9 Gout, unspecified; E11.42 Type 2 diabetes mellitus with diabetic polyneuropathy; E66.9 Obesity, unspecified; Z68.36 Body mass index [BMI] 36.0-36.9, adult; Z86.16 Personal history of COVID-19; Z79.82 Long term (current) use of aspirin; Z79.899 Other long term (current) drug therapy; Z88.1 Allergy status to other antibiotic agents
CPT/HCPCS: 36415; 71045; 80053; 80305-QW; 80307; 81001; 83605; 83735; 83880; 84484; 85025; 93005; 93010; 96374; 96375; 99284; 99285-25; J2310; J2405

== ENCOUNTER 2023-06-03 10:14 | Emergency (ER) | payer MEDICAID ==
[2023-06-03] MEDS ORDERED: Sodium Chloride 0.9% 10 ML Syringe FLUSH PRN (10:35)
[2023-06-03] MEDS ORDERED: Ondansetron 4 MG/2 ML SDV IV ONE (10:37)
[2023-06-03] MEDS ORDERED: Pantoprazole 40 MG Vial IVPUSH ONE (10:37)
[2023-06-03] MEDS ORDERED: Sodium Chloride 0.9% 1,000 ML IV ONE (10:37)
[2023-06-03] MEDS ORDERED: LORazepam 2 MG/ML SDV IVPUSH ONE (10:38)
[2023-06-03] MEDS ORDERED: Thiamine 100 MG in Sodium Chloride 0.9% 100 ML IV ONE (10:40)
[2023-06-03 10:44] LABS: APPEARANCE,URINE CLEAR (CLEAR); BILIRUBIN,URINE NEGATIVE (NEGATIVE); COLOR,URINE DARK YELLOW (YELLOW); GLUCOSE,URINE NEGATIVE (NEGATIVE); KETONES,URINE 15 (NEGATIVE); LEUKOCYTE ESTERASE,URINE NEGATIVE (NEGATIVE); NITRITE,URINE NEGATIVE (NEGATIVE); OCCULT BLOOD,URINE NEGATIVE (NEGATIVE); PROTEIN,URINE 30 (NEGATIVE); UROBILINOGEN,URINE 0.2 mg/dL (0.2-1.0)
[2023-06-03 10:48] LABS: BASOPHILS PERCENT AUTO 0.2 % (0.0-1.0); EOSINOPHILS PERCENT AUTO 0.5 % (1.0-3.0); HEMATOCRIT 42.1 % (40.0-54.0); HEMOGLOBIN 13.8 g/dL (14.0-18.0); MEAN CORPUSCULAR HEMOGLOBIN 28.6 pg (27.0-34.0); MEAN CORPUSCULAR HGB CONC 32.8 g/dL (33.0-35.0); MEAN CORPUSCULAR VOLUME 87.3 fL (80-100); MONOCYTES PERCENT AUTO 7.3 % (2-8); PLATELET COUNT,PLT 158 10^3/uL (150-450); RED BLOOD CELL COUNT 4.82 10^6/uL (4.6-6.2); WHITE BLOOD CELL COUNT,WBC 11.3 10^3/uL (5.0-10.0)
[2023-06-03 10:50] LABS: BARBITURATES,URINE NEGATIVE (NEGATIVE); BENZODIAZEPINE,URINE NEGATIVE (NEGATIVE); MDMA (ECSTASY), URINE NEGATIVE (NEGATIVE); METHADONE,URINE NEGATIVE (NEGATIVE); METHAMPHETAMINES,URINE NEGATIVE (NEGATIVE); OPIATES,URINE NEGATIVE (NEGATIVE); PHENCYCLIDINE,URINE NEGATIVE (NEGATIVE); TCA,URINE POSITIVE (NEGATIVE)
[2023-06-03 10:51] LABS: AMPHETAMINES,URINE NEGATIVE (NEGATIVE); OXYCODONE,URINE NEGATIVE (NEGATIVE)
[2023-06-03 10:54] LABS: BACTERIA,URINE RARE /HPF (0-FEW/HPF); EPITHELIAL CELLS,URINE RARE /HPF (NOT SEEN); MUCUS,URINE FEW /LPF (NOT SEEN); RBC,URINE 0-5 /HPF (0-5); WBC,URINE 0-5 /HPF (0-5/HPF)
[2023-06-03 11:23] LABS: A/G RATIO 0.9; ALBUMIN 3.7 g/dL (3.4-5.0); ANION GAP 13.9 mEq/L (7-13); BILIRUBIN TOTAL 0.5 mg/dL (0.2-1.0); BUN/CREATININE RATIO 17.4 (No establ ref range); CALCIUM 8.6 mg/dL (8.5-10.1); CREATININE 0.86 mg/dL (0.70-1.30); EST CRCL DRUG DOSING (CG) 91.96 mL/min; POTASSIUM,K 3.9 mmol/L (3.5-5.1)
== END 2023-06-03 13:57 | disposition home or self-care (01) ==
LOC: DL.ED 10:14
DX: R11.2 Nausea with vomiting, unspecified (principal); R07.9 Chest pain, unspecified; F10.10 Alcohol abuse, uncomplicated; E11.21 Type 2 diabetes mellitus with diabetic nephropathy; E78.00 Pure hypercholesterolemia, unspecified; I10 Essential (primary) hypertension; K21.9 Gastro-esophageal reflux disease without esophagitis; M19.90 Unspecified osteoarthritis, unspecified site; E11.43 Type 2 diabetes mellitus with diabetic autonomic (poly)neuropathy; E66.9 Obesity, unspecified; Z86.16 Personal history of COVID-19; Z88.1 Allergy status to other antibiotic agents; Z79.82 Long term (current) use of aspirin; Z79.899 Other long term (current) drug therapy; Z68.34 Body mass index [BMI] 34.0-34.9, adult
CPT/HCPCS: 36415; 71045; 80053; 80305; 80307; 81001; 83690; 83880; 84484; 85025; 93005; 93010; 96361; 96365; 96375; 99284; 99285; C9113; J2060; J2405; J3411; J3490; J7030

== ENCOUNTER 2023-07-05 10:56 | Emergency (ER) | payer MEDICAID ==
[2023-07-05] MEDS ORDERED: Sodium Chloride 0.9% 10 ML Syringe FLUSH PRN (11:03)
[2023-07-05 11:48] LABS: BASOPHILS PERCENT AUTO 0.3 % (0.0-1.0); EOSINOPHILS PERCENT AUTO 1.3 % (1.0-3.0); HEMATOCRIT 37.9 % (40.0-54.0); HEMOGLOBIN 12.4 g/dL (14.0-18.0); LYMPHOCYTES PERCENT AUTO 8.8 % (20.5-50.1); MEAN CORPUSCULAR HEMOGLOBIN 28.4 pg (27.0-34.0); MEAN CORPUSCULAR HGB CONC 32.7 g/dL (33.0-35.0); MEAN CORPUSCULAR VOLUME 86.9 fL (80-100); MONOCYTES PERCENT AUTO 10.1 % (2-8); NEUTROPHILS PERCENT AUTO 79.5 % (42.2-75.2); PLATELET COUNT,PLT 177 10^3/uL (150-450); RED BLOOD CELL COUNT 4.36 10^6/uL (4.6-6.2); WHITE BLOOD CELL COUNT,WBC 8.9 10^3/uL (5.0-10.0)
[2023-07-05 12:05] LABS: INR 0.9 (0.9-1.2); PROTHROMBIN TIME 9.5 SEC (9.0-12.0)
[2023-07-05 12:10] LABS: ALBUMIN 3.1 g/dL (3.4-5.0); BILIRUBIN TOTAL 0.6 mg/dL (0.2-1.0); BUN/CREATININE RATIO 21.5 (No establ ref range); CALCIUM 8.5 mg/dL (8.5-10.1); CREATININE 0.65 mg/dL (0.70-1.30); EST CRCL DRUG DOSING (CG) 121.67 mL/min; MAGNESIUM 1.7 mg/dL (1.8-2.4); PROTEIN TOTAL,TP 7.2 g/dL (6.4-8.2)
[2023-07-05 12:18] LABS: A/G RATIO 0.76
== END 2023-07-05 12:27 | disposition home or self-care (01) ==
LOC: DL.ED 10:56
DX: R07.9 Chest pain, unspecified (principal); I25.10 Atherosclerotic heart disease of native coronary artery without angina pectoris; I10 Essential (primary) hypertension; E78.00 Pure hypercholesterolemia, unspecified; E11.21 Type 2 diabetes mellitus with diabetic nephropathy; E66.9 Obesity, unspecified; Z68.35 Body mass index [BMI] 35.0-35.9, adult; Z88.1 Allergy status to other antibiotic agents; Z79.82 Long term (current) use of aspirin; Z79.899 Other long term (current) drug therapy; Z86.16 Personal history of COVID-19; Z72.0 Tobacco use
CPT/HCPCS: 36415; 71046; 80053; 80307; 82150; 83690; 83735; 84484; 85025; 85610; 93010; 99284; 99285; J3490

== ENCOUNTER 2023-07-19 07:25 | Emergency (ER) | payer MEDICAID, MEDICARE ==
[2023-07-19] MEDS ORDERED: Aluminum Hydroxide/Magnesium Hydroxide/Simethicone Susp 30 ML Cup PO ONE (07:36)
[2023-07-19 07:58] LABS: BASOPHILS PERCENT AUTO 0.5 % (0.0-1.0); EOSINOPHILS PERCENT AUTO 2.1 % (1.0-3.0); HEMOGLOBIN 13.4 g/dL (14.0-18.0); LYMPHOCYTES PERCENT AUTO 14.1 % (20.5-50.1); MEAN CORPUSCULAR HEMOGLOBIN 28.5 pg (27.0-34.0); MEAN CORPUSCULAR HGB CONC 32.7 g/dL (33.0-35.0); MEAN CORPUSCULAR VOLUME 87.2 fL (80-100); MONOCYTES PERCENT AUTO 13.7 % (2-8); NEUTROPHILS PERCENT AUTO 69.6 % (42.2-75.2); PLATELET COUNT,PLT 303 10^3/uL (150-450); WHITE BLOOD CELL COUNT,WBC 8.6 10^3/uL (5.0-10.0)
[2023-07-19 08:21] LABS: A/G RATIO 0.8; ALANINE AMINOTRANSFERASE,ALT 34 U/L (16-63); ALBUMIN 3.6 g/dL (3.4-5.0); ALKALINE PHOSPHATASE 114 U/L (46-116); ANION GAP 13.1 mEq/L (7-13); ASPARTATE AMNIOTRANSFERASE,AST 29 U/L (15-37); BILIRUBIN TOTAL 0.7 mg/dL (0.2-1.0); BLOOD UREA NITROGEN,BUN 18 mg/dL (7-18); BUN/CREATININE RATIO 17.8 (No establ ref range); CALCIUM 8.5 mg/dL (8.5-10.1); CARBON DIOXIDE,CO2 30 mmol/L (21-32); CHLORIDE,CL 96 mmol/L (98-107); CREATININE 1.01 mg/dL (0.70-1.30); GLUCOSE RANDOM 87 mg/dL (70-99); LIPASE 17 U/L (16-77); POTASSIUM,K 4.1 mmol/L (3.5-5.1); PROTEIN TOTAL,TP 8.1 g/dL (6.4-8.2); SODIUM,NA 135 mmol/L (136-145)
[2023-07-19 08:22] LABS: ESTIMATED GFR 84 mL/min (>=60); ETHANOL BLOOD MEDICAL < 3 mg/dL (0)
[2023-07-19] MEDS ORDERED: Aspirin 81 MG Tab.Chew PO ONE (08:27)
[2023-07-19] MEDS ORDERED: Clopidogrel 75 MG Tab PO ONE (08:27)
[2023-07-19] MEDS ORDERED: Heparin Sodium/0.45% NaCl 25,000 UNITS/500 ML BAG IV SCH (08:45)
[2023-07-19] MEDS ORDERED: Heparin Sodium 5,000 Units/ML Vial IVPUSH ONE (08:52)
[2023-07-19] MEDS ORDERED: Lisinopril 20 MG Tab PO ONE (11:14)
== END 2023-07-19 14:33 ==
LOC: DL.ED 07:25
DX: R74.8 Abnormal levels of other serum enzymes (principal); F17.210 Nicotine dependence, cigarettes, uncomplicated; I10 Essential (primary) hypertension; E11.9 Type 2 diabetes mellitus without complications; K21.9 Gastro-esophageal reflux disease without esophagitis; E78.00 Pure hypercholesterolemia, unspecified; E66.9 Obesity, unspecified; Z68.34 Body mass index [BMI] 34.0-34.9, adult; Z86.16 Personal history of COVID-19; Z79.899 Other long term (current) drug therapy; Z79.82 Long term (current) use of aspirin; Z88.1 Allergy status to other antibiotic agents
CPT/HCPCS: 36415; 80053; 80307; 83690; 83735; 83880; 84484; 85025; 85610; 93005; 93010; 96365; 96366; 96376; 99284; 99285-25; A9270-GY; J1644

== ENCOUNTER 2023-07-31 02:22 | Emergency (ER) | payer MEDICAID ==
[2023-07-31 02:38] LABS: BASOPHILS PERCENT AUTO 0.5 % (0.0-1.0); EOSINOPHILS PERCENT AUTO 0.9 % (1.0-3.0); HEMATOCRIT 41.4 % (40.0-54.0); HEMOGLOBIN 15.3 g/dL (14.0-18.0); LYMPHOCYTES PERCENT AUTO 23.2 % (20.5-50.1); MEAN CORPUSCULAR HEMOGLOBIN 30.9 pg (27.0-34.0); MEAN CORPUSCULAR VOLUME 83.6 fL (80-100); MONOCYTES PERCENT AUTO 7.9 % (2-8); NEUTROPHILS PERCENT AUTO 67.5 % (42.2-75.2); PLATELET COUNT,PLT 296 10^3/uL (150-450); RED BLOOD CELL COUNT 4.95 10^6/uL (4.6-6.2); WHITE BLOOD CELL COUNT,WBC 7.4 10^3/uL (5.0-10.0)
[2023-07-31] MEDS: Sodium Chloride 0.9% 10 ML Syringe FLUSH PRN (02:41)
[2023-07-31 02:58] LABS: A/G RATIO 0.7; ALBUMIN 3.5 g/dL (3.4-5.0); ANION GAP 19.9 mEq/L (7-13); BILIRUBIN TOTAL 0.3 mg/dL (0.2-1.0); BUN/CREATININE RATIO 20.2 (No establ ref range); CALCIUM 8.6 mg/dL (8.5-10.1); CREATININE 0.84 mg/dL (0.70-1.30); EST CRCL DRUG DOSING (CG) 94.15 mL/min; POTASSIUM,K 3.9 mmol/L (3.5-5.1); PROTEIN TOTAL,TP 8.2 g/dL (6.4-8.2)
[2023-07-31 03:01] LABS: LACTIC ACID 3.5 mmol/L (0.4-2.0)
[2023-07-31] MEDS: Nitroglycerin 0.4 MG Tab.SL SL ONE (03:02)
[2023-07-31] MEDS: Lactated Ringers 1,000 ML IV ONE ×2 (03:02→03:57)
[2023-07-31 03:07] LABS: PROTHROMBIN TIME 9.8 SEC (9.0-12.0)
[2023-07-31 03:51] LABS: PTT,PARTIAL THROMBOPLSTIN TIME 26.7 SEC (22.0-34.0)
[2023-07-31] MEDS: Iopamidol 755 Mg/ML 100 ML Bottle IVPUSH ONE (04:31)
[2023-07-31 04:45] LABS: APPEARANCE,URINE CLEAR (CLEAR); BILIRUBIN,URINE NEGATIVE (NEGATIVE); COLOR,URINE YELLOW (YELLOW); GLUCOSE,URINE NEGATIVE (NEGATIVE); KETONES,URINE 40 (NEGATIVE); LEUKOCYTE ESTERASE,URINE NEGATIVE (NEGATIVE); NITRITE,URINE NEGATIVE (NEGATIVE); OCCULT BLOOD,URINE TRACE-INTACT (NEGATIVE); PROTEIN,URINE 100 (NEGATIVE); UROBILINOGEN,URINE 0.2 mg/dL (0.2-1.0)
[2023-07-31 04:46] LABS: AMPHETAMINES,URINE NEGATIVE (NEGATIVE); BARBITURATES,URINE NEGATIVE (NEGATIVE); BENZODIAZEPINE,URINE NEGATIVE (NEGATIVE); MDMA (ECSTASY), URINE NEGATIVE (NEGATIVE); METHADONE,URINE NEGATIVE (NEGATIVE); METHAMPHETAMINES,URINE NEGATIVE (NEGATIVE); OPIATES,URINE NEGATIVE (NEGATIVE); PHENCYCLIDINE,URINE NEGATIVE (NEGATIVE)
[2023-07-31 04:47] LABS: OXYCODONE,URINE NEGATIVE (NEGATIVE); TCA,URINE POSITIVE (NEGATIVE)
[2023-07-31 04:54] LABS: BACTERIA,URINE RARE /HPF (0-FEW/HPF); EPITHELIAL CELLS,URINE RARE /HPF (NOT SEEN); MUCUS,URINE FEW /LPF (NOT SEEN); RBC,URINE 0-5 /HPF (0-5); WBC,URINE 0-5 /HPF (0-5/HPF)
== END 2023-07-31 06:34 | disposition home or self-care (01) ==
LOC: DL.ED 02:22
DX: R07.89 Other chest pain (principal); G89.29 Other chronic pain; M25.511 Pain in right shoulder; E86.0 Dehydration; F10.920 Alcohol use, unspecified with intoxication, uncomplicated; E78.00 Pure hypercholesterolemia, unspecified; I10 Essential (primary) hypertension; K21.9 Gastro-esophageal reflux disease without esophagitis; I25.10 Atherosclerotic heart disease of native coronary artery without angina pectoris; E11.21 Type 2 diabetes mellitus with diabetic nephropathy; M10.9 Gout, unspecified; E66.9 Obesity, unspecified; Z68.31 Body mass index [BMI] 31.0-31.9, adult; Z86.16 Personal history of COVID-19; Z88.1 Allergy status to other antibiotic agents; Z79.899 Other long term (current) drug therapy; Z79.82 Long term (current) use of aspirin
CPT/HCPCS: 36415; 71045; 71275; 80053; 80305; 80307; 81001; 83605; 83690; 83880; 84484; 85025; 85379; 85610; 85730; 93005; 96360; 96361; 99285; A9270; J7120; Q9967; J3490

== ENCOUNTER 2023-08-02 11:46 | Emergency (ER) | payer MEDICAID ==
[2023-08-02] MEDS ORDERED: Sodium Chloride 0.9% 10 ML Syringe FLUSH PRN ×2 (11:47→12:15)
[2023-08-02] MEDS ORDERED: Thiamine 100 MG in Sodium Chloride 0.9% 100 ML IV ONE (11:48)
[2023-08-02] MEDS ORDERED: Sodium Chloride 0.9% 1,000 ML IV ONE ×2 (11:48→13:23)
[2023-08-02] MEDS ORDERED: Aluminum Hydroxide/Magnesium Hydroxide/Simethicone Susp 30 ML Cup PO ONE (12:08)
[2023-08-02] MEDS ORDERED: Sucralfate 1 GM Tab PO ONE (12:08)
[2023-08-02 12:32] LABS: BASOPHILS PERCENT AUTO 0.6 % (0.0-1.0); EOSINOPHILS PERCENT AUTO 0.9 % (1.0-3.0); HEMATOCRIT 44.1 % (40.0-54.0); HEMOGLOBIN 14.7 g/dL (14.0-18.0); MEAN CORPUSCULAR HEMOGLOBIN 28.3 pg (27.0-34.0); MEAN CORPUSCULAR HGB CONC 33.3 g/dL (33.0-35.0); MEAN CORPUSCULAR VOLUME 84.8 fL (80-100); MONOCYTES PERCENT AUTO 8.4 % (2-8); NEUTROPHILS PERCENT AUTO 68.1 % (42.2-75.2); PLATELET COUNT,PLT 233 10^3/uL (150-450); WHITE BLOOD CELL COUNT,WBC 8.7 10^3/uL (5.0-10.0)
[2023-08-02 12:55] LABS: A/G RATIO 0.7; ALBUMIN 3.5 g/dL (3.4-5.0); BILIRUBIN TOTAL 0.3 mg/dL (0.2-1.0); CALCIUM 8.6 mg/dL (8.5-10.1); CREATININE 0.75 mg/dL (0.70-1.30); EST CRCL DRUG DOSING (CG) 118.73 mL/min; PROTEIN TOTAL,TP 8.3 g/dL (6.4-8.2)
[2023-08-02] MEDS ORDERED: fentaNYL 250 MCG/5 ML SDV ONE (13:55)
[2023-08-02 14:42] LABS: ETHANOL BLOOD MEDICAL 349 mg/dL (0)
== END 2023-08-02 15:55 | disposition home or self-care (01) ==
LOC: DL.ED 11:46
DX: R07.9 Chest pain, unspecified (principal); F10.120 Alcohol abuse with intoxication, uncomplicated; I10 Essential (primary) hypertension; E78.00 Pure hypercholesterolemia, unspecified; E11.40 Type 2 diabetes mellitus with diabetic neuropathy, unspecified; E11.21 Type 2 diabetes mellitus with diabetic nephropathy; E66.9 Obesity, unspecified; K21.9 Gastro-esophageal reflux disease without esophagitis; Z86.16 Personal history of COVID-19; Z79.82 Long term (current) use of aspirin; Z79.899 Other long term (current) drug therapy; Z68.28 Body mass index [BMI] 28.0-28.9, adult
CPT/HCPCS: 36415; 71045; 80053; 80307; 83690; 83880; 84484; 85025; 93005; 93010; 96365; 99284; 99285-25; A9270-GY; J3411; J3490; J7030

== ENCOUNTER 2023-08-03 13:58 | Emergency (ER) | payer MEDICAID ==
[2023-08-03 14:39] LABS: BASOPHILS PERCENT AUTO 0.3 % (0.0-1.0); EOSINOPHILS PERCENT AUTO 0.3 % (1.0-3.0); LYMPHOCYTES PERCENT AUTO 6.1 % (20.5-50.1); MEAN CORPUSCULAR HEMOGLOBIN 28.3 pg (27.0-34.0); MEAN CORPUSCULAR HGB CONC 33.3 g/dL (33.0-35.0); MEAN CORPUSCULAR VOLUME 84.8 fL (80-100); MONOCYTES PERCENT AUTO 3.1 % (2-8); NEUTROPHILS PERCENT AUTO 90.2 % (42.2-75.2); PLATELET COUNT,PLT 199 10^3/uL (150-450); WHITE BLOOD CELL COUNT,WBC 15.9 10^3/uL (5.0-10.0)
[2023-08-03 14:49] LABS: CORONAVIRUS COVID-19 NAA NEGATIVE (NEGATIVE); INFLUENZA A NAA NEGATIVE (NEGATIVE); INFLUENZA B NAA NEGATIVE (NEGATIVE); RESPIRATORY SYNCYTIAL VIR NAA NEGATIVE (NEGATIVE)
[2023-08-03 14:49] LABS: A/G RATIO 0.8; ALBUMIN 3.4 g/dL (3.4-5.0); ANION GAP 18.7 mEq/L (7-13); BILIRUBIN TOTAL 0.6 mg/dL (0.2-1.0); BUN/CREATININE RATIO 18.5 (No establ ref range); CALCIUM 8.9 mg/dL (8.5-10.1); CREATININE 0.81 mg/dL (0.70-1.30); EST CRCL DRUG DOSING (CG) 97.63 mL/min; POTASSIUM,K 3.7 mmol/L (3.5-5.1); PROTEIN TOTAL,TP 7.7 g/dL (6.4-8.2)
[2023-08-03 14:55] LABS: APPEARANCE,URINE CLEAR (CLEAR); BILIRUBIN,URINE NEGATIVE (NEGATIVE); COLOR,URINE YELLOW (YELLOW); GLUCOSE,URINE NEGATIVE (NEGATIVE); KETONES,URINE 80 (NEGATIVE); LEUKOCYTE ESTERASE,URINE NEGATIVE (NEGATIVE); NITRITE,URINE NEGATIVE (NEGATIVE); OCCULT BLOOD,URINE TRACE-INTACT (NEGATIVE); PROTEIN,URINE 100 (NEGATIVE); UROBILINOGEN,URINE 0.2 mg/dL (0.2-1.0)
[2023-08-03 14:58] LABS: MDMA (ECSTASY), URINE NEGATIVE (NEGATIVE); METHADONE,URINE NEGATIVE (NEGATIVE); METHAMPHETAMINES,URINE NEGATIVE (NEGATIVE)
[2023-08-03 14:59] LABS: AMPHETAMINES,URINE NEGATIVE (NEGATIVE); BARBITURATES,URINE NEGATIVE (NEGATIVE); BENZODIAZEPINE,URINE NEGATIVE (NEGATIVE); OPIATES,URINE NEGATIVE (NEGATIVE); OXYCODONE,URINE NEGATIVE (NEGATIVE); PHENCYCLIDINE,URINE NEGATIVE (NEGATIVE); TCA,URINE POSITIVE (NEGATIVE)
[2023-08-03 15:01] LABS: BACTERIA,URINE RARE /HPF (0-FEW/HPF); EPITHELIAL CELLS,URINE RARE /HPF (NOT SEEN); MUCUS,URINE MANY /LPF (NOT SEEN); RBC,URINE 0-5 /HPF (0-5); WBC,URINE 0-5 /HPF (0-5/HPF)
[2023-08-03] MEDS ORDERED: Acetaminophen 325 MG Tab PO ONE (16:49)
[2023-08-03] MEDS ORDERED: Aluminum Hydroxide/Magnesium Hydroxide/Simethicone Susp 30 ML Cup PO ONE (16:50)
[2023-08-03] MEDS ORDERED: Magnesium Oxide 400 MG Tab PO ONE (16:51)
[2023-08-03] MEDS ORDERED: LORazepam 1 MG Tab PO ONE (17:27)
== END 2023-08-03 19:25 | disposition home or self-care (01) ==
LOC: DL.ED 13:58
DX: F10.10 Alcohol abuse, uncomplicated (principal); I10 Essential (primary) hypertension; E78.00 Pure hypercholesterolemia, unspecified; E11.21 Type 2 diabetes mellitus with diabetic nephropathy; E66.9 Obesity, unspecified; Z68.33 Body mass index [BMI] 33.0-33.9, adult; Z87.891 Personal history of nicotine dependence; Z86.16 Personal history of COVID-19; Z79.899 Other long term (current) drug therapy; Z88.1 Allergy status to other antibiotic agents; Z20.822 Contact with and (suspected) exposure to COVID-19
CPT/HCPCS: 0241U; 36415; 71045; 80053; 80305-QW; 80307; 81001; 83690; 84484; 85025; 93005; 93010; 99284; 99285; A9270-GY

== ENCOUNTER 2023-08-09 10:14 | Emergency (ER) | payer MEDICAID ==
[2023-08-09] MEDS ORDERED: Aluminum Hydroxide/Magnesium Hydroxide/Simethicone Susp 30 ML Cup PO ONE (10:27)
[2023-08-09] MEDS ORDERED: Ondansetron 4 MG Tab.DIS PO ONE (10:28)
[2023-08-09 10:32] LABS: HEMATOCRIT 38.3 % (40.0-54.0); HEMOGLOBIN 12.6 g/dL (14.0-18.0); MEAN CORPUSCULAR HEMOGLOBIN 28.4 pg (27.0-34.0); MEAN CORPUSCULAR HGB CONC 32.9 g/dL (33.0-35.0); MEAN CORPUSCULAR VOLUME 86.3 fL (80-100); PLATELET COUNT,PLT 173 10^3/uL (150-450); RED BLOOD CELL COUNT 4.44 10^6/uL (4.6-6.2); WHITE BLOOD CELL COUNT,WBC 5.6 10^3/uL (5.0-10.0)
[2023-08-09 10:53] LABS: BASOPHILS PERCENT AUTO 0.9 % (0.0-1.0); LYMPHOCYTES PERCENT AUTO 25.9 % (20.5-50.1); MONOCYTES PERCENT AUTO 16.9 % (2-8); NEUTROPHILS PERCENT AUTO 51.3 % (42.2-75.2)
[2023-08-09 10:55] LABS: A/G RATIO 0.8; ALBUMIN 3.4 g/dL (3.4-5.0); ANION GAP 12.4 mEq/L (7-13); BILIRUBIN TOTAL 0.2 mg/dL (0.2-1.0); BUN/CREATININE RATIO 17.5 (No establ ref range); CALCIUM 9.1 mg/dL (8.5-10.1); CREATININE 1.03 mg/dL (0.70-1.30); EST CRCL DRUG DOSING (CG) 76.78 mL/min; MAGNESIUM 1.5 mg/dL (1.8-2.4); POTASSIUM,K 3.4 mmol/L (3.5-5.1); PROTEIN TOTAL,TP 7.6 g/dL (6.4-8.2)
[2023-08-09 11:03] LABS: BAND PERCENT MAN 7 %; EOSINOPHILS PERCENT MAN 7 % (1-3); LYMPHOCYTES PERCENT MAN 25 % (20-50); MONOCYTES PERCENT MAN 10 % (2-8); SEG NEUTROPHILS PERCENT MAN 51 % (42-75)
== END 2023-08-09 13:39 | disposition home or self-care (01) ==
LOC: DL.ED 10:14
DX: R07.9 Chest pain, unspecified (principal); E66.9 Obesity, unspecified; K21.9 Gastro-esophageal reflux disease without esophagitis; E11.40 Type 2 diabetes mellitus with diabetic neuropathy, unspecified; E11.21 Type 2 diabetes mellitus with diabetic nephropathy; I10 Essential (primary) hypertension; Z86.16 Personal history of COVID-19; Z79.82 Long term (current) use of aspirin; Z79.899 Other long term (current) drug therapy; Z88.1 Allergy status to other antibiotic agents; Z68.32 Body mass index [BMI] 32.0-32.9, adult
CPT/HCPCS: 36415; 80053; 80307; 83690; 83735; 84484; 85025; 93005; 93010; 99284; 99285; A9270-GY

== ENCOUNTER 2023-08-18 19:23 | Emergency (ER) | payer MEDICAID ==
[~2023-08-18 19:23] MED LIST: Sodium Chloride 0.9% 10 ML Syringe FLUSH PRN
[2023-08-18 19:35] LABS: BASOPHILS PERCENT AUTO 1.3 % (0.0-1.0); EOSINOPHILS PERCENT AUTO 2.2 % (1.0-3.0); HEMATOCRIT 38.4 % (40.0-54.0); HEMOGLOBIN 12.7 g/dL (14.0-18.0); LYMPHOCYTES PERCENT AUTO 15.1 % (20.5-50.1); MEAN CORPUSCULAR HEMOGLOBIN 28.7 pg (27.0-34.0); MEAN CORPUSCULAR HGB CONC 33.1 g/dL (33.0-35.0); MEAN CORPUSCULAR VOLUME 86.7 fL (80-100); MONOCYTES PERCENT AUTO 10.5 % (2-8); NEUTROPHILS PERCENT AUTO 70.9 % (42.2-75.2); PLATELET COUNT,PLT 321 10^3/uL (150-450); RED BLOOD CELL COUNT 4.43 10^6/uL (4.6-6.2); WHITE BLOOD CELL COUNT,WBC 6.8 10^3/uL (5.0-10.0)
[2023-08-18 19:50] LABS: INR 0.9 (0.9-1.2); PROTHROMBIN TIME 9.3 SEC (9.0-12.0)
[2023-08-18] MEDS ORDERED: Ketorolac 30 MG/ML SDV IVPUSH ONE (19:52)
[2023-08-18 19:58] LABS: A/G RATIO 0.71; ALBUMIN 3.2 g/dL (3.4-5.0); ANION GAP 14.7 mEq/L (7-13); BILIRUBIN TOTAL 0.2 mg/dL (0.2-1.0); CALCIUM 8.4 mg/dL (8.5-10.1); CREATININE 0.81 mg/dL (0.70-1.30); EST CRCL DRUG DOSING (CG) 91.48 mL/min; POTASSIUM,K 3.7 mmol/L (3.5-5.1); PROTEIN TOTAL,TP 7.7 g/dL (6.4-8.2)
== END 2023-08-18 21:20 | disposition home or self-care (01) ==
LOC: DL.ED 19:23
DX: R07.9 Chest pain, unspecified (principal); I10 Essential (primary) hypertension; I25.10 Atherosclerotic heart disease of native coronary artery without angina pectoris; M10.9 Gout, unspecified; Z86.16 Personal history of COVID-19; Z88.1 Allergy status to other antibiotic agents; Z79.82 Long term (current) use of aspirin; Z79.899 Other long term (current) drug therapy
CPT/HCPCS: 36415; 71045; 80053; 80307; 83880; 84484; 85025; 85610; 93005; 93010; 96374; 99284; 99285; J1885; J3490